=== PATIENT | male | born 1970 | race Hispanic/Latino ===

== ENCOUNTER 2019-08-10 11:41 | Inpatient (IN) | payer BC, OTHER ==
[~2019-08-10] VITALS: Ht 177.8 cm; Wt 90.7 kg
--- NOTE | 2019-08-10 12:19 | Emergency Department Note ---
History of Present Illnes History of Present Illness Chief Complaint: General Medicine Complaints History of Present Illness This is a 49 year old male client here for evaluation, sent by Dr. Hodges for renal failure, uremia. Historian: Patient Arrival Mode: Car Consulting Engineer Required: No Onset (how long ago): week(s) Location: generalized Radiation: non-radiation Severity: moderate Onset quality: gradual Timing of current episode: constant Progression: worsening Chronicity: new Context: recent illness Relieving factors: none Exacerbating factors: none Associated symptoms: denies other symptoms Past Medical/Family History Physician Review I have reviewed the patient's past medical and family history. Any updates have been documented here. Past Medical History Recent Fever: No Clinical Suspicion of Infectio: No New/Unexplained Change in Ment: No Past Medical History: Hypertension, Diabetes, CHF, CVA, ESRD, Hyperlipedemia Past Surgical History: Appendectomy Other Surgery: eye surgery at 10 yrs old Social History Smoking Cessation: Former smoker Counseling Performed: No Alcohol Use: Occasional Any Illegal Drug Use: No TB Exposure/Symptoms: No Physically hurt or threatened: No Family History Family history of heart diseas: Yes Other Any Pre-Existing Lines (PICC,: No Review of Systems Review of Systems Constitutional: no symptoms EENTM: no symptoms Cardiovascular: no symptoms Respiratory: no symptoms Gastrointestinal: no symptoms Genitourinary: no symptoms Musculoskeletal: no symptoms Neurological: other (confusion at times, angry at times) Psychological: no symptoms Endocrine: no symptoms Hematological/Lymphatic: no symptoms Review of other systems All other systems reviewed and negative. Physical Exam Related Data Allergies: Coded Allergies: No Known Allergies (Unverified , 08/10/19) Triage Vital Signs Vital Signs Date Time Temp Pulse Resp B/P (MAP) Pulse Ox O2 Delivery O2 Flow Rate FiO2 08/10/19 11:44 99.5 52 16 134/73 95 Physical Exam CONSTITUTIONAL Constitutional: well-developed, well-nourished HENT HENT: normocephalic, atraumatic, oropharynx clear/moist, nose normal HENT L/R: left ext ear normal, right ext ear normal EYES Eyes: PERRL, conjunctivae normal NECK Neck: ROM normal PULMONARY Pulmonary: effort normal, breath sounds normal CARDIOVASCULAR Cardiovascular: regular rhythm, heart sounds normal, capillary refill normal, normal rate, gallop, LLE edema, RLE edema GASTROINTESTINAL Abdominal: soft, nontender, bowel sounds normal GENITOURINARY Genitourinary: exam deferred SKIN MUSCULOSKELETAL Musculoskeletal: ROM normal NEUROLOGICAL Neurological: alert, oriented x 3, no gross motor or sensory deficits PSYCHOLOGICAL Psychological: mood/affect normal, judgement normal Results Laboratory Laboratory Laboratory Tests Test 08/10/19 11:56 White Blood Count 5.61 x10e3/uL (4.8-10.8) Red Blood Count 2.89 x10e6/uL (4.3-5.7) Hemoglobin 9.0 g/dL (14.0-18.0) Hematocrit 27.7 % (38.2-49.6) Mean Corpuscular Volume 95.8 fL (81-99) Mean Corpuscular Hemoglobin 31.1 pg (28-32) Mean Corpuscular Hemoglobin Concent 32.5 g/dL (31-35) Red Cell Distribution Width 14.6 % (11.7-14.4) Platelet Count 127 x10e3/uL (140-360) Neutrophils (%) (Auto) 69.2 % (38.7-80.0) Lymphocytes (%) (Auto) 7.8 % (18.0-39.1) Monocytes (%) (Auto) 10.9 % (4.4-11.3) Eosinophils (%) (Auto) 11.4 % (0.0-6.0) Basophils (%) (Auto) 0.5 % (0.0-1.0) Neutrophils # (Auto) 3.9 (2.1-6.9) Lymphocytes # (Auto) 0.4 (1.0-3.2) Monocytes # (Auto) 0.6 (0.2-0.8) Eosinophils # (Auto) 0.6 (0.0-0.4) Basophils # (Auto) 0.0 (0.0-0.1) Absolute Immature Granulocyte (auto 0.01 x10e3/uL (0-0.1) Prothrombin Time 17.2 seconds (11.9-14.5) Prothromb Time International Ratio 1.31 Activated Partial Thromboplast Time 40.5 seconds (23.8-35.5) Sodium Level 139 mmol/L (136-145) Potassium Level 4.8 mmol/L (3.5-5.1) Chloride Level 104 mmol/L (98-107) Carbon Dioxide Level 21 mmol/L (22-29) Anion Gap 18.8 mmol/L (8-16) Blood Urea Nitrogen 116 mg/dL (7-26) Creatinine 8.67 mg/dL (0.72-1.25) Estimat Glomerular Filtration Rate 7 ML/MIN (60-) BUN/Creatinine Ratio 13 (6-25) Glucose Level 109 mg/dL (74-118) Calcium Level 6.9 mg/dL (8.4-10.2) Magnesium Level 2.1 MG/DL (1.3-2.1) Total Bilirubin 0.4 mg/dL (0.2-1.2) Aspartate Amino Transf (AST/SGOT) 15 IU/L (5-34) Alanine Aminotransferase (ALT/SGPT) 9 IU/L (0-55) Alkaline Phosphatase 73 IU/L (40-150) Creatine Kinase 258 IU/L (30-200) Creatine Kinase MB 10.20 ng/mL (0-5.0) Troponin I 0.055 ng/mL (0-0.300) B-Type Natriuretic Peptide 3397.5 pg/mL (0-100) Total Protein 6.5 g/dL (6.5-8.1) Albumin 2.9 g/dL (3.5-5.0) Globulin 3.6 g/dL (2.3-3.5) Albumin/Globulin Ratio 0.8 (0.8-2.0) Lab results reviewed: Yes Imaging Imaging results reviewed: Yes Impressions X-ray chest AP portable Comparison: None History: Renal failure Findings: Central airways unremarkable. Cardiomegaly. Right pleural effusion. No pneumothorax. Compressive atelectasis of the right lower lung zone. Bilateral pulmonary vascular redistribution with peribronchial thickening and faint nodular opacities. The findings support interstitial pulmonary edema. Visualized skeletal structures and upper abdomen unremarkable. Impression: Cardiomegaly. Right pleural effusion. Interstitial pulmonary edema. This could be cardiogenic or noncardiogenic volume overload edema due to renal failure. Clinical correlation is requested. Signed by: Eber Snow MD on 08/10/2019 1:05 PM Diagnostics Tests Diagnostic test(s) reviewed: Yes Procedures 12 Lead ECG Interpretation Consulting Engineer: Interpreted by ED physician Date: August 10, 2019 Time: 13:32 Prior MOTOR OPERATOR tracings: reviewed Rhythm: sinus bradycardia Rate: bradycardia (56) QRS axis: left Conduction: left bundle branch block ST segments normal: Yes T wave depression: aVL Q waves: V1, V2, V3 Clinical Impression: abnormal ECG Critical Care Time Subsequent provider I assumed direction of critical care for this patient from another provider of my specialty. Assessment & Plan Assessment & Plan Final Impression: (1) ESRD (end stage renal disease) (2) ESRD needing dialysis Assessment & Plan ADMIT - SPOKE WITH DR REYES AND DR MCKEON Depart Disposition: ADMITTED Last Vital Signs Date Time Temp Pulse Resp B/P (MAP) Pulse Ox O2 Delivery O2 Flow Rate FiO2 08/10/19 11:44 99.5 52 16 134/73 95 RAJWINDER MERRITT MD August 10, 2019 12:19
[2019-08-10 12:21] LABS: BASOPHILS % 0.5 % (0.0-1.0); EOSINOPHILS # (AUTO) 0.6 (0.0-0.4); EOSINOPHILS % 11.4 % (0.0-6.0); HEMATOCRIT 27.7 % (38.2-49.6); LYMPHOCYTES # (AUTO) 0.4 (1.0-3.2); LYMPHOCYTES % 7.8 % (18.0-39.1); MEAN CORPUSCULAR HEMOGLOBIN 31.1 pg (28-32); MEAN CORPUSCULAR HGB CONC 32.5 g/dL (31-35); MEAN CORPUSCULAR VOLUME 95.8 fL (81-99); MONOCYTES # (AUTO) 0.6 (0.2-0.8); MONOCYTES % 10.9 % (4.4-11.3); NEUTROPHILS # (AUTO) 3.9 (2.1-6.9); NEUTROPHILS % 69.2 % (38.7-80.0); PLATELET COUNT 127 x10e3/uL (140-360); RED BLOOD COUNT 2.89 x10e6/uL (4.3-5.7); RED CELL DISTRIBUTION WIDTH 14.6 % (11.7-14.4)
--- NOTE | 2019-08-10 12:23 | NUR ---
client feet unwrapped and noted to be red, scaly and dry. no weeping, no open blisters, no wounds.
[2019-08-10 12:44] LABS: INR 1.31; PROTHROMBIN TIME 17.2 seconds (11.9-14.5)
[2019-08-10 12:45] LABS: PARTIAL THROMBOPLASTIN TIME 40.5 seconds (23.8-35.5)
[2019-08-10 12:52] LABS: ALBUMIN 2.9 g/dL (3.5-5.0); ALBUMIN/GLOBULIN RATIO 0.8 (0.8-2.0); ANION GAP 18.8 mmol/L (8-16); CREATININE, SERUM 8.67 mg/dL (0.72-1.25); MAGNESIUM 2.1 MG/DL (1.3-2.1); POTASSIUM 4.8 mmol/L (3.5-5.1)
[2019-08-10 12:54] LABS: CALCIUM 6.9 mg/dL (8.4-10.2)
[2019-08-10 12:58] LABS: CREATINE KINASE MB 10.2 ng/mL (0-5.0)
--- NOTE | 2019-08-10 13:09 | Diagnostic Imaging Report ---
X-ray chest AP portable Comparison: None History: Renal failure Findings: Central airways unremarkable. Cardiomegaly. Right pleural effusion. No pneumothorax. Compressive atelectasis of the right lower lung zone. Bilateral pulmonary vascular redistribution with peribronchial thickening and faint nodular opacities. The findings support interstitial pulmonary edema. Visualized skeletal structures and upper abdomen unremarkable. Impression: Cardiomegaly. Right pleural effusion. Interstitial pulmonary edema. This could be cardiogenic or noncardiogenic volume overload edema due to renal failure. Clinical correlation is requested. Signed by: Eber Snow MD on 08/10/2019 1:05 PM
[2019-08-10] MEDS ORDERED: FAMOTIDINE 20 MG/2 ML VIAL IV SCH (14:00)
[2019-08-10] MEDS ORDERED: ONDANSETRON HCL INJ 2MG/ML 2ML 2 MG/ML VIAL IV PRN ×2 (14:00→17:30)
[2019-08-10] MEDS ORDERED: DEXTROSE 50% SYRINGE 50 ML IV PRN (14:15)
[2019-08-10] MEDS ORDERED: HYDRALAZINE HCL 20 MG/ML VIAL IV PRN (14:15)
[2019-08-10] MEDS ORDERED: HEPARIN SOD (PORCINE) 1000 UNIT/ML SDV ONE (15:20)
[2019-08-10] MEDS ORDERED: FENTANYL CITRATE/PF 100MCG/2 ML INJ ONE (15:20)
[2019-08-10] MEDS ORDERED: MIDAZOLAM HCL 2 MG/2 ML VIAL ONE (15:20)
[2019-08-10] MEDS ORDERED: INSULIN REGULAR, HUMAN 100 UNIT/1 ML 3ML VIAL SQ SCH (16:30)
--- NOTE | 2019-08-10 17:06 | Diagnostic Imaging Report ---
Procedure: Tunneled dialysis catheter placement. History: Need for hemodialysis. Attorney Recruiter: Eber Snow MD. Caustic Strength Inspector: Oralia Modality: Sonography and fluoroscopy. DOSE REDUCTION: The examination was performed according to departmental dose-optimization program. Fluoro time: 0.2 minutes Radiation dose for this procedure was 3.3 mGy air Kerma. Number of images: 13 Sedation: Versed 1.5 mg and fentanyl 50 mcg was given intravenously for conscious sedation. Vital signs were monitored throughout the procedure by a dedicated RN under direct supervision of Dr. Snow, and remained stable. Medicines: Not applicable. Anesthesia: Lidocaine local infiltration. Physician intraprocedure sedation time was approximately 30 minutes. Estimated blood loss: < 5 cc. Technique: Informed written consent was obtained. Discussion of risks, benefits, and alternatives were made with the patient. The patient expressed understanding and agreed to proceed. A universal timeout was performed prior to starting the procedure. The procedure room personnel used personal protective equipment. The operators used sterile gowns and gloves additionally. A preliminary ultrasonogram was performed of the neck that revealed a patent and compressible right internal jugular vein. Pertinent ultrasound images were stored in the PACS for documentation. A sterile prep and drape of the right neck and upper chest was performed using standard technique. Using aseptic precautions, real-time ultrasound guidance, the internal jugular vein was accessed after local anesthetic infiltration and dermatotomy with a micropuncture needle. A 018 guidewire was advanced into the central venous system under fluoroscopic guidance. Over the wire a micropuncture sheath was placed. Through the micropuncture sheath, a 035 wire was advanced into the venous system under fluoroscopic guidance. Over the wire a peel-away sheath was placed. After local anesthesia, an incision was created in the subclavicular exit site location and a cuffed tunneled dialysis catheter of an appropriate length was tunneled from the exit site to the venotomy site using a tunneling device. The catheter was advanced into the venous system through the peel-away sheath which was removed. The catheter aspirated and flushed well and was terminally packed with heparin 1000 units per cc. The catheter was secured to skin using nonabsorbable suture and a CHG dressing applied. The venotomy site was closed using Dermabond. An aseptic dressing was applied using the protocol for Dermabond. The patient was transferred to the recovery area and was discharged from the department in stable condition. Complications: None immediate. Device: 15.5 Mongolian x 19 cm cuff to tip palindrome catheter. Findings: Patent and compressible right internal jugular vein. Final image shows the catheter to be in good position with the catheter tip in the right atrium, an excellent position for use. There is no complication. Impression: Successful ultrasound and fluoroscopic guided right internal jugular vein route cuffed tunneled hemodialysis catheter placement as described above. Thank you for the opportunity to assist in the care of your patient. Signed by: Eber Snow MD on 08/10/2019 5:02 PM
[2019-08-10] MEDS: CALAMINE LOTION 4 OZ BOTTLE TP SCH ×2 (17:16→21:14)
[2019-08-10] MEDS: DIPHENHYDRAMINE HCL 25 MG CAP PO PRN ×2 (17:57→21:00)
[2019-08-10 17:59] VITALS: BP 146/91
[2019-08-10 18:00] VITALS: BP 146/91
[2019-08-10 18:07] VITALS: BP 146/91
--- NOTE | 2019-08-10 18:31 | NUR ---
patient received from ER via stretcher. dialysis to be started. see admit assess. consent obtained and all procedures explained.
[2019-08-10 20:00] VITALS: BP 123/62
[2019-08-10] MEDS: INSULIN REGULAR, HUMAN 100 UNIT/1 ML 3ML VIAL SQ SCH (21:00)
[2019-08-10 21:19] VITALS: BP 107/53
--- NOTE | 2019-08-10 21:40 | Consultation ---
DATE OF CONSULTATION: 08/10/2019 REFERRING PHYSICIANS: 1. Dr. Latisha Walters MD. 2. Av Daly MD. HISTORY OF PRESENT ILLNESS: The patient is a 49-year-old male, who presents to the emergency room with complaints of shortness of breath and fluid overload. He has a long history of chronic renal failure and now has reached end-stage. He has started hemodialysis today, but request also was made for placement of peritoneal dialysis catheter for long-term hemodialysis. The patient says his renal failure is secondary to hypertension. PAST MEDICAL HISTORY: As stated above history of blindness, history of hypertension and chronic kidney disease not reached end-stage. ALLERGIES: HE HAS NO KNOWN ALLERGIES. PAST SURGICAL HISTORY: Appendectomy and eye surgery. FAMILY HISTORY: Noncontributory. SOCIAL HISTORY: The patient does not smoke cigarettes or drink alcohol. REVIEW OF SYSTEMS: As stated above, otherwise was negative. PHYSICAL EXAMINATION: GENERAL: The patient is awake and alert. VITAL SIGNS: Normal. HEENT: He has decreased vision. NECK: No masses. LUNGS: Decreased breath sounds at the right base. CARDIAC: Regular rate and rhythm. ABDOMEN: Soft. There was no tenderness, no mass, and no distention. EXTREMITIES: Some edema. NEUROLOGIC: Intact. LABORATORY DATA: White blood count is normal, hemoglobin 9, hematocrit 27. Chemistries with elevated BUN 116, creatinine 8.67. ASSESSMENT: A 49-year-old male with end-stage renal disease will need access for long-term hemodialysis. We started hemodialysis now and once he is stable, then we will plan to schedule placement of tunneled peritoneal dialysis catheter in the operating room. This was explained to the patient. Thank you for asking me to see Mr. Hancock. MD EDILSON WoodruffG/MODL /[id number]
[2019-08-10 22:05] LABS: CLARITY,URINE CLEAR (CLEAR); COLOR,URINE YELLOW (YELLOW); KETONES,URINE NEGATIVE (NEGATIVE); LEUKOCYTE ESTERASE ,URINE NEGATIVE (NEGATIVE); NITRITE,URINE NEGATIVE (NEGATIVE); PROTEIN,URINE DIPSTICK 2+ (NEGATIVE); URINE UROBILINOGEN 0.2 mg/dL (0.2 - 1)
[2019-08-10 22:06] LABS: BILIRUBIN,URINE NEGATIVE (NEGATIVE)
[2019-08-10 22:23] LABS: BACTERIA,URINE MODERATE /HPF; RBC,URINE 0-5 /HPF (0-5)
[2019-08-10] MEDS: ACETAMINOPHEN 325 MG TAB PO PRN (23:51)
[2019-08-11] VITALS (8 sets, daily range): BP systolic 129–155; BP diastolic 67–87
--- NOTE | 2019-08-11 00:16 | History and Physical ---
PRIMARY CARE PHYSICIAN: [facility]. CHIEF COMPLAINT: Abnormal blood work. HISTORY OF PRESENT ILLNESS: This is a 49-year-old male with past medical history of high blood pressure, congestive heart failure, diabetes resulting in chronic kidney disease, stage 4. He reported that he was seeing Dr. Daly to initiate dialysis and he had some blood work drawn at the office and was called to present to the ER for his abnormal blood work. He denies any chest pain, shortness of breath, fever, chills, cough, nausea, or vomiting. PAST MEDICAL HISTORY: 1. Hypertension. 2. Congestive heart failure. 3. Diabetes type 2. 4. CKD 4. SURGICAL HISTORY: Denies any. FAMILY MEDICAL HISTORY: Reports mother had cancer, heart disease and father's side of the family has heart disease. SOCIAL HISTORY: He denies any tobacco or illicit drug use. He reports quit alcohol use at 2014 when he was diagnosed with congestive heart failure. ALLERGIES: NO KNOWN DRUG ALLERGIES. REVIEW OF SYSTEMS: GENERAL: No fever. HEENT: No headache. LUNGS: No shortness of breath or cough. CARDIOVASCULAR: No chest pain. GI: No nausea or vomiting. NEURO: No dizziness. SKIN: Very dry and scaly. PHYSICAL EXAMINATION: VITAL SIGNS: Temperature 98.8, pulse is 60, respirations 20, blood pressure 146/91, pulse ox is 100% on room air. GENERAL: No acute distress. HEENT: Normocephalic. Vision loss due to diabetes. NECK: Supple. LUNGS: Clear to auscultation. CARDIOVASCULAR: Regular rate and rhythm. GI: Soft and nontender. NEUROLOGIC: Alert, awake, and oriented x3. MUSCULOSKELETAL: Moves all extremities. SKIN: Generalized rash due to scratching and very dry skin with lower extremity discoloration. PSYCH: Calm. LABORATORY DATA: WBC 5.61, hemoglobin 9.0, hematocrit 27.7, platelet 127. Sodium 139, potassium 4.8, CO2 of 21, BUN is 116, creatinine is 8.67, glucose 109, calcium is 6.9, AST 15, ALT 9, CK 258, troponin 0.055. BNP 3397. PT 17.2, INR 1.31, APTT 40.5. IMAGING: Chest x-ray, cardiomegaly with right pleural effusion. Interstitial pulmonary edema, likely due to fluid volume overload edema due to renal failure. IMPRESSION: 1. Acute on chronic renal failure. Creatinine 8.67. IR was consulted for tunnel dialysis catheter. Nephrology is on the case to initiate dialysis. 2. Hypocalcemia. We will defer to Nephrology. 3. Hypertension. We will resume home medications once is reconciled. Currently stable. We will treat as needed with hydralazine IV. 4. 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 Sliding scale insulin a.c. and HS. 5. History of congestive heart failure. We will check echo. 6. Bilateral lower extremity discoloration and swelling. We will check venous Doppler to rule out DVT. 7. Deep venous thrombosis prophylaxis. Heparin subcu. Dictated by BUCKY Mackey Latisha Walters MD MY/MODL /[id number] Pt seen and examined on 08/10/19. Agree with the findings and plan as documented by BUCKY Toth. MACKENZIE
[2019-08-11 05:12] LABS: BASOPHILS % 0.5 % (0.0-1.0); EOSINOPHILS # (AUTO) 0.8 (0.0-0.4); EOSINOPHILS % 12.3 % (0.0-6.0); HEMATOCRIT 24.8 % (38.2-49.6); HEMOGLOBIN 8.1 g/dL (14.0-18.0); LYMPHOCYTES # (AUTO) 0.4 (1.0-3.2); MEAN CORPUSCULAR HEMOGLOBIN 31.5 pg (28-32); MEAN CORPUSCULAR HGB CONC 32.7 g/dL (31-35); MEAN CORPUSCULAR VOLUME 96.5 fL (81-99); MONOCYTES # (AUTO) 0.7 (0.2-0.8); MONOCYTES % 12.1 % (4.4-11.3); NEUTROPHILS # (AUTO) 4.2 (2.1-6.9); NEUTROPHILS % 68.8 % (38.7-80.0); PLATELET COUNT 95 x10e3/uL (140-360); RED BLOOD COUNT 2.57 x10e6/uL (4.3-5.7); RED CELL DISTRIBUTION WIDTH 14.3 % (11.7-14.4)
[2019-08-11 05:24] LABS: % IRON SATURATION 20 % (15-50); ALBUMIN 2.6 g/dL (3.5-5.0); ALBUMIN/GLOBULIN RATIO 0.8 (0.8-2.0); CHOL/HDL RATIO 2.3 (3.9-4.7); CREATININE, SERUM 6.34 mg/dL (0.72-1.25); IRON 50 ug/dL (65-175); TOTAL IRON BINDING CAPACITY 244 ug/dL (261-478); TRANSFERRIN 174 mg/dL (174-364)
[2019-08-11 05:27] LABS: CALCIUM 6.9 mg/dL (8.4-10.2)
[2019-08-11] MEDS: DIPHENHYDRAMINE HCL 25 MG CAP PO PRN (05:30)
[2019-08-11 05:41] LABS: CREATINE KINASE MB 11.4 ng/mL (0-5.0)
[2019-08-11] MEDS: INSULIN REGULAR, HUMAN 100 UNIT/1 ML 3ML VIAL SQ SCH ×4 (07:30→21:30)
[2019-08-11 07:33] LABS: EOSINOPHILS % (MANUAL) 12 % (0-7); LYMPHOCYTES % (MANUAL) 7 % (19-48); MONOCYTES % (MANUAL) 7 % (3.4-9.0); NEUTROPHILS % (MANUAL) 74 % (40-74); PLATELET ESTIMATE SLIGHTLY DECREASED; PLATELET MORPHOLOGY COMMENT NORMAL; RBC MORPHOLOGY COMMENT NORMAL
[2019-08-11 07:55] LABS: PLATELET CLUMPS RARE
[2019-08-11] MEDS ORDERED: SODIUM CHLORIDE 0.9% 1000ML 2,000 ML ONE (08:33)
[2019-08-11] MEDS: CALAMINE LOTION 4 OZ BOTTLE TP SCH ×3 (08:48→21:40)
--- OUTSIDE RECORDS SUMMARY | 2019-08-11 09:00 | XMS REPORT | Clinical Summary ---
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 hyperlipidemia type Active bumetanide (BUMEX) 2 mg Take 1/2 of a 180 tablet 1 tabletIndications: Acute tablet by 0 systolic congestive heart mouth 2 times failure daily. Active amLODIPine (NORVASC) 5 mg Take 1 tablet 90 tablet 1 tabletIndications: Acute by mouth 0 systolic congestive heart daily. failure Active clopidogreL (PLAVIX) 75 Take 1 tablet 90 tablet 1 mg tabletIndications: by mouth 0 Acute systolic congestive daily. heart failure Active carvediloL (COREG) 12.5 Take 1 tablet 180 tablet 6 mg tabletIndications: by mouth 2 0 Acute systolic congestive times daily heart failure, (with meals). Uncontrolled hypertension Active hydrocortisone 2.5 % Apply to 59 mL 0 08/01 lotionIndications: affected area 0 Itching 2 times daily. 08/02/2019 Discontinued (Therapy comple aurna) carvedilol (COREG) 6.25 Take 1 tablet 90 tablet 2 mg tabletIndications: by mouth 2 6 Acute systolic congestive times daily. heart failure 08/02/2019 Discontinued (Therapy comple aruna) metFORMIN (GLUCOPHAGE) Take 1 tablet 180 tablet 1 0 500 mg tabletIndications: by mouth 2 6 Acute systolic congestive times daily heart failure (with meals). 08/02/2019 Discontinued (Therapy comple aruna) losartan (COZAAR) 100 mg Take 1 tablet 90 tablet 6 tabletIndications: Acute by mouth 6 systolic congestive heart daily. failure 08/02/2019 Discontinued (Reorder) carvedilol (COREG) 12.5 Take 1 tablet 180 tablet 6 mg tabletIndications: by mouth 2 6 Acute systolic congestive times daily heart failure (with meals). 08/02/2019 Discontinued (Therapy comple aruna) atorvastatin (LIPITOR) 20 Take 1 tablet 90 tablet 3 mg tabletIndications: by mouth at 6 Acute systolic congestive bedtime heart failure nightly. 08/02/2019 Discontinued (Therapy comple aruna) lisinopril (PRINIVIL, Take 1 tablet 90 tablet 3 ZESTRIL) 20 mg by mouth 6 tabletIndications: Acute daily. systolic congestive heart failure 08/02/2019 Discontinued (Therapy comple aruna) furosemide (LASIX) 40 mg Take 1 tablet 90 tablet 3 tabletIndications: Acute by mouth 6 systolic congestive heart daily. failure 08/02/2019 Discontinued (Therapy comple aruna) metFORMIN (GLUCOPHAGE) Take 1 tablet 180 tablet 3 0 500 mg tabletIndications: by mouth 2 6 Acute systolic congestive times daily heart failure (with meals). 08/02/2019 Discontinued (Therapy comple aruna) glipiZIDE (GLUCOTROL) 5 Take 1 tablet 180 tablet 3 mg tabletIndications: by mouth 2 6 Acute systolic congestive times daily heart failure (before meals). 08/02/2019 Discontinued (Therapy comple aruna) hydrALAZINE (APRESOLINE) Take 2 540 tablet 3 1 25 mg tabletIndications: tablets by 6 Acute systolic congestive mouth every 8 heart failure hours. Active Problems Problem Noted Date Acute congestive heart failure 08/10/2015 LBBB (left bundle branch block) 08/10/2015 Uncontrolled hypertension 08/10/2015 Creatinine elevation 08/10/2015 Encounters Care Team Description Date Type Specialty Angie Ware NP Dermatologic problem (Primary Dx); Acute systolic congestive heart failure; Uncontrolled hypertension; Acute renal failure superimposed on stage 4 chronic kidney disease, unspecified acute renal failure type; Itching; Hyperlipidemia, unspecified hyperlipidemia type; Encounter for preventive care; Colon cancer screening 08/02/2019 Telephonic Family Practice Encounter after 08/09/2018 Immunizations Name Administration Dates Next Due PPV 23 Pneumococcal 08/09/2015 Polysaccaride Social History Date Tobacco Use Types Packs/Day Years Used Never Smoker Drinks/Week oz/Week Comments Alcohol Use No Sex Assigned at Date Recorded Not on file Industry Job Start Date Occupation Not on file Not on file Not on file Travel End Travel History Travel Start No recent travel history available. Date Recorded COVID-19 Exposure Response 08/01/2019 12:59 PM CDT In the last month, have you been in contact with No / Unsure someone who was confirmed or suspected to have Coronavirus / COVID-19? Last Filed Vital Signs Reading Time Taken Comments Vital Sign 149/82 08/02/2019 9:52 AM CDT Blood Pressure 58 08/02/2019 9:52 AM CDT Pulse - - Temperature - - Respiratory Rate - - Oxygen Saturation - - Inhaled Oxygen Concentration - - Weight - - Height - - Body Mass Index Plan of Treatment Health Maintenance Due Date Last Done Comments Colorectal Cancer Scrn 2018 Annual (FIT/FOBT) Age 50 to 75 IMM Influenza Seasonal 12/22/2019Dec to May (>/= 19 yrs) Procedures Comments Procedure Name Priority Date/Time Associated Diag nosis CBC Routine 08/04/2019 Uncontrolled hy pertension 11:07 AM CDT VIT D, 25-HYDROXY Routine 08/04/2019 Encounter fo r preventive 11:07 AM CDT care HIV-1/HIV-2 ROUTINE Routine 08/04/2019 Encounter for preventive SCREENING 11:07 AM CDT care HEPATITIS PANEL Routine 08/04/2019 Encounter for preventive 11:07 AM CDT care HEMOGLOBIN A1C Routine 08/04/2019 Encounter for p reventive 11:07 AM CDT care THYROID STIMULATING Routine 08/04/2019 Encounter for preventive HORMONE (TSH) 11:07 AM CDT care FREE T4 Routine 08/04/2019 Encounter for p reventive 11:07 AM CDT care COMPREHENSIVE METABOLIC Routine 08/04/2019 Uncont rolled hypertension PANEL 11:07 AM CDT CBC/DIFF Routine 08/04/2019 Uncontrolled hy pertension 11:07 AM CDT MICROALBUMIN / CREATININE Routine 08/04/2019 Acut e renal failure URINE RATIO 11:07 AM CDT superimposed on sta ge 4 chronic kidney disease, unspecified acute renal failure type LIPID PROFILE Routine 08/04/2019 Hyperlipidemia, 11:07 AM CDT unspecified hyperlipidemia type HEMOCCULT KIT FOR Routine 08/02/2019 Colon cancer screening SPECIMEN COLLECTION AT 9:48 AM CDT HOME after 08/09/2018 Results * CBC/Diff (08/04/2019 11:07 AM CDT) WBC 6.8 4.5 - 12.0 K/uL [facility] RBC 2.94 (L) 4.60 - 6.20 M/uL [facility] Hemoglobin 9.2 (L) 14.0 - 18.0 g/dL [facility] Hematocrit 28.6 (L) 40.0 - 54.0 % [facility] MCV 97.3 (H) 82.0 - 92.0 fL [facility] MCH 31.3 (H) 27.0 - 31.0 pg [facility] MCHC 32.2 32.0 - 36.0 g/dL [facility] RDW 53.5 (H) 35.1 - 43.9 fL [facility] Platelet 120 (L) 150 - 400 K/uL [facility] Mean Platelet 10.5 9.4 - 12.4 fL [facility] Volume [facility] Percent NRBC 0.0 % [facility] Neutrophil 72.3 (H) 34.0 - 67.9 % [facility] Lymphs 6.9 (L) 21.8 - 50.0 % [facility] Monocytes 9.7 5.3 - 12.0 % [facility] Eos 10.1 (H) 0.8 - 5.0 % [facility] Basos 0.4 0.2 - 1.2 % [facility] Immature 0.6 (H) 0.0 - 0.5 % [facility] Granulocytes [facility] Neutrophils 4.91 1.78 - 5.36 K/uL [facility] (Absolute) [facility] Lymphs 0.47 (L) 1.32 - 3.57 K/uL [facility] (Absolute) [facility] Monocytes(Absol 0.66 0.30 - 0.82 K/uL [facility] sher) [facility] Eos (Absolute) 0.69 (H) 0.04 - 0.54 K/uL [facility] Baso (Absolute) 0.03 0.01 - 0.08 K/uL [facility] Immature Grans 0.04 (H) 0.00 - 0.03 K/uL [facility] (Abs) [facility] Absolute NRBC 0.00 K/uL [facility] Specimen Blood Performing Organization Address [facility] one Number [facility] [address] [place] [address] [phone] * Vitamin D, 25-Hydroxycalciferol (08/04/2019 11:07 AM CDT) Vit D, 36.2 30.0 - 100.0 ng/mL [facility] 25-Hydroxy [facility] Vitamin D Sufficient Sufficient [facility] Interpretation Comment: [facility] Sufficient: >30.0 Insufficient: 20.0 - 29.9 Deficient: <20.0 Specimen Blood Performing Organization Address [facility] one Number [facility] [address] [place], [place] [id number] * HIV-1/HIV-2 Routine Screening (08/04/2019 11:07 AM CDT) Pathologist [facility] HIV-1/HIV-2 Negative Negative [facility] Specimen Blood Performing Organization Address [facility] one Number [facility] [address] [place], [place] [phone] * Microalb/Crea Ratio,Ur (08/04/2019 11:07 AM CDT) Microalbumin, 83.8 (H) <30.0 mg/dL [facility] Random [facility] Creatinine, 42 20 - 370 mg/dL [facility] Urine [facility] Urine 1,995.2 (H) 0.0 - 30.0 mg/g [facility] Microalbumin [facility] Specimen Urine - Voided, urine Performing Organization Address [facility] one Number [facility] [address] [place] [address] * Hemoglobin A1C (08/04/2019 11:07 AM CDT) Hemoglobin A1c 6.2 (H) 4.3 - 6.1 % [facility] Estimated 131 (H) 70 - 110 mg/dL [facility] Average Glucose [facility] Specimen Blood Performing Organization Address [facility] one Number [facility] [address] [place] [address] [phone] * Comprehensive Metabolic Panel (08/04/2019 11:07 AM CDT) Sodium 139 136 - 145 mmol/L [facility] Potassium 4.9 3.5 - 5.1 mmol/L [facility] Chloride 101 98 - 107 mmol/L [facility] CO2 26 21 - 31 mmol/L [facility] Glucose 118 (H) 70 - 110 mg/dL [facility] Calcium 7.1 (L) 8.6 - 10.3 mg/dL [facility] Urea Nitrogen 128.0 (HH) 7.0 - 25.0 mg/dL [facility] Creatinine 8.2 (HH) 0.7 - 1.3 mg/dL [facility] Alkaline 75 34 - 104 U/L [facility] Phosphatase [facility] ALT 9 7 - 52 U/L [facility] AST 13 13 - 39 U/L [facility] Bilirubin, 0.5 0.2 - 1.2 mg/dL [facility] Total [facility] Total Protein 5.8 (L) 6.0 - 8.3 g/dL [facility] GFR, Estimated 7 (L) >=90 mL/min/1.73 m2 [facility] Albumin 3.3 (L) 4.2 - 5.5 g/dL [facility] Anion Gap 12 5 - 16 mmol/L [facility] Specimen Blood Performing Organization Address [facility] one Number [facility] [address] [place] [address] * TSH (08/04/2019 11:07 AM CDT) TSH 3.89 0.45 - 5.33 uIU/mL [facility] Specimen Blood Performing Organization Address [facility] one Number [facility] [address] [place] [address] [phone] * Free T4 (08/04/2019 11:07 AM CDT) Free T4 1.07 0.64 - 1.42 ng/dl [facility] Specimen Blood Performing Organization Address [facility] one Number [facility] [address] [place] [address] [phone] * Lipid Profile (08/04/2019 11:07 AM CDT) Cholesterol 59.0 <=200.0 mg/dL [facility] Triglyceride 51 <150 mg/dL [facility] HDL 29.0 See Reference Range [facility] Narrative. mg/dL [facility] LDL 20 <100 mg/dL [facility] Comment: [facility] Optimal: < 100.0 mg/dL Near Optimal: 120-129 mg/dL Borderline: 130-159 mg/dL High: 160-189 mg/dL Very High: >=190 mg/dL Patient No [facility] Fasting? [facility] Specimen Blood Narrative Performed At Patient is not fasting. For a triglyceride result gre ater than 440 mg/dL, [facility] consider re-testing when the patient is in a fasting state. Performing Organization Address [facility] one Number [facility] [address] [place] [address] * Hepatitis Panel (08/04/2019 11:07 AM CDT) Hep C Vir Ab Negative Negative [facility] IgG [facility] Hep B Surface Negative Negative [facility] Ag [facility] Hep A Vir Ab Negative Negative [facility] IgM [facility] Hep B Core Ab Negative Negative [facility] IgM [facility] Specimen Blood Performing Organization Address [facility] one Number [facility] [address] [place] [address] after 08/09/2018 Insurance Type Payer Benefit Subscriber ID Effective Phone Address Plan / Dates Group BC/BS HMO BLUE xxxxxxxxxxxx 2019-P [phone] [address] [place] resent [id number] FELECIA RAMIREZ [id number] Guarantor Name Account Relation to Date of Phone Billin g Address Type Patient HANCOCK,TARAN Romero Personal/F Head of [address] amily Household (Home) [place], [place] [address] (Self) Advance Directives Date Inactivated Comments Code Status Date Activated 08/11/2015 3:39 PM Full Code 08/09/2015 4:28 PM 08/09/2015 4:28 PM Full Code 08/09/2015 2:02 PM
--- OUTSIDE RECORDS SUMMARY | 2019-08-11 09:01 | XMS REPORT | Continuity of Care Document ---
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 and stage 1 through stage 4 chronic kidney disease, or unspecified chronic kidney disease 04/22/2018 10/26/2018 [facility] CHF EXACERBATION Active 04/05/2018 [facility] SHORTNESS OF BREATH Active 04/05/2018 [facility] WEAKNESS Active 09/16/2017 [facility] BRAIN TIA Active 09/16/2017 [facility] Acute on chronic systolic (congestive) heart failure 10/26/2018 [facility] Other cardiomyopathies 10/26/2018 [facility] Hypocalcemia 10/26/2018 [facility] Hyperlipidemia, unspecified 10/26/2018 [facility] Anemia in other chronic diseases classified elsewhere 10/26/2018 [facility] Chronic kidney disease, unspecified 10/26/2018 [facility] Type 2 diabetes mellitus with diabetic c hronic kidney disease 10/26/2018 [facility] Personal history of transient ischemic a ttack (TIA), and cerebral infarction without residual deficits 10/26/2018 [facility] 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 10/26/2018 [facility] prison (current) use of antithromboti cs/antiplatelets 10/26/2018 [facility] Patient's noncompliance with other medic al treatment and regimen 10/26/2018 [facility] Cardiomyopathy (disorder) Acti ve Problem [facility] Chronic kidney disease stage 4 (disorder) Active Problem 03/10/2019 [facility] Diabetes mellitus (disorder) A ctive Problem [facility] Dyslipidemia (disorder) Active Problem 03/10/2019 [facility] Hypertensive disorder, systemic arterial (disorder) Active Problem 03/10/2019 [facility] HEART FAILURE, UNSPECIFIED Act martell [facility] PNEUMONIA, UNSPECIFIED ORGANISM Active [facility] END STAGE RENAL DISEASE Active [facility] HYPERKALEMIA Active [facility] Medications Medication Details Route Status Patient Instructions Ordering Provider Order Date Source Coreg Notes: Give with food. ( Same As: Coreg) Inactive 03/08/2019 [facility] bumetanide 2 mg oral tablet 2 mg = 1 tab, PO, BID, # 30 tab, 0 Refill(s), Pharmacy: [id number] Active 03/08/2019 [facility] Amlodipine Notes: (Same as: No rvasc) Inactive 03/08/2019 [facility] bumetanide 10 mg + Sodium Chloride 0.9% (titrate) 60 m L Notes: (Same As: Bumex) No Longer Active 03/07/2019 [facility] Bumex Notes: (Same As: Bumex) No Longer Active 03/04/2019 [facility] Calcium Gluconate Notes: WASTE : F/P - Sink; E - Municipal Trash Bin Inactive 03/04/2019 [facility] Melatonin 3 MG Extended Release Tablet 3 mg, 1 tab, Route: PO, Dosing Weight 102.273, kg, ONCE, PRN Sleep, Routine, Start date: 03/02/19 22:05:00 LANDSCAPE SPECIALIST Inactive 03/03/2019 [facility] heparin sodium, porcine 2500 UNT/ML Injectable Solutio n Notes: porcine heparin No Longer Active 03/03/2019 [facility] Melatonin 3 MG Extended Release Tablet Notes: (Same as: Melatonin) No Longer Active 03/03/2019 [facility] atorvastatin Notes: (Same as: Lipitor) No Longer Active 03/03/2019 [facility] Coreg Notes: Give with food. ( Same As: Coreg) No Longer Active 03/02/2019 [facility] Plavix Notes: (Same As: Plavix) No Longer Active 03/02/2019 [facility] 24 HR Nitroglycerin 0.4 MG/HR Transdermal Patch Notes: Apply only once for up to 12 hours in a 24 hour period (12 hours on and 12 hours off.) (Same as:Nitro-Dur,Deponit,Transderm Nitro) For topical use only. "Remove old patch before application of new patch" No Longer Active 03/02/2019 [facility] Saline Flush 0.9% Notes: (Same as: BD Posiflush) No Longer Active 03/02/2019 [facility] Furosemide Notes: (Same as: Shamika pereira) MEDICATION WASTE Product Size: 100 mg Product Wasted: ___ mg No Longer Active 03/02/2019 [facility] Sodium Chloride 0.9% (titrate) 60 mL + bumetanide 10 m g 60 mL, Rate: Infuse as directed, Dosing Weight 102.273, kg, Route: IV, Total Volume: 60 mL, Start Date: 03/02/19 8:11:00 LANDSCAPE SPECIALIST, Duration: 30 day, Stop date: 04/01/19 8:10:00 LANDSCAPE SPECIALIST, Replace Every: 24 hr Inactive 03/02/2019 [facility] influenza virus vaccine, inactivated Notes: (Same as: Fluzone Quadrivalent, Fluarix Quadrivalent) For patients 6 - 35 months of age (0.5 mL IM) For 3 years of age and older (0.5 mL IM) Shake well before use No Longer Active 03/02/2019 [facility] Furosemide Notes: (Same as: Shamika pereira) MEDICATION WASTE Product Size: 100 mg Product Wasted: ___ mg Inactive 03/02/2019 [facility] Dextrose 50% Syringe (D50W) 12 ,500 mg, 25 mL, Route: IVP, Drug Form: INJ, Dosing Weight 102.273, kg, PRN, PRN Blood Glucose Results, Start date: 03/02/19 5:17:00 LANDSCAPE SPECIALIST, Duration: 30 day, Stop date: 04/01/19 5:16:00 LANDSCAPE SPECIALIST, 0 No Longer Active 03/02/2019 [facility] Glucagon 1 mg, Route: IM, Drug form: PDR/INJ, PRN, Dosing Weight 102.273, kg, PRN Blood Glucose Results, Start date: 03/02/19 5:17:00 LANDSCAPE SPECIALIST, Duration: 30 day, Stop date: 04/01/19 5:16:00 LANDSCAPE SPECIALIST, 0 No Longer Active 03/02/2019 [facility] Insulin Lispro Notes: (Same as : Humalog) Roll in palms of hands gently; Do not shake vigorously. WASTE: F/P - Black; E - Municipal Trash Bin Stable for 28 days at room temperature. Expires in days from Date No Longer Active 03/02/2019 [facility] Albuterol 0.83 MG/ML Inhalant Solution 2.49 mg, Route: NEB, RQ6H, Dosing Weight 102.273, kg, Priority: Routine, Start date: 03/02/19 2:00:00 LANDSCAPE SPECIALIST, Duration: 30 day, Stop date: 03/31/19 20:00:00 LANDSCAPE SPECIALIST No Longer Active 03/02/2019 [facility] Albuterol 0.833 MG/ML / Ipratropium Brom chandler 0.167 MG/ML Inhalant Solution Notes: (Same as: Duoneb) No Longer Active 03/02/2019 [facility] Dextromethorphan Hydrobromide 2 MG/ML / Guaifenesin 20 MG/ML Oral Solution Notes: (dextromethorphan-guaifenesin 10- 100/5 ml LIQ) (Same as: Robitussin-DM) No Longer Active 03/02/2019 [facility] Ondansetron Notes: (Same as: Marcelo rubin) MEDICATION WASTE Product Size: 4 mg Product Wasted: ___ mg No Longer Active 03/02/2019 [facility] Ondansetron Notes: (Same as: Marcelo rubin) MEDICATION WASTE Product Size: 4 mg Product Wasted: ___ mg No Longer Active 03/02/2019 [facility] Saline Flush 0.9% Notes: (Same as: BD Posiflush) No Longer Active 03/02/2019 [facility] Bumetanide Notes: (Same As: Bu eloise) No Longer Active 03/02/2019 [facility] Tylenol Notes: Max acetaminoph en 4000 mg/day (4 gm/day). (Same as: Tylenol Extra Strength) No Longer Active 03/02/2019 [facility] Bumex Notes: (Same As: Bumex) Inactive 06/01/2018 [facility] carvedilol 12.5 mg oral tablet 12.5 mg = 1 tab, PO, Q12H, # 60 tab, 0 Refill(s), Pharmacy: [id number] Active 06/01/2018 [facility] Metolazone 5 MG Oral Tablet 10 mg = 2 tab, PO, Daily, # 60 tab, 0 Refill(s), Pharmacy: [facility] Active 06/01/2018 [facility] potassium chloride 20 mEq oral tablet, extended releas e 40 mEq = 2 tab, PO, Daily, # 60 tab, 0 Refill(s), Pharmacy: [facility] Active 06/01/2018 [facility] Calcium Carbonate 500 MG Chewable Tablet 2,000 mg = 4 tab, CHEW, TID-Meals, # 360 tab, 0 Refill(s), Pharmacy: [facility] Active 06/01/2018 [facility] bumetanide 1 mg oral tablet 2 mg = 2 tab, PO, BID, # 120 tab, 0 Refill(s), Pharmacy: [facility] Active 06/01/2018 [facility] potassium chloride 20 mEq oral tablet, extended releas e Notes: (Same as: K-Dur 20) "Do Not Crush" Give with food and full glass of water For patients unable to swallow tablet, dissolve in one half glass of water. Allow about 2 minutes for the tablets to disintegrate. Stir before giving to prepare slurry and administer. Please exclude Patients with feeding tube less than 14 Dominican (Dobhoff, J-tube etc) and pediatric and patients. Inactive 05/30/2018 [facility] Potassium Chloride Notes: (Samy e as: K-Dur 20) "Do Not Crush" Give with food and full glass of water For patients unable to swallow tablet, dissolve in one half glass of water. Allow about 2 minutes for the tab lets to disintegrate. Stir before giving to prepare slurry and administer. Please exclude Patients with feeding tube less than 14 [place] (Dobhoff, J-tube etc) and pediatric and patients. No Longer Active 05/30/2018 [facility] Metolazone 5 MG Oral Tablet No levi: (Same as: Zaroxolyn) No Longer Active 05/29/2018 [facility] Diuril Sodium Notes: (Same As: Diuril Sodium) Inactive 05/28/2018 [facility] Ferrlecit + Sodium Chloride 0.9% IV 100 mL 125 mg, 10 mL, Route: IVPB, Daily, Start date: 05/28/18 9:00:00 LANDSCAPE SPECIALIST, Duration: 8 doses or times, Stop date: 06/04/18 9:00:00 CDT No Longer Active 05/28/2018 [facility] Venofer 200 mg, Route: IVPB, D rug form: INJ, Daily, Dosing Weight 105.114, kg, Start date: 05/28/18 9:00:00 LANDSCAPE SPECIALIST, Duration: 5 doses or times, Stop date: 06/01/18 9:00:00 CDT No Longer Active 05/28/2018 [facility] Renvela Notes: Same as: Renvela No Longer Active 05/28/2018 [facility] Calcium Gluconate Notes: WASTE : F/P - Sink; E - Municipal Trash Bin No Longer Active 05/27/2018 [facility] Hydralazine Hydrochloride 25 MG Oral Tablet Notes: (Same as: Apresoline) May interfere w/enteral feedings Take With Food No Longer Active 05/27/2018 [facility] Imdur Notes: (Same as:Imdur) " Do Not Crush" Take on empty stomach/ full glass of water. Do not crush No Longer Active 05/27/2018 [facility] atorvastatin Notes: (Same as: Lipitor) No Longer Active 05/27/2018 [facility] Coreg Notes: Give with food. ( Same As: Coreg) No Longer Active 05/27/2018 [facility] Hydralazine Notes: (Same as: A presoline) Push over 5 minutes No Longer Active 05/26/2018 [facility] Calcium Carbonate Notes: (Same As: Tums) Calcium Carbonate 500 mg = 200 mg elemental calcium Dose = mg calcium carbonate ( mg elemental calcium) No Longer Active 05/26/2018 [facility] furosemide 100 mg + Sodium Chloride 0.9% IV 90 mL Notes: (Same as: Lasix) MEDICATION WASTE Product Size: 100 mg Product Wasted: ___ mg No Longer Active 05/26/2018 [facility] Lasix 10 mg, Route: IV, Contin uous, Dosing Weight 102.273, kg, Start date: 05/26/18 13:00:00 LANDSCAPE SPECIALIST, Duration: 30 day, Stop date: 06/25/18 13:59:00 CDT Inactive 05/26/2018 [facility] Lasix Notes: (Same as: Lasix) MEDICATION WASTE Product Size: 100 mg Product Wasted: ___ mg Inactive 05/26/2018 [facility] clopidogrel Notes: (Same As: P lavix) No Longer Active 05/26/2018 [facility] Aspirin 81 MG Enteric Coated Tablet Notes: Do not crush or chew. (Same As: Ecotrin) No Longer Active 05/26/2018 [facility] Hydralazine Hydrochloride 50 MG Oral Tablet 50 mg, 1 tab, Route: PO, Drug form: TAB, Daily, Dosing Weight 102.273, kg, Start date: 05/26/18 9:00:00 LANDSCAPE SPECIALIST, Duration: 30 day, Stop date: 06/24/18 9:00:00 CDT No Longer Active 05/26/2018 [facility] Isosorbide 60 mg, Route: PO, D rug form: ERTAB, QAM, Dosing Weight 102.273, kg, Start date: 05/26/18 9:00:00 LANDSCAPE SPECIALIST, Duration: 30 day, Stop date: 06/24/18 9:00:00 CDT No Longer Active 05/26/2018 [facility] Calcium Gluconate Notes: WASTE : F/P - Sink; E - Municipal Trash Bin No Longer Active 05/26/2018 [facility] cefepime Notes: (Same As: Yevgeniy rankin) MEDICATION WASTE Product Size: 1000 mg Product Wasted: ___ mg No Longer Active 05/26/2018 [facility] Calcium Gluconate 2,000 mg, [place]: IVPB, Drug form: INJ, ONCE, Dosing Weight 102.273, kg, Start date: 05/26/18 3:36:00 LANDSCAPE SPECIALIST, Stop date: 05/26/18 3:36:00 LANDSCAPE SPECIALIST Inactive 05/26/2018 [facility] Potassium Chloride 20 mEq, Rou te: [place], Drug form: SOLN, PRN, Dosing Weight 102.273, kg, PRN Abnormal Lab Result, For NON-ICU Patients Only, Start date: 05/26/18 3:36:00 LANDSCAPE SPECIALIST, Duration: 30 day, Stop date: 06/25/18 4:35:00 CDT Inactive 05/26/2018 [facility] potassium phosphate 15 mmol, R oute: IVPB, PRN, Dosing Weight 102.273, kg, PRN Abnormal Lab Result, For NON-ICU Patients Only., Start date: 05/26/18 3:36:00 LANDSCAPE SPECIALIST, Duration: 30 day, Stop date: 06/25/18 4:35:00 CDT Inactive 05/26/2018 [facility] potassium phosphate-sodium phosphate 250 mg-280 mg-160 mg oral powder for reconstitution 2 pkt, Route: PO, Dosing Weight 102.273, kg, PRN, PRN Abnormal Lab Result, For NON-ICU Patients Only, Start date: 05/26/18 3:36:00 LANDSCAPE SPECIALIST, Duration: 30 day, Stop date: 06/25/18 4:35:00 CDT Inactive 05/26/2018 [facility] sodium phosphate 30 mmol, Rout e: IVPB, PRN, Dosing Weight 102.273, kg, PRN Abnormal Lab Result, For NON-ICU Patients Only., Start date: 05/26/18 3:36:00 LANDSCAPE SPECIALIST, Duration: 30 day, Stop date: 06/25/18 4:35:00 CDT Inactive 05/26/2018 [facility] Magnesium Oxide 800 mg, Route: PO, PRN, Dosing Weight 102.273, kg, PRN Abnormal Lab Result, For NON-ICU Patients Only., Start date: 05/26/18 3:36:00 LANDSCAPE SPECIALIST, Duration: 30 day, Stop date: 06/25/18 4:35:00 CDT Inactive 05/26/2018 [facility] Magnesium Sulfate 2 gm, Route: IVPB, PRN, Dosing Weight 102.273, kg, PRN Abnormal Lab Result, For NON-ICU Patients Only., Start date: 05/26/18 3:36:00 LANDSCAPE SPECIALIST, Duration: 30 day, Stop date: 06/25/18 4:35:00 CDT Inactive 05/26/2018 [facility] Dextrose 50% Syringe 25 gm, 50 mL, Route: IVP, Drug Form: INJ, Dosing Weight 102.273, kg, ONCE, Start date: 05/25/18 21:46:00 LANDSCAPE SPECIALIST, Stop date: 05/25/18 21:46:00 LANDSCAPE SPECIALIST Inactive 05/26/2018 [facility] Insulin regular Notes: (Same a s: Humulin R and NovoLIN R) WASTE: F/P - Black; E - Municipal Trash Bin (Do not shake) Inactive 05/26/2018 [facility] Calcium Gluconate Notes: WASTE : F/P - Sink; E - Municipal Trash Bin Inactive 05/26/2018 [facility] Kayexalate Notes: (sodium poly styrene sulfonate 15 gm/60 ml SAM) Shake well before use. (Same as: Kayexalate, SPS) Inactive 05/26/2018 [facility] Saline Flush 0.9% Notes: Same as: BD Posiflush Sterile No Longer Active 05/26/2018 [facility] Dextrose 50% Syringe 12.5 gm, 25 mL, Route: IVP, Drug Form: INJ, Dosing Weight 102.273, kg, PRN, PRN Blood Glucose Results, Start date: 05/25/18 19:02:00 LANDSCAPE SPECIALIST, Duration: 30 day, Stop date: 06/24/18 20:01:00 CDT No Longer Active 05/26/2018 [facility] Glucagon 1 mg, Route: IM, Drug form: PDR/INJ, PRN, Dosing Weight 102.273, kg, PRN Blood Glucose Results, Start date: 05/25/18 19:02:00 LANDSCAPE SPECIALIST, Duration: 30 day, Stop date: 06/24/18 20:01:00 CDT No Longer Active 05/26/2018 [facility] Saline Flush 0.9% Notes: Same as: BD Posiflush Sterile No Longer Active 05/26/2018 [facility] Furosemide Notes: (Same as: Shamika pereira) MEDICATION WASTE Product Size: 40 mg Product Wasted: ___ mg No Longer Active 05/26/2018 [facility] Ondansetron Notes: (Same as: Marcelo rubin) MEDICATION WASTE Product Size: 4 mg Product Wasted: ___ mg No Longer Active 05/26/2018 [facility] Melatonin Notes: (Same as: Pamela atonin) No Longer Active 05/26/2018 [facility] Glucagon 1 mg, Route: IM, PRN, Dosing Weight 102.273, kg, PRN Blood Glucose Results, Start date: 05/25/18 18:57:00 LANDSCAPE SPECIALIST, Duration: 30 day, Stop date: 06/24/18 19:56:00 CDT Inactive 05/26/2018 [facility] Dextrose 50% Syringe 25 mL, [place]: IVP, Dosing Weight 102.273, kg, PRN, PRN Blood Glucose Results, Start date: 05/25/18 18:57:00 LANDSCAPE SPECIALIST, Duration: 30 day, Stop date: 06/24/18 19:56:00 CDT Inactive 05/26/2018 [facility] Dextrose 50% Syringe 25 gm, 50 mL, Route: IVP, Drug Form: INJ, Dosing Weight 102.273, kg, ONCE, STAT, Start date: 05/25/18 15:29:00 LANDSCAPE SPECIALIST, Stop date: 05/25/18 15:29:00 LANDSCAPE SPECIALIST Inactive 05/25/2018 [facility] Insulin regular Notes: (Same a s: Humulin R and NovoLIN R) WASTE: F/P - Black; E - Municipal Trash Bin (Do not shake) Inactive 05/25/2018 [facility] Calcium Gluconate Notes: WASTE : F/P - Sink; E - Municipal Trash Bin Inactive 05/25/2018 [facility] Saline Flush 0.9% Notes: Same as: BD Posiflush Sterile No Longer Active 05/25/2018 [facility] Kayexalate Notes: (sodium poly styrene sulfonate 15 gm/60 ml SAM) Shake well before use. (Same as: Kayexalate, SPS) Inactive 05/25/2018 [facility] Saline Flush 0.9% Notes: Same as: BD Posiflush Sterile No Longer Active 05/25/2018 [facility] amLODIPine 5 mg oral tablet 10 mg = 2 tab, PO, Daily, # 60 tab, 1 Refill(s), Pharmacy: [id number] Active 04/08/2018 [facility] Amlodipine Notes: (Same as: No rvasc) Inactive 04/08/2018 [facility] isosorbide mononitrate extended release Notes: (Same as:Imdur) "Do Not Crush" Take on empty stomach/ full glass of water. Do not crush Inactive 04/08/2018 [facility] Hydralazine Notes: (Same as: A presoline) May interfere w/enteral feedings Take With Food Inactive 04/07/2018 [facility] isosorbide mononitrate extended release Notes: (Same as:Imdur) "Do Not Crush" Take on empty stomach/ full glass of water. Do not crush Inactive 04/07/2018 [facility] Coreg Notes: Give with food. ( Same As: Coreg) No Longer Active 04/07/2018 [facility] Imdur Notes: (Same as:Imdur) " Do Not Crush" Take on empty stomach/ full glass of water. Do not crush Inactive 04/07/2018 [facility] Hydralazine Hydrochloride 50 MG Oral Tablet Notes: (Same as: Apresoline) May interfere w/enteral feedings Take With Food No Longer Active 04/07/2018 [facility] Calcium Gluconate Notes: WASTE : F/P - Sink; E - Municipal Trash Bin Inactive 04/06/2018 [facility] Lovenox Notes: (Same as: Loven ox) No Longer Active 04/06/2018 [facility] Saline Flush 0.9% Notes: (Same as: BD Posiflush) No Longer Active 04/06/2018 [facility] Furosemide Notes: (Same as: Shamika pereira) MEDICATION WASTE Product Size: 40 mg Product Wasted: ___ mg No Longer Active 04/06/2018 [facility] pantoprazole Notes: Tablet ivelisse uld not be chewed or crushed. (Same as: Protonix) N o Longer Active 04/06/2018 [facility] carvedilol Notes: Give with fo od. (Same As: Coreg) No Longer Active 04/06/2018 [facility] Calcium Gluconate Notes: WASTE : F/P - Sink; E - Municipal Trash Bin Inactive 04/06/2018 [facility] Aspirin 81 MG Enteric Coated Tablet Notes: Do not crush or chew. (Same As: Ecotrin) No Longer Active 04/06/2018 [facility] Hydralazine Notes: (Same as: A presoline) Push over 5 minutes No Longer Active 04/06/2018 [facility] clopidogrel 75 mg oral tablet 75 mg = 1 tab, PO, Bedtime, # 30 tab, 0 Refill(s) No Longer Active 04/06/2018 [facility] isosorbide mononitrate 60 mg oral tablet , extended release 60 mg = 1 tab, PO, QAM, 0 Refill(s) Active 04/06/2018 [facility] Furosemide 40 MG Oral Tablet [Lasix] 40 mg = 1 tab, PO, BID, 0 Refill(s) No Longer Active 04/06/2018 [facility] carvedilol 20 mg, PO, BID, 0 R efill(s) No Longer Active 04/06/2018 [facility] Hydralazine Hydrochloride 50 MG Oral Tablet 50 mg = 1 tab, PO, Daily, 0 Refill(s) Active 04/06/2018 [facility] atorvastatin 20 mg oral tablet 20 mg = 1 tab, PO, Bedtime, # 90 tab, 0 Refill(s) No Longer Active 04/06/2018 [facility] influenza virus vaccine, inactivated Notes: (Same as: Fluzone Quadrivalent, Fluarix Quadrivalent) For 3 years of age and older (0.5 mL IM) Shake well before use N o Longer Active 04/06/2018 [facility] Saline Flush 0.9% Notes: (Same as: BD Posiflush) No Longer Active 04/06/2018 [facility] Temazepam Notes: (Same As: Res toril) No Longer Active 04/06/2018 [facility] Ondansetron Notes: (Same as: Marcelo rubin) MEDICATION WASTE Product Size: 4 mg Product Wasted: ___ mg No Longer Active 04/06/2018 [facility] Lasix Notes: (Same as: Lasix) MEDICATION WASTE Product Size: 40 mg Product Wasted: ___ mg Inactive 04/06/2018 [facility] Furosemide 20 MG Oral Tablet [Lasix] 20 mg = 1 tab, PO, BID, # 60 tab, 0 Refill(s), Pharmacy: [facility] Active 09/17/2017 [facility] carvedilol 25 MG Oral Tablet [Coreg] 25 mg = 1 tab, PO, Daily, # 30 tab, 0 Refill(s), Pharmacy: [facility] Active 09/17/2017 [facility] clopidogrel 75 mg oral tablet 75 mg = 1 tab, PO, Daily, # 30 tab, 0 Refill(s), Pharmacy: [facility] Active 09/17/2017 [facility] atorvastatin 40 mg oral tablet 40 mg = 1 tab, PO, Bedtime, # 30 tab, 0 Refill(s), Pharmacy: [facility] Active 09/17/2017 [facility] Aspirin 81 MG Enteric Coated Tablet 81 mg = 1 tab, PO, Q24H, # 30 tab, 0 Refill(s), Pharmacy: [facility] Active 09/17/2017 [facility] Plavix Notes: (Same As: Plavix) Inactive 09/17/2017 [facility] heparin Notes: porcine heparin Inactive 09/17/2017 [facility] Saline Flush 0.9% Notes: (Same as: BD Posiflush) No Longer Active 09/17/2017 [facility] atorvastatin Notes: (Same as: Lipitor) No Longer Active 09/17/2017 [facility] Plavix Notes: (Same As: Plavix) Inactive 09/17/2017 [facility] calcium gluconate + Sodium Chloride 0.9% IV 40 mL Notes: WASTE: F/P - Sink; E - Municipal Trash Bin Inactive 09/17/2017 [facility] Calcium Gluconate 2,000 mg, [place]: IVPB, Drug form: INJ, ONCE, Dosing Weight 100, kg, Start date: 09/16/17 19:45:00 CDT, Stop date: 09/16/17 19:45:00 CDT Inactive 09/17/2017 [facility] Glipizide 5 MG Oral Tablet 5 m g = 1 tab, PO, BID, 0 Refill(s) No Longer Active 09/16/2017 [facility] Furosemide 20 MG Oral Tablet [Lasix] 20 mg = 1 tab, PO, BID, 0 Refill(s) No Longer Active 09/16/2017 [facility] carvedilol 25 MG Oral Tablet [Coreg] 25 mg = 1 tab, PO, Daily, 0 Refill(s) No Longer Active 09/16/2017 [facility] NIFEdipine 30 mg oral tablet, extended release 30 mg = 1 tab, PO, Daily, PRN Hypertension, # 30 tab, 0 Refill(s) Active 09/16/2017 [facility] Hydralazine Hydrochloride 25 MG Oral Tablet 25 mg = 1 tab, PO, QID, PRN Hypertension, # 360 tab, 0 Refill(s) Active 09/16/2017 [facility] Hydralazine 25 mg, Route: PO, Drug form: TAB, Q6H, Dosing Weight 100, kg, PRN Hypertension, Start date: 09/16/17 18:31:00 CDT, Duration: 30 day, Stop date: 10/16/17 18:30:00 CDT Inactive 09/16/2017 [facility] Aspirin 81 MG Enteric Coated Tablet Notes: Do not crush or chew. (Same As: Ecotrin) No Longer Active 09/16/2017 [facility] Insulin Lispro Notes: (Same as : Humalog ) Roll in palms of hands gently; Do not shake `vigorously. "Single Patient Use Only " WASTE: F/P - Black; E - [place] Trash Bin Stable for 28 days at room temp erature. Expires in days from Date No Longer Active 09/16/2017 [facility] Dextrose 50% Syringe 12.5 gm, 25 mL, Route: IVP, Drug Form: INJ, Dosing Weight 100, kg, PRN, PRN Blood Glucose Results, Start date: 09/16/17 15:55:00 CDT, Duration: 30 day, Stop date: 10/16/17 15:54:00 CDT No Longer Active 09/16/2017 [facility] Glucagon 1 mg, Route: IM, Drug form: PDR/INJ, PRN, Dosing Weight 100, kg, PRN Blood Glucose Results, Start date: 09/16/17 15:55:00 CDT, Duration: 30 day, Stop date: 10/16/17 15:54:00 CDT No Longer Active 09/16/2017 [facility] Saline Flush 0.9% Notes: (Same as: BD Posiflush) No Longer Active 09/16/2017 [facility] Acetaminophen Notes: Do not ex ceed 4 gm/day. (Same as: Tylenol) No Longer Active 09/16/2017 [facility] Sodium Chloride 0.9% IV 1,000 mL 1,000 mL, Rate: 75 ml/hr, Infuse over: 13.3 hr, Route: IV, Dosing Weight 100 kg, Total Volume: 1,000, Start date: 09/16/17 15:52:00 CDT, Duration: 30 day, Stop date: 10/16/17 15:51:00 CDT, 2.24, m2 Inactiv e 09/16/2017 [facility] Aspirin Notes: Take with food. Inactive 09/16/2017 [facility] Saline Flush 0.9% Notes: (Same as: BD Posiflush) No Longer Active 09/16/2017 [facility] Allergies, Adverse Reactions, Alerts Substance Category Reaction Severity Reaction type Status Date Reported Comments Source No Known Medication Allergies Assertion Drug aller gy [facility] Immunizations Immunization Date Given Site Status Last Updated Comments Source influenza virus vaccine, inactivated 06/01/2018 Right deltoid completed [facility] Results Order Name Results Value Reference Range Date Interpretation Comments Source CHEM PANEL Glucose Lvl 97 70 - 99 03/07/2019 [facility] CHEM PANEL BUN 130 7 - 22 03/07/2019 [facility] CHEM PANEL Creatinine Lvl 8.62 0.50 - 1.40 03/07/2019 [facility] CHEM PANEL Sodium Lvl 133 135 - 145 03/07/2019 [facility] CHEM PANEL Potassium Lvl 4.6 3.5 - 5.1 03/07/2019 [facility] CHEM PANEL Chloride Lvl 94 95 - 109 03/07/2019 [facility] CHEM PANEL CO2 27 24 - 32 03/07/2019 [facility] CHEM PANEL AGAP 16.6 10.0 - 20.0 03/07/2019 [facility] CHEM PANEL Calcium Lvl 5.8 8.5 - 10.5 03/07/2019 Result Comment: Critical Result(s) dania Pablo Floydcj at 03/07/2019 05:16 by AR. Read back OK. [facility] CHEM PANEL eGFR 6 03/07/2019 Result Comment: The eGFR is calculated using the CKD-EPI formula. In most young, healthy individuals the eGFR will be >90 mL/min/1.73m2. The eGFR declines with age. An eGFR of 60-89 may be normal in some populations, particularly the elderly, for whom the CKD-EPI formula has not been extensively validated. Use of the eGFR is not recommended in the following populations:

Individuals with unstable creatinine concentrations, including patients and those with serious co-morbid conditions.

Patients with extremes in muscle mass or diet.

The data above are obtained from the National Kidney Disease Education Program (NKDEP) which additionally recommends that when the eGFR is used in patients with extremes of body mass index for purposes of drug dosing, the eGFR should be multiplied by the estimated BMI. [facility] CHEM PANEL Glucose Lvl 121 70 - 99 03/05/2019 [facility] CHEM PANEL BUN 123 7 - 22 03/05/2019 [facility] CHEM PANEL Creatinine Lvl 8.59 0.50 - 1.40 03/05/2019 [facility] CHEM PANEL Sodium Lvl 130 135 - 145 03/05/2019 [facility] CHEM PANEL Potassium Lvl 4.3 3.5 - 5.1 03/05/2019 [facility] CHEM PANEL Chloride Lvl 91 95 - 109 03/05/2019 [facility] CHEM PANEL CO2 26 24 - 32 03/05/2019 [facility] CHEM PANEL AGAP 17.3 10.0 - 20.0 03/05/2019 [facility] CHEM PANEL Calcium Lvl 6.3 8.5 - 10.5 03/05/2019 Result Comment: Critical Result(s) Devi Covarrubias RN at 03/05/2019 05:56 by LT. Read back OK. [facility] CHEM PANEL eGFR 6 03/05/2019 Result Comment: The eGFR is calculated using the CKD-EPI formula. In most young, healthy individuals the eGFR will be >90 mL/min/1.73m2. The eGFR declines with age. An eGFR of 60-89 may be normal in some populations, particularly the elderly, for whom the CKD-EPI formula has not been extensively validated. Use of the eGFR is not recommended in the following populations:

Individuals with unstable creatinine concentrations, including patients and those with serious co-morbid conditions.

Patients with extremes in muscle mass or diet.

The data above are obtained from the National Kidney Disease Education Program (NKDEP) which additionally recommends that when the eGFR is used in patients with extremes of body mass index for purposes of drug dosing, the eGFR should be multiplied by the estimated BMI. [facility] HEMATOLOGY WBC 6.6 3.7 - 10.4 03/05/2019 [facility] HEMATOLOGY RBC 2.72 4.70 - 6.10 03/05/2019 [facility] HEMATOLOGY Hgb 8.7 14.0 - 18.0 03/05/2019 [facility] Hct 26.0 42.0 - 54.0 03/05/2019 [facility] MCV 95.5 80.0 - 94.0 03/05/2019 [facility] MCH 31.9 27.0 - 31.0 03/05/2019 [facility] MCHC 33.4 32.0 - 36.0 03/05/2019 [facility] RDW 15.9 11.5 - 14.5 03/05/2019 [facility] Platelet 97 133 - 450 03/05/2019 [facility] MPV 8.4 7.4 - 10.4 03/05/2019 [facility] Segs 73.8 45.0 - 75.0 03/05/2019 [facility] Lymphocytes 7.1 20.0 - 40.0 03/05/2019 [facility] HEMATOLOGY Monocytes 12.2 2.0 - 12.0 03/05/2019 [facility] HEMATOLOGY Eosinophils 6.3 0.0 - 4.0 03/05/2019 [facility] HEMATOLOGY Basophils 0.6 0.0 - 1.0 03/05/2019 [facility] HEMATOLOGY Neutrophils # 4.8 1.5 - 8.1 03/05/2019 [facility] Lymphocytes # 0.5 1.0 - 5.5 03/05/2019 [facility] Monocytes # 0.8 0.0 - 0.8 03/05/2019 [facility] HEMATOLOGY Eosinophils # 0.4 0.0 - 0.5 03/05/2019 [facility] URINE CHEM U Sodium 69 03/04/2019 [facility] URINE CHEM U Potassium 24.4 03/04/2019 [facility] URINE CHEM U Chloride 73 03/04/2019 [facility] CHEM PANEL Glucose Lvl 92 70 - 99 03/04/2019 [facility] CHEM PANEL BUN 118 7 - 22 03/04/2019 [facility] CHEM PANEL Creatinine Lvl 8.59 0.50 - 1.40 03/04/2019 [facility] CHEM PANEL Sodium Lvl 133 135 - 145 03/04/2019 [facility] CHEM PANEL Potassium Lvl 4.6 3.5 - 5.1 03/04/2019 [facility] CHEM PANEL Chloride Lvl 92 95 - 109 03/04/2019 [facility] CHEM PANEL CO2 27 24 - 32 03/04/2019 [facility] CHEM PANEL AGAP 18.6 10.0 - 20.0 03/04/2019 [facility] CHEM PANEL Calcium Lvl 6.2 8.5 - 10.5 03/04/2019 Result Comment: Critical Result(s) najera d to Angélica Alvarez RN at 03/04/2019 04:56 by LT. Read back OK. [facility] CHEM PANEL eGFR 6 03/04/2019 Result Comment: The eGFR is calculated using the CKD-EPI formula. In most young, healthy individuals the eGFR will be >90 mL/min/1.73m2. The eGFR declines with age. An eGFR of 60-89 may be normal in some populations, particularly the elderly, for whom the CKD-EPI formula has not been extensively validated. Use of the eGFR is not recommended in the following populations:

Individuals with unstable creatinine concentrations, including patients and those with serious co-morbid conditions.

Patients with extremes in muscle mass or diet.

The data above are obtained from the National Kidney Disease Education Program (NKDEP) which additionally recommends that when the eGFR is used in patients with extremes of body mass index for purposes of drug dosing, the eGFR should be multiplied by the estimated BMI. [facility] HEMATOLOGY Segs 75.0 45.0 - 75.0 03/04/2019 [facility] HEMATOLOGY Lymphocytes 6.7 20.0 - 40.0 03/04/2019 [facility] HEMATOLOGY Monocytes 12.6 2.0 - 12.0 03/04/2019 [facility] HEMATOLOGY Eosinophils 5.1 0.0 - 4.0 03/04/2019 [facility] HEMATOLOGY Basophils 0.6 0.0 - 1.0 03/04/2019 [facility] HEMATOLOGY Neutrophils # 5.5 1.5 - 8.1 03/04/2019 [facility] HEMATOLOGY Lymphocytes # 0.5 1.0 - 5.5 03/04/2019 [facility] HEMATOLOGY Monocytes # 0.9 0.0 - 0.8 03/04/2019 [facility] HEMATOLOGY Eosinophils # 0.4 0.0 - 0.5 03/04/2019 [facility] HEMATOLOGY WBC 7.4 3.7 - 10.4 03/04/2019 [facility] HEMATOLOGY RBC 2.78 4.70 - 6.10 03/04/2019 [facility] HEMATOLOGY Hgb 8.8 14.0 - 18.0 03/04/2019 [facility] HEMATOLOGY Hct 26.4 42.0 - 54.0 03/04/2019 [facility] HEMATOLOGY MCV 95.3 80.0 - 94.0 03/04/2019 [facility] HEMATOLOGY MCH 31.7 27.0 - 31.0 03/04/2019 [facility] HEMATOLOGY MCHC 33.3 32.0 - 36.0 03/04/2019 [facility] HEMATOLOGY RDW 16.2 11.5 - 14.5 03/04/2019 [facility] HEMATOLOGY Platelet 98 133 - 450 03/04/2019 [facility] HEMATOLOGY MPV 8.5 7.4 - 10.4 03/04/2019 [facility] CHEM PANEL Lactic Acid Lvl 1.0 0.5 - 2.2 03/03/2019 [facility] HEMATOLOGY Segs 82.3 45.0 - 75.0 03/03/2019 [facility] HEMATOLOGY Lymphocytes 5.3 20.0 - 40.0 03/03/2019 [facility] HEMATOLOGY Monocytes 8.7 2.0 - 12.0 03/03/2019 [facility] HEMATOLOGY Eosinophils 3.1 0.0 - 4.0 03/03/2019 [facility] HEMATOLOGY Basophils 0.6 0.0 - 1.0 03/03/2019 [facility] HEMATOLOGY Neutrophils # 7.5 1.5 - 8.1 03/03/2019 [facility] HEMATOLOGY Lymphocytes # 0.5 1.0 - 5.5 03/03/2019 [facility] HEMATOLOGY Monocytes # 0.8 0.0 - 0.8 03/03/2019 [facility] HEMATOLOGY Eosinophils # 0.3 0.0 - 0.5 03/03/2019 [facility] HEMATOLOGY Basophils # 0.1 0.0 - 0.2 03/03/2019 [facility] HEMATOLOGY WBC 9.1 3.7 - 10.4 03/03/2019 [facility] HEMATOLOGY RBC 2.89 4.70 - 6.10 03/03/2019 [facility] HEMATOLOGY Hgb 9.3 14.0 - 18.0 03/03/2019 [facility] HEMATOLOGY Hct 27.8 42.0 - 54.0 03/03/2019 [facility] HEMATOLOGY MCV 96.2 80.0 - 94.0 03/03/2019 [facility] HEMATOLOGY MCH 32.1 27.0 - 31.0 03/03/2019 [facility] HEMATOLOGY MCHC 33.4 32.0 - 36.0 03/03/2019 [facility] HEMATOLOGY RDW 16.3 11.5 - 14.5 03/03/2019 [facility] HEMATOLOGY Platelet 108 133 - 450 03/03/2019 [facility] MPV 8.2 7.4 - 10.4 03/03/2019 [facility] MOLECULAR DIAGNOSTIC Source Respirat ory Panel PCR Nasophrngl Swb *NA* (03/02/19 5:01 AM) 03/02/2019 [facility] MOLECULAR DIAGNOSTIC Influenza A PCR Negative *NA* (03/02/19 5:01 AM) Negative 03/02/2019 [facility] MOLECULAR DIAGNOSTIC Influenza B PCR Negative *NA* (03/02/19 5:01 AM) Negative 03/02/2019 [facility] DIAGNOSTIC RSV PCR Negative *NA* (03/02/19 5:01 AM) Negative 03/02/2019 [facility] CARDIAC ENZYMES BNP 4226 <=100 pg/mL 03/02/2019 [facility] CARDIAC ENZYMES Troponin-I 0.03 0.00 - 0.40 03/02/2019 [facility] CHEM PANEL B/C Ratio 13 6 - 25 03/02/2019 [facility] CHEM PANEL Total Protein 6.6 6.4 - 8.4 03/02/2019 [facility] CHEM PANEL Albumin Lvl 3.1 3.5 - 5.0 03/02/2019 [facility] CHEM PANEL Globulin 3.5 2.7 - 4.2 03/02/2019 [facility] CHEM PANEL A/G Ratio 0.9 0.7 - 1.6 03/02/2019 [facility] CHEM PANEL ALT 11 0 - 65 03/02/2019 [facility] CHEM PANEL AST 7 0 - 37 03/02/2019 [facility] CHEM PANEL Alk Phos 113 39 - 136 03/02/2019 [facility] CHEM PANEL Bili Total 0.7 0.2 - 1.3 03/02/2019 [facility] CHEM PANEL Magnesium Lvl 2.7 1.8 - 2.4 03/02/2019 [facility] CHEM PANEL Phosphorus 8.9 2.5 - 4.5 03/02/2019 [facility] CHEM PANEL Procalcitonin Lvl 0.79 0.00 - 0.10 03/02/2019 [facility] CHEM PANEL Lactic Acid Lvl 1.2 0.5 - 2.2 03/02/2019 [facility] CHEM PANEL Magnesium Lvl 2.3 1.8 - 2.4 06/01/2018 [facility] CHEM PANEL Glucose Lvl 153 70 - 99 06/01/2018 [facility] CHEM PANEL Creatinine Lvl 5.29 0.50 - 1.40 06/01/2018 [facility] CHEM PANEL Sodium Lvl 137 135 - 145 06/01/2018 [facility] CHEM PANEL Potassium Lvl 4.0 3.5 - 5.1 06/01/2018 [facility] CHEM PANEL BUN 109 7 - 22 06/01/2018 [facility] CHEM PANEL eGFR 12 06/01/2018 Result Comment: The eGFR is calculated using the CKD-EPI formula. In most young, healthy individuals the eGFR will be >90 mL/min/1.73m2. The eGFR declines with age. An eGFR of 60-89 may be normal in some populations, particularly the elderly, for whom the CKD-EPI formula has not been extensively validated. Use of the eGFR is not recommended in the following populations:

Individuals with unstable creatinine concentrations, including patients and those with serious co-morbid conditions.

Patients with extremes in muscle mass or diet.

The data above are obtained from the National Kidney Disease Education Program (NKDEP) which additionally recommends that when the eGFR is used in patients with extremes of body mass index for purposes of drug dosing, the eGFR should be multiplied by the estimated BMI. [facility] CHEM PANEL AGAP 11.0 10.0 - 20.0 06/01/2018 [facility] CHEM PANEL Calcium Lvl 8.1 8.5 - 10.5 06/01/2018 [facility] CHEM PANEL CO2 31 24 - 32 06/01/2018 [facility] CHEM PANEL Chloride Lvl 99 95 - 109 06/01/2018 [facility] CHEM PANEL Magnesium Lvl 2.2 1.8 - 2.4 05/31/2018 [facility] ELECTROLYTES CO2 29 24 - 32 05/31/2018 [facility] ELECTROLYTES Calcium Lvl 7.5 8.5 - 10.5 05/31/2018 [facility] ELECTROLYTES AGAP 12.0 10.0 - 20.0 05/31/2018 [facility] ELECTROLYTES eGFR 11 05/31/2018 Result Comment: The eGFR is calculated using the CKD-EPI formula. In most young, healthy individuals the eGFR will be >90 mL/min/1.73m2. The eGFR declines with age. An eGFR of 60-89 may be normal in some populations, particularly the elderly, for whom the CKD-EPI formula has not been extensively validated. Use of the eGFR is not recommended in the following populations:

Individuals with unstable creatinine concentrations, including patients and those with serious co-morbid conditions.

Patients with extremes in muscle mass or diet.

The data above are obtained from the National Kidney Disease Education Program (NKDEP) which additionally recommends that when the eGFR is used in patients with extremes of body mass index for purposes of drug dosing, the eGFR should be multiplied by the estimated BMI. [facility] ELECTROLYTES Chloride Lvl 103 95 - 109 05/31/2018 [facility] ELECTROLYTES Potassium Lvl 4.0 3.5 - 5.1 05/31/2018 [facility] ELECTROLYTES Creatinine Lvl 5.5 1 0.50 - 1.40 05/31/2018 [facility] ELECTROLYTES Sodium Lvl 140 135 - 145 05/31/2018 [facility] ELECTROLYTES Glucose Lvl 140 70 - 99 05/31/2018 [facility] ELECTROLYTES BUN 110 7 - 22 05/31/2018 [facility] CHEM PANEL eGFR 11 05/30/2018 Result Comment: The eGFR is calculated using the CKD-EPI formula. In most young, healthy individuals the eGFR will be >90 mL/min/1.73m2. The eGFR declines with age. An eGFR of 60-89 may be normal in some populations, particularly the elderly, for whom the CKD-EPI formula has not been extensively validated. Use of the eGFR is not recommended in the following populations:

Individuals with unstable creatinine concentrations, including patients and those with serious co-morbid conditions.

Patients with extremes in muscle mass or diet.

The data above are obtained from the National Kidney Disease Education Program (NKDEP) which additionally recommends that when the eGFR is used in patients with extremes of body mass index for purposes of drug dosing, the eGFR should be multiplied by the estimated BMI. [facility] CHEM PANEL Potassium Lvl 3.3 3.5 - 5.1 05/30/2018 [facility] CHEM PANEL Sodium Lvl 138 135 - 145 05/30/2018 [facility] CHEM PANEL Creatinine Lvl 5.54 0.50 - 1.40 05/30/2018 [facility] CHEM PANEL BUN 110 7 - 22 05/30/2018 [facility] CHEM PANEL Glucose Lvl 132 70 - 99 05/30/2018 [facility] CHEM PANEL Calcium Lvl 7.5 8.5 - 10.5 05/30/2018 [facility] CHEM PANEL Chloride Lvl 103 95 - 109 05/30/2018 [facility] CHEM PANEL AGAP 12.3 10.0 - 20.0 05/30/2018 [facility] CHEM PANEL CO2 26 24 - 32 05/30/2018 [facility] CHEM PANEL Magnesium Lvl 2.4 1.8 - 2.4 05/30/2018 [facility] CHEM PANEL Phosphorus 6.9 2.5 - 4.5 05/30/2018 [facility] CHEM PANEL Phosphorus 7.8 2.5 - 4.5 05/29/2018 [facility] CHEM PANEL Phosphorus 8.7 2.5 - 4.5 05/28/2018 [facility] HEMATOLOGY MCV 90.6 80.0 - 94.0 05/28/2018 [facility] WBC 8.1 3.7 - 10.4 05/28/2018 [facility] RBC 3.09 4.70 - 6.10 05/28/2018 [facility] Hgb 9.0 14.0 - 18.0 05/28/2018 [facility] Hct 28.0 42.0 - 54.0 05/28/2018 [facility] MCH 29.0 27.0 - 31.0 05/28/2018 [facility] MPV 8.9 7.4 - 10.4 05/28/2018 [facility] RDW 19.0 11.5 - 14.5 05/28/2018 [facility] MCHC 32.0 32.0 - 36.0 05/28/2018 [facility] Platelet 99 133 - 450 05/28/2018 [facility] HEMATOLOGY Eosinophils # 0.3 0.0 - 0.5 05/28/2018 [facility] HEMATOLOGY Basophils # 0.1 0.0 - 0.2 05/28/2018 [facility] HEMATOLOGY Lymphocytes # 0.4 1.0 - 5.5 05/28/2018 [facility] HEMATOLOGY Monocytes # 1.0 0.0 - 0.8 05/28/2018 [facility] HEMATOLOGY Basophils 0.8 0.0 - 1.0 05/28/2018 [facility] Neutrophils # 6.3 1.5 - 8.1 05/28/2018 [facility] Lymphocytes 4.5 20.0 - 40.0 05/28/2018 [facility] Monocytes 12.7 2.0 - 12.0 05/28/2018 [facility] Eosinophils 3.9 0.0 - 4.0 05/28/2018 [facility] Segs 78.1 45.0 - 75.0 05/28/2018 [facility] ANEMIA STUDY Iron 40 45 - 160 05/27/2018 [facility] ANEMIA STUDY TIBC 287 228 - 428 05/27/2018 [facility] ANEMIA STUDY % [place] 14 12 - 57 05/27/2018 [facility] ANEMIA STUDY UIBC 247 110 - 370 05/27/2018 [facility] RBC 3.11 4.70 - 6.10 05/27/2018 [facility] Hgb 9.1 14.0 - 18.0 05/27/2018 [facility] MCHC 33.1 32.0 - 36.0 05/27/2018 [facility] Hct 27.6 42.0 - 54.0 05/27/2018 [facility] MCV 88.7 80.0 - 94.0 05/27/2018 [facility] MPV 8.3 7.4 - 10.4 05/27/2018 [facility] RDW 19.9 11.5 - 14.5 05/27/2018 [facility] Platelet 97 133 - 450 05/27/2018 [facility] MCH 29.4 27.0 - 31.0 05/27/2018 [facility] HEMATOLOGY WBC 6.1 3.7 - 10.4 05/27/2018 [facility] Basophils # 0.1 0.0 - 0.2 05/27/2018 [facility] Monocytes # 0.7 0.0 - 0.8 05/27/2018 [facility] Eosinophils # 0.3 0.0 - 0.5 05/27/2018 [facility] HEMATOLOGY Lymphocytes 6.0 20.0 - 40.0 05/27/2018 [facility] HEMATOLOGY Monocytes 11.2 2.0 - 12.0 05/27/2018 [facility] HEMATOLOGY Eosinophils 4.9 0.0 - 4.0 05/27/2018 [facility] HEMATOLOGY Segs 77.0 45.0 - 75.0 05/27/2018 [facility] HEMATOLOGY Neutrophils # 4.7 1.5 - 8.1 05/27/2018 [facility] HEMATOLOGY Lymphocytes # 0.4 1.0 - 5.5 05/27/2018 [facility] HEMATOLOGY Basophils 0.9 0.0 - 1.0 05/27/2018 [facility] PARATHYROID PROFILE PTH Intact 89.4 18.4 - 80.1 05/27/2018 [facility] PARATHYROID PROFILE Ca Norm WB 0.76 1.05 - 1.25 05/27/2018 [facility] PARATHYROID PROFILE Ca Ion WB 0.81 1.05 - 1.25 05/27/2018 Result Comment: Critical Result(s) najera d to mariela roberson at 05/27/2018 07:20 by EFA. Read back OK. [facility] PARATHYROID PROFILE Ca Norm WB 0.70 1.05 - 1.25 05/26/2018 [facility] PARATHYROID PROFILE Ca Ion WB 0.75 1.05 - 1.25 05/26/2018 Result Comment: Critical Result(s) dania d to Nafisa Mead_ at 05/26/2018 06:32 mfb_ by_. Read back OK. [facility] URINE AND STOOL UA Mucus Few /LPF None Seen /LPF 05/25/2018 [facility] URINE AND STOOL UA RBC 1 0 - 2 05/25/2018 [facility] URINE AND STOOL UA Blood Small *ABN* (05/25/18 4:33 PM) Negative 05/25/2018 [facility] URINE AND STOOL UA WBC 1 0 - 5 05/25/2018 [facility] URINE AND STOOL UA Leuk Est Negative (05/25/18 4:33 PM) Negative 05/25/2018 [facility] URINE AND STOOL UA Sq Epi Occasional /LPF Few /LPF 05/25/2018 [facility] URINE AND STOOL UA Nitrite Negative (05/25/18 4:33 PM) Negative 05/25/2018 [facility] URINE AND STOOL UA Urobilinogen <=1.0 mg/dL 0.1 - 1.0 05/25/2018 [facility] URINE AND STOOL UA Ketones Negative *NA* (05/25/18 4:33 PM) Negative 05/25/2018 [facility] URINE AND STOOL UA Glucose 50 mg/dL Negative mg/dL 05/25/2018 [facility] URINE AND STOOL UA Protein 100 mg/dL Negative mg/dL 05/25/2018 [facility] URINE AND STOOL UA Spec Grav 1.010 <=1.030 05/25/2018 [facility] URINE AND STOOL UA pH 5.0 5.0 - 8.0 05/25/2018 [facility] URINE AND STOOL UA Color Ltyellow 05/25/2018 [facility] URINE AND STOOL UA Turbidity Clear (05/25/18 4:33 PM) Clear 05/25/2018 [facility] URINE AND STOOL UA Bili Negative *NA* (05/25/18 4:33 PM) Negative 05/25/2018 [facility] CARDIAC ENZYMES Troponin-I <0.02 0.00 - 0.40 05/25/2018 [facility] CARDIAC ENZYMES BNP 2189 <=100 pg/mL 05/25/2018 [facility] CHEM PANEL B/C Ratio 19 6 - 25 05/25/2018 [facility] CHEM PANEL Bili Total 0.5 0.2 - 1.3 05/25/2018 [facility] CHEM PANEL A/G Ratio 0.8 0.7 - 1.6 05/25/2018 [facility] CHEM PANEL ALT 11 0 - 65 05/25/2018 [facility] CHEM PANEL AST 16 0 - 37 05/25/2018 [facility] CHEM PANEL Alk Phos 138 39 - 136 05/25/2018 [facility] CHEM PANEL Total Protein 6.9 6.4 - 8.4 05/25/2018 [facility] CHEM PANEL Albumin Lvl 3.1 3.5 - 5.0 05/25/2018 [facility] CHEM PANEL Globulin 3.8 2.7 - 4.2 05/25/2018 [facility] HEMATOLOGY Basophils # 0.1 0.0 - 0.2 05/25/2018 [facility] HEMATOLOGY Eosinophils # 0.1 0.0 - 0.5 05/25/2018 [facility] HEMATOLOGY Neutrophils # 4.6 1.5 - 8.1 05/25/2018 [facility] HEMATOLOGY Lymphocytes # 0.4 1.0 - 5.5 05/25/2018 [facility] HEMATOLOGY Basophils 1.2 0.0 - 1.0 05/25/2018 [facility] HEMATOLOGY Eosinophils 2.3 0.0 - 4.0 05/25/2018 [facility] Monocytes 11.5 2.0 - 12.0 05/25/2018 [facility] Monocytes # 0.7 0.0 - 0.8 05/25/2018 [facility] Lymphocytes 7.1 20.0 - 40.0 05/25/2018 [facility] Segs 77.9 45.0 - 75.0 05/25/2018 [facility] MPV 9.0 7.4 - 10.4 05/25/2018 [facility] Platelet 98 133 - 450 05/25/2018 [facility] RDW 19.7 11.5 - 14.5 05/25/2018 [facility] MCHC 32.9 32.0 - 36.0 05/25/2018 [facility] MCH 29.5 27.0 - 31.0 05/25/2018 [facility] MCV 89.9 80.0 - 94.0 05/25/2018 [facility] RBC 3.10 4.70 - 6.10 05/25/2018 [facility] WBC 5.8 3.7 - 10.4 05/25/2018 [facility] Hct 27.9 42.0 - 54.0 05/25/2018 [facility] Hgb 9.2 14.0 - 18.0 05/25/2018 [facility] CARDIAC ENZYMES BNP >5000 <=100 pg/mL 04/07/2018 [facility] CHEM PANEL eGFR 15 04/07/2018 Result Comment: The eGFR is calculated using the CKD-EPI formula. In most young, healthy individuals the eGFR will be >90 mL/min/1.73m2. The eGFR declines with age. An eGFR of 60-89 may be normal in some populations, particularly the elderly, for whom the CKD-EPI formula has not been extensively validated. Use of the eGFR is not recommended in the following populations:

Individuals with unstable creatinine concentrations, including patients and those with serious co-morbid conditions.

Patients with extremes in muscle mass or diet.

The data above are obtained from the National Kidney Disease Education Program (NKDEP) which additionally recommends that when the eGFR is used in patients with extremes of body mass index for purposes of drug dosing, the eGFR should be multiplied by the estimated BMI. [facility] CHEM PANEL Calcium Lvl 6.0 8.5 - 10.5 04/07/2018 Result Comment: Critical Result(s) dania jimenez to RN. Riana Obando at 04/07/2018 06:51 by alexis. Read back OK. [facility] CHEM PANEL CO2 27 24 - 32 04/07/2018 [facility] CHEM PANEL Potassium Lvl 4.1 3.5 - 5.1 04/07/2018 [facility] CHEM PANEL AGAP 12.1 10.0 - 20.0 04/07/2018 [facility] CHEM PANEL Chloride Lvl 106 95 - 109 04/07/2018 [facility] CHEM PANEL Sodium Lvl 141 135 - 145 04/07/2018 [facility] CHEM PANEL BUN 62 7 - 22 04/07/2018 [facility] CHEM PANEL Creatinine Lvl 4.21 0.50 - 1.40 04/07/2018 [facility] CHEM PANEL Glucose Lvl 102 70 - 99 04/07/2018 [facility] CHEM PANEL eGFR 16 04/06/2018 Result Comment: The eGFR is calculated using the CKD-EPI formula. In most young, healthy individuals the eGFR will be >90 mL/min/1.73m2. The eGFR declines with age. An eGFR of 60-89 may be normal in some populations, particularly the elderly, for whom the CKD-EPI formula has not been extensively validated. Use of the eGFR is not recommended in the following populations:

Individuals with unstable creatinine concentrations, including patients and those with serious co-morbid conditions.

Patients with extremes in muscle mass or diet.

The data above are obtained from the National Kidney Disease Education Program (NKDEP) which additionally recommends that when the eGFR is used in patients with extremes of body mass index for purposes of drug dosing, the eGFR should be multiplied by the estimated BMI. [facility] CHEM PANEL AGAP 18.3 10.0 - 20.0 04/06/2018 [facility] CHEM PANEL Calcium Lvl 6.1 8.5 - 10.5 04/06/2018 Result Comment: Critical Result(s) dania jimenez to Gale Benton at 04/06/2018 12:00 by DILEEP. Read back OK. [facility] CHEM PANEL CO2 25 24 - 32 04/06/2018 [facility] CHEM PANEL Chloride Lvl 105 95 - 109 04/06/2018 [facility] CHEM PANEL Potassium Lvl 4.3 3.5 - 5.1 04/06/2018 [facility] CHEM PANEL Sodium Lvl 144 135 - 145 04/06/2018 [facility] CHEM PANEL Creatinine Lvl 4.06 0.50 - 1.40 04/06/2018 [facility] CHEM PANEL BUN 60 7 - 22 04/06/2018 [facility] CHEM PANEL Glucose Lvl 163 70 - 99 04/06/2018 [facility] HEMATOLOGY WBC 7.4 3.7 - 10.4 04/06/2018 [facility] HEMATOLOGY RBC 3.46 4.70 - 6.10 04/06/2018 [facility] HEMATOLOGY Hgb 9.8 14.0 - 18.0 04/06/2018 [facility] HEMATOLOGY MCH 28.4 27.0 - 31.0 04/06/2018 [facility] HEMATOLOGY MCV 86.6 80.0 - 94.0 04/06/2018 [facility] HEMATOLOGY MPV 8.1 7.4 - 10.4 04/06/2018 [facility] HEMATOLOGY Platelet 148 133 - 450 04/06/2018 [facility] HEMATOLOGY Hct 29.9 42.0 - 54.0 04/06/2018 [facility] HEMATOLOGY RDW 17.0 11.5 - 14.5 04/06/2018 [facility] HEMATOLOGY MCHC 32.8 32.0 - 36.0 04/06/2018 [facility] HEMATOLOGY Monocytes 10.0 2.0 - 12.0 04/06/2018 [facility] HEMATOLOGY Eosinophils 3.3 0.0 - 4.0 04/06/2018 [facility] HEMATOLOGY Lymphocytes 6.6 20.0 - 40.0 04/06/2018 [facility] HEMATOLOGY Monocytes # 0.7 0.0 - 0.8 04/06/2018 [facility] HEMATOLOGY Lymphocytes # 0.5 1.0 - 5.5 04/06/2018 [facility] HEMATOLOGY Neutrophils # 5.9 1.5 - 8.1 04/06/2018 [facility] HEMATOLOGY Eosinophils # 0.2 0.0 - 0.5 04/06/2018 [facility] HEMATOLOGY Segs 79.3 45.0 - 75.0 04/06/2018 [facility] HEMATOLOGY Basophils # 0.1 0.0 - 0.2 04/06/2018 [facility] HEMATOLOGY Basophils 0.8 0.0 - 1.0 04/06/2018 [facility] CARDIAC ENZYMES Troponin-I 0.03 0.00 - 0.40 04/06/2018 [facility] CARDIAC ENZYMES Troponin-I 0.03 0.00 - 0.40 04/06/2018 [facility] PARATHYROID PROFILE Ca Norm WB 0.71 1.05 - 1.25 04/06/2018 [facility] PARATHYROID PROFILE Ca Ion WB 0.71 1.05 - 1.25 04/06/2018 Result Comment: Critical Result(s) najera d to RN. Gale Obando at 04/06/2018 03:04 by alexis. Read back OK. [facility] URINE AND STOOL UA Sq Epi None Seen (04/05/18 11:50 PM) Few 04/06/2018 [facility] URINE AND STOOL UA Bacteria Occasional /HPF None Seen /HPF 04/06/[address] [facility] [address] URINE AND STOOL UA Nitrite Negative (04/05/18 11:50 PM) Negative 04/06/2018 [facility] URINE AND STOOL UA Leuk Est Negative (04/05/18 11:50 PM) Negative 04/06/2018 [facility] URINE AND STOOL UA Urobilinogen <=1.0 mg/dL 0.1 - 1.0 04/06/[address] [facility] [address] URINE AND STOOL UA WBC 1 0 - 5 04/06/2018 [facility] URINE AND STOOL UA Hyal Cast 3 0 - 2 04/06/2018 [facility] URINE AND STOOL UA RBC 4 0 - 2 04/06/2018 [facility] URINE AND STOOL UA Protein >=300 mg/dL Negative mg/dL 04/06/2018 [facility] URINE AND STOOL UA pH 7.0 5.0 - 8.0 04/06/2018 [facility] URINE AND STOOL UA Spec Grav 1.013 <=1.030 04/06/2018 [facility] URINE AND STOOL UA Glucose 150 mg/dL Negative mg/dL 04/06/2018 [facility] URINE AND STOOL UA Ketones Negative *NA* (04/05/18 11:50 PM) Negative 04/06/2018 [facility] URINE AND STOOL UA Bili Negative *NA* (04/05/18 11:50 PM) Negative 04/06/2018 [facility] URINE AND STOOL UA Blood Negative (04/05/18 11:50 PM) Negative 04/06/2018 [facility] URINE AND STOOL UA Turbidity Clear (04/05/18 11:50 PM) Clear 04/06/2018 [facility] URINE AND STOOL UA Color Yellow *NA* (04/05/18 11:50 PM) Yellow 04/06/2018 [facility] CARDIAC ENZYMES BNP >5000 <=100 pg/mL 04/06/2018 [facility] CARDIAC ENZYMES Troponin-I 0.02 0.00 - 0.40 04/06/2018 [facility] CHEM PANEL eGFR 16 04/06/2018 Result Comment: The eGFR is calculated using the CKD-EPI formula. In most young, healthy individuals the eGFR will be >90 mL/min/1.73m2. The eGFR declines with age. An eGFR of 60-89 may be normal in some populations, particularly the elderly, for whom the CKD-EPI formula has not been extensively validated. Use of the eGFR is not recommended in the following populations:

Individuals with unstable creatinine concentrations, including patients and those with serious co-morbid conditions.

Patients with extremes in muscle mass or diet.

The data above are obtained from the National Kidney Disease Education Program (NKDEP) which additionally recommends that when the eGFR is used in patients with extremes of body mass index for purposes of drug dosing, the eGFR should be multiplied by the estimated BMI. [facility] CHEM PANEL Chloride Lvl 105 95 - 109 04/06/2018 [facility] CHEM PANEL CO2 29 24 - 32 04/06/2018 [facility] CHEM PANEL AGAP 12.3 10.0 - 20.0 04/06/2018 [facility] CHEM PANEL B/C Ratio 14 6 - 25 04/06/2018 [facility] CHEM PANEL Calcium Lvl 5.8 8.5 - 10.5 04/06/2018 Result Comment: Critical Result(s) najera d to hayse bertrand RN at 04/05/2018 19:00 by . Read back OK. [facility] CHEM PANEL Bili Total 0.7 0.2 - 1.3 04/06/2018 [facility] CHEM PANEL Albumin Lvl 2.7 3.5 - 5.0 04/06/2018 [facility] CHEM PANEL Total Protein 6.5 6.4 - 8.4 04/06/2018 [facility] CHEM PANEL Globulin 3.8 2.7 - 4.2 04/06/2018 [facility] CHEM PANEL A/G Ratio 0.7 0.7 - 1.6 04/06/2018 [facility] CHEM PANEL ALT 13 0 - 65 04/06/2018 [facility] CHEM PANEL AST 14 0 - 37 04/06/2018 [facility] CHEM PANEL Alk Phos 138 39 - 136 04/06/2018 [facility] CHEM PANEL Sodium Lvl 142 135 - 145 04/06/2018 [facility] CHEM PANEL Creatinine Lvl 4.14 0.50 - 1.40 04/06/2018 [facility] CHEM PANEL BUN 60 7 - 22 04/06/2018 [facility] CHEM PANEL Glucose Lvl 179 70 - 99 04/06/2018 [facility] CHEM PANEL Potassium Lvl 4.3 3.5 - 5.1 04/06/2018 [facility] HEMATOLOGY PTT 44.0 22.9 - 35.8 04/06/2018 [facility] HEMATOLOGY PT 16.5 12.0 - 14.7 04/06/2018 [facility] HEMATOLOGY INR 1.36 0.85 - 1.17 04/06/2018 [facility] HEMATOLOGY Platelet 157 133 - 450 04/06/2018 [facility] HEMATOLOGY RDW 17.6 11.5 - 14.5 04/06/2018 [facility] HEMATOLOGY MCHC 32.4 32.0 - 36.0 04/06/2018 [facility] HEMATOLOGY MPV 8.8 7.4 - 10.4 04/06/2018 [facility] HEMATOLOGY Hct 30.6 42.0 - 54.0 04/06/2018 [facility] HEMATOLOGY MCV 88.3 80.0 - 94.0 04/06/2018 [facility] HEMATOLOGY Hgb 9.9 14.0 - 18.0 04/06/2018 [facility] HEMATOLOGY MCH 28.6 27.0 - 31.0 04/06/2018 [facility] HEMATOLOGY WBC 7.1 3.7 - 10.4 04/06/2018 [facility] HEMATOLOGY RBC 3.47 4.70 - 6.10 04/06/2018 [facility] HEMATOLOGY Basophils # 0.1 0.0 - 0.2 04/06/2018 [facility] HEMATOLOGY Eosinophils # 0.2 0.0 - 0.5 04/06/2018 [facility] HEMATOLOGY Monocytes # 0.6 0.0 - 0.8 04/06/2018 [facility] HEMATOLOGY Lymphocytes # 0.5 1.0 - 5.5 04/06/2018 [facility] HEMATOLOGY Neutrophils # 5.7 1.5 - 8.1 04/06/2018 [facility] HEMATOLOGY Basophils 1.0 0.0 - 1.0 04/06/2018 [facility] HEMATOLOGY Eosinophils 3.3 0.0 - 4.0 04/06/2018 [facility] HEMATOLOGY Monocytes 9.1 2.0 - 12.0 04/06/2018 [facility] HEMATOLOGY Lymphocytes 7.2 20.0 - 40.0 04/06/2018 [facility] HEMATOLOGY Segs 79.4 45.0 - 75.0 04/06/2018 [facility] HEMATOLOGY AT III Func 93 77 - 140 09/17/2017 [facility] HEMATOLOGY Protein C Func 87 72 - 147 09/17/2017 [facility] HEMATOLOGY Protein S Func 74 54 - 137 09/17/2017 [facility] Homocyst Tot 15.2 3.7 - 13.9 09/17/2017 [facility] IMMUNOLOGY Cardiolipin IgG <1.6 <=19.9 GPL 09/17/2017 [facility] IMMUNOLOGY Cardiolipin IgA 4.7 <=19.9 APL 09/17/2017 [facility] IMMUNOLOGY Cardiolipin IgM 16.9 <=19.9 MPL 09/17/2017 [facility] CHEM PANEL BUN 51 7 - 22 09/17/2017 [facility] CHEM PANEL Glucose Lvl 58 70 - 99 09/17/2017 [facility] CHEM PANEL Chloride Lvl 104 95 - 109 09/17/2017 [facility] CHEM PANEL Sodium Lvl 142 135 - 145 09/17/2017 [facility] CHEM PANEL Potassium Lvl 5.2 3.5 - 5.1 09/17/2017 [facility] CHEM PANEL Creatinine Lvl 4.34 0.50 - 1.40 09/17/2017 [facility] CHEM PANEL eGFR 15 09/17/2017 Result Comment: The eGFR is calculated using the CKD-EPI formula. In most young, healthy individuals the eGFR will be >90 mL/min/1.73m2. The eGFR declines with age. An eGFR of 60-89 may be normal in some populations, particularly the elderly, for whom the CKD-EPI formula has not been extensively validated. Use of the eGFR is not recommended in the following populations:

Individuals with unstable creatinine concentrations, including patients and those with serious co-morbid conditions.

Patients with extremes in muscle mass or diet.

The data above are obtained from the National Kidney Disease Education Program (NKDEP) which additionally recommends that when the eGFR is used in patients with extremes of body mass index for purposes of drug dosing, the eGFR should be multiplied by the estimated BMI. [facility] CHEM PANEL Calcium Lvl 5.7 8.5 - 10.5 09/17/2017 Result Comment: Critical Result(s) dania rankin at 09/17/2017 04:28 byjw. Read back OK. [facility] CHEM PANEL AGAP 17.2 10.0 - 20.0 09/17/2017 [facility] CHEM PANEL CO2 26 24 - 32 09/17/2017 [facility] LIPIDS CHD Risk 2.63 4.00 - 7.30 09/16/2017 [facility] LIPIDS LDL (Calculated) 31 <=99 mg/dL 09/16/2017 [facility] LIPIDS VLDL 18 09/16/2017 [facility] LIPIDS HDL 30 >=61 mg/dL 09/16/2017 [facility] LIPIDS Trig 90 <=149 mg/dL 09/16/2017 [facility] LIPIDS Chol 79 <=199 mg/dL 09/16/2017 [facility] PARATHYROID PROFILE Ca Norm WB 0.61 1.05 - 1.25 09/16/2017 Result Comment: Critical Result(s) dania Salomon at 09/16/2017 16:49 by MS. Read back OK. [facility] PARATHYROID PROFILE Ca Ion WB 0.61 1.05 - 1.25 09/16/2017 [facility] SPECIAL CHEMISTRY Hgb A1C 6.0 <=5.6 % 09/16/2017 [facility] CARDIAC ENZYMES BNP 1121 <=100 pg/mL 09/16/2017 [facility] CARDIAC ENZYMES Troponin-I <0.02 0.00 - 0.40 09/16/2017 [facility] CARDIAC ENZYMES Total CK 793 12 - 191 09/16/2017 [facility] CHEM PANEL eGFR 15 09/16/2017 Result Comment: The eGFR is calculated using the CKD-EPI formula. In most young, healthy individuals the eGFR will be >90 mL/min/1.73m2. The eGFR declines with age. An eGFR of 60-89 may be normal in some populations, particularly the elderly, for whom the CKD-EPI formula has not been extensively validated. Use of the eGFR is not recommended in the following populations:

Individuals with unstable creatinine concentrations, including patients and those with serious co-morbid conditions.

Patients with extremes in muscle mass or diet.

The data above are obtained from the National Kidney Disease Education Program (NKDEP) which additionally recommends that when the eGFR is used in patients with extremes of body mass index for purposes of drug dosing, the eGFR should be multiplied by the estimated BMI. [facility] CHEM PANEL BUN 52 7 - 22 09/16/2017 [facility] CHEM PANEL Creatinine Lvl 4.39 0.50 - 1.40 09/16/2017 [facility] CHEM PANEL Potassium Lvl 4.8 3.5 - 5.1 09/16/2017 [facility] CHEM PANEL Sodium Lvl 140 135 - 145 09/16/2017 [facility] CHEM PANEL Chloride Lvl 99 95 - 109 09/16/2017 [facility] CHEM PANEL Glucose Lvl 57 70 - 99 09/16/2017 [facility] CHEM PANEL CO2 29 24 - 32 09/16/2017 [facility] CHEM PANEL Calcium Lvl 5.5 8.5 - 10.5 09/16/2017 Result Comment: Critical Result(s) dania Salomon at 09/16/2017 15:41 by Read back OK. [facility] CHEM PANEL AGAP 16.8 10.0 - 20.0 09/16/2017 [facility] HEMATOLOGY Segs 78.3 45.0 - 75.0 09/16/2017 [facility] HEMATOLOGY Monocytes 9.1 2.0 - 12.0 09/16/2017 [facility] HEMATOLOGY Eosinophils 3.4 0.0 - 4.0 09/16/2017 [facility] Lymphocytes 8.5 20.0 - 40.0 09/16/2017 [facility] HEMATOLOGY Segs-Bands # 8.0 1.5 - 8.1 09/16/2017 [facility] HEMATOLOGY Lymphocytes # 0.9 1.0 - 5.5 09/16/2017 [facility] HEMATOLOGY Basophils 0.7 0.0 - 1.0 09/16/2017 [facility] HEMATOLOGY Basophils # 0.1 0.0 - 0.2 09/16/2017 [facility] HEMATOLOGY Eosinophils # 0.3 0.0 - 0.5 09/16/2017 [facility] HEMATOLOGY Monocytes # 0.9 0.0 - 0.8 09/16/2017 [facility] HEMATOLOGY PT 15.8 12.0 - 14.7 09/16/2017 [facility] HEMATOLOGY INR 1.25 0.85 - 1.17 09/16/2017 [facility] HEMATOLOGY MPV 9.1 7.4 - 10.4 09/16/2017 [facility] Hgb 9.8 14.0 - 18.0 09/16/2017 [facility] HEMATOLOGY Hct 29.7 42.0 - 54.0 09/16/2017 [facility] HEMATOLOGY RBC 3.28 4.70 - 6.10 09/16/2017 [facility] RDW 15.1 11.5 - 14.5 09/16/2017 [facility] HEMATOLOGY Platelet 197 133 - 450 09/16/2017 [facility] MCH 30.0 27.0 - 31.0 09/16/2017 [facility] MCHC 33.2 32.0 - 36.0 09/16/2017 [facility] WBC 10.2 3.7 - 10.4 09/16/2017 [facility] HEMATOLOGY MCV 90.3 80.0 - 94.0 09/16/2017 [facility] HEMATOLOGY PTT 36.3 22.9 - 35.8 09/16/2017 [facility] Pathology Reports No Data Provided for This Section Diagnostic Reports Report Value Date Source Retroperitoneal Complete US MA OCEDURE INFORMATION: Exam: US Retroperitoneal Complete. Exam date and time: 03/02/2019 7:05 AM Clinical history: /boris on ckd TECHNIQUE: Imaging protocol: Real-time ultrasound of the retroperitoneum with image documentation. Complete exam. COMPARISON: RETROPERITONEAL COMPLETE US 09/16/2017 4:32 PM FINDINGS: Right kidney: Normal size and echogenicity 11.4 x 4.3 x 5.6 cm. No stones. No hydronephrosis. Left kidney: Normal size and echogenicity 12.2 x 5.8 x 3.2 cm. No stones. No hydronephrosis. Aorta: Proximal abdominal aorta normal. Distal abdominal aorta and iliac vessels are excluded from view by overlying bowel gas. Common iliac arteries: Not visualized. Inferior vena cava: Normal. Small free fluid within the peritoneum. Urinary bladder moderately distended, with diffuse mild mucosal thickening. Prostate not visualized. IMPRESSION: Normal-sized kidneys without hydronephrosis or focal lesion. Moderately distended urinary bladder with diffuse urinary mucosal thickening. Consider cystitis versus hypertrophy as sequela of chronic outflow obstruction. Alberto Tracey MD On 03/02/2019 08:34:10; [id number] 03/02/2019 [facility] Chest 1view DX PROCEDURE INFOR MATION: Exam: XR Chest, 1 View Exam date and time: 03/01/2019 11:09 PM Age: 48 years old Clinical history: Shortness of breath; Additional info: Heart failure/chf/pneumonia TECHNIQUE: Imaging protocol: XR of the chest Views: 1 view. Portable AP view COMPARISON: Comparison made to 05/25/2018 chest x-ray. FINDINGS: Lungs: There are diffuse interstitial lung infiltrate. No consolidation. Pleural space: Unremarkable. Moderate volume right pleural effusion. No pneumothorax. Heart/Mediastinum: The heart is enlarged. Pulmonary vascularity is indistinct. Bones/joints: Unremarkable. IMPRESSION: 1. Congestive heart failure. 2. Moderate volume right pleural effusio n. Willam Molina MD On 03/01/2019 23:25:05; [id number] 03/01/2019 [facility] 1view DX Clinical Indica tion: - SOB; Comparison: 04/05/2017 FINDINGS: AP chest radiographs shows normal lung volumes without interstitial or airspace opacities, pleural effusions or pneumothorax. The heart is enlarged but stable. There is no pulmonary vascular congestion. The trachea is midline. There are no clinically significant osseous abnormalities noted. IMPRESSION: 1. Stable cardiomegaly. There is no evid ence of heart failure SL: [id number] 05/25/2018 [facility] Scrotal/Testicle w Doppler US PROCEDURE: SCROTAL ULTRASOUND 05/25/2018. INDICATION: Scrotal swelling. COMPARISON: None relevant for this anatomic region. TECHNIQUE: Sonographic evaluation of the scrotum and testes was performed using high resolution B-mode imaging, pulse and color Doppler imaging. FINDINGS: TESTES: The right testicle measures 4.3 x 2.9 x 3.1 cm. The left testicle measures 4 x 2.9 x 2.9 cm. The testes are normal in contour, morphology and echogenicity. There are no testicular masses or calcifications. Blood flow is normal and symmetrical. EPIDIDYMIDES: Normal size with incidental 1.1 cm left epididymal head cyst or spermatocele. SCROTUM: Low-volume bilateral scrotal hydroceles. Scrotal edema and skin thickening is noted. IMPRESSION: 1. Scrotal edema and or cellulitis witho ut organized collection. 2. No testicular torsion, inflammation o r mass. 3. Left epididymal head cyst or spermato pattie. SL: [id number] 05/25/2018 [facility] 1view DX EXAM: Chest radiograph HISTORY: Shortness of breath COMPARISON: 09/16/2017 TECHNIQUE: Frontal view of the chest FINDINGS/IMPRESSION: Stable moderate-marked cardiomegaly with pulmonary venous hypertension. No appreciable pneumonia. Possible small pleural effusion on the right. SL: [id number] 04/05/2018 [facility] Brain wo contrast MRI Note the results of the case were discussed with the patients nurse, Dudley 829 PM 09/16/2017. Patient Name: DUDLEY TREJO : 1970; Age: 47 years y/o Male MR: [id number] Study: Brain wo contrast MRI 09/16/2017 3:52 PM CDT INDICATIONS: - stroke Comparison: None TECHNIQUE: Multiplanar MRI of the brain is performed on a 1.5 Lela magnet. Contrast: CT of 09/16/2017. FINDINGS: BRAIN PARENCHYMA: Acute/subacute infarct in the right burton radiata/centrum ovale greater than the left. Age appropriate involutionary changes with mild punctate small vessel ischemic changes. The brain parenchyma otherwise has normal signal with normal calero-white junction, sulci, and gyri. There is no mass effect or midline shift. There is no extra-axial fluid collection or intraparenchymal hemorrhage. The corpus callosum appears normal. There is no magnetic susceptibility to suggest recent or remote intracranial hemorrhage. CEREBELLOPONTINE REGIONS AND SKULL BASE: The cerebellopontine angles appear unremarkable. The skull base, craniocervical junction, and brainstem are normal. The optic chiasm is normal. The sellar and pineal regions are unremarkable. The inferior tip of the cerebellum is above the foramen magnum (line between the opisthion to basion) which is considered normal.. VENTRICLES: The lateral ventricles, third and fourth ventricles appear unremarkable. The basilar cisterns are normal. VESSELS: The venous sinuses are grossly unremarkable. The expected intracranial flow voids are present. ORBITS, VISUALIZED PARANASAL SINUSES AND MASTOIDS: The visualized orbits and paranasal sinuses are otherwise unremarkable. The mastoid air cells are unopacified. IMPRESSION: 1. Age appropriate involutionary change s with mild punctate small vessel ischemic changes. 2. Moderate size Acute/subacute infarct in the right burton radiata/centrum ovale greater than the left. SL: [id number] 09/16/2017 [facility] Carotid artery Doppler bilat US Clinical Indication: - lft sided weakness; left facial drooping. Comparison: None TECHNIQUE: Calero-scale, color Doppler and spectral Doppler of the carotid arteries was performed. Any reported ICA stenoses indirectly reference the distal internal carotid diameter as the denominator for the stenosis measurement, utilizing consensus panel criteria. FINDINGS: RIGHT: No significant plaque ICA PSV 64 cm/sec CCA PSV 48 cm/sec ICA/CCA ratio 1.3 Vertebral flow is antegrade. External carotid artery is patent. LEFT: No significant plaque ICA PSV 65 cm/sec CCA PSV 63 cm/sec ICA/CCA ratio 0.0 Vertebral flow is antegrade. External carotid artery is patent. IMPRESSION: 1. RIGHT: ICA stenosis <50 % by velocity criteria. 2. LEFT: ICA stenosis <50 % by velocity criteria. Consensus panel Doppler US criteria for diagnosis of ICA stenosis: Stenosis (%) ICA PSV (cm/sec) ICA/CCA ratio <50 <125 <2.0 50-69 125-230 2.0-4.0 >70 but less than >230 >4.0 near occlusion Near occlusion High, low, or Variable undetectable SL: [id number] 09/16/2017 [facility] Retroperitoneal Complete US MA OCEDURE: RENAL ULTRASOUND INDICATION: - renal failure COMPARISON: None. TECHNIQUE: Sonographic evaluation of the kidneys and urinary bladder was performed. FINDINGS: KIDNEYS: The right kidney measures 12.1 cm in length. The left kidney measures 13 cm in length. The kidneys are normal in contour and morphology with normal parenchymal echogenicity. There is no hydronephrosis, nephrolithiasis, mass lesion or perinephric collection. BLADDER: Unremarkable. AORTA/IVC: Visible segments of the abdominal aorta and IVC are unremarkable. The common iliac arteries are obscured. IMPRESSION: Normal renal ultrasound. SL: -Devi 09/16/2017 [facility] Chest 1view DX Study: Chest 1v iew DX Clinical Indication: - cva Comparison: None FINDINGS: Cardiac silhouette is moderately enlarged. Central vascular congestion and small right pleural effusion are seen. There is no pneumothorax. The osseous structures are unremarkable. IMPRESSION: Mild congestive heart failure SL: [id number] 09/16/2017 [facility] Brain Stroke wo contrast CT Cl inical Indication: Generalized weakness while walking up to apartment.; Comparison: None TECHNIQUE: CT images were obtained from the foramen magnum to the vertex without the use of intravenous contrast on a multidetector CT. Coronal and sagittal reconstructions were obtained. CT radiation dose DLP: 981.84 mGy-cm FINDINGS: BRAIN PARENCHYMA: There are normal calero-white interfaces, sulci and gyri. There are no focal mass lesions on this noncontrast head CT. There is no mass effect, midline shift or edema. There are no intra-axial or extra-axial fluid collections, intraventricular or intraparenchymal hemorrhage. The pineal, sellar, brainstem, cerebellum and skull base regions appear unremarkable. VENTRICLES: The lateral ventricles, third and fourth ventricles appear unremarkable. The basilar cisterns are normal. ORBITS, MASTOIDS AND PARANASAL SINUSES: The visualized orbits and paranasal sinuses are unremarkable. The mastoid air cells are clear. SKULL: There are no osseous abnormalities. If there is further concern for intracranial pathology or acute stroke, MRI of the brain may be performed for complete assessment. IMPRESSION: Unremarkable noncontrast head CT with no mass, hemorrhage or subacute stroke. These findings were called into Dr. Cavanaugh at approximately 2:08 PM September 16, 2017. SL: [id number] 09/16/2017 [facility] Consultation Notes No Data Provided for This Section Discharge Summaries No Data Provided for This Section History and Physicals No Data Provided for This Section Vital Signs Vital Sign Value Date Comments Source Temperature Oral (F) 97.4 F 03/08/2019 [facility] Heart Rate 57 03/08/2019 [facility] Respitory Rate 18 03/08/2019 [facility] Systolic (mm Hg) 177 03/08/2019 [facility] Diastolic (mm Hg) 80 03/08/2019 [facility] Temperature Oral (F) 97.4 F 03/08/2019 [facility] Heart Rate 64 03/08/2019 [facility] Respitory Rate 18 03/08/2019 [facility] Systolic (mm Hg) 168 03/08/2019 [facility] Diastolic (mm Hg) 84 03/08/2019 [facility] Respitory Rate 16 03/08/2019 [facility] Height 330.2 cm 03/08/2019 [facility] Temperature Oral (F) 97.9 F 03/08/2019 [facility] Heart Rate 62 03/08/2019 [facility] Systolic (mm Hg) 170 03/08/2019 [facility] Diastolic (mm Hg) 89 03/08/2019 [facility] Height 330.2 cm 03/07/2019 [facility] Height 330.2 cm 03/06/2019 [facility] Weight 102.273 03/02/2019 [facility] BMI Calculated 32.35 03/02/2019 [facility] Weight 102.273 03/02/2019 [facility] BMI Calculated 32.35 03/02/2019 [facility] Systolic (mm Hg) 155 06/01/2018 [facility] Diastolic (mm Hg) 78 06/01/2018 [facility] Respitory Rate 16 06/01/2018 [facility] Temperature Oral (F) 98.0 F 06/01/2018 [facility] Heart Rate 60 06/01/2018 [facility] Systolic (mm Hg) 142 06/01/2018 [facility] Diastolic (mm Hg) 73 06/01/2018 [facility] Respitory Rate 18 06/01/2018 [facility] Heart Rate 62 06/01/2018 [facility] Temperature Oral (F) 98.2 F 06/01/2018 [facility] Respitory Rate 18 06/01/2018 [facility] Heart Rate 66 06/01/2018 [facility] Temperature Oral (F) 98.1 F 06/01/2018 [facility] Systolic (mm Hg) 161 06/01/2018 [facility] Diastolic (mm Hg) 83 06/01/2018 [facility] Weight 105.114 05/27/2018 [facility] BMI Calculated 32.35 05/25/2018 [facility] Weight 102.273 05/25/2018 [facility] Height 177.8 cm 05/25/2018 [facility] Respitory Rate 18 04/08/2018 [facility] Systolic (mm Hg) 124 04/08/2018 [facility] Diastolic (mm Hg) 69 04/08/2018 [facility] Heart Rate 82 04/08/2018 [facility] Temperature Oral (F) 97.8 F 04/08/2018 [facility] Heart Rate 56 04/08/2018 [facility] Temperature Oral (F) 97.4 F 04/08/2018 [facility] Respitory Rate 18 04/08/2018 [facility] Systolic (mm Hg) 144 04/08/2018 [facility] Diastolic (mm Hg) 78 04/08/2018 [facility] Systolic (mm Hg) 152 04/08/2018 [facility] Diastolic (mm Hg) 82 04/08/2018 [facility] Respitory Rate 16 04/08/2018 [facility] Heart Rate 61 04/08/2018 [facility] Temperature Oral (F) 97.8 F 04/08/2018 [facility] Height 177.8 cm 04/06/2018 [facility] BMI Calculated 32.93 04/06/2018 [facility] Weight 104.091 04/06/2018 [facility] Height 177.8 cm 04/05/2018 [facility] BMI Calculated 32.35 04/05/2018 [facility] Weight 102.273 04/05/2018 [facility] Temperature Oral (F) 98 F 09/17/2017 [facility] Heart Rate 58 09/17/2017 [facility] Respitory Rate 19 09/17/2017 [facility] Systolic (mm Hg) 155 09/17/2017 [facility] Diastolic (mm Hg) 84 09/17/2017 [facility] Temperature Oral (F) 98.4 F 09/17/2017 [facility] Heart Rate 60 09/17/2017 [facility] Systolic (mm Hg) 174 09/17/2017 [facility] Diastolic (mm Hg) 61 09/17/2017 [facility] Respitory Rate 18 09/17/2017 [facility] Systolic (mm Hg) 162 09/17/2017 [facility] Diastolic (mm Hg) 88 09/17/2017 [facility] Temperature Oral (F) 98.1 F 09/17/2017 [facility] Heart Rate 61 09/17/2017 [facility] Respitory Rate 18 09/17/2017 [facility] BMI Calculated 31.63 09/16/2017 [facility] Weight 100 09/16/2017 [facility] Height 177.8 cm 09/16/2017 [facility] Weight 100 09/16/2017 [facility] BMI Calculated 31.63 09/16/2017 [facility] Height 177.8 cm 09/16/2017 [facility] Encounters Location Location Details Encounter Type Encounter Number Reason For Visit Attending Provider ADM Date DC Date Status Source [facility] Observation [id number] Cosme Noam 09/16/2017 09/17/2017 [facility] Inpatient [id number] Dustin Matuteebranious 04/05/2018 04/08/2018 [facility] Inpatient [id number] Rojas Mckay 05/25/2018 06/01/2018 [facility] Inpatient [id number] Babatunde Gee Jr 03/02/2019 03/09/2019 [facility] Procedures Procedure Code Date Perfomer Comments Source Appendectomy [id number] [facility] Repair of retina for retinal detachment [id number] [facility] Assessment and Plan Assessment and Plan Date Source Extracted from:Title: Clinical Document Author: Keven Rodriguez MD Date: 03/08/19 Progress Note Nephrology SUBJECTIVE refusing dialysis ASSESSMENT 1- CKD 5, discussing PD with family, ref uses any dialysis for now , and he said is ready to accept the results.. he wont do it till after new years at least when his insurance is valid ! 2- volume overload 3- continue oxygen 4- anemia of chronic disease 5- leg edema improved response with bume x drip PLAN and TREATMENT bumex drip once oxygen is available then ok to go home poor prognosis refuses dialysis alert , oriented, ? denial PLAN and TREATMENT Physical Exam alert, oriented HEENT : peerla NECK: no jvd, no bruits, HEART : RRR no s3 no S4, no murmur, no rub LUNGS: no wheezes no rales, no rhonci ABDOMEN: NTND no organomegaly no hepatomegaly positive bowel sounds EXT: no clubbing no cyanosis decreased edema NEURO :no focalities, no sensory deficits, no motor deficits SKIN: no rash, no bruises R.O.S General no change in weight no change in appetite ENT no wheezing no congestion no coughing Vision no changes in vision no eye redness Pulmonarypositiveo shortness of breath no coughing no wheezing Cardiac no chest pain no arrhythmia no orthopnea no dyspnea upon exertion GI no nausea no vomiting no constipation no diarrhea no blood in the stool no dysuria no hematuria Neurological no sensory loss no motor loss no weakness Skin no rash no bruises Psych no depression and schizoaffective disorder no anxiety OBJECTIVE Vitals Tmp(F) Tmp(C) Ttype BP MAP Pulse RR SpO2 FIO2 ETCO2 03/08 16:19 ---- ---- ---- - ---- --- --- -- 92 3.0L/m --- 03/08 13:06 97.4 36.33 oral 177/80 --- 57 18 94 --- --- 03/08 08:46 97.4 36.33 oral 168/84 --- 64 18 93 --- --- 03/08 07:36 ---- ---- ---- - ---- --- --- 16 94 3.0L/m --- 03/08 07:35 ---- ---- ---- - ---- --- --- -- 94 3.0L/m --- 24 Hr Tmax: 97.9F (36.61c) at 03/08 03:2 5 Vital Signs are the last 5 in the past 48 hours. 24 Hr Tmin: 97.4F (36.33c) at 03/08 13: 06 Weights are the last 5 in 60 days, plus initial. Date Wt(kg) Wt(lb) Ht(cm) Ht(in) Method BMI BSA 03/08 98.77 217.30 330.20 130.00 [facility] 03/07 102.68 225.90 330.20 130.00 [facility] 03/06 100.09 220.20 330.20 130.00 [facility] 03/05 101.64 223.60 330.20 130.00 [facility] 03/04 101.10 222.42 330.20 130.00 [facility]/Sta 03/01 (initial) 102.27 225.00 Measured 32.4 2.25 03/01 177.80 70.00 Stated (no point of care glucose results charte d in last 24 hours) Most Recent Scores: 03/08/19 Pain Intensity NRS (0-10) 0 03/08/19 Dumas Coma Score 15 03/08/19 Zavala Freed Fall Score 8 03/08/19 Gómez Score 20 (all previously charted lines have been discontinued) (no surgical procedures documented) Input/Output Record In Out Bal 03/08 24hr Tot 10 0 10 03/07 24hr Tot 1270 2500 - 1230 Scheduled Meds (8):albuterol-ipratropium (albuterol-ipratropium 2.5-0.5 mg inhalation solution), amLODIPine, atorvastatin, carvedilol (Coreg), clopidogrel (Plavix), (Suspended) heparin (heparin 5000 units/mL injectable solution), melatonin (melatonin 3 mg oral tablet), sodium chloride (Saline Flush 0.9%) Unscheduled Meds (1):influenza virus vaccine, inactivated PRN Meds (17):Dextrose 50% in Water IV (Dextrose 50% Syringe (D50W)), Dextrose 50% in Water IV (Dextrose 50% Syringe (D50W)), acetaminophen (Tylenol), dextromethorphan-guaiFENesin (dextromethorphan-guaiFENesin 10 mg-100 mg/5 mL oral liquid), glucagon, insulin lispro, insulin lispro, insulin lispro, insulin lispro, insulin lispro, insulin lispro, insulin lispro, insulin lispro, insulin lispro, ondansetron, ondansetron, sodium chloride (Saline Flush 0.9%) One Time Meds: None Continuous Infusions (1):bumetanide 10 mg + Sodium Chloride 0.9% IV 60 mL (bumetanide 10 mg + Sodium Chloride 0.9% (titrate) 60 mL) Labs (Last four charted values) WBC 6.6 (MAR 05) 7.4 (MAR 04) 9.1 (MAR 03) Hgb L 8.7 (MAR 05) L 8.8 (MAR 04) L 9.3 (MAR 03) Hct L 26.0 (MAR 05) L 26.4 (MAR 04) L 27.8 (MAR 03) Plt L 97 (MAR 05) L 98 (MAR 04) L 108 (MAR 03) Na L 133 (MAR 07) L 130 (MAR 05) L 133 (MAR 04) L 133 (MAR 03) K 4.6 (MAR 07) 4.3 (MAR 05) 4.6 (MAR 04) 4.7 (MAR 03) CO2 27 (MAR 07) 26 (MAR 05) 27 (MAR 04) 26 (MAR 03) Cl L 94 (MAR 07) L 91 (MAR 05) L 92 (MAR 04) L 93 (MAR 03) Cr H 8.62 (MAR 07) H 8.59 (MAR 05) H 8.59 (MAR 04) H 8.53 (MAR 03) BUN H 130 (MAR 07) H 123 (FEB 14) H 118 (MAR 04) H 113 (MAR 03) Glucose Random 97 (FEB 16) H 121 (FEB 14) 92 (FEB 13) H 109 (FEB 12) Mg H 2.7 (MAR 01) Phos H 8.9 (MAR 01) Ca C 5.8 (MAR 07) C 6.3 (MAR 05) C 6.2 (MAR 04) C 6.6 (MAR 03) Troponin 0.03 (MAR 01) Extracted from:Title: Clinical Document Author: Keven Rodriguez MD Date: 03/03/19 Nephrology Consult Keven Rodriguez M.D. Date HISTORY OF PRESENT ILLNNESS This 48-year-old male with history of chronic kidney disease. He was seen by several nephrologists, admitted with volume overload signs, refuses dialysis at this time ALLERGIES: No known drug allergies. PAST MEDICAL HISTORY: 1. Type 2 diabetes mellitus. 2. Hypertension. 3. Chronic systolic heart failure. 4. Nonischemic cardiomyopathy. PAST SURGICAL HISTORY: Includes appendectomy. No detachment repair. ALLERGIES: No known drug allergies. FAMILY HISTORY: Asthma, type 2 diabetes mellitus. Sister, breast cancer. SOCIAL HISTORY: Quit alcohol 2014. No smoking. REVIEW OF SYMPTOMS General no change in weight no change in appetite ENT no wheezing no congestion no coughing Vision no changes in vision no eye redness Pulmonary no shortness of breath no coughing no wheezing Cardiac no chest pain no arrhythmia no orthopnea no dyspnea upon exertion GI no nausea no vomiting no constipation no diarrhea no blood in the stool no dysuria no hematuria Neurological no sensory loss no motor loss no weakness Skin no rash no bruises Psych no depression and schizoaffective disorder no anxiety Physical Exam alert, oriented HEENT : peerla NECK: no jvd, no bruits, HEART : RRR no s3 no S4, no murmur, no rub LUNGS: no wheezes positive rales, no rhonci ABDOMEN: NTND no organomegaly no hepatomegaly positive bowel sounds EXT: no clubbing no cyanosis no edema NEURO:no focalities, no sensory defecits, no motor defecits SKIN: no rash, no bruises Vitals Tmp(F) Pulse BP RR SpO2 FIO2 03/03 21:15 ---- --- ----- 1 8 93 2.0L/m 03/03 19:35 97.3 58 154/83 1 7 91 --- 03/03 18:22 98.1 60 146/80 1 8 95 --- 03/03 15:16 ---- --- ----- - - 94 3.5L/m 03/03 15:00 ---- 56 145/82 1 3 --- --- 24 Hr Tmax: 98.1F (36.72c) at 03/03 18:2 2 Vital Signs are the last 5 in the past 48 hours. Medication List Active Medications Ordered acetaminophen: 500 mg, 1 tab, PO, Q6H, PRN: Pain 4-6/Temp > 100.4 F. albuterol-ipratropium: 3 mL, NEB, RQ4H. atorvastatin: 40 mg, 1 tab, PO, Bedtime. carvedilol: 3.125 mg, 1 tab, PO, Q12H. clopidogrel: 75 mg, 1 tab, PO, Daily. dextromethorphan-guaiFENesin: 10 mL, PO, Q4H, PRN: Cough. Dextrose 50% in Water IV: 12,500 mg, 25 mL, IVP, PRN, PRN: Blood Glucose Results. Dextrose 50% in Water IV: 25 gm, 50 mL, IVP, PRN, PRN: Blood Glucose Results. furosemide 100 mg + Sodium Chloride 0.9% IV 90 mL: 10 ml/hr, IV, Stop: 04/01/19 8:16:00 [employer]. glucagon: 1 mg, IM, PRN, PRN: Blood Glucose Results. heparin: 5,000 unit, 1 mL, SUB-Q, Q12H. influenza virus vaccine, inactivated: 0.5 mL, IM, ONCALL. insulin lispro: 1 unit, 0.01 mL, SUB-Q, TID-Before Meals, PRN: Blood Glucose Results. insulin lispro: 2 unit, 0.02 mL, SUB-Q, TID-Before Meals, PRN: Blood Glucose Results. insulin lispro: 3 unit, 0.03 mL, SUB-Q, TID-Before Meals, PRN: Blood Glucose Results. insulin lispro: 4 unit, 0.04 mL, SUB-Q, TID-Before Meals, PRN: Blood Glucose Results. insulin lispro: 5 unit, 0.05 mL, SUB-Q, TID-Before Meals, PRN: Blood Glucose Results. insulin lispro: 1 unit, 0.01 mL, SUB-Q, Bedtime, PRN: Blood Glucose Results. insulin lispro: 2 unit, 0.02 mL, SUB-Q, Bedtime, PRN: Blood Glucose Results. insulin lispro: 3 unit, 0.03 mL, SUB-Q, Bedtime, PRN: Blood Glucose Results. insulin lispro: 4 unit, 0.04 mL, SUB-Q, Bedtime, PRN: Blood Glucose Results. melatonin: 3 mg, 1 tab, PO, Bedtime. nitroglycerin: 1 patch, Transdermal, Daily. ondansetron: 4 mg, 2 mL, IVP, Q8H, PRN: Nausea and Vomiting. ondansetron: 4 mg, 2 mL, IVP, Q6H, PRN: Nausea and Vomiting. sodium chloride: 10 ml, IVP, Q12H. sodium chloride: 10 ml, IVP, PRN, PRN: Line Flush. Prescribed amLODIPine: 10 mg, 2 tab, PO, Daily, 60 tab, 1 Refill(s). atorvastatin: 40 mg, 1 tab, PO, Bedtime, for 30 day, 30 tab, 0 Refill(s). bumetanide: 2 mg, 2 tab, PO, BID, for 30 day, 120 tab, 0 Refill(s). carvedilol: 12.5 mg, 1 tab, PO, Q12H, for 30 day, 60 tab, 0 Refill(s). clopidogrel: 75 mg, 1 tab, PO, Daily, for 30 day, 30 tab, 0 Refill(s). metolazone: 10 mg, 2 tab, PO, Daily, for 30 day, 60 tab, 0 Refill(s). Medications Inactivated in the Last 72 Hours albuterol: 2.49 mg, NEB, RQ6H. aspirin: 81 mg, 1 tab, PO, Q24H, for 30 day, 30 tab, 0 Refill(s). bumetanide: 2 mg, 8 mL, IVP, Q12H. calcium carbonate: 2,000 mg, 4 tab, CHEW, TID-Meals, for 30 day, 360 tab, 0 Refill(s). furosemide 100 mg + Sodium Chloride 0.9% IV 90 mL: 10 ml/hr, IV, Stop: 04/01/19 5:26:00 [employer]SCAPE [employer]. hydrALAZINE: 50 mg, 1 tab, PO, Daily, 0 Refill(s). isosorbide mononitrate: 60 mg, 1 tab, PO, QAM, 0 Refill(s). melatonin: 3 mg, 1 tab, PO, ONCE, PRN: Sleep. potassium chloride: 40 mEq, 2 tab, PO, Daily, for 30 day, 60 tab, 0 Refill(s). Sodium Chloride 0.9% IV 60 mL + bumetanide 10 mg: Infuse as directed, IV, Stop: 01/10/20 8:10:00 [employer]SCAPE SPECIALIST. Labs (Last four charted values) WBC 9.1 (MAR 03) Hgb L 9.3 (FEB 12) Hct L 27.8 (FEB 12) Plt L 108 (FEB 12) Na L 133 (DEC 12) 137 (DEC 10) K 4.7 (DEC 12) 4.7 (FEB 10) CO2 26 (DEC 12) 28 (DEC 10) Cl L 93 (FEB 12) 95 (FEB 10) Cr H 8.53 (FEB 12) H 8.53 (MAR 01) BUN H 113 (FEB 12) H 110 (FEB 10) Glucose Random H 109 (FEB 12) H 184 (MAR 01) Mg H 2.7 (MAR 01) Phos H 8.9 (MAR 01) Ca C 6.6 (MAR 03) C 6.6 (MAR 01) Troponin 0.03 (MAR 01) ASSESSMENT AND PLAN 1- CKD 5 refuses dialysis at this time , stated as long as i am kiking and up i dont want to start 2- patient had secvereal questions regar ding dialysis all were answered 3- continue oxygen Extracted from:Title: History and Physical Author: Terrance Kumar MD Date: 03/01/19 1.Acute hypoxemic respiratory failure(J9 6.01) 2.Volume overload(E87.70) Ordered: Admit/Condition, 03/01/19 22:47:00 [employer]SCAPE [employer], Status: Inpatient, IMU, Reason: Diastolic Heart Failure-EF > 40%, Expected LOS: 2 Midnights, Babatunde Dwyer MD, Admit MD Review/Approve Yes, Isolation: No Isolation/Standard Precautions, Volume overload [id number] PVR (Bladder Scan) POC, 03/02/19 5:09:00 [employer]SCAPE SPECIALIST, q 6 hours x 4, Volume overload 3.Acute on chronic systolic heart failure(I50.23) 4.Cardiorenal syndrome(I13.10) 5.NICM (nonischemic cardiomyopathy)(I42.8) 6.CKD (chronic kidney disease), stage IV(N18.4) 7.Diabetes(E11.9) 8.Hypertension(I10) 9.Dyslipidemia(E78.5) This is 48-year-old man who presents with outside ER with acute hypoxemic respiratory failuresecondary todecompensatedheart failure,acute kidney failuresuperimposed with a CKD 5likely cardiorenal syndrome versus compliance issues. He was started on Bi[facility]AP at [facility]. He had received 80 mg of Lasix IV x1 prior to transportation. Upon arrivalhe was weaned off BiPAP and started onnasal cannula at 6 L/min. -Received Bumex 2 mg IV x1 upon arrival without any significant urine output - supplemental O2 - duonebs -We will start Lasix - welsh catheter - renal US - consult nephrology - cardiology consult - intesivist was consulted prior to hoffmann sfer Clinical picture is fairly consistent with volume overload. He wasgiven antibiotics due to concern for pneumonia given elevated white count at outside ER. We will continue the antibiotics at this time. - check procalcitonin - repeat CBC, and electrolytes - continue with ceftiraxone and azithro pending above - check flu swab - sliding scale insuiln lovenox IMCU full code 03/09/2019 [facility] Extracted from:Title: Clinical Document Author: Crescencio Gay MD Date: 06/01/18 Nephrology Progress Note Crescencio Gay M.D. SUBJECTIVE wants to go home get his things order just in case there are compliacations when he gets his pd catheter, on room air Physical Exam alert, oriented HEENT : peerla NECK: no jvd, no bruits, HEART : RRR no s3 no S4, no murmur, no rub LUNGS: no wheezes no rales, no rhonci ABDOMEN: NTND no organomegaly no hepatomegaly positive bowel sounds EXT: no clubbing no cyanosis decreased edema NEURO:no focalities, no sensory defecits, no motor defecits SKIN: no rash, no bruises ASSESSMENT 1. Chronic kidney disease stage V. The patient is just realizing that he needs to be on dialysis. He recieved information material regarding hemodialysis, peritoneal dialysis and kidney transplant. Also, I have [employer] program coming to educate him. he wants to go home to get his "stuff in order " 2. Severe anasarca. on Lasix drip. bet ter, ok to discharge 3. Anemia due to CKD, will give IV iron as TSAT <20% 4. Hyperphosphatemia. on phosphorous binders and also on a renal diet. 5. Scrotal edema. Negative ultrasound is most likely secondary to anasarca, improving PLAN and TREATMENT ok to dischrge, he needs to follow up in 1 week with labs, instructed patient does not want a catheter now before he takes care of all his issues Vitals and Temp: Vitals Tmp(F) Pulse BP RR SpO2 FIO2 06/01 08:16 98.2 62 142/73 1 8 92 --- 06/01 04:00 98.1 66 161/83 1 8 98 --- 06/01 00:00 97.8 64 152/78 1 8 98 --- 05/31 23:27 ---- --- ----- 1 8 91 1.0L/m 05/31 20:00 97.7 62 161/78 1 8 98 --- 24 Hr Tmax: 98.2F (36.78c) at 06/01 08:1 6 Vital Signs are the last 5 in the past 48 hours. Input/Output Record In Out Bal 06/01 24hr Tot 526 1000 -369 05/31 24hr Tot 3434 1121 - 8864 Labs (Last four charted values) WBC 8.1 (MAY 28) 6.1 (MAY 27) 5.8 (MAY 25) Hgb L 9.0 (MAY 28) L 9.1 (MAY 27) L 9.2 (MAY 25) Hct L 28.0 (MAY 28) L 27.6 (MAY 27) L 27.9 (MAY 25) Plt L 99 (MAY 28) L 97 (MAY 27) L 98 (MAY 25) Na 137 (JUN 01) 140 (MAY 31) 138 (MAY 30) 140 (MAY 29) K 4.0 (JUN 01) 4.0 (MAY 31) L 3.3 (MAY 30) 3.8 (MAY 29) CO2 31 (JUN 01) 29 (MAY 31) 26 (MAY 30) 24 (MAY 29) Cl 99 (JUN 01) 103 (MAY 31) 103 (MAY 30) 105 (MAY 29) Cr H 5.29 (JUN 01) H 5.51 (MAY 31) H 5.54 (MAY 30) H 5.32 (MAY 29) BUN H 109 (JUN 01) H 110 (MAY 31) H 110 (MAY 30) H 110 (MAY 29) Glucose Random H 153 (JUN 01) H 140 (MAY 31) H 132 (MAY 30) H 128 (MAY 29) Mg 2.3 (JUN 01) 2.2 (MAY 31) 2.4 (MAY 30) 2.2 (MAY 29) Phos H 6.9 (MAY 30) H 7.8 (MAY 29) H 8.7 (MAY 28) H 8.9 (MAY 27) Ca L 8.1 (JUN 01) L 7.5 (MAY 31) L 7.5 (MAY 30) L 7.2 (MAY 29) Troponin <0.02 (MAY 25) MEDICATIONS: Medications (25) Active Scheduled Meds (15): 05/26/18 aspirin (aspirin 81 mg tablet, enteric coated) 81 mg PO Daily 05/26/18 atorvastatin 40 mg PO Bedtime 06/01/18 bumetanide (Bumex) 2 mg PO BID 05/26/18 calcium carbonate 2,000 mg CHEW TID-Meals 05/26/18 carvedilol (Coreg) 12.5 mg PO Q 12H 05/26/18 clopidogrel 75 mg PO Daily 05/26/18 (Suspended) hydrALAZINE (hydrA LAZINE 50 mg oral tablet) 50 mg PO Daily 05/27/18 hydrALAZINE (hydrALAZINE 25 mg oral tablet) 50 mg PO TID 05/26/18 (Suspended) isosorbide mononit rate 60 mg PO QAM 05/27/18 isosorbide mononitrate (Imdur) 30 mg PO QAM 05/29/18 metolazone (metolazone 5 mg ora l tablet) 5 mg PO Daily 05/30/18 potassium chloride 40 mEq PO Da vikki 05/28/18 sevelamer (Renvela) 1.6 gm PO T ID-Before Meals 05/25/18 sodium chloride (Saline Flush 0 .9%) 10 ml IVP Q12H 05/28/18 sodium ferric gluconate complex + Sodium Chloride 0.9% IV 100 mL (Ferrlecit + Sodium Chloride 0.9% IV 100 mL) 125 mg IVPB Daily 110 ml/hr Unscheduled Meds: None PRN Meds (10): 05/25/18 Dextrose 50% in Water IV (Dextr ose 50% Syringe) 12.5 gm IVP PRN 05/25/18 Dextrose 50% in Water IV (Dextr ose 50% Syringe) 25 gm IVP PRN 05/26/18 calcium gluconate + Sodium Chlo ride 0.9% IV 40 mL 1,000 mg IVPB PRN 100 ml/hr 05/27/18 calcium gluconate 1,000 mg IVPB PRN 100 ml/hr 05/25/18 glucagon 1 mg IM PRN 05/26/18 hydrALAZINE 10 mg IVP Q4H 05/25/18 melatonin 3 mg PO Bedtime 05/25/18 sodium chloride (Saline Flush 0 .9%) 10 mL IVP PRN 05/25/18 sodium chloride (Saline Flush 0 .9%) 10 mL IVP PRN 05/25/18 sodium chloride (Saline Flush 0 .9%) 10 ml IVP PRN One Time Meds: None Continuous Infusions: None Extracted from:Title: General Admission H&P * Author: Nicolas Link MD Date: 05/25/18 Impression and Plan Impression: Acute on chronic systolic heart failure Volume overload state/anasarca Chronic kidney disease stage IV/V Bilateral lower extremity edema and scrotal swelling and pain Diabetes mellitus type 2 Hypertension Hyperlipidemia Nonischemic cardiomyopathy Plan: Will admit to medicine Activity as tolerated Vitals per unit policy Dietrenal Patient was found to have possible 5.8 which was treated in ER with calcium gluconate, repeat potassium and inform night hospitalist with results. We will start on IV Lasix. Urology and cardiology consulted from ER. We will get nephrology evaluation. Patient may need dialysis. Patient CODE STATUS full exam prognosis guarded. If patient condition gets worse, patient may be upgraded to IMCU or ICU. We will reconcile home medication when available. 06/01/2018 DARIN Ferrera Extracted from:Title: Cardiology Progres s Note Author: Osbaldo Pollard MD Date: 04/08/18 Impression and Plan - Non-ischemic cardiomyopathy (EF 30-35% in 08/2017) with clean cath in 2014 at [facility] - HTN - T2DM - CVA - HLD - CKD - Chronic anemia # NICMP / CHF exacerbation - Clean cath in 2014. Cardiomyopathy li jesus d/t HTN - Continue BB, hydral/imdur. Not on PINEDA -i / ARB d/t CKD - Continue IV lasix for now while in house - Repeat TTE unchanged # HTN - Resume home meds. IV hydralazine prn - 04/08: Meds adjusted. Norvasc added # HLD - On statin Stable from a cardiac standpoint. Extracted from:Title: Clinical Document Author: Dustin Isaac MD Date: 04/08/18 Name:RM: Lorenzo Roe 1DSE Keven III, CARLOS L 47y (: 1970) M Admission Date: 04/06/2018 Discharge Date: 2018 DIAGNOSES and PROBLEMS Uncompensated congestive heart failure systolic with ejection fraction of 3035% Nonischemic cardiomyopathy Hypertension Chronic kidney disease Diabetes mellitus Hyperlipidemia Hypocalcemia Anemia of chronic disea Procedures: Hospital course: Admitted see H&P for details of admission. Cardiology consult was placed. Serial cardiac enzymes negative the patient was diuresed extensively. Echo done 16 EF 30-35%. Patient had a clean heart cath back in bed top of 2014. Impression nonischemic cardiomyopathy cardiology have discussed with patient ICDs in the past. Patient will be discharged home to follow-up with cardiology follow-up with PCP Discharge condition: Stable Medications See reconciliation form Diet Regular Activity As tolerated Follow up 5 days in my office On date of discharge the patient was seen and examined see progress note for details Total discharge time greeater than 30 min in revieweing chart , examinig patient and reconciling meds, discussing with patient, and answering all questions. Progress Note - Daily [facility] Completed: Mar, 14:08 by Dustin Isaac MD RM: 137 - 1D, DUDLEY GARCÍA III 47y (: 1970) M Attending: Dustin Isaac MD Service: Internal Medicine Reason for Admission: CHF EXACERBATION Working DRG: Code status: Full Code Current diet: Isolation: No Isolation/Standard Precautions Allergies: NKDA SUBJECTIVE Doing better ,no chest pain or sob,no nause or vomiting, no neurologic symptoms Shortness of breath improved and ready to go home OBJECTIVE 24hr Labs 04/08 1113 POC Performing Locatio See Note Glucose POC 179 H 01/16 2137 POC Performing Locatio See Note Glucose POC 193 H 04/07 1612 POC Performing Locatio See Note Glucose POC 197 H Welsh still necessary (Yes/No): Line still necessary (Yes/No): Vitals Tmp(F) Pulse BP RR SpO2 FIO2 04/08 11:10 97.4 56 144/78 1 8 94 --- 04/08 09:58 ---- 86 152/82 - - --- --- 04/08 07:32 ---- --- ----- 1 6 96 21% 04/08 07:20 97.8 61 155/76 1 8 94 --- 04/08 03:46 97.3 60 152/85 1 8 98 --- 24 Hr Tmax: 98.8F (37.11c) at 04/07 16:1 0 Vital Signs are the last 5 in the past 48 hours. Date Wt(kg) Wt(lb) Ht(cm) Ht(in) Method 04/08 102.36 225.19 Measur ed 04/07 102.00 224.40 Measur ed 04/06 104.09 229.00 177.80 70.00 Remedios/Sta 04/05 (initial) 102.27 225.00 Estimated 04/05 177.80 70.00 Stated I&O Record In Out Bal 04/08 24hr Tot 828 1100 -272 04/07 24hr Tot 2289 5400 - 8114 Medications (16) Active Scheduled Meds (9): 04/08/18 amLODIPine 10 mg PO Daily 04/06/18 aspirin (aspirin 81 mg tablet, enteric coated) 81 mg PO Q24H 04/07/18 carvedilol (Coreg) 25 mg PO BID 04/06/18 enoxaparin (Lovenox) 30 mg SUB- Q [id number] 04/06/18 furosemide 80 mg IVP Q12H 04/07/18 hydrALAZINE (hydrALAZINE 50 mg oral tablet) 100 mg PO TID 04/08/18 isosorbide mononitrate (isosorb chandler mononitrate extended release) 120 mg PO QAM 04/06/18 pantoprazole 40 mg PO Daily 04/06/18 sodium chloride (Saline Flush 0 .9%) 10 ml IVP Q12H Unscheduled Meds (1): 04/06/18 influenza virus vaccine, inacti vated 0.5 mL IM ONCALL PRN Meds (4): 04/06/18 hydrALAZINE 10 mg IV Q4H 04/06/18 ondansetron 4 mg IVP Q8H 04/06/18 sodium chloride (Saline Flush 0 .9%) 10 ml IVP PRN 04/06/18 temazepam 15 mg PO Bedtime One Time Meds (2): 04/07/18 (Completed) hydrALAZINE 50 mg PO ONCE 04/07/18 (Completed) isosorbide mononit rate (isosorbide mononitrate extended release) 60 mg PO ONCE Continuous Infusions: None ASSESSMENT and EXAM GENERAL: alert and oriented x 3. no obvious distress HEENT: PERRLA. EOMI. Normocephalic, Atraumatic NECK: No jugular venous distention, no bruit. Thyroid is normal. LUNGS: crackles b/l lung bases HEART: RRR. S1, S2 is normal. ABDOMEN: Positive bowel sounds, no organomegaly. No tenderness appreciated EXTREMITIES: No tenderness. Lower limbs 1+ edema and no cyanosis. NEUROLOGIC: Grossly intact sensory and motor. SKIN: no rashes noted PLAN and TREATMENT Discussed with cardiology We will discharge home Ready for Discharge (Yes/No)? TEACHING ATTESTATION Extracted from:Title: Cardiology Consult Note Author: Mitchell Mckay MD Date: 04/06/18 Impression and Plan Systolic CHF exacerbation CMP (LV EF 30-35%) HTN CKD Hx of CVA - Started on IV lasix for diuresis - Strict I/O, Na restriction - Cannot add sarah in setting of sign CK D - No evidence of ACS - Cont with BB, asa and statin therapies - Cont with hydralazine and imdur for HT N management and aid in diuresis - Echo pending - Will need further w/u for CMP, or obta in record from BT to confirm NICMP Thank you. Cardiology will follow. Extracted from:Title: History and Physical Author: Rui Luque MD Date: 04/06/18 Patient is a 47-year-old male with past medical history ofCHF, HTN, diabetes, CKD, presents with complaints of shortness of breath times 1 dayfound to be in CHF exacerbationradiologically and clinically. CHF exacerbation(I50.9) EF of 30-35%. Lasix 80 mg IV twice daily, strict I's and O's. Cardiac heart healthy diet. Daily weight. 1 L fluid restriction. Dietary education. Cardiology consult. CKD Kidney function and electrolytes stable. Hypervolemic. Will diuresis as discussed above. DM Insulin sliding scale Hypertension Resume home meds. Heparin 2 midnights. Addendum by Rui Luque MD on 04/06/2018 05:07 [employer] Hypcocalcemia Repleted. Follow morning labs 04/08/2018 [facility] Extracted from:Title: Clinical Document Author: Broderick Hemphill MD Date: 09/17/17 NEUROLOGY Progress Note - Daily [facility] Completed: , SEP 17, 2017, 07:50 by Broderick Hemphill MD RM: CCDU - 05, SE CCDU NEIL III DUDLEY L 47y (: 1970) M Attending: Marcy Kelly MD Service: Internal Medicine Reason for Admission: BRAIN TIA Working DRG: Code status: None Specified=FULL CODE Current diet: Isolation: No Isolation/Standard Precautions Allergies: NKDA SUBJECTIVE Patient seen and examined denies any weakness numbness double vision or blurred vision states his weakness has completely resolved denies any new complaints. OBJECTIVE HEENT supple no JVD no bruit noted RS clear to auscultation bilaterally CVS S1-S2 present no murmur no gallop noted Abdomen soft nontender positive bowel sounds Neuro exam Mental status exam alert awake oriented 3 Speech fluent naming repetition is intact follows three-step commands no obstruction noted Cranial nerves pupil 3-2 mm reacting to light fundus shows sharp disc margin extraocular movements intact no nystagmus no diplopia noted no facial asymmetry noted tongue globulin corneal gag positive bilaterally hearing grossly intact motor exam normal tone bulk stress test 5 x 5 sensory exam perceives light touch pinprick equal bilaterally Coordination cwaomy-sc-jeyr is intact gait not tested Deep tendon reflexes trace 24hr Labs 09/17 0305 Glucose Lvl 58 L BUN 51 H Creatinine Lvl 4.34 H Sodium Lvl 142 Potassium Lvl 5.2 H Chloride Lvl 104 CO2 26 AGAP 17.2 Calcium Lvl 5.7 C eGFR 15 06/27 2114 POC Performing Locatio See Note Glucose POC 95 09/16 1647 POC Performing Locatio See Note Glucose POC 61 L 09/16 1620 Ca Ion WB 0.61 C Ca Norm WB 0.61 C Chol 79 Trig 90 HDL 30 L LDL (Calculated) 31 VLDL 18 CHD Risk 2.63 L Hgb A1C 6.0 H 09/16 1540 BNP 1121 H 09/16 1421 Total CK 793 H Troponin-I <0.02 Glucose Lvl 57 L BUN 52 H Creatinine Lvl 4.39 H Sodium Lvl 140 Potassium Lvl 4.8 Chloride Lvl 99 CO2 29 AGAP 16.8 Calcium Lvl 5.5 C eGFR 15 WBC 10.2 RBC 3.28 L Hgb 9.8 L Hct 29.7 L MCV 90.3 MCH 30.0 MCHC 33.2 RDW 15.1 H Platelet 197 MPV 9.1 Segs 78.3 H Monocytes 9.1 Lymphocytes 8.5 L Eosinophils 3.4 Basophils 0.7 Segs-Bands # 8.0 Lymphocytes # 0.9 L Monocytes # 0.9 H Eosinophils # 0.3 Basophils # 0.1 PT 15.8 H INR 1.25 H PTT 36.3 H Welsh still necessary (Yes/No): Line still necessary (Yes/No): Vitals Tmp(F) Pulse BP RR SpO2 FIO2 09/17 03:12 98.1 61 162/88 1 8 95 --- 09/16 23:30 98.3 61 175/93 1 8 94 3.0L/m 09/16 19:06 98 61 161/85 18 94 3.5L/m 09/16 17:39 98 64 169/98 18 97 --- 09/16 16:24 98.1 80 168/94 2 0 98 3.5L/m 24 Hr Tmax: 98.9F (37.17c) at 09/16 13:2 7 Vital Signs are the last 5 in the past 48 hours. Date Wt(kg) Wt(lb) Ht(cm) Ht(in) Method 09/16 (initial) 100.00 220.00 Estimated 09/16 177.80 70.00 Stated I&O Record In Out Bal 09/16 24hr Tot 110 880 -770 09/15 24hr Tot 0 0 0 Medications (22) Active Scheduled Meds (5): 09/16/17 aspirin (aspirin 81 mg tablet, enteric coated) 81 mg PO Q24H 09/16/17 atorvastatin 40 mg PO Bedtime 09/17/17 clopidogrel (Plavix) 75 mg PO D aily 09/17/17 heparin 5,000 unit SUB-Q Q8H 09/16/17 sodium chloride (Saline Flush 0 .9%) 10 ml IVP Q12H Unscheduled Meds: None PRN Meds (14): 09/16/17 Dextrose 50% in Water IV (Dextr ose 50% Syringe) 12.5 gm IVP PRN 09/16/17 Dextrose 50% in Water IV (Dextr ose 50% Syringe) 25 gm IVP PRN 09/16/17 acetaminophen 650 mg PO Q4H 09/16/17 glucagon 1 mg IM PRN 09/16/17 insulin lispro 1 unit SUB-Q TID -Before Meals 09/16/17 insulin lispro 2 unit SUB-Q TID -Before Meals 09/16/17 insulin lispro 3 unit SUB-Q TID -Before Meals 09/16/17 insulin lispro 4 unit SUB-Q TID -Before Meals 09/16/17 insulin lispro 5 unit SUB-Q TID -Before Meals 09/16/17 insulin lispro 1 unit SUB-Q Bed time 09/16/17 insulin lispro 2 unit SUB-Q Bed time 09/16/17 insulin lispro 3 unit SUB-Q Bed time 09/16/17 insulin lispro 4 unit SUB-Q Bed time 09/16/17 sodium chloride (Saline Flush 0 .9%) 10 ml IVP PRN One Time Meds (3): 09/16/17 (not done) aspirin 325 mg PO O NCE 09/16/17 (Deleted) calcium gluconate 2, 000 mg IVPB ONCE 09/16/17 (Completed) clopidogrel (Plavi x) 75 mg PO ONCE Continuous Infusions: None MRI of the brain. IMPRESSION: 1. Age appropriate involutionary change s with mild punctate small vessel ischemic changes. 2. Moderate size Acute/subacute infarct in the right burton radiata/centrum ovale greater than the left. Carotid Doppler Negative not showing any critical stenosis ASSESSMENT 1. Stroke seems like secondary to small vessel disease in right coronary radiata region at present time echocardiogram is pending. 2. Hypertension. 3. Type 2 diabetes. 4. CHF PLAN and TREATMENT 1. Continue Plavix. 2. Awaiting echocardiogram report. 3. Stroke in young workup. 4. If echo is unremarkable patient can be DC'd home and follow-up in the clinic with in 2 weeks discussed with the patient regarding stroke prevention 5. Patient is ambulatory low risk for t he DVT. Extracted from:Title: History and Physical Author: Marcy Kelly MD Date: 09/16/17 TIA Sulfonylurea induced hypoglycemia CKD stage IV Mild non traumatic rhabdomyolysis Chronic CHF unspecified Type 2 DM with nephropathy Elevated BNP Benign HTN Acute hypocalcemia possibly medication induced PLAN Admit as observation Neurology following Patient was hypoglycemic and this ay contributed to his symptoms He should not be on a sulfonylurea with his CKD nor metformin Consider insulin at discharge Monitor CK levels Stroke work up Risk stratify with lipid panel, a1c ECHO, carotids and retroperitoneal USG Monitor vitals Lasix may have contributed to hypocalcemia by increasedrenal calcium excretion Replace electrolytes as needed heparin Hope to discharge tomorrow if stable 09/17/2017 [facility] Plan of Care No Data Provided for This Section Social History Social History Date Source Social History TypeResponse Alcohol Past, Type Beer, Liquor. Frequency: Daily. Previous treatment: None. Smoking Status Never smoker; Previous treatment: None; Exposure to Tobacco Smoke None; Cigarette Smoking Last 365 Days No; Reg Smoking Cessation Counseling No entered on: 03/02/19 04/06/2018 [facility] Family History No Data Provided for This Section Advance Directives No Data Provided for This Section Functional Status No Data Provided for This Section
--- OUTSIDE RECORDS SUMMARY | 2019-08-11 09:01 | XMS REPORT | Summary of Care ---
Author Author [facility] Organization [facility] Address Unknown Phone Unavailable Encounter ADELAIDE Harmon(PILO) [id number] Date(s): 03/01/19 - 03/08/19 [facility] [address] [place] [address]- Discharge Disposition: Home or Self Care Attending Physician: Joel Charles MD Admitting Physician: Babatunde Dwyer MD Vital Signs 1 2 3 Most recent to oldest [Reference Range]: 330.2 cm (03/08/19 5:12 AM) 330.2 cm (03/07/19 3:56 AM) 330.2 cm (03/06/19 5:37 AM) Height 98.773 kg (03/08/19 5:12 AM) 102.682 kg (03/07/19 3:56 AM) 100.091 kg (03/06/19 5:37 AM) Current Weight 97.4 DegF (03/08/19 1:06 PM) 97.4 DegF (03/08/19 8:46 AM) 97.9 DegF (03/08/19 3:25 AM) Temperature Oral [96.4-99.1 DegF] 177/80 mmHg *HI* (03/08/19 1:06 PM) 168/84 mmHg *HI* (03/08/19 8:46 AM) 170/89 mmHg *HI* (03/08/19 3:25 AM) Blood Pressure [90-140/60-90 mmHg] 18 BRMIN (03/08/19 1:06 PM) 18 BRMIN (03/08/19 8:46 AM) 16 BRMIN (03/08/19 7:36 AM) Respiratory Rate [14-20 BRMIN] 57 bpm *LOW* (03/08/19 1:06 PM) 64 bpm (03/08/19 8:46 AM) 62 bpm (03/08/19 3:25 AM) Peripheral Pulse Rate [60-100 bpm] 102.273 kg (03/01/19 11:00 PM) 102.273 kg (03/01/19 10:28 PM) Weight 32.35 m2 (03/01/19 11:00 PM) 32.35 m2 (03/01/19 10:28 PM) Body Mass Index Problem List Condition Effective Dates Status Health Status Informan t NICM (nonischemic Active cardiomyopathy)(Conf irmed) CKD (chronic kidney Active disease), stage IV(Confirmed) Diabetes(Confirmed) Active Dyslipidemia(Confirm Active ed) Hypertension(Confirm Active ed) Allergies, Adverse Reactions, Alerts No Known Medication Allergies Medications albuterol 0.083% inhalation solution 2.49 mg, Route: NEB, RQ6H, Dosing Weight 102.273, kg, Priority: Routine, Start d ate: 03/02/19 2:00:00 ENVIRONMENTAL SCIENCES PROFESSOR, Duration: 30 day, Stop date: 03/31/19 20:00:00 ENVIRONMENTAL SCIENCES PROFESSOR Start Date: 03/02/19 Stop Date: 03/01/19 Status: Canceled albuterol-ipratropium 2.5-0.5 mg inhalation solution 3 mL, Route: NEB, Drug Form: SOLN, Dosing Weight 102.273, kg, RQ4H, Routine, Sta rt date: 03/01/19 23:00:00 ENVIRONMENTAL SCIENCES PROFESSOR, Duration: 30 day, Stop date: 03/31/19 19:00:[address], 0 Notes: (Same as: Pily) Start Date: 03/01/19 Stop Date: 03/08/19 Status: Discontinued amLODIPine 10 mg, 2 tab, Route: PO, Drug form: TAB, Daily, Dosing Weight 102.273, kg, Prior ity: NOW, Start date: 03/08/19 12:17:00 ENVIRONMENTAL SCIENCES PROFESSOR, Duration: 30 day, Stop date: 9:00:00 ENVIRONMENTAL SCIENCES PROFESSOR, 0 Notes: (Same as: Norvasc) Start Date: 03/08/19 Stop Date: 03/08/19 Status: Discontinued atorvastatin 40 mg, 1 tab, Route: PO, Drug form: TAB, Bedtime, Dosing Weight 102.273, kg, Sta rt date: 03/02/19 21:00:00 ENVIRONMENTAL SCIENCES PROFESSOR, Duration: 30 day, Stop date: 03/31/19 21:00:[address], 0 Notes: (Same as: Lipitor) Start Date: 03/02/19 Stop Date: 03/08/19 Status: Discontinued bumetanide 2 mg, 8 mL, Route: IVP, Drug form: INJ, Q12H, Dosing Weight 102.273, kg, Priorit y: NOW, Start date: 03/01/19 22:37:00 ENVIRONMENTAL SCIENCES PROFESSOR, Duration: 30 day, Stop date: 03/31/19 21:00:00 ENVIRONMENTAL SCIENCES PROFESSOR, 0 Notes: (Same As: Bumex) Start Date: 03/01/19 Stop Date: 03/02/19 Status: Discontinued bumetanide 10 mg + Sodium Chloride 0.9% (titrate) 60 mL 60 mL, Rate: 5 ml/hr, Infuse over: 20 hr, Dosing Weight 102.273, kg, Route: IV, Total Volume: 100 mL, Start Date: 03/07/19 13:55:00 ENVIRONMENTAL SCIENCES PROFESSOR, Duration: 30 day, Stop date: 04/06/19 13:54:00 ENVIRONMENTAL SCIENCES PROFESSOR, Replace Every: 20 hr, 0 Notes: (Same As: Bumex) Start Date: 03/07/19 Stop Date: 03/08/19 Status: Discontinued bumetanide 2 mg oral tablet 2 mg = 1 tab, PO, BID, # 30 tab, 0 Refill(s), Pharmacy: [id number] Start Date: 03/08/19 Status: Ordered Bumex 2 mg, 2 tab, Route: PO, Drug form: TAB, BID, Dosing Weight 102.273, kg, Start da te: 03/04/19 17:00:00 ENVIRONMENTAL SCIENCES PROFESSOR, Duration: 30 day, Stop date: 04/03/19 9:00:00 ENVIRONMENTAL SCIENCES PROFESSOR, 0 Notes: (Same As: Bumex) Start Date: 03/04/19 Stop Date: 03/08/19 Status: Discontinued calcium gluconate + Sodium Chloride 0.9% IV 120 mL 3,000 mg, 30 mL, Route: IVPB, ONCE, Dosing Weight 102.273, kg, Start date: 03/04 5:03:00 ENVIRONMENTAL SCIENCES PROFESSOR, Stop date: 03/04/19 5:03:00 ENVIRONMENTAL SCIENCES PROFESSOR, 0 Notes: WASTE: F/P - Sink; E - Municipal Trash Bin Start Date: 03/04/19 Stop Date: 03/04/19 Status: Completed Coreg 6.25 mg, 2 tab, Route: PO, Drug form: TAB, BID, Dosing Weight 102.273, kg, Start date: 03/08/19 17:00:00 ENVIRONMENTAL SCIENCES PROFESSOR, Duration: 30 day, Stop date: 04/07/19 9:00:00 ENVIRONMENTAL SCIENCES PROFESSOR, 0 Notes: Give with food. (Same As: Coreg) Start Date: 03/08/19 Stop Date: 03/08/19 Status: Discontinued Coreg 3.125 mg, 1 tab, Route: PO, Drug form: TAB, Q12H, Dosing Weight 102.273, kg, Sta rt date: 03/02/19 9:00:00 ENVIRONMENTAL SCIENCES PROFESSOR, Duration: 30 day, Stop date: 03/31/19 21:00:00 CS T, 0 Notes: Give with food. (Same As: Coreg) Start Date: 03/02/19 Stop Date: 03/08/19 Status: Discontinued dextromethorphan-guaiFENesin 10 mg-100 mg/5 mL oral liquid 10 mL, Route: PO, Drug Form: LIQ, Dosing Weight 102.273, kg, Q4H, PRN Cough, Sta rt date: 03/01/19 22:49:00 ENVIRONMENTAL SCIENCES PROFESSOR, Duration: 30 day, Stop date: 03/31/19 22:48:[address], 0 Notes: (dextromethorphan-guaifenesin 10-100/5 ml LIQ) (Same as: Mosin-DM) Start Date: 03/01/19 Stop Date: 03/08/19 Status: Discontinued Dextrose 50% Syringe (D50W) 12,500 mg, 25 mL, Route: IVP, Drug Form: INJ, Dosing Weight 102.273, kg, PRN, AL N Blood Glucose Results, Start date: 03/02/19 5:17:00 ENVIRONMENTAL SCIENCES PROFESSOR, Duration: 30 day, Sto p date: 04/01/19 5:16:00 ENVIRONMENTAL SCIENCES PROFESSOR, 0 Start Date: 03/02/19 Stop Date: 03/08/19 Status: Discontinued Dextrose 50% Syringe (D50W) 25 gm, 50 mL, Route: IVP, Drug Form: INJ, Dosing Weight 102.273, kg, PRN, PRN Bl ood Glucose Results, Start date: 03/02/19 5:17:00 ENVIRONMENTAL SCIENCES PROFESSOR, Duration: 30 day, Stop da te: 04/01/19 5:16:00 ENVIRONMENTAL SCIENCES PROFESSOR, 0 Start Date: 03/02/19 Stop Date: 03/08/19 Status: Discontinued glucagon 1 mg, Route: IM, Drug form: PDR/INJ, PRN, Dosing Weight 102.273, kg, PRN Blood G lucose Results, Start date: 03/02/19 5:17:00 ENVIRONMENTAL SCIENCES PROFESSOR, Duration: 30 day, Stop date: 0 04/01/19 5:16:00 ENVIRONMENTAL SCIENCES PROFESSOR, 0 Start Date: 03/02/19 Stop Date: 03/08/19 Status: Discontinued heparin 5000 units/mL injectable solution 5,000 unit, 1 mL, Route: SUB-Q, Drug form: INJ, Q12H, Dosing Weight 102.273, kg, Start date: 03/02/19 21:30:00 ENVIRONMENTAL SCIENCES PROFESSOR, Duration: 30 day, Stop date: 04/01/19 21:00: 00 ENVIRONMENTAL SCIENCES PROFESSOR, 0 Notes: porcine heparin Start Date: 03/02/19 Stop Date: 03/08/19 Status: Discontinued influenza virus vaccine, inactivated 0.5 mL, Route: IM, Drug Form: SUSP, ONCALL, Start date: 03/02/19 6:04:05 ENVIRONMENTAL SCIENCES PROFESSOR, St op date: 04/01/19 5:59:05 ENVIRONMENTAL SCIENCES PROFESSOR, 0 Notes: (Same as: Fluzone Quadrivalent, Fluarix Quadrivalent)For patients 6 - 35 months of age (0.5 mL IM)For 3 years of age and older (0.5 mL IM)Shake well befo re use Start Date: 03/02/19 Stop Date: 03/08/19 Status: Discontinued insulin lispro 1 unit, 0.01 mL, Route: SUB-Q, Drug form: SOLN, TID-Before Meals, Dosing Weight 102.273, kg, PRN Blood Glucose Results, Start date: 03/02/19 5:17:00 ENVIRONMENTAL SCIENCES PROFESSOR, Durati on: 30 day, Stop date: 04/01/19 5:16:00 ENVIRONMENTAL SCIENCES PROFESSOR, 0 Notes: (Same as: Humalog) Roll in palms of hands gently; Do not shake vigorously . WASTE: F/P - Black; E - Municipal Tr[facility]Stable [facility].Expires in days from Date Start Date: 03/02/19 Stop Date: 03/08/19 Status: Discontinued insulin lispro 2 unit, 0.02 mL, Route: SUB-Q, Drug form: SOLN, TID-Before Meals, Dosing Weight 102.273, kg, PRN Blood Glucose Results, Start date: 03/02/19 5:17:00 ENVIRONMENTAL SCIENCES PROFESSOR, Durati on: 30 day, Stop date: 04/01/19 5:16:00 ENVIRONMENTAL SCIENCES PROFESSOR, 0 Notes: (Same as: Humalog) Roll in palms of hands gently; Do not shake vigorously . WASTE: F/P - Black; E - Municipal Trash BinStable for [facility].Expires in days from Date Start Date: 03/02/19 Stop Date: 03/08/19 Status: Discontinued insulin lispro 3 unit, 0.03 mL, Route: SUB-Q, Drug form: SOLN, TID-Before Meals, Dosing Weight 102.273, kg, PRN Blood Glucose Results, Start date: 03/02/19 5:17:00 ENVIRONMENTAL SCIENCES PROFESSOR, Durati on: 30 day, Stop date: 04/01/19 5:16:00 ENVIRONMENTAL SCIENCES PROFESSOR, 0 Notes: (Same as: Humalog) Roll in palms of hands gently; Do not shake vigorously . WASTE: F/P - Black; E - Municipal Trash BinStable for 28 [facility].Expires in days from Date Start Date: 03/02/19 Stop Date: 03/08/19 Status: Discontinued insulin lispro 4 unit, 0.04 mL, Route: SUB-Q, Drug form: SOLN, TID-Before Meals, Dosing Weight 102.273, kg, PRN Blood Glucose Results, Start date: 03/02/19 5:17:00 ENVIRONMENTAL SCIENCES PROFESSOR, Durati on: 30 day, Stop date: 04/01/19 5:16:00 ENVIRONMENTAL SCIENCES PROFESSOR, 0 Notes: (Same as: Humalog) Roll in palms of hands gently; Do not shake vigorously . WASTE: F/P - Black; E - Municipal Trash BinStable for 28 days at room [facility].Expires in days from Date Start Date: 03/02/19 Stop Date: 03/08/19 Status: Discontinued insulin lispro 5 unit, 0.05 mL, Route: SUB-Q, Drug form: SOLN, TID-Before Meals, Dosing Weight 102.273, kg, PRN Blood Glucose Results, Start date: 03/02/19 5:17:00 ENVIRONMENTAL SCIENCES PROFESSOR, Durati on: 30 day, Stop date: 04/01/19 5:16:00 ENVIRONMENTAL SCIENCES PROFESSOR, 0 Notes: (Same as: Humalog) Roll in palms of hands gently; Do not shake vigorously . WASTE: F/P - Black; E - Municipal Trash BinStable for 28 days at room [facility].Expires in days from Date Start Date: 03/02/19 Stop Date: 03/08/19 Status: Discontinued insulin lispro 1 unit, 0.01 mL, Route: SUB-Q, Drug form: SOLN, Bedtime, Dosing Weight 102.273, kg, PRN Blood Glucose Results, Start date: 03/02/19 5:17:00 ENVIRONMENTAL SCIENCES PROFESSOR, Duration: 30 da y, Stop date: 04/01/19 5:16:00 ENVIRONMENTAL SCIENCES PROFESSOR, 0 Notes: (Same as: Humalog) Roll in palms of hands gently; Do not shake vigorously . WASTE: F/P - Black; E - Municipal Trash BinStable for 28 days at room [facility].Expires in days from Date Start Date: 03/02/19 Stop Date: 03/08/19 Status: Discontinued insulin lispro 2 unit, 0.02 mL, Route: SUB-Q, Drug form: SOLN, Bedtime, Dosing Weight 102.273, kg, PRN Blood Glucose Results, Start date: 03/02/19 5:17:00 ENVIRONMENTAL SCIENCES PROFESSOR, Duration: 30 da y, Stop date: 04/01/19 5:16:00 ENVIRONMENTAL SCIENCES PROFESSOR, 0 Notes: (Same as: Humalog) Roll in palms of hands gently; Do not shake vigorously . WASTE: F/P - Black; E - Municipal Trash BinStable for 28 days at room [facility].Expires in days from Date Start Date: 03/02/19 Stop Date: 03/08/19 Status: Discontinued insulin lispro 3 unit, 0.03 mL, Route: SUB-Q, Drug form: SOLN, Bedtime, Dosing Weight 102.273, kg, PRN Blood Glucose Results, Start date: 03/02/19 5:17:00 ENVIRONMENTAL SCIENCES PROFESSOR, Duration: 30 da y, Stop date: 04/01/19 5:16:00 ENVIRONMENTAL SCIENCES PROFESSOR, 0 Notes: (Same as: Humalog) Roll in palms of hands gently; Do not shake vigorously . WASTE: F/P - Black; E - Municipal Trash BinStable for 28 days at room [facility].Expires in days from Date Start Date: 03/02/19 Stop Date: 03/08/19 Status: Discontinued insulin lispro 4 unit, 0.04 mL, Route: SUB-Q, Drug form: SOLN, Bedtime, Dosing Weight 102.273, kg, PRN Blood Glucose Results, Start date: 03/02/19 5:17:00 ENVIRONMENTAL SCIENCES PROFESSOR, Duration: 30 da y, Stop date: 04/01/19 5:16:00 ENVIRONMENTAL SCIENCES PROFESSOR, 0 Notes: (Same as: Humalog) Roll in palms of hands gently; Do not shake vigorously . WASTE: F/P - Black; E - Municipal Trash BinStable for 28 days at [facility].Expires in days from Date Start Date: 03/02/19 Stop Date: 03/08/19 Status: Discontinued Lasix 100 mg in 100 ml IV titrate 100 mg + Sodium Chloride 0.9% IV 90 mL 100 mg, 10 mL, Rate: 10 ml/hr, Infuse over: 10 hr, Dosing Weight 102.273, kg, Ro sher: IV, Total Volume: 100, Start Date: 03/02/19 5:27:00 ENVIRONMENTAL SCIENCES PROFESSOR, Duration: 30 day, Stop date: 04/01/19 5:26:00 ENVIRONMENTAL SCIENCES PROFESSOR, Replace Every: 10 hr, continuous, 0 Notes: (Same as: Lasix) MEDICATION WASTE Product Size: 100 mgProduct Ks sted: ___ mg Start Date: 03/02/19 Stop Date: 03/02/19 Status: Discontinued Lasix 100 mg in 100 ml IV titrate 100 mg + Sodium Chloride 0.9% IV 90 mL 100 mg, 10 mL, Rate: 10 ml/hr, Infuse over: 10 hr, Dosing Weight 102.273, kg, Ro sher: IV, Total Volume: 100, Start Date: 03/02/19 8:17:00 ENVIRONMENTAL SCIENCES PROFESSOR, Duration: 30 day, Stop date: 04/01/19 8:16:00 ENVIRONMENTAL SCIENCES PROFESSOR, Replace Every: 10 hr, continuous, 0 Notes: (Same as: Lasix) MEDICATION WASTE Product Size: 100 mgProduct Ks sted: ___ mg Start Date: 03/02/19 Stop Date: 03/04/19 Status: Discontinued melatonin 3 mg oral tablet 3 mg, 1 tab, Route: PO, Drug Form: TAB, Dosing Weight 102.273, kg, Bedtime, NOW, Start date: 03/02/19 21:17:00 ENVIRONMENTAL SCIENCES PROFESSOR, Duration: 30 day, Stop date: 04/01/19 21:00: 00 ENVIRONMENTAL SCIENCES PROFESSOR, 0 Notes: (Same as: Melatonin) Start Date: 03/02/19 Stop Date: 03/08/19 Status: Discontinued melatonin 3 mg oral tablet 3 mg, 1 tab, Route: PO, Dosing Weight 102.273, kg, ONCE, PRN Sleep, Routine, Sta rt date: 03/02/19 22:05:00 ENVIRONMENTAL SCIENCES PROFESSOR Start Date: 03/02/19 Stop Date: 03/02/19 Status: Discontinued nitroglycerin 0.4 mg/hr transdermal film 1 patch, Route: Transdermal, Drug Form: ERFILM, Dosing Weight 102.273, kg, Daily , Start date: 03/02/19 9:00:00 ENVIRONMENTAL SCIENCES PROFESSOR, Duration: 30 day, Stop date: 03/31/19 9:00:0 0 ENVIRONMENTAL SCIENCES PROFESSOR, 0 Notes: Apply only once for up to 12 hours in a 24 hour period (12 hours on and 1 2 hours off.)(Same as:Nitro-Dur,Deponit,Transderm Nitro) For topical use only." Remove old patch before application of new patch" Start Date: 03/02/19 Stop Date: 03/07/19 Status: Discontinued ondansetron 4 mg, 2 mL, Route: IVP, Drug form: INJ, Q8H, Dosing Weight 102.273, kg, PRN Naus ea & Vomiting, Start date: 03/01/19 22:47:00 ENVIRONMENTAL SCIENCES PROFESSOR, Duration: 30 day, Stop date: 03/31/19 22:46:00 ENVIRONMENTAL SCIENCES PROFESSOR, 0 Notes: (Same as: Zofran) MEDICATION WASTE Product Size: 4 mgProduct Was aruna: ___ mg Start Date: 03/01/19 Stop Date: 03/08/19 Status: Discontinued ondansetron 4 mg, 2 mL, Route: IVP, Drug form: INJ, Q6H, Dosing Weight 102.273, kg, PRN Naus ea & Vomiting, Start date: 03/01/19 22:49:00 ENVIRONMENTAL SCIENCES PROFESSOR, Duration: 30 day, Stop date: 03/31/19 22:48:00 ENVIRONMENTAL SCIENCES PROFESSOR, 0 Notes: (Same as: Zofran) MEDICATION WASTE Product Size: 4 mgProduct Was aruna: ___ mg Start Date: 03/01/19 Stop Date: 03/08/19 Status: Discontinued Plavix 75 mg, 1 tab, Route: PO, Drug form: TAB, Daily, Dosing Weight 102.273, kg, Start date: 03/02/19 9:00:00 ENVIRONMENTAL SCIENCES PROFESSOR, Duration: 30 day, Stop date: 03/31/19 9:00:00 ENVIRONMENTAL SCIENCES PROFESSOR, 0 Notes: (Same As: Plavix) Start Date: 03/02/19 Stop Date: 03/08/19 Status: Discontinued Saline Flush 0.9% 10 ml, Route: IVP, Drug Form: INJ, Dosing Weight 102.273, kg, Q12H, Start date: 03/02/19 9:00:00 ENVIRONMENTAL SCIENCES PROFESSOR, Duration: 30 day, Stop date: 03/31/19 21:00:00 ENVIRONMENTAL SCIENCES PROFESSOR, 0 Notes: (Same as: BD Posiflush) Start Date: 03/02/19 Stop Date: 03/08/19 Status: Discontinued Saline Flush 0.9% 10 ml, Route: IVP, Drug Form: INJ, Dosing Weight 102.273, kg, PRN, PRN Line Flus h, Start date: 03/01/19 22:47:00 ENVIRONMENTAL SCIENCES PROFESSOR, Duration: 30 day, Stop date: 03/31/19 22:4 6:00 ENVIRONMENTAL SCIENCES PROFESSOR, 0 Notes: (Same as: BD Posiflush) Start Date: 03/01/19 Stop Date: 03/08/19 Status: Discontinued Sodium Chloride 0.9% (titrate) 60 mL + bumetanide 10 mg 60 mL, Rate: Infuse as directed, Dosing Weight 102.273, kg, Route: IV, Total Vol ume: 60 mL, Start Date: 03/02/19 8:11:00 ENVIRONMENTAL SCIENCES PROFESSOR, Duration: 30 day, Stop date: 04/01 8:10:00 ENVIRONMENTAL SCIENCES PROFESSOR, Replace Every: 24 hr Start Date: 03/02/19 Stop Date: 03/02/19 Status: Discontinued Tylenol 500 mg, 1 tab, Route: PO, Drug form: TAB, Q6H, Dosing Weight 102.273, kg, PRN Pa in 4-6/Temp > 100.4 F, Start date: 03/01/19 22:37:00 ENVIRONMENTAL SCIENCES PROFESSOR, Duration: 30 day, Stop date: 03/31/19 22:36:00 ENVIRONMENTAL SCIENCES PROFESSOR, 0 Notes: Max acetaminophen 4000 mg/day (4 gm/day). (Same as: Tylenol Extra Streng th) Start Date: 03/01/19 Stop Date: 03/08/19 Status: Discontinued Results 1 2 3 Most recent to oldest [Reference Range]: 0.79 ng/mL *HI* (03/01/19 11:11 PM) Procalcitonin Lvl [0.00-0.10 ng/mL] 4.8 K/CMM (03/05/19 4:39 AM) 5.5 K/CMM (03/04/19 4:18 AM) 7.5 K/CMM (03/03/19 5:03 AM) Neutrophils # [1.5-8.1 K/CMM] 0.5 K/CMM *LOW* (03/05/19 4:39 AM) 0.5 K/CMM *LOW* (03/04/19 4:18 AM) 0.5 K/CMM *LOW* (03/03/19 5:03 AM) Lymphocytes # [1.0-5.5 K/CMM] 0.8 K/CMM (03/05/19 4:39 AM) 0.9 K/CMM *HI* (03/04/19 4:18 AM) 0.8 K/CMM (03/03/19 5:03 AM) Monocytes # [0.0-0.8 K/CMM] 0.4 K/CMM (03/05/19 4:39 AM) 0.4 K/CMM (03/04/19 4:18 AM) 0.3 K/CMM (03/03/19 5:03 AM) Eosinophils # [0.0-0.5 K/CMM] 0.1 K/CMM (03/03/19 5:03 AM) Basophils # [0.0-0.2 K/CMM] 4226 pg/mL *HI* (03/01/19 11:11 PM) BNP [<=100 pg/mL] 6 mL/min/1.73m2 1 *NA* (03/07/19 4:14 AM) 6 mL/min/1.73m2 2 *NA* (03/05/19 4:39 AM) 6 mL/min/1.73m2 3 *NA* (03/04/19 4:18 AM) eGFR 0.9 (03/01/19 11:11 PM) A/G Ratio [0.7-1.6] 3.1 g/dL *LOW* (03/01/19 11:11 PM) Albumin Lvl [3.5-5.0 g/dL] 113 unit/L (03/01/19 11:11 PM) Alk Phos [39-136 unit/L] 11 unit/L (03/01/19 11:11 PM) ALT [0-65 unit/L] 16.6 mEq/L (03/07/19 4:14 AM) 17.3 mEq/L (03/05/19 4:39 AM) 18.6 mEq/L (03/04/19 4:18 AM) AGAP [10.0-20.0 mEq/L] 7 unit/L (03/01/19 11:11 PM) AST [0-37 unit/L] 13 (03/01/19 11:11 PM) B/C Ratio [6-25] 0.6 % (03/05/19 4:39 AM) 0.6 % (03/04/19 4:18 AM) 0.6 % (03/03/19 5:03 AM) Basophils [0.0-1.0 %] 130 mg/dL *HI* (03/07/19 4:14 AM) 123 mg/dL *HI* (03/05/19 4:39 AM) 118 mg/dL *HI* (03/04/19 4:18 AM) BUN [7-22 mg/dL] 5.8 mg/dL 4 *CRIT* (03/07/19 4:14 AM) 6.3 mg/dL 5 *CRIT* (03/05/19 4:39 AM) 6.2 mg/dL 6 *CRIT* (03/04/19 4:18 AM) Calcium Lvl [8.5-10.5 mg/dL] 94 mEq/L *LOW* (03/07/19 4:14 AM) 91 mEq/L *LOW* (03/05/19 4:39 AM) 92 mEq/L *LOW* (03/04/19 4:18 AM) Chloride Lvl [95-109 mEq/L] 27 mEq/L (03/07/19 4:14 AM) 26 mEq/L (03/05/19 4:39 AM) 27 mEq/L (03/04/19 4:18 AM) CO2 [24-32 mEq/L] 8.62 mg/dL *HI* (03/07/19 4:14 AM) 8.59 mg/dL *HI* (03/05/19 4:39 AM) 8.59 mg/dL *HI* (03/04/19 4:18 AM) Creatinine Lvl [0.50-1.40 mg/dL] 6.3 % *HI* (03/05/19 4:39 AM) 5.1 % *HI* (03/04/19 4:18 AM) 3.1 % (03/03/19 5:03 AM) Eosinophils [0.0-4.0 %] 3.5 g/dL (03/01/19 11:11 PM) Globulin [2.7-4.2 g/dL] 97 mg/dL (03/07/19 4:14 AM) 121 mg/dL *HI* (03/05/19 4:39 AM) 92 mg/dL (03/04/19 4:18 AM) Glucose Lvl [70-99 mg/dL] 26.0 % *LOW* (03/05/19 4:39 AM) 26.4 % *LOW* (03/04/19 4:18 AM) 27.8 % *LOW* (03/03/19 5:03 AM) Hct [42.0-54.0 %] 8.7 g/dL *LOW* (03/05/19 4:39 AM) 8.8 g/dL *LOW* (03/04/19 4:18 AM) 9.3 g/dL *LOW* (03/03/19 5:03 AM) Hgb [14.0-18.0 g/dL] 4.6 mEq/L (03/07/19 4:14 AM) 4.3 mEq/L (03/05/19 4:39 AM) 4.6 mEq/L (03/04/19 4:18 AM) Potassium Lvl [3.5-5.1 mEq/L] 1.0 mMol/L (03/03/19 8:20 AM) 1.2 mMol/L (03/01/19 11:11 PM) Lactic Acid Lvl [0.5-2.2 mMol/L] 7.1 % *LOW* (03/05/19 4:39 AM) 6.7 % *LOW* (03/04/19 4:18 AM) 5.3 % *LOW* (03/03/19 5:03 AM) Lymphocytes [20.0-40.0 %] 31.9 pg *HI* (03/05/19 4:39 AM) 31.7 pg *HI* (03/04/19 4:18 AM) 32.1 pg *HI* (03/03/19 5:03 AM) MCH [27.0-31.0 pg] 33.4 g/dL (03/05/19 4:39 AM) 33.3 g/dL (03/04/19 4:18 AM) 33.4 g/dL (03/03/19 5:03 AM) MCHC [32.0-36.0 g/dL] 95.5 fL *HI* (03/05/19 4:39 AM) 95.3 fL *HI* (03/04/19 4:18 AM) 96.2 fL *HI* (03/03/19 5:03 AM) MCV [80.0-94.0 fL] 2.7 mg/dL *HI* (03/01/19 11:11 PM) Magnesium Lvl [1.8-2.4 mg/dL] 12.2 % *HI* (03/05/19 4:39 AM) 12.6 % *HI* (03/04/19 4:18 AM) 8.7 % (03/03/19 5:03 AM) Monocytes [2.0-12.0 %] 8.4 fL (03/05/19 4:39 AM) 8.5 fL (03/04/19 4:18 AM) 8.2 fL (03/03/19 5:03 AM) MPV [7.4-10.4 fL] 133 mEq/L *LOW* (03/07/19 4:14 AM) 130 mEq/L *LOW* (03/05/19 4:39 AM) 133 mEq/L *LOW* (03/04/19 4:18 AM) Sodium Lvl [135-145 mEq/L] 8.9 mg/dL *HI* (03/01/19 11:11 PM) Phosphorus [2.5-4.5 mg/dL] 97 K/CMM *LOW* (03/05/19 4:39 AM) 98 K/CMM *LOW* (03/04/19 4:18 AM) 108 K/CMM *LOW* (03/03/19 5:03 AM) Platelet [133-450 K/CMM] 73.8 % (03/05/19 4:39 AM) 75.0 % (03/04/19 4:18 AM) 82.3 % *HI* (03/03/19 5:03 AM) Segs [45.0-75.0 %] 6.6 g/dL (03/01/19 11:11 PM) Total Protein [6.4-8.4 g/dL] 2.72 M/CMM *LOW* (03/05/19 4:39 AM) 2.78 M/CMM *LOW* (03/04/19 4:18 AM) 2.89 M/CMM *LOW* (03/03/19 5:03 AM) RBC [4.70-6.10 M/CMM] 15.9 % *HI* (03/05/19 4:39 AM) 16.2 % *HI* (03/04/19 4:18 AM) 16.3 % *HI* (03/03/19 5:03 AM) RDW [11.5-14.5 %] 0.7 mg/dL (03/01/19 11:11 PM) Bili Total [0.2-1.3 mg/dL] 0.03 ng/mL (03/01/19 11:11 PM) Troponin-I [0.00-0.40 ng/mL] 73 mEq/L *NA* (03/04/19 1:25 PM) U Chloride 69 mEq/L *NA* (03/04/19 1:25 PM) U Sodium 24.4 mEq/L *NA* (03/04/19 1:25 PM) U Potassium 6.6 K/CMM (03/05/19 4:39 AM) 7.4 K/CMM (03/04/19 4:18 AM) 9.1 K/CMM (03/03/19 5:03 AM) WBC [3.7-10.4 K/CMM] Negative *NA* (03/02/19 5:01 AM) Influenza A PCR [Negative] Negative *NA* (03/02/19 5:01 AM) Influenza B PCR [Negative] Negative *NA* (03/02/19 5:01 AM) RSV PCR [Negative] Nasophrngl Swb *NA* (03/02/19 5:01 AM) Source Respiratory Panel PCR 1Result Comment: The eGFR is calculated using the [...] from the National Kid[employer] Education Program ( NK[employer]) which additionally recommends that when the eGFR is used in patients with extremes of body mass index for purposes of drug dosing, the eGFR should be mul tiplied by the estimated BMI. 2Result Comment: The eGFR is calculated using the [...] from the National Kid[employer] Education Program ( NKDEP) which additionally recommends that when the eGFR is used in patients with extremes of body mass index for purposes of drug dosing, the eGFR should be mul tiplied by the estimated BMI. 3Result Comment: The eGFR is calculated using the [...] from the National Kid[employer] Education Program ( NKDEP) which additionally recommends that when the eGFR is used in patients with extremes of body mass index for purposes of drug dosing, the eGFR should be mul tiplied by the estimated BMI. 4Result Comment: Critical Result(s) called to Luis Pablo at 03/07/2019 05:16 by AR. Read back OK. 5Result Comment: Critical Result(s) called to Devi Charles RN at 03/05/2019 05:56 by LT. Read back OK. 6Result Comment: Critical Result(s) called to Angélica Alvarez RN at 03/04/2019 04:56 by LT. Read back OK. Immunizations Given and Recorded Vaccine Date Status Refusal Reason influenza virus vaccine, inactivated 06/01/18 G iven Procedures Procedure Date Related Diagnosis Body Site Status Appendectomy Completed Repair of retina for retinal detachment Completed Social History Social History Type Response Alcohol Past, Type Beer, Liquor. F requency: Daily. Previous treatment: None. Smoking Status Never smoker; Previous anthony tment: None; Exposure to Tobacco Smoke None; Cigarette Smoking Last 365 Days No; Reg Smoking Cessation Counseling No entered on: 03/02/19 Assessment and Plan Extracted from: Title: Clinical Document Author: Keven Rodriguez MD Date: [...] improved response with bume x drip PLAN & TREATMENT bumex drip once oxygen is available then ok to go home poor prognosis refuses dialysis alert , oriented, ? denial PLAN & TREATMENT Physical Exam alert, oriented HEENT : [...] depression and schizoaffective disorder no anxiety OBJECTIVE VitalsTmp(F)Tmp(C)[id number] 03/08 16:19 92 3 .0L/m--- 03/08 13:[id number]---[id number]- ----- 03/08 08:[id number]/84---[id number]- ----- 03/08 07:36 1694 3 .0L/m--- 03/08 07:35 94 3 .0L/m--- 24 Hr Tmax: 97.9F (36.61c) at 03/08 03:2 5Vital Signs are the last 5 in the past 48 hours. 24 Hr Tmin: 97.4F (36.33c) at 03/08 13: 06Weights are the last 5 in 60 days, plus initial. DateWt(kg)Wt(lb)Ht(cm)Ht(in)MethodBMIBSA 03/08 98.77 [phone]/Sta 51390.68 [phone]/Sta 17244.09 [phone]/Sta 40870.64 [phone]/Sta 60000.10 [phone]/Sta 03/01 (initial)102.27 225.00Measured 32. 42.25 58280.80 70.00Stated (no point of care glucose results charte d in last 24 hours) Most Recent Scores: 03/08/19Pain Intensity NRS (0-10)0 03/08/19Glasgow Coma Score15 03/08/19Johns Freed Fall Score8 03/08/19Braden Score20 (all previously charted lines have been discontinued) (no surgical procedures documented) Input/Output RecordInOutBal 4hr Tot 10 0 10 1624hr Tot 1270 [id number] Scheduled Meds (8):albuterol-ipratropium (albuterol-ipratropium 2.5-0.5 mg inhalation [...] mL) Labs (Last four charted values) WBC 6.6(MAR 05)7.4(MAR 04)9.1(MAR 03) Hgb L 8.7(MAR 05)L 8.8(MAR 04)L 9.3(MAR 03) Hct L 26.0(MAR 05)L 26.4(MAR 04)L 27.8(MAR 03) Plt L 97(MAR 05)L 98(MAR 04)L 108(MAR 03) Na L 133(MAR 07)L 130(MAR 05)L 133(MAR 04)L 133(MAR 03) K 4.6(MAR 07)4.3(MAR 05)4.6(MAR 04)4.7(MAR 03) CO2 27(MAR 07)26(FEB 14)27(MAR 04)26(FEB 12) Cl L 94(MAR 07)L 91(MAR 05)L 92(MAR 04)L 93(MAR 03) Cr H 8.62(MAR 07)H 8.59(MAR 05)H 8.59(MAR 04)H 8.53(MAR 03) BUN H 130(MAR 07)H 123(MAR 05)H 118(FEB 13)H 113(MAR 03) Glucose Random 97(MAR 07)H 121(MAR 05)92(MAR 04)H 109(MAR 03) Mg H 2.7(MAR 01) Phos H 8.9(MAR 01) Ca C 5.8(MAR 07)C 6.3(MAR 05)C 6.2(MAR 04)C 6.6(MAR 03) Troponin 0.03(MAR 01) Extracted from: Title: Clinical Document Author: Keven Rodriguez MD Date: [...] motor defecits SKIN: no rash, no bruises VitalsTmp(F)[id number] 03/03 21:15 1893 2.0L/m 03/03 19:[id number]--- 03/03 18:[id number]--- 03/03 15:16 94 3.5L/m 03/03 15:00----50969/8213------ 24 Hr Tmax: 98.1F (36.72c) at 03/03 18:2 2Vital Signs are the last 5 in the [...] mL: 10 ml/hr, IV, Stop: 04/01/19 8:16:00 ENVIRONMENTAL SCIENCES PROFESSOR. glucagon: 1 mg, IM, PRN, PRN: Blood [...] mg, 2 mL, IVP, Q8H, PRN: Nausea & Vomiting. ondansetron: 4 mg, 2 mL, IVP, Q6H, PRN: Nausea & Vomiting. sodium chloride: 10 ml, IVP, Q12H. [...] mL: 10 ml/hr, IV, Stop: 04/01/19 5:26:00 ENVIRONMENTAL SCIENCES PROFESSOR. hydrALAZINE: 50 mg, 1 tab, PO, Daily, 0 Refill(s). isosorbide mononitrate: 60 mg, 1 tab, PO, QAM, 0 Refill(s). melatonin: 3 mg, 1 tab, PO, ONCE, PRN: Sleep. potassium chloride: 40 mEq, 2 tab, PO, Daily, for 30 day, 60 tab, 0 Refill(s). Sodium Chloride 0.9% IV 60 mL + bumetanide 10 mg: Infuse as directed, IV, Stop: 04/01/19 8:10:00 ENVIRONMENTAL SCIENCES PROFESSOR. Labs (Last four charted values) WBC 9.1(MAR 03) Hgb L 9.3(MAR 03) Hct L 27.8(MAR 03) Plt L 108(MAR 03) Na L 133(MAR 03)137(MAR 01) K 4.7(MAR 03)4.7(MAR 01) CO2 26(MAR 03)28(MAR 01) Cl L 93(MAR 03)95(MAR 01) Cr H 8.53(MAR 03)H 8.53(MAR 01) BUN H 113(MAR 03)H 110(MAR 01) Glucose Random H 109(MAR 03)H 184(MAR 01) Mg H 2.7(MAR 01) Phos H 8.9(MAR 01) Ca C 6.6(MAR 03)C 6.6(MAR 01) Troponin 0.03(MAR 01) ASSESSMENT AND PLAN 1- CKD 5 refuses dialysis at this time , stated as long as i am [place] and up i dont want to start 2- patient had secvereal questions regar ding dialysis all were answered 3- continue oxygen Extracted from: Title: History and Physical Author: Terrance Kumar Date: 03/01/19 1.Acute hypoxemic respiratory failure (J96.01) 2.Volume overload(E87.70) Ordered: Admit/Condition, 03/01/19 22:47:00 ENVIRONMENTAL SCIENCES PROFESSOR, Status: Inpatient, IMU, Reason: Diastolic Heart Failure-EF > 40%, Expected LOS: 2 Midnights, Babatunde Dwyer MD, Admit MD Review/Approve Yes, Isolation: No Isolation/Standard Precautions, Volume overload [id number] PVR (Bladder Scan) POC, 03/02/19 5:09:00 ENVIRONMENTAL SCIENCES PROFESSOR, q 6 hours x 4, Volume overload [...] BiPAP at outside ER [facility]. He had received 80 [...]
--- OUTSIDE RECORDS SUMMARY | 2019-08-11 09:01 | XMS REPORT | Summary of Care ---
Author Author [facility] Organization [facility] Address Unknown Phone Unavailable Encounter ADELAIDE Harmon(PILO) [id number] Date(s): 04/05/18 - 04/08/18 [facility] [address] [place] [address]- Encounter Diagnosis Hypertensive heart and chronic kidney disease with heart failure and stage 1 thr ough stage 4 chronic kidney disease, or unspecified chronic kidney disease (Final) - 04/21/18 Acute on chronic systolic (congestive) heart failure (Final) - Other cardiomyopathies (Final) - Hypocalcemia (Final) - Hyperlipidemia, unspecified (Final) - Anemia in other chronic diseases classified elsewhere (Final) - Chronic kidney disease, unspecified (Final) - Type 2 diabetes mellitus with diabetic chronic kidney disease (Final) - Personal history of transient ischemic attack (TIA), and cerebral infarction wit hout residual deficits (Final) - terminal superintendent (current) use of aspirin (Final) - terminal superintendent (current) use of antithrombotics/antiplatelets (Final) - Patient's noncompliance with other medical treatment and regimen (Final) - Discharge Disposition: Home or Self Care Attending Physician: Dustin Isaac MD Admitting Physician: Dustin Isaac MD Referring Physician: Mitchell Mckay MD Vital Signs 1 2 3 Most recent to oldest [Reference Range]: 177.8 cm (04/06/18 1:46 AM) 177.8 cm (04/05/18 5:56 PM) Height 102.358 kg (04/08/18 8:00 AM) 102 kg (04/07/18 11:25 AM) 105.455 kg (04/06/18 9:16 AM) Current Weight 97.8 DegF (04/08/18 3:55 PM) 97.4 DegF (04/08/18 11:10 AM) 97.8 DegF (04/08/18 7:20 AM) Temperature Oral [96.4-99.1 DegF] 124/69 mmHg (04/08/18 3:55 PM) 144/78 mmHg *HI* (04/08/18 11:10 AM) 152/82 mmHg *HI* (04/08/18 9:58 AM) Blood Pressure [90-140/60-90 mmHg] 18 BRMIN (04/08/18 3:55 PM) 18 BRMIN (04/08/18 11:10 AM) 16 BRMIN (04/08/18 7:32 AM) Respiratory Rate [14-20 BRMIN] 82 bpm (04/08/18 3:55 PM) 56 bpm *LOW* (04/08/18 11:10 AM) 61 bpm (04/08/18 7:20 AM) Peripheral Pulse Rate [60-100 bpm] 104.091 kg (04/06/18 1:46 AM) 102.273 kg (04/05/18 5:56 PM) Weight 32.93 m2 (04/06/18 1:46 AM) 32.35 m2 (04/05/18 5:56 PM) Body Mass Index Problem List No data available for this section Allergies, Adverse Reactions, Alerts No Known Medication Allergies Medications amLODIPine 10 mg, 2 tab, Route: PO, Drug form: TAB, Daily, Dosing Weight 104.091, kg, Start date: 04/08/18 9:00:00 DENTIST/OWNER, Duration: 30 day, Stop date: 05/07/18 9:00:00 DENTIST/OWNER Notes: (Same as: Martha) Start Date: 04/08/18 Stop Date: 04/08/18 Status: Discontinued amLODIPine 5 mg oral tablet 10 mg = 2 tab, PO, Daily, # 60 tab, 1 Refill(s), Pharmacy: [id number] Start Date: 04/08/18 Status: Ordered aspirin 81 mg tablet, enteric coated 81 mg, 1 tab, Route: PO, Drug form: ECTAB, Q24H, Dosing Weight 104.091, kg, Star t date: 04/06/18 3:00:00 DENTIST/OWNER, Duration: 30 day, Stop date: 05/05/18 3:00:00 DENTIST/OWNER Notes: Do not crush or chew.(Same As: Ecotrin) Start Date: 04/06/18 Stop Date: 04/08/18 Status: Discontinued atorvastatin 20 mg oral tablet 20 mg = 1 tab, PO, Bedtime, # 90 tab, 0 Refill(s) Start Date: 04/06/18 Stop Date: 06/01/18 Status: Discontinued calcium gluconate + Sodium Chloride 0.9% IV 100 mL 2,000 mg, 20 mL, Route: IV, ONCE, Dosing Weight 104.091, kg, Start date: 9 3:09:00 DENTIST/OWNER, Stop date: 04/06/18 3:09:00 DENTIST/OWNER Notes: WASTE: F/P - Sink; E - Municipal Trash Bin Start Date: 04/06/18 Stop Date: 04/06/18 Status: Completed calcium gluconate + Sodium Chloride 0.9% IV 80 mL 2,000 mg, 20 mL, Route: IVPB, ONCE, Dosing Weight 104.091, kg, Start date: 04/06 13:18:00 DENTIST/OWNER, Stop date: 04/06/18 13:18:00 DENTIST/OWNER Notes: WASTE: F/P - Sink; E - Municipal Trash Bin Start Date: 04/06/18 Stop Date: 04/06/18 Status: Completed carvedilol 3.125 mg, 1 tab, Route: PO, Drug form: TAB, Q12H, Dosing Weight 104.091, kg, Sta rt date: 04/06/18 9:00:00 DENTIST/OWNER, Duration: 30 day, Stop date: 05/05/18 21:00:00 CS T Notes: Give with food. (Same As: Coreg) Start Date: 04/06/18 Stop Date: 04/07/18 Status: Discontinued carvedilol 20 mg, PO, BID, 0 Refill(s) Start Date: 04/06/18 Stop Date: 04/08/18 Status: Discontinued clopidogrel 75 mg oral tablet 75 mg = 1 tab, PO, Bedtime, # 30 tab, 0 Refill(s) Start Date: 04/06/18 Stop Date: 04/08/18 Status: Discontinued Coreg 25 mg, 2 tab, Route: PO, Drug form: TAB, BID, Dosing Weight 104.091, kg, Start d ate: 04/07/18 17:00:00 DENTIST/OWNER, Duration: 30 day, Stop date: 05/07/18 9:00:00 DENTIST/OWNER Notes: Give with food. (Same As: Coreg) Start Date: 04/07/18 Stop Date: 04/08/18 Status: Discontinued furosemide 80 mg, 8 mL, Route: IVP, Drug form: INJ, Q12H, Dosing Weight 104.091, kg, Start date: 04/06/18 9:00:00 DENTIST/OWNER, Duration: 30 day, Stop date: 05/05/18 21:00:00 DENTIST/OWNER Notes: (Same as: Lasix) MEDICATION WASTE Product Size: 40 mgProduct Was aruna: ___ mg Start Date: 04/06/18 Stop Date: 04/08/18 Status: Discontinued hydrALAZINE 50 mg, 1 tab, Route: PO, Drug form: TAB, ONCE, Dosing Weight 104.091, kg, Start date: 04/07/18 17:25:00 DENTIST/OWNER, Stop date: 04/07/18 17:25:00 DENTIST/OWNER Notes: (Same as: Apresoline) May interfere w/enteral feedings Take With Food Start Date: 04/07/18 Stop Date: 04/07/18 Status: Completed hydrALAZINE 10 mg, 0.5 mL, Route: IV, Drug form: INJ, Q4H, Dosing Weight 104.091, kg, PRN El evated BP, Start date: 04/06/18 2:54:00 DENTIST/OWNER, Duration: 30 day, Stop date: 2:53:00 DENTIST/OWNER Notes: (Same as: Apresoline)Push over 5 minutes Start Date: 04/06/18 Stop Date: 04/08/18 Status: Discontinued hydrALAZINE 50 mg oral tablet 100 mg, 2 tab, Route: PO, Drug form: TAB, TID, Dosing Weight 104.091, kg, Start date: 04/07/18 10:00:00 DENTIST/OWNER, Duration: 30 day, Stop date: 05/07/18 8:00:00 DENTIST/OWNER Notes: (Same as: Apresoline) May interfere w/enteral feedings Take With Food Start Date: 04/07/18 Stop Date: 04/08/18 Status: Discontinued hydrALAZINE 50 mg oral tablet 50 mg = 1 tab, PO, Daily, 0 Refill(s) Start Date: 04/06/18 Status: Ordered Imdur 60 mg, 2 tab, Route: PO, Drug form: ERTAB, QAM, Dosing Weight 104.091, kg, Start date: 04/07/18 10:00:00 DENTIST/OWNER, Duration: 30 day, Stop date: 05/07/18 9:00:00 DENTIST/OWNER Notes: (Same as:Imdur)"Do Not Crush" Take on empty stomach/ full glass of water . Do not crush Start Date: 04/07/18 Stop Date: 04/07/18 Status: Discontinued influenza virus vaccine, inactivated 0.5 mL, Route: IM, Drug Form: SUSP, ONCALL, Start date: 04/06/18 2:15:20 DENTIST/OWNER, St op date: 05/06/18 2:10:20 DENTIST/OWNER Notes: (Same as: Fluzone Quadrivalent, Fluarix Quadrivalent)For 3 years of age a nd older (0.5 mL IM)Shake well before use Start Date: 04/06/18 Stop Date: 04/08/18 Status: Discontinued isosorbide mononitrate 60 mg oral tablet, extended release 60 mg = 1 tab, PO, QAM, 0 Refill(s) Start Date: 04/06/18 Status: Ordered isosorbide mononitrate extended release 60 mg, 2 tab, Route: PO, Drug form: ERTAB, ONCE, Dosing Weight 104.091, kg, Star t date: 04/07/18 17:23:00 DENTIST/OWNER, Stop date: 04/07/18 17:23:00 DENTIST/OWNER Notes: (Same as:Imdur)"Do Not Crush" Take on empty stomach/ full glass of water . Do not crush Start Date: 04/07/18 Stop Date: 04/07/18 Status: Completed isosorbide mononitrate extended release 120 mg, 4 tab, Route: PO, Drug form: ERTAB, QAM, Dosing Weight 104.091, kg, Star t date: 04/08/18 9:00:00 DENTIST/OWNER, Duration: 30 day, Stop date: 05/07/18 9:00:00 DENTIST/OWNER Notes: (Same as:Imdur)"Do Not Crush" Take on empty stomach/ full glass of water . Do not crush Start Date: 04/08/18 Stop Date: 04/08/18 Status: Discontinued Lasix 80 mg, 8 mL, Route: IVP, Drug form: INJ, ONCE, Dosing Weight 102.273, kg, Priori ty: STAT, Start date: 04/05/18 22:02:00 DENTIST/OWNER, Stop date: 04/05/18 22:02:00 DENTIST/OWNER Notes: (Same as: Lasix) MEDICATION WASTE Product Size: 40 mgProduct Was aruna: ___ mg Start Date: 04/05/18 Stop Date: 04/05/18 Status: Completed Lasix 40 mg oral tablet 40 mg = 1 tab, PO, BID, 0 Refill(s) Start Date: 04/06/18 Stop Date: 06/01/18 Status: Discontinued Lovenox 30 mg, 0.3 mL, Route: SUB-Q, Drug form: INJ, [id number], Dosing Weight 104.091, kg , For CrCl <30mL/min, Start date: 04/06/18 9:00:00 DENTIST/OWNER, Duration: 30 day, Stop date: 05/05/18 9:00:00 DENTIST/OWNER Notes: (Same as: Lovenox) Start Date: 04/06/18 Stop Date: 04/08/18 Status: Discontinued ondansetron 4 mg, 2 mL, Route: IVP, Drug form: INJ, Q8H, Dosing Weight 104.091, kg, PRN Naus ea & Vomiting, Start date: 04/06/18 2:14:00 DENTIST/OWNER, Duration: 30 day, Stop date: 05/06/18 2:13:00 DENTIST/OWNER Notes: (Same as: Zofran) MEDICATION WASTE Product Size: 4 mgProduct Was aruna: ___ mg Start Date: 04/06/18 Stop Date: 04/08/18 Status: Discontinued pantoprazole 40 mg, 1 tab, Route: PO, Drug form: ECTAB, Daily, Dosing Weight 104.091, kg, Sta rt date: 04/06/18 9:00:00 DENTIST/OWNER, Duration: 30 day, Stop date: 05/05/18 9:00:00 DENTIST/OWNER Notes: Tablet should not be chewed or crushed.(Same as: Protonix) Start Date: 04/06/18 Stop Date: 04/08/18 Status: Discontinued Saline Flush 0.9% 10 ml, Route: IVP, Drug Form: INJ, Dosing Weight 104.091, kg, PRN, PRN Line Flus h, Start date: 04/06/18 2:14:00 DENTIST/OWNER, Duration: 30 day, Stop date: 05/06/18 2:13: 00 DENTIST/OWNER Notes: (Same as: BD Posiflush) Start Date: 04/06/18 Stop Date: 04/08/18 Status: Discontinued Saline Flush 0.9% 10 ml, Route: IVP, Drug Form: INJ, Dosing Weight 104.091, kg, Q12H, Start date: 04/06/18 9:00:00 DENTIST/OWNER, Duration: 30 day, Stop date: 05/05/18 21:00:00 DENTIST/OWNER Notes: (Same as: BD Posiflush) Start Date: 04/06/18 Stop Date: 04/08/18 Status: Discontinued temazepam 15 mg, 1 cap, Route: PO, Drug form: CAP, Bedtime, Dosing Weight 104.091, kg, PRN Insomnia, Start date: 04/06/18 2:14:00 DENTIST/OWNER, Duration: 30 day, Stop date: 2:13:00 DENTIST/OWNER Notes: (Same As: Restoril) Start Date: 04/06/18 Stop Date: 04/08/18 Status: Discontinued Results 1 2 3 Most recent to oldest [Reference Range]: 5.9 K/CMM (04/06/18 11:30 AM) 5.7 K/CMM (04/05/18 6:05 PM) Neutrophils # [1.5-8.1 K/CMM] 0.5 K/CMM *LOW* (04/06/18 11:30 AM) 0.5 K/CMM *LOW* (04/05/18 6:05 PM) Lymphocytes # [1.0-5.5 K/CMM] 0.7 K/CMM (04/06/18 11:30 AM) 0.6 K/CMM (04/05/18 6:05 PM) Monocytes # [0.0-0.8 K/CMM] 0.2 K/CMM (04/06/18 11:30 AM) 0.2 K/CMM (04/05/18 6:05 PM) Eosinophils # [0.0-0.5 K/CMM] 0.1 K/CMM (04/06/18 11:30 AM) 0.1 K/CMM (04/05/18 6:05 PM) Basophils # [0.0-0.2 K/CMM] >5000 pg/mL *HI* (04/07/18 4:53 AM) >5000 pg/mL *HI* (04/05/18 6:05 PM) BNP [<=100 pg/mL] 15 mL/min/1.73m2 1 *NA* (04/07/18 4:53 AM) 16 mL/min/1.73m2 2 *NA* (04/06/18 11:30 AM) 16 mL/min/1.73m2 3 *NA* (04/05/18 6:05 PM) eGFR 0.7 (04/05/18 6:05 PM) A/G Ratio [0.7-1.6] 2.7 g/dL *LOW* (04/05/18 6:05 PM) Albumin Lvl [3.5-5.0 g/dL] 138 unit/L *HI* (04/05/18 6:05 PM) Alk Phos [39-136 unit/L] 13 unit/L (04/05/18 6:05 PM) ALT [0-65 unit/L] 12.1 mEq/L (04/07/18 4:53 AM) 18.3 mEq/L (04/06/18 11:30 AM) 12.3 mEq/L (04/05/18 6:05 PM) AGAP [10.0-20.0 mEq/L] 14 unit/L (04/05/18 6:05 PM) AST [0-37 unit/L] 14 (04/05/18 6:05 PM) B/C Ratio [6-25] 0.8 % (04/06/18 11:30 AM) 1.0 % (04/05/18 6:05 PM) Basophils [0.0-1.0 %] 62 mg/dL *HI* (04/07/18 4:53 AM) 60 mg/dL *HI* (04/06/18 11:30 AM) 60 mg/dL *HI* (04/05/18 6:05 PM) BUN [7-22 mg/dL] 6.0 mg/dL 4 *CRIT* (04/07/18 4:53 AM) 6.1 mg/dL 5 *CRIT* (04/06/18 11:30 AM) 5.8 mg/dL 6 *CRIT* (04/05/18 6:05 PM) Calcium Lvl [8.5-10.5 mg/dL] 106 mEq/L (04/07/18 4:53 AM) 105 mEq/L (04/06/18 11:30 AM) 105 mEq/L (04/05/18 6:05 PM) Chloride Lvl [95-109 mEq/L] 27 mEq/L (04/07/18 4:53 AM) 25 mEq/L (04/06/18 11:30 AM) 29 mEq/L (04/05/18 6:05 PM) CO2 [24-32 mEq/L] 4.21 mg/dL *HI* (04/07/18 4:53 AM) 4.06 mg/dL *HI* (04/06/18 11:30 AM) 4.14 mg/dL *HI* (04/05/18 6:05 PM) Creatinine Lvl [0.50-1.40 mg/dL] 3.3 % (04/06/18 11:30 AM) 3.3 % (04/05/18 6:05 PM) Eosinophils [0.0-4.0 %] 3.8 g/dL (04/05/18 6:05 PM) Globulin [2.7-4.2 g/dL] 102 mg/dL *HI* (04/07/18 4:53 AM) 163 mg/dL *HI* (04/06/18 11:30 AM) 179 mg/dL *HI* (04/05/18 6:05 PM) Glucose Lvl [70-99 mg/dL] 29.9 % *LOW* (04/06/18 11:30 AM) 30.6 % *LOW* (04/05/18 6:05 PM) Hct [42.0-54.0 %] 9.8 g/dL *LOW* (04/06/18 11:30 AM) 9.9 g/dL *LOW* (04/05/18 6:05 PM) Hgb [14.0-18.0 g/dL] 1.36 *HI* (04/05/18 6:05 PM) INR [0.85-1.17] 4.1 mEq/L (04/07/18 4:53 AM) 4.3 mEq/L (04/06/18 11:30 AM) 4.3 mEq/L (04/05/18 6:05 PM) Potassium Lvl [3.5-5.1 mEq/L] 6.6 % *LOW* (04/06/18 11:30 AM) 7.2 % *LOW* (04/05/18 6:05 PM) Lymphocytes [20.0-40.0 %] 28.4 pg (04/06/18 11:30 AM) 28.6 pg (04/05/18 6:05 PM) MCH [27.0-31.0 pg] 32.8 g/dL (04/06/18 11:30 AM) 32.4 g/dL (04/05/18 6:05 PM) MCHC [32.0-36.0 g/dL] 86.6 fL (04/06/18 11:30 AM) 88.3 fL (04/05/18 6:05 PM) MCV [80.0-94.0 fL] 10.0 % (04/06/18 11:30 AM) 9.1 % (04/05/18 6:05 PM) Monocytes [2.0-12.0 %] 8.1 fL (04/06/18 11:30 AM) 8.8 fL (04/05/18 6:05 PM) MPV [7.4-10.4 fL] 141 mEq/L (04/07/18 4:53 AM) 144 mEq/L (04/06/18 11:30 AM) 142 mEq/L (04/05/18 6:05 PM) Sodium Lvl [135-145 mEq/L] 148 K/CMM (04/06/18 11:30 AM) 157 K/CMM (04/05/18 6:05 PM) Platelet [133-450 K/CMM] 79.3 % *HI* (04/06/18 11:30 AM) 79.4 % *HI* (04/05/18 6:05 PM) Segs [45.0-75.0 %] 6.5 g/dL (04/05/18 6:05 PM) Total Protein [6.4-8.4 g/dL] 16.5 seconds *HI* (04/05/18 6:05 PM) PT [12.0-14.7 seconds] 44.0 seconds *HI* (04/05/18 6:05 PM) PTT [22.9-35.8 seconds] 3.46 M/CMM *LOW* (04/06/18 11:30 AM) 3.47 M/CMM *LOW* (04/05/18 6:05 PM) RBC [4.70-6.10 M/CMM] 17.0 % *HI* (04/06/18 11:30 AM) 17.6 % *HI* (04/05/18 6:05 PM) RDW [11.5-14.5 %] 0.7 mg/dL (04/05/18 6:05 PM) Bili Total [0.2-1.3 mg/dL] 0.03 ng/mL (04/06/18 6:35 AM) 0.03 ng/mL (04/06/18 2:25 AM) 0.02 ng/mL (04/05/18 6:05 PM) Troponin-I [0.00-0.40 ng/mL] Occasional /HPF *NA* (04/05/18 11:50 PM) UA Bacteria [None Seen /HPF] Negative *NA* (04/05/18 11:50 PM) UA Bili [Negative] Negative (04/05/18 11:50 PM) UA Blood [Negative] Yellow *NA* (04/05/18 11:50 PM) UA Color [Yellow] 150 mg/dL *ABN* (04/05/18 11:50 PM) UA Glucose [Negative mg/dL] 3 /LPF *HI* (04/05/18 11:50 PM) UA Hyal Cast [0-2 /LPF] Negative *NA* (04/05/18 11:50 PM) UA Ketones [Negative] Negative (04/05/18 11:50 PM) UA Leuk Est [Negative] Negative (04/05/18 11:50 PM) UA Nitrite [Negative] 7.0 (04/05/18 11:50 PM) UA pH [5.0-8.0] >=300 mg/dL *ABN* (04/05/18 11:50 PM) UA Protein [Negative mg/dL] 4 /HPF *HI* (04/05/18 11:50 PM) UA RBC [0-2 /HPF] 1.013 (04/05/18 11:50 PM) UA Spec Grav [<=1.030] None Seen (04/05/18 11:50 PM) UA Sq Epi [Few] Clear (04/05/18 11:50 PM) UA Turbidity [Clear] <=1.0 mg/dL *NA* (04/05/18 11:50 PM) UA Urobilinogen [0.1-1.0 mg/dL] 1 /HPF (04/05/18 11:50 PM) UA WBC [0-5 /HPF] 7.4 K/CMM (04/06/18 11:30 AM) 7.1 K/CMM (04/05/18 6:05 PM) WBC [3.7-10.4 K/CMM] 0.71 mMol/L 7 *CRIT* (04/06/18 2:25 AM) Ca Ion WB [1.05-1.25 mMol/L] 0.71 mMol/L *CRIT* (04/06/18 2:25 AM) Ca Norm WB [1.05-1.25 mMol/L] 1Result Comment: The eGFR is calculated using [...] BMI. 4Result Comment: Critical Result(s) called to RN. Riana Obando at 04/07/2018 06:51 by drt. Read back OK. 5Result Comment: Critical Result(s) called to Gale Benton at 04/06/2018 12:00 by DILEEP. Read back OK. 6Result Comment: Critical Result(s) called to hayes bertrand RN at 04/05/2018 19:00 by sm. Read back OK. 7Result Comment: Critical Result(s) called to RN. Gale Obando at 04/06/2018 03:04 by drportia. Read back OK. Immunizations Given and Recorded [...] Reg Smoking Cessation Counseling No entered on: 05/25/18 Assessment and Plan Extracted from: Title: Cardiology Progress Note Author: Osbaldo Pollard MD Da te: 04/08/18 Impression and Plan - Non-ischemic cardiomyopathy (EF 30-35% in 08/2017) with clean cath in 2014 at [facility] - HTN - T2DM - CVA - HLD - CKD - Chronic anemia # NICMP / CHF exacerbation - Clean cath in 2014. Cardiomyopathy li jesus d/t HTN - Continue BB, hydral/imdur. Not on PINEDA -i / ARB d/t CKD - Continue IV lasix for now while in mis se - Repeat TTE unchanged # HTN - Resume home meds. IV hydralazine prn - 04/08: Meds adjusted. Norvasc added # HLD - On statin Stable from a cardiac standpoint. Extracted from: Title: Clinical Document Author: Dustin Isaac MD Date: 04/08/18 Name:RM: 137 - 1D, SE [id number] III, CAR TANGELA L47y (: 1970) M Admission Date: 04/06/2018 Discharge Date: 2018 DIAGNOSES & PROBLEMS Uncompensated congestive heart failure systolic with [...] answering all questions. Progress Note - Daily [facility] Completed: Mar, 14:08 by Dustin Isaac MD RM: 137 - 1D, SE [id number] IIITARAN L47y (: 1970) M Attending: Dustin Isaac MDPhone: Service: Internal Medicine Reason for Admission: CHF EXACERBATION Working DRG: Code status: Full CodeCurrent diet: Isolation: No Isolation/Standard Precautions Allergies: NKDA SUBJECTIVE Doing better ,no chest pain or sob,no nause or vomiting, no neurologic symptoms Shortness of breath improved and ready to go home OBJECTIVE 24hr Labs 04/08 1113 POC Performing LocatioSee Note Glucose INF413 H 04/07 2137 POC Performing LocatioSee Note Glucose QGN345 H 04/07 1612 POC Performing LocatioSee Note Glucose HKF767 [place] still necessary (Yes/No): Line still necessary (Yes/No): VitalsTmp(F)[id number] 04/08 11:1097.925541/669114--- 04/08 09:58----02766/82-------- 04/08 07:32 1696 21% 04/08 07:2097.359111/355724--- 04/08 03:4697.802251/091416--- 24 Hr Tmax: 98.8F (37.11c) at 04/07 16:1 0Vital Signs are the last 5 in the past 48 hours. DateWt(kg)Wt(lb)Ht(cm)Ht(in)Method .36 225.19Measured .00 224.40Measured .09 229.12042.80 70.00Mea/Sta 04/05 (initial)102.27 225.00Estimated .80 70.00Stated I&ORecordInOutBal 03/1723hr Tot 828 1100 -272 03/1623hr Tot 1746 2673-1785 Medications (16) Active Scheduled Meds (9): 04/08/18 amLODIPine 10 mg PO Daily 04/06/18 aspirin (aspirin 81 mg tablet, enteric coated) 81 mg PO Q24H 04/07/18 carvedilol (Coreg) 25 mg PO BID 04/06/18 enoxaparin (Lovenox) 30 mg SUB- Q [id number] 04/06/18 furosemide 80 mg IVP Q12H 04/07/18 [...] mg PO ONCE Continuous Infusions: None ASSESSMENT & EXAM GENERAL: alert and oriented x 3. [...] and motor. SKIN: no rashes noted PLAN & TREATMENT Discussed with cardiology We will discharge home Ready for Discharge (Yes/No)? TEACHING ATTESTATION Extracted from: Title: Cardiology Consult Note Author: Mitchell Mckay MD Gabriel e: 04/06/18 Impression and Plan Systolic CHF exacerbation [...] NICMP Thank you. Cardiology will follow. Extracted from: Title: History and Physical Author: Rui Luque MD [...] home meds. Heparin 2 midnights. Addendum by Rebel Hypcocalcemia Rui Repleted. Follow morning kathrine Vidal MD on 04/06/2018 05:07 DENTIST/OWNER
--- OUTSIDE RECORDS SUMMARY | 2019-08-11 09:02 | XMS REPORT | Summary of Care ---
Author Author [facility] Organization [facility] Address Unknown Phone Unavailable Encounter ADELAIDE Harmon(PILO) [id number] Date(s): 05/25/18 - 06/01/18 [facility] [address] [place] [address]- [phone] Discharge Disposition: Home or Self Care Attending Physician: Rojas Mckay DO Admitting Physician: Rojas Mckay DO Vital Signs 1 2 3 Most recent to oldest [Reference Range]: 177.8 cm (05/25/18 2:00 PM) Height 103.818 kg (05/30/18 4:45 AM) 106.773 kg (05/29/18 4:20 AM) 104.9 kg (05/28/18 4:16 AM) Current Weight 98.0 DegF (06/01/18 11:33 AM) 98.2 DegF (06/01/18 8:16 AM) 98.1 DegF (06/01/18 4:00 AM) Temperature Oral [96.4-99.1 DegF] 155/78 mmHg *HI* (06/01/18 11:33 AM) 142/73 mmHg *HI* (06/01/18 8:16 AM) 161/83 mmHg *HI* (06/01/18 4:00 AM) Blood Pressure [90-140/60-90 mmHg] 16 BRMIN (06/01/18 11:33 AM) 18 BRMIN (06/01/18 8:16 AM) 18 BRMIN (06/01/18 4:00 AM) Respiratory Rate [14-20 BRMIN] 60 bpm (06/01/18 11:33 AM) 62 bpm (06/01/18 8:16 AM) 66 bpm (06/01/18 4:00 AM) Peripheral Pulse Rate [60-100 bpm] 105.114 kg (05/27/18 10:30 AM) 102.273 kg (05/25/18 2:00 PM) Weight 32.35 m2 (05/25/18 2:00 PM) Body Mass Index Problem List No data available for this section Allergies, Adverse Reactions, Alerts Substance Reaction Severity Status NKDA Active Medications aspirin 81 mg tablet, enteric coated 81 mg, 1 tab, Route: PO, Drug form: ECTAB, Daily, Dosing Weight 102.273, kg, Sta rt date: 05/26/18 9:00:00 ASSET CARD CLERK, Duration: 30 day, Stop date: 06/24/18 9:00:00 CDT Notes: Do not crush or chew.(Same As: Ecotrin) Start Date: 05/26/18 Stop Date: 06/01/18 Status: Discontinued atorvastatin 40 mg, 1 tab, Route: PO, Drug form: TAB, Bedtime, Dosing Weight 102.273, kg, Sta rt date: 05/26/18 21:00:00 ASSET CARD CLERK, Duration: 30 day, Stop date: 06/24/18 21:00:00 C DT Notes: (Same as: Lipitor) Start Date: 05/26/18 Stop Date: 06/01/18 Status: Discontinued bumetanide 1 mg oral tablet 2 mg = 2 tab, PO, BID, # 120 tab, 0 Refill(s), Pharmacy: [id number] Start Date: 06/01/18 Stop Date: 07/01/18 Status: Ordered Bumex 2 mg, 2 tab, Route: PO, Drug form: TAB, BID, Dosing Weight 105.114, kg, Start da te: 06/01/18 17:00:00 CDT, Duration: 30 day, Stop date: 07/01/18 9:00:00 CDT Notes: (Same As: Bumex) Start Date: 06/01/18 Stop Date: 06/01/18 Status: Canceled calcium carbonate 2,000 mg, 4 tab, Route: CHEW, Drug form: CHEWTAB, TID-Meals, Dosing Weight 102.2 73, kg, Start date: 05/26/18 17:00:00 ASSET CARD CLERK, Duration: 30 day, Stop date: 06/25/18 12:00:00 CDT Notes: (Same As: Tums)Calcium Carbonate 500 mg = 200 mg elemental calcium Dose = mg calcium carbonate ( mg elemental calcium) Start Date: 05/26/18 Stop Date: 06/01/18 Status: Discontinued calcium carbonate 500 mg (200 mg elemental calcium) oral tablet 2,000 mg = 4 tab, CHEW, TID-Meals, # 360 tab, 0 Refill(s), Pharmacy: [id number] Start Date: 06/01/18 Stop Date: 07/01/18 Status: Ordered calcium gluconate 2,000 mg, Route: IVPB, Drug form: INJ, ONCE, Dosing Weight 102.273, kg, Start da te: 05/26/18 3:36:00 ASSET CARD CLERK, Stop date: 05/26/18 3:36:00 ASSET CARD CLERK Start Date: 05/26/18 Stop Date: 05/26/18 Status: Discontinued calcium gluconate 3 gm, Route: IVPB, PRN, Dosing Weight 102.273, kg, PRN Abnormal Lab Result, For NON-ICU Patients Only., Start date: 05/26/18 3:36:00 ASSET CARD CLERK, Duration: 30 day, Stop date: 06/25/18 4:35:00 CDT Start Date: 05/26/18 Stop Date: 05/26/18 Status: Discontinued calcium gluconate 2 gm, Route: IVPB, PRN, Dosing Weight 102.273, kg, PRN Abnormal Lab Result, For NON-ICU Patients Only., Start date: 05/26/18 3:36:00 ASSET CARD CLERK, Duration: 30 day, Stop date: 06/25/18 4:35:00 CDT Start Date: 05/26/18 Stop Date: 05/26/18 Status: Discontinued calcium gluconate 1,000 mg, 50 mL, Route: IVPB, Drug form: INJ, PRN, Dosing Weight 102.273, kg, MD N Abnormal Lab Result, Start date: 05/27/18 10:49:00 ASSET CARD CLERK, Duration: 30 day, Stop date: 06/26/18 11:48:00 CDT, Total Dose = 4 gm; For Ionized Calcium < 0.91 mmol/L or corre... Notes: WASTE: F/P - Sink; E - Municipal Trash Bin Start Date: 05/27/18 Stop Date: 06/01/18 Status: Discontinued calcium gluconate + Sodium Chloride 0.9% IV 40 mL 1,000 mg, 10 mL, Route: IVPB, ONCE, Dosing Weight 102.273, kg, Start date: 05/25 21:46:00 ASSET CARD CLERK, Stop date: 05/25/18 21:46:00 ASSET CARD CLERK Notes: WASTE: F/P - Sink; E - Municipal Trash Bin Start Date: 05/25/18 Stop Date: 05/25/18 Status: Completed calcium gluconate + Sodium Chloride 0.9% IV 40 mL 1,000 mg, 10 mL, Route: IVPB, PRN, Dosing Weight 102.273, kg, PRN Abnormal Lab R esult, Start date: 05/26/18 8:31:00 ASSET CARD CLERK, Duration: 30 day, Stop date: 06/25/18 9 :30:00 CDT, Total Dose = 4 gm; For Ionized Calcium < 0.91 mmol/L or corrected Calcium 6 - 6... Notes: WASTE: F/P - Sink; E - Municipal Trash Bin Start Date: 05/26/18 Stop Date: 06/01/18 Status: Discontinued calcium gluconate + Sodium Chloride 0.9% IV 50 mL 1 gm, 10 mL, Route: IVPB, ONCE, Dosing Weight 102.273, kg, Priority: STAT, Start date: 05/25/18 15:29:00 ASSET CARD CLERK, Stop date: 05/25/18 15:29:00 ASSET CARD CLERK Notes: WASTE: F/P - Sink; E - Municipal Trash Bin Start Date: 05/25/18 Stop Date: 05/25/18 Status: Completed carvedilol 12.5 mg oral tablet 12.5 mg = 1 tab, PO, Q12H, # 60 tab, 0 Refill(s), Pharmacy: [id number] Start Date: 06/01/18 Stop Date: 07/01/18 Status: Ordered cefepime + Sodium Chloride 0.9% IV 100 mL 1 gm, Route: IVPB, [id number], Dosing Weight 102.273, kg, (CrCl 10 - 29 ml/min), St art date: 05/26/18 5:00:00 ASSET CARD CLERK, Duration: 7 day, Stop date: 06/01/18 5:00:00 CDT , ABX Indication: Skin/Soft Tissue Infection Notes: (Same As: Maxipime) MEDICATION WASTE Product Size: 1000 mgProduc t Wasted: ___ mg Start Date: 05/26/18 Stop Date: 06/01/18 Status: Completed clopidogrel 75 mg, 1 tab, Route: PO, Drug form: TAB, Daily, Dosing Weight 102.273, kg, Start date: 05/26/18 9:00:00 ASSET CARD CLERK, Duration: 30 day, Stop date: 06/24/18 9:00:00 CDT Notes: (Same As: Plavix) Start Date: 05/26/18 Stop Date: 06/01/18 Status: Discontinued Coreg 12.5 mg, 1 tab, Route: PO, Drug form: TAB, Q12H, Dosing Weight 102.273, kg, Star t date: 05/26/18 21:00:00 ASSET CARD CLERK, Duration: 30 day, Stop date: 06/25/18 9:00:00 CDT Notes: Give with food. (Same As: Coreg) Start Date: 05/26/18 Stop Date: 06/01/18 Status: Discontinued Dextrose 50% Syringe 25 mL, Route: IVP, Dosing Weight 102.273, kg, PRN, PRN Blood Glucose Results, St art date: 05/25/18 18:57:00 ASSET CARD CLERK, Duration: 30 day, Stop date: 06/24/18 19:56:00 CDT Start Date: 05/25/18 Stop Date: 05/25/18 Status: Deleted Dextrose 50% Syringe 50 mL, Route: IVP, Dosing Weight 102.273, kg, PRN, PRN Blood Glucose Results, St art date: 05/25/18 18:57:00 ASSET CARD CLERK, Duration: 30 day, Stop date: 06/24/18 19:56:00 CDT Start Date: 05/25/18 Stop Date: 05/25/18 Status: Deleted Dextrose 50% Syringe 25 gm, 50 mL, Route: IVP, Drug Form: INJ, Dosing Weight 102.273, kg, ONCE, Start date: 05/25/18 21:46:00 ASSET CARD CLERK, Stop date: 05/25/18 21:46:00 ASSET CARD CLERK Start Date: 05/25/18 Stop Date: 05/25/18 Status: Completed Dextrose 50% Syringe 25 gm, 50 mL, Route: IVP, Drug Form: INJ, Dosing Weight 102.273, kg, ONCE, STAT, Start date: 05/25/18 15:29:00 ASSET CARD CLERK, Stop date: 05/25/18 15:29:00 ASSET CARD CLERK Start Date: 05/25/18 Stop Date: 05/25/18 Status: Completed Dextrose 50% Syringe 12.5 gm, 25 mL, Route: IVP, Drug Form: INJ, Dosing Weight 102.273, kg, PRN, PRN Blood Glucose Results, Start date: 05/25/18 19:02:00 ASSET CARD CLERK, Duration: 30 day, Stop date: 06/24/18 20:01:00 CDT Start Date: 05/25/18 Stop Date: 06/01/18 Status: Discontinued Dextrose 50% Syringe 25 gm, 50 mL, Route: IVP, Drug Form: INJ, Dosing Weight 102.273, kg, PRN, PRN Bl ood Glucose Results, Start date: 05/25/18 19:02:00 ASSET CARD CLERK, Duration: 30 day, Stop d ate: 06/24/18 20:01:00 CDT Start Date: 05/25/18 Stop Date: 06/01/18 Status: Discontinued Diuril Sodium 500 mg, Route: INJ, Drug form: PDR/INJ, ONCE, Dosing Weight 105.114, kg, Start d ate: 05/28/18 10:06:00 ASSET CARD CLERK, Stop date: 05/28/18 10:06:00 ASSET CARD CLERK Notes: (Same As: Diuril Sodium) Start Date: 05/28/18 Stop Date: 05/28/18 Status: Completed Ferrlecit + Sodium Chloride 0.9% IV 100 mL 125 mg, 10 mL, Route: IVPB, Daily, Start date: 05/28/18 9:00:00 ASSET CARD CLERK, Duration: 8 doses or times, Stop date: 06/04/18 9:00:00 CDT Start Date: 05/28/18 Stop Date: 06/01/18 Status: Discontinued furosemide 40 mg, 4 mL, Route: IVP, Drug form: INJ, Q8Hnow, Dosing Weight 102.273, kg, Prio rity: STAT, Start date: 05/25/18 18:59:00 ASSET CARD CLERK, Duration: 30 day, Stop date: 07/09 11:00:00 CDT Notes: (Same as: Lasix) MEDICATION WASTE Product Size: 40 mgProduct Was aruna: ___ mg Start Date: 05/25/18 Stop Date: 05/26/18 Status: Discontinued furosemide 100 mg + Sodium Chloride 0.9% IV 90 mL 90 mL, Rate: 20 ml/hr, Infuse over: 5 hr, Route: IV, Dosing Weight 102.273 kg, T otal Volume: 100, Start date: 05/26/18 13:25:00 ASSET CARD CLERK, Duration: 30 day, Stop date : 06/25/18 12:24:00 CDT, 2.27, m2 Notes: (Same as: Lasix) MEDICATION WASTE Product Size: 100 mgProduct Wa sted: ___ mg Start Date: 05/26/18 Stop Date: 06/01/18 Status: Discontinued glucagon 1 mg, Route: IM, PRN, Dosing Weight 102.273, kg, PRN Blood Glucose Results, Star t date: 05/25/18 18:57:00 ASSET CARD CLERK, Duration: 30 day, Stop date: 06/24/18 19:56:00 CD T Start Date: 05/25/18 Stop Date: 05/25/18 Status: Deleted glucagon 1 mg, Route: IM, Drug form: PDR/INJ, PRN, Dosing Weight 102.273, kg, PRN Blood G lucose Results, Start date: 05/25/18 19:02:00 ASSET CARD CLERK, Duration: 30 day, Stop date: 06/24/18 20:01:00 CDT Start Date: 05/25/18 Stop Date: 06/01/18 Status: Discontinued hydrALAZINE 10 mg, 0.5 mL, Route: IVP, Drug form: INJ, Q4H, Dosing Weight 102.273, kg, PRN H ypertension, Start date: 05/26/18 17:44:00 ASSET CARD CLERK, Duration: 30 day, Stop date: 08/08 17:43:00 CDT Notes: (Same as: Apresoline)Push over 5 minutes Start Date: 05/26/18 Stop Date: 06/01/18 Status: Discontinued hydrALAZINE 25 mg oral tablet 50 mg, 1 tab, Route: PO, Drug form: TAB, TID, Dosing Weight 102.273, kg, Start d ate: 05/27/18 9:00:00 ASSET CARD CLERK, Duration: 30 day, Stop date: 06/25/18 17:00:00 CDT Notes: (Same as: Apresoline) May interfere w/enteral feedings Take With Food Start Date: 05/27/18 Stop Date: 06/01/18 Status: Discontinued hydrALAZINE 50 mg oral tablet 50 mg, 1 tab, Route: PO, Drug form: TAB, Daily, Dosing Weight 102.273, kg, Start date: 05/26/18 9:00:00 ASSET CARD CLERK, Duration: 30 day, Stop date: 06/24/18 9:00:00 CDT Start Date: 05/26/18 Stop Date: 06/01/18 Status: Discontinued Imdur 30 mg, 1 tab, Route: PO, Drug form: ERTAB, QAM, Dosing Weight 102.273, kg, Start date: 05/27/18 9:00:00 ASSET CARD CLERK, Duration: 30 day, Stop date: 06/25/18 9:00:00 CDT Notes: (Same as:Imdur)"Do Not Crush" Take on empty stomach/ full glass of water . Do not crush Start Date: 05/27/18 Stop Date: 06/01/18 Status: Discontinued Insulin regular 5 unit, 0.05 mL, Route: IVP, Drug form: INJ, ONCE, Dosing Weight 102.273, kg, Pr iority: STAT, Start date: 05/25/18 15:29:00 ASSET CARD CLERK, Stop date: 05/25/18 15:29:00 CS T Notes: (Same as: Humulin R and NovoLIN R)WASTE: F/P - Black; E - Municipal Trash Bin (Do not shake) Start Date: 05/25/18 Stop Date: 05/25/18 Status: Completed Insulin regular 5 unit, 0.05 mL, Route: IV, Drug form: INJ, ONCE, Dosing Weight 102.273, kg, Sta rt date: 05/25/18 21:46:00 ASSET CARD CLERK, Stop date: 05/25/18 21:46:00 ASSET CARD CLERK Notes: (Same as: Humulin R and NovoLIN R)WASTE: F/P - Black; E - Municipal Trash Bin (Do not shake) Start Date: 05/25/18 Stop Date: 05/25/18 Status: Completed isosorbide mononitrate 60 mg, Route: PO, Drug form: ERTAB, QAM, Dosing Weight 102.273, kg, Start date: 05/26/18 9:00:00 ASSET CARD CLERK, Duration: 30 day, Stop date: 06/24/18 9:00:00 CDT Start Date: 05/26/18 Stop Date: 06/01/18 Status: Discontinued Kayexalate 30 gm, 120 mL, Route: PO, Drug form: SUSP, ONCE, Dosing Weight 102.273, kg, Star t date: 05/25/18 21:46:00 ASSET CARD CLERK, Stop date: 05/25/18 21:46:00 ASSET CARD CLERK Notes: (sodium polystyrene sulfonate 15 gm/60 ml SAM) Shake well before use. (Same as: Kayexalate, SPS) Start Date: 05/25/18 Stop Date: 05/25/18 Status: Completed Kayexalate 45 gm, 180 mL, Route: PO, Drug form: SUSP, ONCE, Dosing Weight 102.273, kg, Prio rity: STAT, Start date: 05/25/18 15:29:00 ASSET CARD CLERK, Stop date: 05/25/18 15:29:00 ASSET CARD CLERK Notes: (sodium polystyrene sulfonate 15 gm/60 ml SAM) Shake well before use. (Same as: Kayexalate, SPS) Start Date: 05/25/18 Stop Date: 05/25/18 Status: Completed Lasix 10 mg, Route: IV, Continuous, Dosing Weight 102.273, kg, Start date: 05/26/18 13 :00:00 ASSET CARD CLERK, Duration: 30 day, Stop date: 06/25/18 13:59:00 CDT Start Date: 05/26/18 Stop Date: 05/26/18 Status: Deleted Lasix + Sodium Chloride 0.9% IV 50 mL 100 mg, 10 mL, Route: IVPB, Drug form: INJ, ONCE, Dosing Weight 102.273, kg, Sta rt date: 05/26/18 12:49:00 ASSET CARD CLERK, Stop date: 05/26/18 12:49:00 ASSET CARD CLERK Notes: (Same as: Lasix) MEDICATION WASTE Product Size: 100 mgProduct Wa sted: ___ mg Start Date: 05/26/18 Stop Date: 05/26/18 Status: Completed magnesium oxide 800 mg, Route: PO, PRN, Dosing Weight 102.273, kg, PRN Abnormal Lab Result, For NON-ICU Patients Only., Start date: 05/26/18 3:36:00 ASSET CARD CLERK, Duration: 30 day, Stop date: 06/25/18 4:35:00 CDT Start Date: 05/26/18 Stop Date: 05/26/18 Status: Discontinued magnesium sulfate 2 gm, Route: IVPB, PRN, Dosing Weight 102.273, kg, PRN Abnormal Lab Result, For NON-ICU Patients Only., Start date: 05/26/18 3:36:00 ASSET CARD CLERK, Duration: 30 day, Stop date: 06/25/18 4:35:00 CDT Start Date: 05/26/18 Stop Date: 05/26/18 Status: Discontinued magnesium sulfate 1 gm, Route: IVPB, PRN, Dosing Weight 102.273, kg, PRN Abnormal Lab Result, For NON-ICU Patients Only., Start date: 05/26/18 3:36:00 ASSET CARD CLERK, Duration: 30 day, Stop date: 06/25/18 4:35:00 CDT Start Date: 05/26/18 Stop Date: 05/26/18 Status: Discontinued melatonin 3 mg, 1 tab, Route: PO, Drug form: TAB, Bedtime, Dosing Weight 102.273, kg, PRN Insomnia, Start date: 05/25/18 18:57:00 ASSET CARD CLERK, Duration: 30 day, Stop date: 18:56:00 CDT Notes: (Same as: Melatonin) Start Date: 05/25/18 Stop Date: 06/01/18 Status: Discontinued metolazone 5 mg oral tablet 5 mg, 2 tab, Route: PO, Drug form: TAB, Daily, Dosing Weight 105.114, kg, Start date: 05/29/18 15:00:00 ASSET CARD CLERK, Duration: 30 day, Stop date: 06/28/18 9:00:00 CDT Notes: (Same as: Zaroxolyn) Start Date: 05/29/18 Stop Date: 06/01/18 Status: Discontinued metolazone 5 mg oral tablet 10 mg = 2 tab, PO, Daily, # 60 tab, 0 Refill(s), Pharmacy: [id number] Start Date: 06/01/18 Stop Date: 07/01/18 Status: Ordered ondansetron 4 mg, 2 mL, Route: IVP, Drug form: INJ, Q8H, Dosing Weight 102.273, kg, PRN Naus ea & Vomiting, Start date: 05/25/18 18:57:00 ASSET CARD CLERK, Duration: 30 day, Stop date: 06/24/18 18:56:00 CDT Notes: (Same as: Sky) MEDICATION WASTE Product Size: 4 mgProduct Was aruna: ___ mg Start Date: 05/25/18 Stop Date: 05/26/18 Status: Discontinued potassium chloride 20 mEq, Route: NJ, Drug form: SOLN, PRN, Dosing Weight 102.273, kg, PRN Abnormal Lab Result, For NON-ICU Patients Only, Start date: 05/26/18 3:36:00 ASSET CARD CLERK, Durati on: 30 day, Stop date: 06/25/18 4:35:00 CDT Start Date: 05/26/18 Stop Date: 05/26/18 Status: Discontinued potassium chloride 10 mEq, Route: IVPB, PRN, Dosing Weight 102.273, kg, PRN Abnormal Lab Result, Fo r NON-ICU Patients Only, Start date: 05/26/18 3:36:00 ASSET CARD CLERK, Duration: 30 day, Sto p date: 06/25/18 4:35:00 CDT Start Date: 05/26/18 Stop Date: 05/26/18 Status: Discontinued potassium chloride 20 mEq, Route: PO, Drug form: ERTAB, PRN, Dosing Weight 102.273, kg, PRN Abnorma l Lab Result, For NON-ICU Patients Only, Start date: 05/26/18 3:36:00 ASSET CARD CLERK, Durat ion: 30 day, Stop date: 06/25/18 4:35:00 CDT Start Date: 05/26/18 Stop Date: 05/26/18 Status: Discontinued potassium chloride 40 mEq, 2 tab, Route: PO, Drug form: ERTAB, Daily, Dosing Weight 105.114, kg, Pr iority: NOW, Start date: 05/30/18 9:42:00 CDT, Duration: 30 day, Stop date: 12/09 9:00:00 CDT Notes: (Same as: K-Dur 20)"Do Not Crush" Give with food and full glass of water For patients unable to swallow tablet, dissolve in one half glass of water. Allo w about 2 minutes for the tablets to disintegrate. Stir before giving to prepare slurry and administer.Please exclude Patients with feeding tube less than 14 [place] (Dobhoff, J-tube etc) and pediatric and patients. Start Date: 05/30/18 Stop Date: 06/01/18 Status: Discontinued potassium chloride 20 mEq oral tablet, extended release 40 mEq = 2 tab, PO, Daily, # 60 tab, 0 Refill(s), Pharmacy: [facility] [id number] Start Date: 06/01/18 Stop Date: 07/01/18 Status: Ordered potassium chloride 20 mEq oral tablet, extended release 40 mEq, 2 tab, Route: PO, Drug form: ERTAB, ONCE, Dosing Weight 105.114, kg, Sta rt date: 05/30/18 13:54:00 CDT, Stop date: 05/30/18 13:54:00 CDT Notes: (Same as: K-Dur 20)"Do Not Crush" Give with food and full glass of water For patients unable to swallow tablet, dissolve in one half glass of water. Allo w about 2 minutes for the tablets to disintegrate. Stir before giving to prepare slurry and administer.Please exclude Patients with feeding tube less than 14 [place]ic (Dobhoff, J-tube etc) and pediatric and patients. Start Date: 05/30/18 Stop Date: 05/30/18 Status: Completed potassium phosphate 15 mmol, Route: IVPB, PRN, Dosing Weight 102.273, kg, PRN Abnormal Lab Result, F or NON-ICU Patients Only., Start date: 05/26/18 3:36:00 ASSET CARD CLERK, Duration: 30 day, S top date: 06/25/18 4:35:00 CDT Start Date: 05/26/18 Stop Date: 05/26/18 Status: Discontinued potassium phosphate 30 mmol, Route: IVPB, PRN, Dosing Weight 102.273, kg, PRN Abnormal Lab Result, F or NON-ICU Patients Only., Start date: 05/26/18 3:36:00 ASSET CARD CLERK, Duration: 30 day, S top date: 06/25/18 4:35:00 CDT Start Date: 05/26/18 Stop Date: 05/26/18 Status: Discontinued potassium phosphate-sodium phosphate 250 mg-280 mg-160 mg oral powder for recons titution 2 pkt, Route: PO, Dosing Weight 102.273, kg, PRN, PRN Abnormal Lab Result, For N ON-ICU Patients Only, Start date: 05/26/18 3:36:00 ASSET CARD CLERK, Duration: 30 day, Stop d ate: 06/25/18 4:35:00 CDT Start Date: 05/26/18 Stop Date: 05/26/18 Status: Discontinued Renvela 1.6 gm, 2 tab, Route: PO, Drug form: TAB, TID-Before Meals, Dosing Weight 105.11 4, kg, Start date: 05/28/18 7:30:00 ASSET CARD CLERK, Duration: 30 day, Stop date: 06/26/18 1 6:30:00 CDT, ... Notes: Same as: Renvela Start Date: 05/28/18 Stop Date: 06/01/18 Status: Discontinued Saline Flush 0.9% 10 mL, Route: IVP, Drug Form: INJ, Dosing Weight 102.273, kg, PRN, PRN Line Flus h, Start date: 05/25/18 15:29:00 ASSET CARD CLERK, Duration: 30 day, Stop date: 06/24/18 16:2 8:00 CDT Notes: Same as: BD Posiflush Sterile Start Date: 05/25/18 Stop Date: 06/01/18 Status: Discontinued Saline Flush 0.9% 10 ml, Route: IVP, Drug Form: INJ, Dosing Weight 102.273, kg, Q12H, Start date: 05/25/18 21:00:00 ASSET CARD CLERK, Duration: 30 day, Stop date: 06/24/18 9:00:00 CDT Notes: Same as: BD Posiflush Sterile Start Date: 05/25/18 Stop Date: 06/01/18 Status: Discontinued Saline Flush 0.9% 10 ml, Route: IVP, Drug Form: INJ, Dosing Weight 102.273, kg, PRN, PRN Line Flus h, Start date: 05/25/18 19:00:00 ASSET CARD CLERK, Duration: 30 day, Stop date: 06/24/18 19:5 9:00 CDT Notes: Same as: BD Posiflush Sterile Start Date: 05/25/18 Stop Date: 06/01/18 Status: Discontinued Saline Flush 0.9% 10 mL, Route: IVP, Drug Form: INJ, Dosing Weight 104.091, kg, PRN, PRN Line Flus h, Start date: 05/25/18 14:02:00 ASSET CARD CLERK, Duration: 30 day, Stop date: 06/24/18 15:0 1:00 CDT Notes: Same as: BD Posiflush Sterile Start Date: 05/25/18 Stop Date: 06/01/18 Status: Discontinued sodium phosphate 30 mmol, Route: IVPB, PRN, Dosing Weight 102.273, kg, PRN Abnormal Lab Result, F or NON-ICU Patients Only., Start date: 05/26/18 3:36:00 ASSET CARD CLERK, Duration: 30 day, S top date: 06/25/18 4:35:00 CDT Start Date: 05/26/18 Stop Date: 05/26/18 Status: Discontinued sodium phosphate 15 mmol, Route: IVPB, PRN, Dosing Weight 102.273, kg, PRN Abnormal Lab Result, F or NON-ICU Patients Only., Start date: 05/26/18 3:36:00 ASSET CARD CLERK, Duration: 30 day, S top date: 06/25/18 4:35:00 CDT Start Date: 05/26/18 Stop Date: 05/26/18 Status: Discontinued Venofer 200 mg, Route: IVPB, Drug form: INJ, Daily, Dosing Weight 105.114, kg, Start gabriel e: 05/28/18 9:00:00 ASSET CARD CLERK, Duration: 5 doses or times, Stop date: 06/01/18 9:00:00 CDT Start Date: 05/28/18 Stop Date: 05/27/18 Status: Deleted Results ELECTROLYTES 1 2 3 Most recent to oldest [Reference Range]: 137 mEq/L (06/01/18 4:43 AM) 140 mEq/L (05/31/18 5:14 AM) 138 mEq/L (05/30/18 5:00 AM) Sodium Lvl [135-145 mEq/L] 4.0 mEq/L (06/01/18 4:43 AM) 4.0 mEq/L (05/31/18 5:14 AM) 3.3 mEq/L *LOW* (05/30/18 5:00 AM) Potassium Lvl [3.5-5.1 mEq/L] 99 mEq/L (06/01/18 4:43 AM) 103 mEq/L (05/31/18 5:14 AM) 103 mEq/L (05/30/18 5:00 AM) Chloride Lvl [95-109 mEq/L] 31 mEq/L (06/01/18 4:43 AM) 29 mEq/L (05/31/18 5:14 AM) 26 mEq/L (05/30/18 5:00 AM) CO2 [24-32 mEq/L] 11.0 mEq/L (06/01/18 4:43 AM) 12.0 mEq/L (05/31/18 5:14 AM) 12.3 mEq/L (05/30/18 5:00 AM) AGAP [10.0-20.0 mEq/L] CHEM PANEL 1 2 3 Most recent to oldest [Reference Range]: 5.29 mg/dL *HI* (06/01/18 4:43 AM) 5.51 mg/dL *HI* (05/31/18 5:14 AM) 5.54 mg/dL *HI* (05/30/18 5:00 AM) Creatinine Lvl [0.50-1.40 mg/dL] 12 mL/min/1.73m2 1 *NA* (06/01/18 4:43 AM) 11 mL/min/1.73m2 2 *NA* (05/31/18 5:14 AM) 11 mL/min/1.73m2 3 *NA* (05/30/18 5:00 AM) eGFR 109 mg/dL *HI* (06/01/18 4:43 AM) 110 mg/dL *HI* (05/31/18 5:14 AM) 110 mg/dL *HI* (05/30/18 5:00 AM) BUN [7-22 mg/dL] 19 (05/25/18 2:20 PM) B/C Ratio [6-25] 153 mg/dL *HI* (06/01/18 4:43 AM) 140 mg/dL *HI* (05/31/18 5:14 AM) 132 mg/dL *HI* (05/30/18 5:00 AM) Glucose Lvl [70-99 mg/dL] 6.9 g/dL (05/25/18 2:20 PM) Total Protein [6.4-8.4 g/dL] 3.1 g/dL *LOW* (05/25/18 2:20 PM) Albumin Lvl [3.5-5.0 g/dL] 3.8 g/dL (05/25/18 2:20 PM) Globulin [2.7-4.2 g/dL] 0.8 (05/25/18 2:20 PM) A/G Ratio [0.7-1.6] 8.1 mg/dL *LOW* (06/01/18 4:43 AM) 7.5 mg/dL *LOW* (05/31/18 5:14 AM) 7.5 mg/dL *LOW* (05/30/18 5:00 AM) Calcium Lvl [8.5-10.5 mg/dL] 6.9 mg/dL *HI* (05/30/18 5:00 AM) 7.8 mg/dL *HI* (05/29/18 4:33 AM) 8.7 mg/dL *HI* (05/28/18 3:41 AM) Phosphorus [2.5-4.5 mg/dL] 2.3 mg/dL (06/01/18 4:43 AM) 2.2 mg/dL (05/31/18 5:14 AM) 2.4 mg/dL (05/30/18 5:00 AM) Magnesium Lvl [1.8-2.4 mg/dL] 11 unit/L (05/25/18 2:20 PM) ALT [0-65 unit/L] 16 unit/L (05/25/18 2:20 PM) AST [0-37 unit/L] 138 unit/L *HI* (05/25/18 2:20 PM) Alk Phos [39-136 unit/L] 0.5 mg/dL (05/25/18 2:20 PM) Bili Total [0.2-1.3 mg/dL] 1Result Comment: The eGFR is calculated using [...] be mul tiplied by the estimated BMI. CARDIAC ENZYMES 1 2 3 Most recent to oldest [Reference Range]: <0.02 ng/mL (05/25/18 2:20 PM) Troponin-I [0.00-0.40 ng/mL] 2189 pg/mL *HI* (05/25/18 2:20 PM) BNP [<=100 pg/mL] ANEMIA STUDY 1 2 3 Most recent to oldest [Reference Range]: 40 ug/dl *LOW* (05/27/18 6:27 AM) Iron [45-160 ug/dl] 14 % (05/27/18 6:27 AM) % Satur Fe [12-57 %] 247 ug/dl (05/27/18 6:27 AM) UIBC [110-370 ug/dl] 287 ug/dl (05/27/18 6:27 AM) TIBC [228-428 ug/dl] PARATHYROID PROFILE 1 2 3 Most recent to oldest [Reference Range]: 0.81 mMol/L 1 *CRIT* (05/27/18 6:27 AM) 0.75 mMol/L 2 *CRIT* (05/26/18 6:23 AM) Ca Ion WB [1.05-1.25 mMol/L] 0.76 mMol/L *CRIT* (05/27/18 6:27 AM) 0.70 mMol/L *CRIT* (05/26/18 6:23 AM) Ca Norm WB [1.05-1.25 mMol/L] 89.4 pg/mL *HI* (05/27/18 6:27 AM) PTH Intact [18.4-80.1 pg/mL] 1Result Comment: Critical Result(s) called to mariela roberson at 05/27/2018 07:20 by EFA. Read back OK. 2Result Comment: Critical Result(s) called to Nafisa Mead_ at 05/26/2018 06:32 mfb_ by_. Read back OK. URINE AND STOOL 1 2 3 Most recent to oldest [Reference Range]: Clear (05/25/18 4:33 PM) UA Turbidity [Clear] Ltyellow *NA* (05/25/18 4:33 PM) UA Color 5.0 (05/25/18 4:33 PM) UA pH [5.0-8.0] 1.010 (05/25/18 4:33 PM) UA Spec Grav [<=1.030] 50 mg/dL *ABN* (05/25/18 4:33 PM) UA Glucose [Negative mg/dL] Small *ABN* (05/25/18 4:33 PM) UA Blood [Negative] Negative *NA* (05/25/18 4:33 PM) UA Ketones [Negative] 100 mg/dL *ABN* (05/25/18 4:33 PM) UA Protein [Negative mg/dL] <=1.0 mg/dL *NA* (05/25/18 4:33 PM) UA Urobilinogen [0.1-1.0 mg/dL] Negative *NA* (05/25/18 4:33 PM) UA Bili [Negative] Negative (05/25/18 4:33 PM) UA Leuk Est [Negative] Negative (05/25/18 4:33 PM) UA Nitrite [Negative] 1 /HPF (05/25/18 4:33 PM) UA WBC [0-5 /HPF] 1 /HPF (05/25/18 4:33 PM) UA RBC [0-2 /HPF] Occasional /LPF *NA* (05/25/18 4:33 PM) UA Sq Epi [Few /LPF] Few /LPF *NA* (05/25/18 4:33 PM) UA Mucus [None Seen /LPF] HEMATOLOGY 1 2 3 Most recent to oldest [Reference Range]: 8.1 K/CMM (05/28/18 3:41 AM) 6.1 K/CMM (05/27/18 6:27 AM) 5.8 K/CMM (05/25/18 2:20 PM) WBC [3.7-10.4 K/CMM] 3.09 M/CMM *LOW* (05/28/18 3:41 AM) 3.11 M/CMM *LOW* (05/27/18 6:27 AM) 3.10 M/CMM *LOW* (05/25/18 2:20 PM) RBC [4.70-6.10 M/CMM] 9.0 g/dL *LOW* (05/28/18 3:41 AM) 9.1 g/dL *LOW* (05/27/18 6:27 AM) 9.2 g/dL *LOW* (05/25/18 2:20 PM) Hgb [14.0-18.0 g/dL] 28.0 % *LOW* (05/28/18 3:41 AM) 27.6 % *LOW* (05/27/18 6:27 AM) 27.9 % *LOW* (05/25/18 2:20 PM) Hct [42.0-54.0 %] 90.6 fL (05/28/18 3:41 AM) 88.7 fL (05/27/18 6:27 AM) 89.9 fL (05/25/18 2:20 PM) MCV [80.0-94.0 fL] 29.0 pg (05/28/18 3:41 AM) 29.4 pg (05/27/18 6:27 AM) 29.5 pg (05/25/18 2:20 PM) MCH [27.0-31.0 pg] 32.0 g/dL (05/28/18 3:41 AM) 33.1 g/dL (05/27/18 6:27 AM) 32.9 g/dL (05/25/18 2:20 PM) MCHC [32.0-36.0 g/dL] 19.0 % *HI* (05/28/18 3:41 AM) 19.9 % *HI* (05/27/18 6:27 AM) 19.7 % *HI* (05/25/18 2:20 PM) RDW [11.5-14.5 %] 8.9 fL (05/28/18 3:41 AM) 8.3 fL (05/27/18 6:27 AM) 9.0 fL (05/25/18 2:20 PM) MPV [7.4-10.4 fL] 99 K/CMM *LOW* (05/28/18 3:41 AM) 97 K/CMM *LOW* (05/27/18 6:27 AM) 98 K/CMM *LOW* (05/25/18 2:20 PM) Platelet [133-450 K/CMM] 78.1 % *HI* (05/28/18 3:41 AM) 77.0 % *HI* (05/27/18 6:27 AM) 77.9 % *HI* (05/25/18 2:20 PM) Segs [45.0-75.0 %] 4.5 % *LOW* (05/28/18 3:41 AM) 6.0 % *LOW* (05/27/18 6:27 AM) 7.1 % *LOW* (05/25/18 2:20 PM) Lymphocytes [20.0-40.0 %] 12.7 % *HI* (05/28/18 3:41 AM) 11.2 % (05/27/18 6:27 AM) 11.5 % (05/25/18 2:20 PM) Monocytes [2.0-12.0 %] 3.9 % (05/28/18 3:41 AM) 4.9 % *HI* (05/27/18 6:27 AM) 2.3 % (05/25/18 2:20 PM) Eosinophils [0.0-4.0 %] 0.8 % (05/28/18 3:41 AM) 0.9 % (05/27/18 6:27 AM) 1.2 % *HI* (05/25/18 2:20 PM) Basophils [0.0-1.0 %] 6.3 K/CMM (05/28/18 3:41 AM) 4.7 K/CMM (05/27/18 6:27 AM) 4.6 K/CMM (05/25/18 2:20 PM) Neutrophils # [1.5-8.1 K/CMM] 0.4 K/CMM *LOW* (05/28/18 3:41 AM) 0.4 K/CMM *LOW* (05/27/18 6:27 AM) 0.4 K/CMM *LOW* (05/25/18 2:20 PM) Lymphocytes # [1.0-5.5 K/CMM] 1.0 K/CMM *HI* (05/28/18 3:41 AM) 0.7 K/CMM (05/27/18 6:27 AM) 0.7 K/CMM (05/25/18 2:20 PM) Monocytes # [0.0-0.8 K/CMM] 0.3 K/CMM (05/28/18 3:41 AM) 0.3 K/CMM (05/27/18 6:27 AM) 0.1 K/CMM (05/25/18 2:20 PM) Eosinophils # [0.0-0.5 K/CMM] 0.1 K/CMM (05/28/18 3:41 AM) 0.1 K/CMM (05/27/18 6:27 AM) 0.1 K/CMM (05/25/18 2:20 PM) Basophils # [0.0-0.2 K/CMM] Immunizations Given and Recorded Vaccine Date Status [...] 05/25/18 Assessment and Plan Extracted from: Title: Clinical Document Author: Crescencio Gay MD Gabriel e: 06/01/18 Nephrology Progress Note Crescencio Gay M.D. [...] dialysis and kidney transplant. Also, I have [employer] program coming to educate him. he wants to go home to get his "stuff in order " 2. Severe anasarca. on Lasix drip. bradley foster, ok to discharge 3. Anemia due to CKD, will give IV iron as TSAT <20% 4. Hyperphosphatemia. on phosphorous binders and also on a renal diet. 5. Scrotal edema. Negative ultrasound is most likely secondary to anasarca, improving PLAN & TREATMENT ok to dischrge, he needs to follow up in 1 week with labs, instructed patient does not want a catheter now before he takes care of all his issues Vitals and Temp: VitalsTmp(F)[id number] 06/01 08:[id number]--- 06/01 04:[id number]/[id number]--- 06/01 00:[id number]/[id number]--- 05/31 23:27 1891 1.0L/m 05/31 20:[id number]/[id number]--- 24 Hr Tmax: 98.2F (36.78c) at 06/01 08:1 6Vital Signs are the last 5 in the past 48 hours. Input/Output RecordInOutBal 1224hr Tot 526 1000 -474 1124hr Tot 1246 [id number] Labs (Last four charted values) WBC 8.1(MAY 28)6.1(MAY 27)5.8(MAY 25) Hgb L 9.0(MAY 28)L 9.1(MAY 27)L 9.2(MAY 25) Hct L 28.0(MAY 28)L 27.6(MAY 27)L 27.9(MAY 25) Plt L 99(MAY 28)L 97(MAY 27)L 98(MAY 25) Na 137(JUN 01)140(MAY 31)138(MAY 30)140(MAY 29) K 4.0(JUN 01)4.0(MAY 31)L 3.3(MAY 30)3.8(MAY 29) CO2 31(JUN 01)29(MAY 31)26(MAY 30)24(MAY 29) Cl 99(JUN 01)103(MAY 31)103(MAY 30)105(MAY 29) Cr H 5.29(JUN 01)H 5.51(MAY 31)H 5.54(MAY 30)H 5.32(MAY 29) BUN H 109(JUN 01)H 110(MAY 31)H 110(MAY 30)H 110(MAY 29) Glucose Random H 153(JUN 01)H 140(MAY 31)H 132(MAY 30)H 128(MAY 29) Mg 2.3(JUN 01)2.2(MAY 31)2.4(MAY 30)2.2(MAY 29) Phos H 6.9(MAY 30)H 7.8(MAY 29)H 8.7(MAY 28)H 8.9(MAY 27) Ca L 8.1(JUN 01)L 7.5(MAY 31)L 7.5(MAY 30)L 7.2(MAY 29) Troponin <0.02(MAY 25) MEDICATIONS: Medications (25) Active Scheduled Meds [...] Time Meds: None Continuous Infusions: None Extracted from: Title: General Admission H&P * Author: Nicolas Link hnakant Date: 05/25/18 Impression and Plan Impression: Acute on chronic systolic heart failure Volume overload state/anasarca Chronic kidney disease stage IV/V Bilateral lower extremity edema and scrotal swelling and pain Diabetes mellitus type 2 Hypertension Hyperlipidemia Nonischemic cardiomyopathy Plan: Will admit to medicine Activity as tolerated Vitals per unit policy Diet renal Patient was found to have possible 5.8 [...]
--- OUTSIDE RECORDS SUMMARY | 2019-08-11 09:02 | XMS REPORT | Summary of Care ---
Author Author [facility] Organization [facility] Address Unknown Phone Unavailable Encounter ADELAIDE Harmon(PILO) [id number] Date(s): 09/16/17 - 09/17/17 [facility] [address] [place] [address]- Discharge Disposition: Home or Self Care Attending Physician: Marcy Kelly MD Admitting Physician: Marcy Kelly MD Referring Physician: Cosme Santacruz MD Vital Signs 1 2 3 Most recent to oldest [Reference Range]: 177.8 cm (09/16/17 6:01 PM) 177.8 cm (09/16/17 1:27 PM) Height 98 DegF (09/17/17 10:38 AM) 98.4 DegF (09/17/17 7:20 AM) 98.1 DegF (09/17/17 3:12 AM) Temperature Oral [96.4-99.1 DegF] 155/84 mmHg *HI* (09/17/17 10:38 AM) 174/61 mmHg *HI* (09/17/17 7:20 AM) 162/88 mmHg *HI* (09/17/17 3:12 AM) Blood Pressure [90-140/60-90 mmHg] 19 BRMIN (09/17/17 10:38 AM) 18 BRMIN (09/17/17 3:12 AM) 18 BRMIN (09/16/17 11:30 PM) Respiratory Rate [14-20 BRMIN] 58 bpm *LOW* (09/17/17 10:38 AM) 60 bpm (09/17/17 7:20 AM) 61 bpm (09/17/17 3:12 AM) Peripheral Pulse Rate [60-100 bpm] 100 kg (09/16/17 6:01 PM) 100 kg (09/16/17 1:27 PM) Weight 31.63 m2 (09/16/17 6:01 PM) 31.63 m2 (09/16/17 1:27 PM) Body Mass Index Problem List No data available for this section Allergies, Adverse Reactions, Alerts Substance Reaction Severity Status NKDA Active Medications acetaminophen 650 mg, 2 tab, Route: PO, Drug form: TAB, Q4H, Dosing Weight 100, kg, PRN Pain 1 -3/Temp > 100.4 F, Start date: 09/16/17 15:52:00 CDT, Duration: 30 day, Stop date: 10/16/17 15:51:00 CDT Notes: Do not exceed 4 gm/day. (Same as: Tylenol) Start Date: 09/16/17 Stop Date: 09/17/17 Status: Discontinued aspirin 325 mg, 1 tab, Route: PO, Drug form: TAB, ONCE, Dosing Weight 100, kg, Priority: STAT, Start date: 09/16/17 15:34:00 CDT, Stop date: 09/16/17 15:34:00 CDT Notes: Take with food. Start Date: 09/16/17 Stop Date: 09/16/17 Status: Completed aspirin 81 mg tablet, enteric coated 81 mg = 1 tab, PO, Q24H, # 30 tab, 0 Refill(s), Pharmacy: [id number] Start Date: 09/17/17 Stop Date: 10/17/17 Status: Ordered aspirin 81 mg tablet, enteric coated 81 mg, 1 tab, Route: PO, Drug form: ECTAB, Q24H, Dosing Weight 100, kg, Start da te: 09/16/17 16:00:00 CDT, Duration: 30 day, Stop date: 10/15/17 16:00:00 CDT Notes: Do not crush or chew.(Same As: Ecotrin) Start Date: 09/16/17 Stop Date: 09/17/17 Status: Discontinued atorvastatin 40 mg, 1 tab, Route: PO, Drug form: TAB, Bedtime, Dosing Weight 100, kg, Start d ate: 09/16/17 21:00:00 CDT, Duration: 30 day, Stop date: 10/15/17 21:00:00 CDT Notes: (Same as: Lipitor) Start Date: 09/16/17 Stop Date: 09/17/17 Status: Discontinued atorvastatin 40 mg oral tablet 40 mg = 1 tab, PO, Bedtime, # 30 tab, 0 Refill(s), Pharmacy: [id number] Start Date: 09/17/17 Stop Date: 10/17/17 Status: Ordered calcium gluconate 2,000 mg, Route: IVPB, Drug form: INJ, ONCE, Dosing Weight 100, kg, Start date: 09/16/17 19:45:00 CDT, Stop date: 09/16/17 19:45:00 CDT Start Date: 09/16/17 Stop Date: 09/16/17 Status: Deleted calcium gluconate + Sodium Chloride 0.9% IV 40 mL 1,000 mg, 10 mL, Route: IVPB, Q30Min, Start date: 09/16/17 20:00:00 CDT, Duratio n: 2 doses or times, Stop date: 09/16/17 20:30:00 CDT Notes: WASTE: F/P - Sink; E - [facility] Trash [facility] Start Date: 09/16/17 Stop Date: 09/16/17 Status: Completed clopidogrel 75 mg oral tablet 75 mg = 1 tab, PO, Daily, # 30 tab, 0 Refill(s), Pharmacy: [id number] Start Date: 09/17/17 Stop Date: 10/17/17 Status: Ordered Coreg 25 mg oral tablet 25 mg = 1 tab, PO, Daily, # 30 tab, 0 Refill(s), Pharmacy: [id number] Start Date: 09/17/17 Stop Date: 10/17/17 Status: Ordered Coreg 25 mg oral tablet 25 mg = 1 tab, PO, Daily, 0 Refill(s) Start Date: 09/16/17 Stop Date: 09/17/17 Status: Discontinued Dextrose 50% Syringe 12.5 gm, 25 mL, Route: IVP, Drug Form: INJ, Dosing Weight 100, kg, PRN, PRN Bloo d Glucose Results, Start date: 09/16/17 15:55:00 CDT, Duration: 30 day, Stop izabella e: 10/16/17 15:54:00 CDT Start Date: 09/16/17 Stop Date: 09/17/17 Status: Discontinued Dextrose 50% Syringe 25 gm, 50 mL, Route: IVP, Drug Form: INJ, Dosing Weight 100, kg, PRN, PRN Blood Glucose Results, Start date: 09/16/17 15:55:00 CDT, Duration: 30 day, Stop date: 10/16/17 15:54:00 CDT Start Date: 09/16/17 Stop Date: 09/17/17 Status: Discontinued glipiZIDE 5 mg oral tablet 5 mg = 1 tab, PO, BID, 0 Refill(s) Start Date: 09/16/17 Stop Date: 09/17/17 Status: Discontinued glucagon 1 mg, Route: IM, Drug form: PDR/INJ, PRN, Dosing Weight 100, kg, PRN Blood Gluco se Results, Start date: 09/16/17 15:55:00 CDT, Duration: 30 day, Stop date: 09/21 10/07 15:54:00 CDT Start Date: 09/16/17 Stop Date: 09/17/17 Status: Discontinued heparin 5,000 unit, 1 mL, Route: SUB-Q, Drug form: INJ, Q8H, Dosing Weight 100, kg, Star t date: 09/17/17 0:00:00 CDT, Duration: 30 day, Stop date: 10/16/17 16:00:00 CDT Notes: porcine heparin Start Date: 09/17/17 Stop Date: 09/17/17 Status: Discontinued hydrALAZINE 25 mg, Route: PO, Drug form: TAB, Q6H, Dosing Weight 100, kg, PRN Hypertension, Start date: 09/16/17 18:31:00 CDT, Duration: 30 day, Stop date: 10/16/17 18:30:0 0 CDT Start Date: 09/16/17 Stop Date: 09/16/17 Status: Deleted hydrALAZINE 25 mg oral tablet 25 mg = 1 tab, PO, QID, PRN Hypertension, # 360 tab, 0 Refill(s) Start Date: 09/16/17 Status: Ordered insulin lispro 4 unit, 0.04 mL, Route: SUB-Q, Drug form: SOLN, Bedtime, Dosing Weight 100, kg, PRN Blood Glucose Results, Start date: 09/16/17 15:55:00 CDT, Duration: 30 day, Stop date: 10/16/17 15:54:00 CDT Notes: (Same as: Humalog ) Roll in palms of hands gently; Do not shake `vigorou sly. "Single Patient Use Only " WASTE: F/P - Black; E - [facility] [address]ash [address] St able for 28 days at room temperature.Expires in days from Da te Start Date: 09/16/17 Stop Date: 09/17/17 Status: Discontinued insulin lispro 3 unit, 0.03 mL, Route: SUB-Q, Drug form: SOLN, TID-Before Meals, Dosing Weight 100, kg, PRN Blood Glucose Results, Start date: 09/16/17 15:55:00 CDT, Duration: 30 day, Stop date: 10/16/17 15:54:00 CDT Notes: (Same as: Humalog ) Roll in palms of hands gently; Do not shake `vigorou sly. "Single Patient Use Only " WASTE: F/P - Black; E - [facility] [address] [address] able for 28 days at room temperature.Expires in days from Da te Start Date: 09/16/17 Stop Date: 09/17/17 Status: Discontinued insulin lispro 4 unit, 0.04 mL, Route: SUB-Q, Drug form: SOLN, TID-Before Meals, Dosing Weight 100, kg, PRN Blood Glucose Results, Start date: 09/16/17 15:55:00 CDT, Duration: 30 day, Stop date: 10/16/17 15:54:00 CDT Notes: (Same as: Humalog ) Roll in palms of hands gently; Do not shake `vigorou sly. "Single Patient Use Only " WASTE: F/P - Black; E - [facility] [address] able for 28 days at room temperature.Expires in days from Da te Start Date: 09/16/17 Stop Date: 09/17/17 Status: Discontinued insulin lispro 1 unit, 0.01 mL, Route: SUB-Q, Drug form: SOLN, TID-Before Meals, Dosing Weight 100, kg, PRN Blood Glucose Results, Start date: 09/16/17 15:55:00 CDT, Duration: 30 day, Stop date: 10/16/17 15:54:00 CDT Notes: (Same as: Humalog ) Roll in palms of hands gently; Do not shake `vigorou sly. "Single Patient Use Only " WASTE: F/P - Black; E - [facility] [address] able for 28 days at room temperature.Expires in days from Da te Start Date: 09/16/17 Stop Date: 09/17/17 Status: Discontinued insulin lispro 2 unit, 0.02 mL, Route: SUB-Q, Drug form: SOLN, TID-Before Meals, Dosing Weight 100, kg, PRN Blood Glucose Results, Start date: 09/16/17 15:55:00 CDT, Duration: 30 day, Stop date: 10/16/17 15:54:00 CDT Notes: (Same as: Humalog ) Roll in palms of hands gently; Do not shake `vigorou sly. "Single Patient Use Only " WASTE: F/P - Black; E - [facility] [address] able for 28 days at room temperature.Expires in days from Da te Start Date: 09/16/17 Stop Date: 09/17/17 Status: Discontinued insulin lispro 5 unit, 0.05 mL, Route: SUB-Q, Drug form: SOLN, TID-Before Meals, Dosing Weight 100, kg, PRN Blood Glucose Results, Start date: 09/16/17 15:55:00 CDT, Duration: 30 day, Stop date: 10/16/17 15:54:00 CDT Notes: (Same as: Humalog ) Roll in palms of hands gently; Do not shake `vigorou sly. "Single Patient Use Only " WASTE: F/P - Black; E - [facility] [address] able for 28 days at room temperature.Expires in days from Da te Start Date: 09/16/17 Stop Date: 09/17/17 Status: Discontinued insulin lispro 2 unit, 0.02 mL, Route: SUB-Q, Drug form: SOLN, Bedtime, Dosing Weight 100, kg, PRN Blood Glucose Results, Start date: 09/16/17 15:55:00 CDT, Duration: 30 day, Stop date: 10/16/17 15:54:00 CDT Notes: (Same as: Humalog ) Roll in palms of hands gently; Do not shake `vigorou sly. "Single Patient Use Only " WASTE: F/P - Black; E - [facility] [address] [facility] [address] able for 28 days at room temperature.Expires in days from Da te Start Date: 09/16/17 Stop Date: 09/17/17 Status: Discontinued insulin lispro 3 unit, 0.03 mL, Route: SUB-Q, Drug form: SOLN, Bedtime, Dosing Weight 100, kg, PRN Blood Glucose Results, Start date: 09/16/17 15:55:00 CDT, Duration: 30 day, Stop date: 10/16/17 15:54:00 CDT Notes: (Same as: Humalog ) Roll in palms of hands gently; Do not shake `vigorou sly. "Single Patient Use Only " WASTE: F/P - Black; E - [facility] [address] able for 28 days at room temperature.Expires in days from Da te Start Date: 09/16/17 Stop Date: 09/17/17 Status: Discontinued insulin lispro 1 unit, 0.01 mL, Route: SUB-Q, Drug form: SOLN, Bedtime, Dosing Weight 100, kg, PRN Blood Glucose Results, Start date: 09/16/17 15:55:00 CDT, Duration: 30 day, Stop date: 10/16/17 15:54:00 CDT Notes: (Same as: Humalog ) Roll in palms of hands gently; Do not shake `vigorou sly. "Single Patient Use Only " WASTE: F/P - Black; E - [facility] [address] able for 28 days at room temperature.Expires in days from Da te Start Date: 09/16/17 Stop Date: 09/17/17 Status: Discontinued Lasix 20 mg oral tablet 20 mg = 1 tab, PO, BID, # 60 tab, 0 Refill(s), Pharmacy: [id number] Start Date: 09/17/17 Stop Date: 10/17/17 Status: Ordered Lasix 20 mg oral tablet 20 mg = 1 tab, PO, BID, 0 Refill(s) Start Date: 09/16/17 Stop Date: 09/17/17 Status: Discontinued NIFEdipine 30 mg oral tablet, extended release 30 mg = 1 tab, PO, Daily, PRN Hypertension, # 30 tab, 0 Refill(s) Start Date: 09/16/17 Status: Ordered Plavix 75 mg, 1 tab, Route: PO, Drug form: TAB, ONCE, Dosing Weight 100, kg, Priority: NOW, Start date: 09/16/17 20:43:00 CDT, Stop date: 09/16/17 20:43:00 CDT Notes: (Same As: Plavix) Start Date: 09/16/17 Stop Date: 09/16/17 Status: Completed Plavix 75 mg, 1 tab, Route: PO, Drug form: TAB, Daily, Dosing Weight 100, kg, Start izabella e: 09/17/17 9:00:00 CDT, Duration: 30 day, Stop date: 10/16/17 9:00:00 CDT Notes: (Same As: Plavix) Start Date: 09/17/17 Stop Date: 09/17/17 Status: Discontinued Saline Flush 0.9% 10 ml, Route: IVP, Drug Form: INJ, Dosing Weight 100, kg, Q12H, Start date: 08/22 10/07 21:00:00 CDT, Duration: 30 day, Stop date: 10/16/17 9:00:00 CDT Notes: (Same as: BD Posiflush) Start Date: 09/16/17 Stop Date: 09/17/17 Status: Discontinued Saline Flush 0.9% 10 ml, Route: IVP, Drug Form: INJ, Dosing Weight 100, kg, PRN, PRN Line Flush, S tart date: 09/16/17 15:52:00 CDT, Duration: 30 day, Stop date: 10/16/17 15:51:00 CDT Notes: (Same as: BD Posiflush) Start Date: 09/16/17 Stop Date: 09/17/17 Status: Discontinued Saline Flush 0.9% 10 mL, Route: IVP, Drug Form: INJ, Dosing Weight 100, kg, PRN, PRN Line Flush, S tart date: 09/16/17 13:56:00 CDT, Duration: 30 day, Stop date: 10/16/17 13:55:00 CDT Notes: (Same as: BD Posiflush) Start Date: 09/16/17 Stop Date: 09/17/17 Status: Discontinued Sodium Chloride 0.9% IV 1,000 mL 1,000 mL, Rate: 75 ml/hr, Infuse over: 13.3 hr, Route: IV, Dosing Weight 100 kg, Total Volume: 1,000, Start date: 09/16/17 15:52:00 CDT, Duration: 30 day, Stop date: 10/16/17 15:51:00 CDT, 2.24, m2 Start Date: 09/16/17 Stop Date: 09/16/17 Status: Discontinued Results ELECTROLYTES Most recent to 1 2 oldest [Reference Range]: Sodium Lvl [135-145 142 mEq/L 140 mEq/L mEq/L] (09/17/17 3:05 AM) (09/16/17 2:21 PM) Potassium Lvl 5.2 mEq/L 4.8 mEq/L [3.5-5.1 mEq/L] *HI* (09/16/17 2:21 PM) (09/17/17 3:05 AM) Chloride Lvl [95-109 104 mEq/L 99 mEq/L mEq/L] (09/17/17 3:05 AM) (09/16/17 2:21 PM) CO2 [24-32 mEq/L] 26 mEq/L 29 mEq/L (09/17/17 3:05 AM) (09/16/17 2:21 PM) AGAP [10.0-20.0 17.2 mEq/L 16.8 mEq/L mEq/L] (09/17/17 3:05 AM) (09/16/17 2:21 PM) CHEM PANEL Most recent to 1 2 oldest [Reference Range]: Creatinine Lvl 4.34 mg/dL 4.39 mg/dL [0.50-1.40 mg/dL] *HI* *HI* (09/17/17 3:05 AM) (09/16/17 2:21 PM) eGFR 15 mL/min/1.73m2 1 15 mL/min/1.73m2 2 *NA* *NA* (09/17/17 3:05 AM) (09/16/17 2:21 PM) BUN [7-22 mg/dL] 51 mg/dL 52 mg/dL *HI* *HI* (09/17/17 3:05 AM) (09/16/17 2:21 PM) Glucose Lvl [70-99 58 mg/dL 57 mg/dL mg/dL] *LOW* *LOW* (09/17/17 3:05 AM) (09/16/17 2:21 PM) Calcium Lvl 5.7 mg/dL 3 5.5 mg/dL 4 [8.5-10.5 mg/dL] *CRIT* *CRIT* (09/17/17 3:05 AM) (09/16/17 2:21 PM) 1Result Comment: The eGFR is calculated using [...] tiplied by the estimated BMI. 3Result Comment: Critical Result(s) called to barbara rankin at 09/17/2017 04:28 byanita. Read back OK. 4Result Comment: Critical Result(s) called to Masha Salomon at 09/16/2017 15:41 by MS. Read back OK. CARDIAC ENZYMES Most recent to 1 2 oldest [Reference Range]: Total CK [12-191 793 unit/L unit/L] *HI* (09/16/17 2:21 PM) Troponin-I <0.02 ng/mL [0.00-0.40 ng/mL] (09/16/17 2:21 PM) BNP [<=100 pg/mL] 1121 pg/mL *HI* (09/16/17 3:40 PM) LIPIDS Most recent to 1 [Reference Range]: CHD Risk [4.00-7.30] 2.63 *LOW* (09/16/17 4:20 PM) Chol [<=199 mg/dL] 79 mg/dL (09/16/17 4:20 PM) Trig [<=149 mg/dL] 90 mg/dL (09/16/17 4:20 PM) HDL [>=61 mg/dL] 30 mg/dL *LOW* (09/16/17 4:20 PM) LDL (Calculated) 31 mg/dL [<=99 mg/dL] (09/16/17 4:20 PM) VLDL 18 *NA* (09/16/17 4:20 PM) SPECIAL CHEMISTRY Most recent to 1 2 oldest [Reference Range]: Hgb A1C [<=5.6 %] 6.0 % *HI* (09/16/17 4:20 PM) PARATHYROID PROFILE Most recent to 1 2 oldest [Reference Range]: Ca Ion WB [1.05-1.25 0.61 mMol/L mMol/L] *CRIT* (09/16/17 4:20 PM) Ca Norm WB 0.61 mMol/L 1 [1.05-1.25 mMol/L] *CRIT* (09/16/17 4:20 PM) 1Result Comment: Critical Result(s) called to Masha Salomon at 09/16/2017 16:49 by MSModesta Read back OK. IMMUNOLOGY Most recent to 1 2 oldest [Reference Range]: Cardiolipin IgA 4.7 APL-U/mL [<=19.9 APL-U/mL] (09/17/17 11:56 AM) Cardiolipin IgG <1.6 GPL-U/mL [<=19.9 GPL-U/mL] (09/17/17 11:56 AM) Cardiolipin IgM 16.9 MPL-U/mL [<=19.9 MPL-U/mL] (09/17/17 11:56 AM) Homocyst Tot 15.2 uMol/L [3.7-13.9 uMol/L] *HI* (09/17/17 11:56 AM) HEMATOLOGY Most recent to 1 2 oldest [Reference Range]: WBC [3.7-10.4 K/CMM] 10.2 K/CMM (09/16/17 2:21 PM) RBC [4.70-6.10 3.28 M/CMM M/CMM] *LOW* (09/16/17 2:21 PM) Hgb [14.0-18.0 g/dL] 9.8 g/dL *LOW* (09/16/17 2:21 PM) Hct [42.0-54.0 %] 29.7 % *LOW* (09/16/17 2:21 PM) MCV [80.0-94.0 fL] 90.3 fL (09/16/17 2:21 PM) MCH [27.0-31.0 pg] 30.0 pg (09/16/17 2:21 PM) MCHC [32.0-36.0 33.2 g/dL g/dL] (09/16/17 2:21 PM) RDW [11.5-14.5 %] 15.1 % *HI* (09/16/17 2:21 PM) MPV [7.4-10.4 fL] 9.1 fL (09/16/17 2:21 PM) Platelet [133-450 197 K/CMM K/CMM] (09/16/17 2:21 PM) Segs [45.0-75.0 %] 78.3 % *HI* (09/16/17 2:21 PM) Lymphocytes 8.5 % [20.0-40.0 %] *LOW* (09/16/17 2:21 PM) Monocytes [2.0-12.0 9.1 % %] (09/16/17 2:21 PM) Eosinophils [0.0-4.0 3.4 % %] (09/16/17 2:21 PM) Basophils [0.0-1.0 0.7 % %] (09/16/17 2:21 PM) Segs-Bands # 8.0 K/CMM [1.5-8.1 K/CMM] (09/16/17 2:21 PM) Lymphocytes # 0.9 K/CMM [1.0-5.5 K/CMM] *LOW* (09/16/17 2:21 PM) Monocytes # [0.0-0.8 0.9 K/CMM K/CMM] *HI* (09/16/17 2:21 PM) Eosinophils # 0.3 K/CMM [0.0-0.5 K/CMM] (09/16/17 2:21 PM) Basophils # [0.0-0.2 0.1 K/CMM K/CMM] (09/16/17 2:21 PM) PT [12.0-14.7 15.8 seconds seconds] *HI* (09/16/17 2:21 PM) INR [0.85-1.17] 1.25 *HI* (09/16/17 2:21 PM) AT III Func [77-140 93 % %] (09/17/17 11:56 AM) PTT [22.9-35.8 36.3 seconds seconds] *HI* (09/16/17 2:21 PM) Protein C Func 87 % [72-147 %] (09/17/17 11:56 AM) Protein S Func 74 % [54-137 %] (09/17/17 11:56 AM) Immunizations No data available for this section Procedures Procedure Date Related Diagnosis Body Site Status Appendectomy Completed Repair of retina for retinal detachment Completed Social History Social History Type Response Alcohol Never, Previous treatment: None. Smoking Status Never smoker; Previous anthony tment: None; Exposure to Tobacco Smoke None; Cigarette Smoking Last 365 Days No; Reg Smoking Cessation Counseling No entered on: 09/16/17 Assessment and Plan Extracted from: Title: Clinical Document Author: Broderick Hemphill Date: 09/17/17 NEUROLOGY Progress Note - Daily [facility] Completed: , SEP 17, 2017, 07:50 by Broderick Hemphill MD RM: CCDU - 05, SE JOE IIITARAN [id number] (: 1970) M Attending: Marcy Kelly MDPhone: Service: Internal Medicine Reason for Admission: BRAIN TIA Working DRG: Code status: None Specified=FULL CODECurrent diet: Isolation: No Isolation/Standard Precautions Allergies: NKDA [...] perceives light touch pinprick equal bilaterally Coordination [id number] is intact gait not tested Deep tendon reflexes trace 24hr Labs 09/17 0305 Glucose Lvl58 L BUN51 H Creatinine Lvl4.34 H Sodium Xez063 Potassium Lvl5.2 H Chloride Uzg796 CO226 AGAP17.2 Calcium Lvl5.7 C eGFR15 09/16 2114 POC Performing LocatioSee Note Glucose POC95 09/16 1647 POC Performing LocatioSee Note Glucose POC61 L 09/16 1620 Ca Ion WB0.61 C Ca Norm WB0.61 C Chol79 Trig90 HDL30 L LDL (Calculated)31 VLDL18 CHD Risk2.63 L Hgb A1C6.0 H 09/16 1540 [id number] H 09/16 1421 Total CK793 H Troponin-I<0.02 Glucose Lvl57 L BUN52 H Creatinine Lvl4.39 H Sodium Tay439 Potassium Lvl4.8 Chloride Lvl99 CO229 AGAP16.8 Calcium Lvl5.5 C eGFR15 WBC10.2 RBC3.28 L Hgb9.8 L Hct29.7 L MCV90.3 MCH30.0 MCHC33.2 RDW15.1 H Dtwrsnzg110 MPV9.1 Segs78.3 H Monocytes9.1 Lymphocytes8.5 L Eosinophils3.4 Basophils0.7 Segs-Bands #8.0 Lymphocytes #0.9 L Monocytes #0.9 H Eosinophils #0.3 Basophils #0.1 PT15.8 H INR1.25 H PTT36.3 H [place] still necessary (Yes/No): Line still necessary (Yes/No): VitalsTmp(F)[id number] 09/17 03:1298.546659/148031--- 09/16 23:3098.683371/820745 3.0L/m 09/16 19:225688718/293033 3.5L/m 09/16 17:[id number]/731909--- 09/16 16:2498.437467/430704 3.5L/m 24 Hr Tmax: 98.9F (37.17c) at 09/16 13:2 7Vital Signs are the last 5 in the past 48 hours. DateWt(kg)Wt(lb)Ht(cm)Ht(in)Method 09/16 (initial)100.00 220.00Estimated 77.80 70.00Stated I&ORecordInOutBal 08/2723hr Tot 110 880 -770 08/2623hr Tot 0 0 0 Medications (22) Active [...] 3. Type 2 diabetes. 4. CHF PLAN & TREATMENT 1. Continue Plavix. 2. Awaiting echocardiogram report. 3. Stroke in young workup. 4. If echo is unremarkable patient can be DC'd home and follow-up in the clinic with in 2 weeks discussed with the patient regarding stroke prevention 5. Patient is ambulatory low risk for t he DVT. Extracted from: Title: History and Physical Author: Marcy Kelly MD Date : 09/16/17 TIA Sulfonylurea induced hypoglycemia CKD stage [...]
--- OUTSIDE RECORDS SUMMARY | 2019-08-11 09:03 | XMS REPORT ---
Author Author [facility] t Organization [facility] Address 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, Angie Attphys [phone] Samir Charlesra Attphys Levi Mckay Attphys Ghebranious, Ramsis Amir Attphys Robin, Marcy Attphys Polly MCKEON YICHING Admphys Unavailable Mark Gee Jr Admphys Levi Mckay Admphys Ghebranious, Ramsis Amir Admphys Robin, Marcy Admphys Payers Payer Name Policy Type Policy Number Effective Date Expiration Date Lew FRAGOSO/KAILA FREEMANxxxxxxxxxxxx2019- [id number], [place] [address] xxxxxxxxxxxx 2019 00:00:00 [facility] Problems Condition Name Condition Details Condition Category Status Onset Date Resolution Date Last Treatment Date Treating Clinician Comments Source CHF, PNA CHF, PNA Active 03/01/2019 [facility] Diagnosis Active 2019-03-01 00:00:00 2019-03-11 22:26:00 [facility] SOB/TESTICULAR PAIN SOB/ TESTICULAR PAIN Active 05/25/2018 [facility] Diagnosis Active 2018-05-25 00:00:00 2018-05-25 16:19:00 [facility] ACUTE EXACERBATION OF CHF, END-STAGE NIECY ACUTE EXACERBATION OF CHF, END-STAGE NIECY Active 05/25/2018 [facility] Diagnosis Active 2018-05-25 00:00:00 2018-05-26 09:10:00 [facility] CHF EXACERBATION CHF EXACERBATION Active 04/05/2018 [facility] Diagnosis Active 2018-04-05 00:00:00 2018-05-07 09:59:00 [facility] SHORTNESS OF BREATH SHOR TNESS OF BREATH Active 04/05/2018 [facility] Diagnosis Active 2018-04-05 00:00:00 2018-04-05 19:39:00 [facility] WEAKNESS WEAK NESS Active 09/16/2017 [facility] Diagnosis Active 2017-09-16 00:00:00 2017-09-16 16:08:00 [facility] BRAIN TIA BRAI N TIA Active 09/16/2017 [facility] Diagnosis Active 2017-09-16 00:00:00 2017-09-17 16:33:00 [facility] Acute congestive heart failure Acute congestive heart failure Disea se Active 2015-08-10 00:00:00 [facility] ealt LBBB (left bundle branch block) LBBB (left bundle branch block) Dis ease Active 2015-08-10 00:00:00 [facility] ealt Creatinine elevation Creatinine elevation Disease Active 00:00:00 [facility] Acute on chronic systolic (congestive) heart failure Acute on chronic systolic (congestive) heart failure 10/26/2018 [facility] Problem 2018-10-26 15:00:58 [facility] Other cardiomyopathies Othe r cardiomyopathies 10/26/2018 [facility] Problem 2018-10-26 15:00:58 [facility] Hypocalcemia Hypo calcemia 10/26/2018 [facility] Problem 2018-10-26 15:00:58 [facility] Hyperlipidemia, unspecified Hy perlipidemia, unspecified 10/26/2018 [facility] Problem 2018-10-26 15:00:5 8 [facility] Anemia in other chronic diseases classified elsewhere Anemia in other chronic diseases classified elsewhere 10/26/2018 [facility] Problem 2018-10-26 15:00:58 [facility] Chronic kidney disease, unspecified Chronic kidney disease, unspecified 10/26/2018 [facility] Problem 2018-10-26 15:00:58 [facility] Type 2 diabetes mellitus with diabetic chronic kidney disease Type 2 diabetes mellitus with diabetic chronic kidney disease 10/26/2018 [facility] Problem 2018-10-26 15:00:58 [facility] Personal history of transient ischemic a ttack (TIA), and cerebral infarction without residual deficits Personal history of transient ischemic attack (TIA), and cerebral infarction without residual deficits 10/26/2018 [facility] Problem 2018-10-26 15:00:58 [facility] intermission coordinator (current) use of aspirin intermission coordinator (current) use of aspirin 10/26/2018 [facility] Problem 6 15:00:58 [facility] skilled nursing (current) use of antithrombotics/antiplatele ts skilled nursing (current) use of antithrombotics/antiplatelets 10/26/2018 [facility] Problem 2018-10-26 15:00:58 [facility] Patient's noncompliance with other medical treatment a nd regimen Patient's noncompliance with other medical treatment and regimen 10/26/2018 [facility] Problem 2018-10-26 15:00:58 [facility] Cardiomyopathy (disorder) Card iomyopathy (disorder) Active Problem 03/10/2019 [facility] Problem Active 2019-03-10 23:4 5:18 [facility] Chronic kidney disease stage 4 (disorder) Chronic kidney disease stage 4 (disorder) Active Problem 03/10/2019 [facility] Problem Active 2019-03-10 23:45:18 [facility] Diabetes mellitus (disorder) D iabetes mellitus (disorder) Active Problem 03/10/2019 [facility] Problem Active 2019-03-10 23:45:18 [facility] Dyslipidemia (disorder) Dysl ipidemia (disorder) Active Problem 03/10/2019 [facility] Problem Active 2019-03-10 23:45:1 8 [facility] Hypertensive disorder, systemic arterial (disorder) Hypertensive disorder, systemic arterial (disorder) Active Problem 03/10/2019 [facility] Problem Active 2019-03-10 23:45:18 [facility] HEART FAILURE, UNSPECIFIED HEA RT FAILURE, UNSPECIFIED Active [facility] Diagnosis Active 2019-03-11 22:26:00 [facility] PNEUMONIA, UNSPECIFIED ORGANISM PNEUMONIA, UNSPECIFIED ORGANISM Active [facility] Diagnosis Active 2019-03-11 22:26 :00 [facility] END STAGE RENAL DISEASE END STAGE RENAL DISEASE Active [facility] Active 2018-05-26 09:10:00 [facility] HYPERKALEMIA HYPE RKALEMIA Active [facility] Diagnosis Active 2018-05-26 09:10:00 [facility] 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 and stage 1 through stage 4 chronic kidney disease, or unspecified chronic kidney disease Hypertensive heart and chronic kidney disease with heart failure and stage 1 through stage 4 chronic kidney disease, or unspecified chronic kidney disease 04/22/2018 10/26/2018 [facility] Problem 2018-04-22 04:55:21 2018-10-26 15:00:58 2018-10-26 15:00:58 [facility] Allergies, Adverse Reactions, Alerts Allergy Name Allergy Type Status Severity Reaction(s) Onset Date Inacti ve Date Treating Clinician Comments Source No Known Allergies DA Active U 2019-03-01 00:00:00 [facility] No Known Allergies DA Active U 2016-10-03 00:00:00 [facility] No Known Medication Allergies No Known Medication Allergies Active [facility] Social History Social Habit Start Date Stop Date Quantity Comments Source Sex Assigned At [facility] Exposure to SARS-CoV-2 (event) Not sure [facility] Social History 2018-04-06 07:57:24 2018-04-06 07:57:24 [facility] Alcohol intake 2015-08-15 00:00:00 2015-08-15 00:00:00 [facility] Smoking Status Start Date Stop Date Source Never smoker [facility] Medications Ordered Medication Name Filled Medication Name Start Date Stop Da te Current Medication? Ordering Clinician Indication Dosage Frequency Signature (SIG) Comments Components Source atorvastatin (LIPITOR) 40 mg tablet 2019-08-02 00:00:00 Yes Hyperlipidemia, unspecified hyperlipidemia type 40mg Take 1 tablet by mouth at bedtime nightly. [facility] bumetanide (BUMEX) 2 mg tablet 2019-08-02 00:00:00 Yes Acute systolic congestive heart failure 1mg Q.5D Take 1/2 of a tablet by mouth 2 times daily. [facility] amLODIPine (NORVASC) 5 mg tablet 2019-08-02 00:00:00 Yes Acute systolic congestive heart failure 5mg QD Take 1 tablet by mouth daily. [facility] clopidogreL (PLAVIX) 75 mg tablet 2019-08-02 00:00:00 Yes Acute systolic congestive heart failure 75mg QD Take 1 tablet by mouth daily. [facility] carvediloL (COREG) 12.5 mg tablet 2019-08-02 00:00:00 Yes Uncontrolled hypertension 12.5mg Take 1 tablet by mouth 2 times daily (with me als). [facility] hydrocortisone 2.5 % lotion 2019-08-02 00:00:00 Yes Itching Q.5D Apply to affected area 2 times daily. [facility] Coreg 2019-03-08 23:00:00 No Notes: Give with food. (Same As: Coreg) [facility] bumetanide 2 mg oral tablet 2019-03-08 21:23:00 Yes 2 mg = 1 tab, PO, BID, # 30 tab, 0 Refill(s), Pharmacy: [facility] [id number] [facility] Amlodipine 2019-03-08 18:17:00 No Notes: (S nikolas as: Norvasc) [facility] bumetanide 10 mg + Sodium Chloride 0.9% (titrate) 60 mL 2019-03-07 19:55:00 No Notes: (Same As: Bumex) [facility] Bumex 2019-03-04 23:00:00 No Notes: (Same A s: Bumex) [facility] Calcium Gluconate 2019-03-04 11:03:00 No Notes: WASTE: F/P - Sink; E - Municipal Trash Bin [facility] Melatonin 3 MG Extended Release Tablet 2019-03-03 04:05:00 No 3 mg, 1 tab, Route: PO, Dosing Weight 102.273, kg, ONCE, PRN Sleep, Routine, Start date: 03/02/19 22:05:00 GAME ARTIST [facility] heparin sodium, porcine 2500 UNT/ML Injectable Solution 2019-03-03 03:30:00 No Notes: porcine heparin [facility] Melatonin 3 MG Extended Release Tablet 2019-03-03 03:17:00 No Notes: (Same as: Melatonin) [facility] atorvastatin 2019-03-03 03:00:00 No Notes: (Same as: Lipitor) [facility] Coreg 2019-03-02 15:00:00 No Notes: Give with food. (Same As: Coreg) [facility] Plavix 2019-03-02 15:00:00 No Notes: (Same As: Plavix) [facility] 24 HR Nitroglycerin 0.4 MG/HR Transdermal Patch 2019-03-02 15:00 :00 No Notes: Apply only once for u p to 12 hours in a 24 hour period (12 hours on and 12 hours off.) (Same as:Nitro-Dur,Deponit,Transderm Nitro) For topical use only. "Remove old patch before application of new patch" [facility] Saline Flush 0.9% 2019-03-02 15:00:00 No Notes: (Same as: BD Posiflush) [facility] Furosemide 2019-03-02 14:17:00 No Notes: (Same as: Lasix) MEDICATION WASTE Product Size: 100 mg Product Wasted: ___ mg [facility] Sodium Chloride 0.9% (titrate) 60 mL + bumetanide 10 mg 2019-03-02 14:11:00 No 60 mL, Rate: In fuse as directed, Dosing Weight 102.273, kg, Route: IV, Total Volume: 60 mL, Start Date: 03/02/19 8:11:00 GAME ARTIST, Duration: 30 day, Stop date: 04/01/19 8:10:00 GAME ARTIST, Replace Every: 24 hr [facility] influenza virus vaccine, inactivated 2019-03-02 12:04:05 No Notes: (Same as: Fluzone Quadrivalent, Fluarix Quadrivalent) For patients 6 - 35 months of age (0.5 mL IM) For 3 years of age and older (0.5 mL IM) Shake well before use [facility] Furosemide 2019-03-02 11:27:00 No Notes: (Same as: Lasix) MEDICATION WASTE Product Size: 100 mg Product Wasted: ___ mg [facility] Dextrose 50% Syringe (D50W) 2019-03-02 11:17:00 No 12,500 mg, 25 mL, Route: IVP, Drug Form: INJ, Dosing Weight 102.273, kg, PRN, PRN Blood Glucose Results, Start date: 03/02/19 5:17:00 GAME ARTIST, Duration: 30 day, Stop date: 04/01/19 5:16:00 GAME ARTIST, 0 [facility] Glucagon 2019-03-02 11:17:00 No 1 mg, Route: IM, Drug form: PDR/INJ, PRN, Dosing Weight 102.273, kg, PRN Blood Glucose Results, Start date: 03/02/19 5:17:00 GAME ARTIST, Duration: 30 day, Stop date: 04/01/19 5:16:00 GAME ARTIST, 0 [facility] Insulin Lispro 2019-03-02 11:17:00 No Notes: (Same as: Humalog) Roll in palms of hands gently; Do not shake vigorously. WASTE: F/P - Black; E - Municipal Trash Bin Stable for 28 days at room temperature. Expires in days from Date [facility] Albuterol 0.83 MG/ML Inhalant Solution 2019-03-02 08:00:00 No 2.49 mg, Route: NEB, RQ6H, Dosing Weight 102.273, kg, Priority: Routine, Start date: 03/02/19 2:00:00 GAME ARTIST, Duration: 30 day, Stop date: 03/31/19 20:00:00 GAME ARTIST [facility] Albuterol 0.833 MG/ML / Ipratropium [place] 0.167 MG/ML Inha lant Solution 2019-03-02 05:00:00 No Notes: (Same as: D alyoneb) [facility] Dextromethorphan Hydrobromide 2 MG/ML / Guaifenesin 20 MG/ML Oral Solution 2019-03-02 04:49:00 No Notes: (dextromethorphan-guaifenesin 10-100/5 ml LIQ) (Same as: Robitussin-DM) [facility] Ondansetron 2019-03-02 04:49:00 No Notes: (Same as: Mariolafrrigo) MEDICATION WASTE Product Size: 4 mg Product Wasted: ___ mg [facility] Ondansetron 2019-03-02 04:47:00 No Notes: (Same as: Zofran) MEDICATION WASTE Product Size: 4 mg Product Wasted: ___ mg [facility] Saline Flush 0.9% 2019-03-02 04:47:00 No Notes: (Same as: BD Posiflush) [facility] Bumetanide 2019-03-02 04:37:00 No Notes: (S nikolas As: Bumex) [facility] Tylenol 2019-03-02 04:37:00 No Notes: Max acetaminophen 4000 mg/day (4 gm/day). (Same as: Tylenol Extra Strength) [facility] Bumex 2018-06-01 22:00:00 No Notes: (Same A s: Bumex) [facility] carvedilol 12.5 mg oral tablet 2018-06-01 17:36:00 Yes 12.5 mg = 1 tab, PO, Q12H, # 60 tab, 0 Refill(s), Pharmacy: [address] Metolazone 5 MG Oral Tablet 2018-06-01 17:36:00 Yes 10 mg = 2 tab, PO, Daily, # 60 tab, 0 Refill(s), Pharmacy: [address] potassium chloride 20 mEq oral tablet, extended release 2018-06-01 17:36:00 Yes 40 mEq = 2 tab, PO, Daily, # 60 tab, 0 Refill(s), Pharmacy: [address] Calcium Carbonate 500 MG Chewable Tablet 2018-06-01 17:36:00 Yes 2,000 mg = 4 tab, CHEW, TID-Meals, # 360 tab, 0 Refill(s), Pharmacy: [address] bumetanide 1 mg oral tablet 2018-06-01 17:36:00 Yes 2 mg = 2 tab, PO, BID, # 120 tab, 0 Refill(s), Pharmacy: [address] potassium chloride 20 mEq oral tablet, extended release 2018-05-30 18:54:00 No Notes: (Same as : K-Dur 20) "Do Not Crush" Give with food and full glass of water For patients unable to swallow tablet, dissolve in one half glass of water. Allow about 2 minutes for the tablets to disintegrate. Stir before giving to prepare slurry and administer. Please exclude Patient s with feeding tube less than 14 Cypriot (Dobhoff, J-tube etc) and pediatric and patients. [facility] Potassium Chloride 2018-05-30 14:42:00 No Notes: (Same as: K-Dur ) "Do Not Crush" Give with food and full glass of water For patients unable to swallow tablet, dissolve in one half glass of water. Allow about 2 minutes for the tablets to disintegrate. Stir before giving to prepare slurry and administer. Please exclude Patient s with feeding tube less than 14 [place] (Dobhoff, J-tube etc) and pediatric and patients. [facility] Metolazone 5 MG Oral Tablet 2018-05-29 21:00:00 No Notes: (Same as: Zaroxolyn) [facility] Diuril Sodium 2018-05-28 16:06:00 No Notes: (Same As: Diuril Sodium) [facility] Ferrlecit + Sodium Chloride 0.9% IV 100 mL 2018-05-28 15:00:00 No 125 mg, 10 mL, Route: IVPB, Daily, Start date: 05/28/18 9:00:00 GAME ARTIST, Duration: 8 doses or times, Stop date: 06/04/18 9:00:00 CDT [facility] Venofer 2018-05-28 15:00:00 No 200 mg, Route: IVPB, Drug form: INJ, Daily, Dosing Weight 105.114, kg, Start date: 05/28/18 9:00:00 GAME ARTIST, Duration: 5 doses or times, Stop date: 06/01/18 9:00:00 CDT [facility] Renvela 2018-05-28 13:30:00 No Notes: Same as: Renvela [facility] Calcium Gluconate 2018-05-27 16:49:00 No Notes: WASTE: F/P - Sink; E - Municipal Trash Bin [facility] Hydralazine Hydrochloride 25 MG Oral Tablet 2018-05-27 15:00:00 No Notes: (Same as: Apresoline) May interfere w/enteral feedings Take With Food [facility] Imdur 2018-05-27 15:00:00 No Notes: (Same as:Imdur) "Do Not Crush" Take on empty stomach/ full glass of water. Do not crush [facility] atorvastatin 2018-05-27 03:00:00 No Notes: (Same as: Lipitor) [facility] Coreg 2018-05-27 03:00:00 No Notes: Give with food. (Same As: Coreg) [facility] Hydralazine 2018-05-26 23:44:00 No Notes: (Same as: Apresoline) Push over 5 minutes [facility] Calcium Carbonate 2018-05-26 23:00:00 No Notes: (Same As: Tums) Calcium Carbonate 500 mg = 200 mg elemental calcium Dose = mg calcium carbonate ( mg elemental calcium) [facility] furosemide 100 mg + Sodium Chloride 0.9% IV 90 mL 2018-05-26 19:25:00 No Notes: (Same as: Las ix) MEDICATION WASTE Product Size: 100 mg Product Wasted: ___ mg [facility] Lasix 2018-05-26 19:00:00 No 10 mg, Route: IV, Continuous, Dosing Weight 102.273, kg, Start date: 05/26/18 13:00:00 GAME ARTIST, Duration: 30 day, Stop date: 06/25/18 13:59:00 CDT [facility] Lasix 2018-05-26 18:49:00 No Notes: (Same as: Lasix) MEDICATION WASTE Product Size: 100 mg Product Wasted: ___ mg [facility] clopidogrel 2018-05-26 15:00:00 No Notes: ( Same As: Plavix) [facility] Aspirin 81 MG Enteric Coated Tablet 2018-05-26 15:00:00 No Notes: Do not crush or chew. (Same As: Ecotrin) [facility] Hydralazine Hydrochloride 50 MG Oral Tablet 2018-05-26 15:00:00 No 50 mg, 1 tab, Route: PO, Drug form: TAB, Daily, Dosing Weight 102.273, kg, Start date: 05/26/18 9:00:00 GAME ARTIST, Duration: 30 day, Stop date: 06/24/18 9:00:00 CDT [facility] Isosorbide 2018-05-26 15:00:00 No 60 mg, Route: PO, Drug form: ERTAB, QAM, Dosing Weight 102.273, kg, Start date: 05/26/18 9:00:00 GAME ARTIST, Duration: 30 day, Stop date: 06/24/18 9:00:00 CDT [facility] Calcium Gluconate 2018-05-26 14:31:00 No Notes: WASTE: F/P - Sink; E - Municipal Trash Bin [facility] cefepime 2018-05-26 11:00:00 No Notes: (Same As: Maxipime) MEDICATION WASTE Product Size: 1000 mg Product Wasted: ___ mg [facility] Calcium Gluconate 2018-05-26 09:36:00 No 2,000 mg, Route: IVPB, Drug form: INJ, ONCE, Dosing Weight 102.273, kg, Start date: 05/26/18 3:36:00 GAME ARTIST, Stop date: 05/26/18 3:36:00 GAME ARTIST [facility] Potassium Chloride 2018-05-26 09:36:00 No 20 mEq, Route: NJ, Drug form: SOLN, PRN, Dosing Weight 102.273, kg, PRN Abnormal Lab Result, For NON-ICU Patients Only, Start date: 05/26/18 3:36:00 GAME ARTIST, Duration: 30 day, Stop date: 06/25/18 4:35:00 CDT [facility] potassium phosphate 2018-05-26 09:36:00 No 15 mmol, Route: IVPB, PRN, Dosing Weight 102.273, kg, PRN Abnormal Lab Result, For NON-ICU Patients Only., Start date: 05/26/18 3:36:00 GAME ARTIST, Duration: 30 day, Stop date: 06/25/18 4:35:00 CDT [facility] potassium phosphate-sodium phosphate 250 mg-280 mg-160 mg oral powder for reconstitution 2018-05-26 09:36:00 No 2 pkt, Route: PO, Dosing Weight 102.273, kg, PRN, PRN Abnormal Lab Result, For NON-ICU Patients Only, Start date: 05/26/18 3:36:00 GAME ARTIST, Duration: 30 day, Stop date: 06/25/18 4:35:00 CDT [facility] sodium phosphate 2018-05-26 09:36:00 No 30 mmol, Route: IVPB, PRN, Dosing Weight 102.273, kg, PRN Abnormal Lab Result, For NON-ICU Patients Only., Start date: 05/26/18 3:36:00 GAME ARTIST, Duration: 30 day, Stop date: 06/25/18 4:35:00 CDT [facility] Magnesium Oxide 2018-05-26 09:36:00 No 800 mg, Route: PO, PRN, Dosing Weight 102.273, kg, PRN Abnormal Lab Result, For NON-ICU Patients Only., Start date: 05/26/18 3:36:00 GAME ARTIST, Duration: 30 day, Stop date: 06/25/18 4:35:00 CDT [facility] Magnesium Sulfate 2018-05-26 09:36:00 No 2 gm, Route: IVPB, PRN, Dosing Weight 102.273, kg, PRN Abnormal Lab Result, For NON-ICU Patients Only., Start date: 05/26/18 3:36:00 GAME ARTIST, Duration: 30 day, Stop date: 06/25/18 4:35:00 CDT [facility] Dextrose 50% Syringe 2018-05-26 03:46:00 No 25 gm, 50 mL, Route: IVP, Drug Form: INJ, Dosing Weight 102.273, kg, ONCE, Start date: 05/25/18 21:46:00 GAME ARTIST, Stop date: 05/25/18 21:46:00 GAME ARTIST [facility] Insulin regular 2018-05-26 03:46:00 No Notes: (Same as: Humulin R and NovoLIN R) WASTE: F/P - Black; E - Municipal Trash Bin (Do not shake) [facility] Calcium Gluconate 2018-05-26 03:46:00 No Notes: WASTE: F/P - Sink; E - Municipal Trash Bin [facility] Kayexalate 2018-05-26 03:46:00 No Notes: (sodium polystyrene sulfonate 15 gm/60 ml SAM) Shake well before use. (Same as: Kayexalate, SPS) [facility] Saline Flush 0.9% 2018-05-26 03:00:00 No Notes: Same as: BD Posiflush Sterile [facility] Dextrose 50% Syringe 2018-05-26 01:02:00 No 12.5 gm, 25 mL, Route: IVP, Drug Form: INJ, Dosing Weight 102.273, kg, PRN, PRN Blood Glucose Results, Start date: 05/25/18 19:02:00 GAME ARTIST, Duration: 30 day, Stop date: 06/24/18 20:01:00 CDT [facility] Glucagon 2018-05-26 01:02:00 No 1 mg, Route: IM, Drug form: PDR/INJ, PRN, Dosing Weight 102.273, kg, PRN Blood Glucose Results, Start date: 05/25/18 19:02:00 GAME ARTIST, Duration: 30 day, Stop date: 06/24/18 20:01:00 CDT [facility] Saline Flush 0.9% 2018-05-26 01:00:00 No Notes: Same as: BD Posiflush Sterile [facility] Furosemide 2018-05-26 00:59:00 No Notes: (Same as: Lasix) MEDICATION WASTE Product Size: 40 mg Product Wasted: ___ mg [facility] Ondansetron 2018-05-26 00:57:00 No Notes: (Same as: Zofran) MEDICATION WASTE Product Size: 4 mg Product Wasted: ___ mg [facility] Melatonin 2018-05-26 00:57:00 No Notes: (Sa me as: Melatonin) [facility] Glucagon 2018-05-26 00:57:00 No 1 mg, Route: IM, PRN, Dosing Weight 102.273, kg, PRN Blood Glucose Results, Start date: 05/25/18 18:57:00 GAME ARTIST, Duration: 30 day, Stop date: 06/24/18 19:56:00 CDT [facility] Dextrose 50% Syringe 2018-05-26 00:57:00 No 25 mL, Route: IVP, Dosing Weight 102.273, kg, PRN, PRN Blood Glucose Results, Start date: 05/25/18 18:57:00 GAME ARTIST, Duration: 30 day, Stop date: 06/24/18 19:56:00 CDT [facility] Dextrose 50% Syringe 2018-05-25 21:29:00 No 25 gm, 50 mL, Route: IVP, Drug Form: INJ, Dosing Weight 102.273, kg, ONCE, STAT, Start date: 05/25/18 15:29:00 GAME ARTIST, Stop date: 05/25/18 15:29:00 GAME ARTIST [facility] Insulin regular 2018-05-25 21:29:00 No Notes: (Same as: Humulin R and NovoLIN R) WASTE: F/P - Black; E - Municipal Trash Bin (Do not shake) [facility] Calcium Gluconate 2018-05-25 21:29:00 No Notes: WASTE: F/P - Sink; E - Municipal Trash Bin [facility] Saline Flush 0.9% 2018-05-25 21:29:00 No Notes: Same as: BD Posiflush Sterile [facility] Kayexalate 2018-05-25 21:29:00 No Notes: (sodium polystyrene sulfonate 15 gm/60 ml SAM) Shake well before use. (Same as: Kayexalate, SPS) [facility] Saline Flush 0.9% 2018-05-25 20:02:00 No Notes: Same as: BD Posiflush Sterile [facility] amLODIPine 5 mg oral tablet 2018-04-08 20:46:00 Yes 10 mg = 2 tab, PO, Daily, # 60 tab, 1 Refill(s), Pharmacy: [facility] [id number] [facility] Amlodipine 2018-04-08 15:00:00 No Notes: (S nikolas as: Norvasc) [facility] isosorbide mononitrate extended release 2018-04-08 15:00:00 No Notes: (Same as:Imdur) "Do Not Crush" Take on empty stomach/ full glass of water. Do not crush [facility] Hydralazine 2018-04-07 23:25:00 No Notes: (Same as: Apresoline) May interfere w/enteral feedings Take With Food [facility] isosorbide mononitrate extended release 2018-04-07 23:23:00 No Notes: (Same as:Imdur) "Do Not Crush" Take on empty stomach/ full glass of water. Do not crush [facility] Coreg 2018-04-07 23:00:00 No Notes: Give with food. (Same As: Coreg) [facility] Imdur 2018-04-07 16:00:00 No Notes: (Same as:Imdur) "Do Not Crush" Take on empty stomach/ full glass of water. Do not crush [facility] Hydralazine Hydrochloride 50 MG Oral Tablet 2018-04-07 16:00:00 No Notes: (Same as: Apresoline) May interfere w/enteral feedings Take With Food [facility] Calcium Gluconate 2018-04-06 19:18:00 No Notes: WASTE: F/P - Sink; E - Municipal Trash Bin [facility] Lovenox 2018-04-06 15:00:00 No Notes: (Same as: Lovenox) [facility] Saline Flush 0.9% 2018-04-06 15:00:00 No Notes: (Same as: BD Posiflush) [facility] Furosemide 2018-04-06 15:00:00 No Notes: (Same as: Lasix) MEDICATION WASTE Product Size: 40 mg Product Wasted: ___ mg [facility] pantoprazole 2018-04-06 15:00:00 No Notes: Tablet should not be chewed or crushed. (Same as: Protonix) [facility] carvedilol 2018-04-06 15:00:00 No Notes: Give with food. (Same As: Coreg) [facility] Calcium Gluconate 2018-04-06 09:09:00 No Notes: WASTE: F/P - Sink; E - Municipal Trash Bin [facility] Aspirin 81 MG Enteric Coated Tablet 2018-04-06 09:00:00 No Notes: Do not crush or chew. (Same As: Ecotrin) [facility] Hydralazine 2018-04-06 08:54:00 No Notes: (Same as: Apresoline) Push over 5 minutes [facility] clopidogrel 75 mg oral tablet 2018-04-06 08:22:00 No 75 mg = 1 tab, PO, Bedtime, # 30 tab, 0 Refill(s) [facility] isosorbide mononitrate 60 mg oral tablet, extended release 2018-04-06 08:22:00 Yes 60 mg = 1 tab, PO, QAM, 0 Refil l(s) [facility] Furosemide 40 MG Oral Tablet [Lasix] 2018-04-06 08:22:00 No 40 mg = 1 tab, PO, BID, 0 Refill(s) [facility] carvedilol 2018-04-06 08:22:00 No 20 mg, PO , BID, 0 Refill(s) [facility] Hydralazine Hydrochloride 50 MG Oral Tablet 2018-04-06 08:22:00 Yes 50 mg = 1 tab, PO, Daily, 0 Refill(s) [facility] atorvastatin 20 mg oral tablet 2018-04-06 08:22:00 No 20 mg = 1 tab, PO, Bedtime, # 90 tab, 0 Refill(s) [facility] influenza virus vaccine, inactivated 2018-04-06 08:15:20 No Notes: (Same as: Fluzone Quadrivalent, Fluarix Quadrivalent) For 3 years of age and older (0.5 mL IM) Shake well before use [facility] Saline Flush 0.9% 2018-04-06 08:14:00 No Notes: (Same as: BD Posiflush) [facility] Temazepam 2018-04-06 08:14:00 No Notes: (Sa me As: Restoril) [facility] Ondansetron 2018-04-06 08:14:00 No Notes: (Same as: Zofran) MEDICATION WASTE Product Size: 4 mg Product Wasted: ___ mg [facility] Lasix 2018-04-06 04:02:00 No Notes: (Same as: Lasix) MEDICATION WASTE Product Size: 40 mg Product Wasted: ___ mg [facility] Furosemide 20 MG Oral Tablet [Lasix] 2017-09-17 20:14:00 Ye s 20 mg = 1 tab, PO, BID, # 60 tab, 0 Refill(s), Pharmacy: [facility] [address] [place] [address] carvedilol 25 MG Oral Tablet [Coreg] 2017-09-17 20:14:00 Ye s 25 mg = 1 tab, PO, Daily, # 30 tab, 0 Refill(s), Pharmacy: [facility] [address] [place] [address] clopidogrel 75 mg oral tablet 2017-09-17 20:14:00 Yes 75 mg = 1 tab, PO, Daily, # 30 tab, 0 Refill(s), Pharmacy: [facility] [address] [place] [address] atorvastatin 40 mg oral tablet 2017-09-17 20:14:00 Yes 40 mg = 1 tab, PO, Bedtime, # 30 tab, 0 Refill(s), Pharmacy: [facility] [address] [place] [address] Aspirin 81 MG Enteric Coated Tablet 2017-09-17 20:14:00 Yes 81 mg = 1 tab, PO, Q24H, # 30 tab, 0 Refill(s), Pharmacy: [facility] [address] [place] [address] Plavix 2017-09-17 14:00:00 No Notes: (Same As: Plavix) [facility] heparin 2017-09-17 05:00:00 No Notes: porci ne heparin [facility] Saline Flush 0.9% 2017-09-17 02:00:00 No Notes: (Same as: BD Posiflush) [facility] atorvastatin 2017-09-17 02:00:00 No Notes: (Same as: Lipitor) [facility] Plavix 2017-09-17 01:43:00 No Notes: (Same As: Plavix) [facility] calcium gluconate + Sodium Chloride 0.9% IV 40 mL 2017-09-17 01:00:00 No Notes: WASTE: F/P - Sink; E - Municipal Trash B in [facility] Calcium Gluconate 2017-09-17 00:45:00 No 2,000 mg, Route: IVPB, Drug form: INJ, ONCE, Dosing Weight 100, kg, Start date: 09/16/17 19:45:00 CDT, Stop date: 09/16/17 19:45:00 CDT [facility] Glipizide 5 MG Oral Tablet 2017-09-16 23:34:00 No 5 mg = 1 tab, PO, BID, 0 Refill(s) [facility] Furosemide 20 MG Oral Tablet [Lasix] 2017-09-16 23:34:00 No 20 mg = 1 tab, PO, BID, 0 Refill(s) [facility] carvedilol 25 MG Oral Tablet [Coreg] 2017-09-16 23:34:00 No 25 mg = 1 tab, PO, Daily, 0 Refill(s) [facility] NIFEdipine 30 mg oral tablet, extended release 2017-09-16 23:34: 00 Yes 30 mg = 1 tab, PO, Daily, PRN Hypertension, # 30 tab, 0 Refill(s) [facility] Hydralazine Hydrochloride 25 MG Oral Tablet 2017-09-16 23:33:00 Yes 25 mg = 1 tab, PO, QID, PRN Hypertension, # 360 tab, 0 Refill(s) [facility] Hydralazine 2017-09-16 23:31:00 No 25 mg, Route: PO, Drug form: TAB, Q6H, Dosing Weight 100, kg, PRN Hypertension, Start date: 09/16/17 18:31:00 CDT, Duration: 30 day, Stop date: 10/16/17 18:30:00 CDT [facility] Aspirin 81 MG Enteric Coated Tablet 2017-09-16 21:00:00 No Notes: Do not crush or chew. (Same As: Ecotrin) [facility] Insulin Lispro 2017-09-16 20:55:00 No Notes: (Same as: Humalog ) Roll in palms of hands gently; Do not shake `vigorously. "Single Patient Use Only " WASTE: F/P - Black; E - Municipal Trash Bin Stable for 28 days at room temperature. Expires in days from Date [facility] Dextrose 50% Syringe 2017-09-16 20:55:00 No 12.5 gm, 25 mL, Route: IVP, Drug Form: INJ, Dosing Weight 100, kg, PRN, PRN Blood Glucose Results, Start date: 09/16/17 15:55:00 CDT, Duration: 30 day, Stop date: 10/16/17 15:54:00 CDT [facility] Glucagon 2017-09-16 20:55:00 No 1 mg, Route: IM, Drug form: PDR/INJ, PRN, Dosing Weight 100, kg, PRN Blood Glucose Results, Start date: 09/16/17 15:55:00 CDT, Duration: 30 day, Stop date: 10/16/17 15:54:00 CDT [facility] Saline Flush 0.9% 2017-09-16 20:52:00 No Notes: (Same as: BD Posiflush) [facility] Acetaminophen 2017-09-16 20:52:00 No Notes: Do not exceed 4 gm/day. (Same as: Tylenol) [facility] Sodium Chloride 0.9% IV 1,000 mL 2017-09-16 20:52:00 No 1,000 mL, Rate: 75 ml/hr, Infuse over: 13.3 hr, Route: IV, Dosing Weight 100 kg, Total Volume: 1,000, Start date: 09/16/17 15:52:00 CDT, Duration: 30 day, Stop date: 10/16/17 15:51:00 CDT, 2.24, m2 [facility] Aspirin 2017-09-16 20:34:00 No Notes: Take with food. [facility] Saline Flush 0.9% 2017-09-16 18:56:00 No Notes: (Same as: BD Posiflush) [facility] hydrALAZINE (APRESOLINE) 25 mg tablet 2016-01-15 00:00 :00 2019-08-02 00:00:00 No Acute systolic congestive heart failure 50mg Take 2 tablets by mouth every 8 hours. [facility] lisinopril (PRINIVIL, ZESTRIL) 20 mg tablet 2015 00:00:00 2019-08-02 00:00:00 No Acute systolic congestive heart failure 20mg QD Take 1 tablet by mouth daily. [facility] furosemide (LASIX) 40 mg tablet 2015-12-20 00:00:00 00:00:00 No Acute systolic congestive heart failure 40mg QD Take 1 tablet by mouth daily. [facility] metFORMIN (GLUCOPHAGE) 500 mg tablet 2015-12-20 00:00: 00 2019-08-02 00:00:00 No Acute systolic congestive heart failure 500mg Take 1 tablet by mouth 2 times daily (with meals). [facility] glipiZIDE (GLUCOTROL) 5 mg tablet 2015-12-20 00:00:00 2019 00:00:00 No Acute systolic congestive heart failure 5mg Q.5D Take 1 tablet by mouth 2 times daily (before meals). [facility] atorvastatin (LIPITOR) 20 mg tablet 2015-09-11 00:00:0 0 2019-08-02 00:00:00 No Acute systolic congestive heart failure 20mg Take 1 tablet by mouth at bedtime nightly. [facility] losartan (COZAAR) 100 mg tablet 2015-08-15 00:00:00 00:00:00 No Acute systolic congestive heart failure 100mg QD Take 1 t ablet by mouth daily. [facility] carvedilol (COREG) 12.5 mg tablet 2015-08-15 00:00:00 2019 00:00:00 No Acute systolic congestive heart failure 12.5mg Take 1 tablet by mouth 2 times daily (with meals). [facility] carvedilol (COREG) 6.25 mg tablet 2015-08-11 00:00:00 2019 00:00:00 No Acute systolic congestive heart failure 6.25mg Q.5D Take 1 tablet by mouth 2 times daily. [facility] metFORMIN (GLUCOPHAGE) 500 mg tablet 2015-08-11 00:00: 00 2019-08-02 00:00:00 No Acute systolic congestive heart failure 500mg Take 1 tablet by mouth 2 times daily (with meals). [facility] Immunizations Ordered Immunization Name Filled Immunization Name Date Status Comments Source PPV 23 Pneumococcal Polysaccaride 2015-08-09 00:00:00 Comp leted [facility] Vital Signs Vital Name Observation Time Observation Value Comments Source Systolic blood pressure 2019-08-02 09:52:00 149 mm[Hg] [facility] Diastolic blood pressure 2019-08-02 09:52:00 82 mm[Hg] [facility] Heart rate 2019-08-02 09:52:00 58 /min [facility] Temperature Oral (F) 2019-03-08 19:06:00 97.4 F [facility] Heart Rate 2019-03-08 19:06:00 [facility] Respitory Rate 2019-03-08 19:06:00 [facility] Systolic (mm Hg) 2019-03-08 19:06:00 [facility] Diastolic (mm Hg) 2019-03-08 19:06:00 [facility] Temperature Oral (F) 2019-03-08 14:46:00 97.4 F [facility] Heart Rate 2019-03-08 14:46:00 [facility] Respitory Rate 2019-03-08 14:46:00 [facility] Systolic (mm Hg) 2019-03-08 14:46:00 [facility] Diastolic (mm Hg) 2019-03-08 14:46:00 [facility] Respitory Rate 2019-03-08 13:36:00 [facility] Height 2019-03-08 11:12:00 330.2 cm [facility] Temperature Oral (F) 2019-03-08 09:25:00 97.9 F [facility] Heart Rate 2019-03-08 09:25:00 [facility] Systolic (mm Hg) 2019-03-08 09:25:00 [facility] Diastolic (mm Hg) 2019-03-08 09:25:00 [facility] Height 2019-03-07 09:56:00 330.2 cm [facility] Height 2019-03-06 11:37:00 330.2 cm [facility] Weight 2019-03-02 05:00:00 [facility] BMI Calculated 2019-03-02 05:00:00 [facility] Weight 2019-03-02 04:28:00 [facility] BMI Calculated 2019-03-02 04:28:00 [facility] Systolic (mm Hg) 2018-06-01 16:33:00 [facility] Diastolic (mm Hg) 2018-06-01 16:33:00 [facility] Respitory Rate 2018-06-01 16:33:00 [facility] Temperature Oral (F) 2018-06-01 16:33:00 98.0 F [facility] Heart Rate 2018-06-01 16:33:00 [facility] Systolic (mm Hg) 2018-06-01 13:16:00 [facility] Diastolic (mm Hg) 2018-06-01 13:16:00 [facility] Respitory Rate 2018-06-01 13:16:00 [facility] Heart Rate 2018-06-01 13:16:00 [facility] Temperature Oral (F) 2018-06-01 13:16:00 98.2 F [facility] Respitory Rate 2018-06-01 09:00:00 [facility] Heart Rate 2018-06-01 09:00:00 [facility] Temperature Oral (F) 2018-06-01 09:00:00 98.1 [facility] Systolic (mm Hg) 2018-06-01 09:00:00 [facility] Diastolic (mm Hg) 2018-06-01 09:00:00 [facility] Weight 2018-05-27 16:30:00 [facility] BMI Calculated 2018-05-25 20:00:00 [facility] Weight 2018-05-25 20:00:00 [facility] Height 2018-05-25 20:00:00 177.8 cm [facility] Respitory Rate 2018-04-08 21:55:00 [facility] Systolic (mm Hg) 2018-04-08 21:55:00 [facility] Diastolic (mm Hg) 2018-04-08 21:55:00 [facility] Heart Rate 2018-04-08 21:55:00 [facility] Temperature Oral (F) 2018-04-08 21:55:00 97.8 F [facility] Heart Rate 2018-04-08 17:10:00 [facility] Temperature Oral (F) 2018-04-08 17:10:00 97.4 F [facility] Respitory Rate 2018-04-08 17:10:00 [facility] Systolic (mm Hg) 2018-04-08 17:10:00 [facility] Diastolic (mm Hg) 2018-04-08 17:10:00 [facility] Systolic (mm Hg) 2018-04-08 15:58:00 [facility] Diastolic (mm Hg) 2018-04-08 15:58:00 [facility] Respitory Rate 2018-04-08 13:32:00 [facility] Heart Rate 2018-04-08 13:20:00 [facility] Temperature Oral (F) 2018-04-08 13:20:00 97.8 F [facility] Height 2018-04-06 07:46:00 177.8 cm [facility] BMI Calculated 2018-04-06 07:46:00 [facility] Weight 2018-04-06 07:46:00 [facility] Height 2018-04-05 23:56:00 177.8 cm [facility] BMI Calculated 2018-04-05 23:56:00 [facility] Weight 2018-04-05 23:56:00 [facility] Temperature Oral (F) 2017-09-17 15:38:00 98 F [facility] Heart Rate 2017-09-17 15:38:00 [facility] Respitory Rate 2017-09-17 15:38:00 [facility] Systolic (mm Hg) 2017-09-17 15:38:00 [facility] Diastolic (mm Hg) 2017-09-17 15:38:00 [facility] Temperature Oral (F) 2017-09-17 12:20:00 98.4 F [facility] Heart Rate 2017-09-17 12:20:00 [facility] Systolic (mm Hg) 2017-09-17 12:20:00 [facility] Diastolic (mm Hg) 2017-09-17 12:20:00 [facility] Respitory Rate 2017-09-17 08:12:00 [facility] Systolic (mm Hg) 2017-09-17 08:12:00 [facility] Diastolic (mm Hg) 2017-09-17 08:12:00 [facility] Temperature Oral (F) 2017-09-17 08:12:00 98.1 F [facility] Heart Rate 2017-09-17 08:12:00 [facility] Respitory Rate 2017-09-17 04:30:00 [facility] BMI Calculated 2017-09-16 23:01:00 [facility] Weight 2017-09-16 23:01:00 [facility] Height 2017-09-16 23:01:00 177.8 cm [facility] Weight 2017-09-16 18:27:00 [facility] BMI Calculated 2017-09-16 18:27:00 [facility] Height 2017-09-16 18:27:00 177.8 cm [facility] Procedures Procedure Date / Time Performed Performing Clinician [facility] e LIPID PROFILE 2019-08-04 16:07:00 Angie Ware [facility] MICROALBUMIN / CREATININE URINE RATIO 2019-08-04 16:07:00 TwilaJyothi [facility] CBC/DIFF 2019-08-04 16:07:00 Chaz [facility] COMPREHENSIVE METABOLIC PANEL 2019-08-04 16:07:00 [facility] FREE T4 2019-08-04 16:07:00 [facility] THYROID STIMULATING HORMONE (TSH) 2019-08-04 16:07:00 TwilaPaulino ramachandran [facility] HEMOGLOBIN A1C 2019-08-04 16:07:00 [facility] HEPATITIS PANEL 2019-08-04 [facility]:07[facility] HIV-1/HIV-2 ROUTINE SCREENING 2019-08-04 16:07:00 [facility] VIT D, 25-HYDROXY 2019-08-04 16:07:[address] [facility] CBC 2019-08-04 16:07:00 TwilaCollinston [facility] HEMOCCULT KIT FOR SPECIMEN COLLECTION AT HOME 2019-08-02 14: 48:56 [facility] Appendectomy [facility] Repair of retina for retinal detachment [facility] Plan of Care Planned Activity Planned Date Details Comments Source Future Scheduled Test 2019-12-22 00:00:00 IMM Influenza Seas onal Dec to May (>/= 19 yrs) [code = IMM Influenza Seasonal Dec to May (>/= 19 yrs)] [facility] Future Scheduled Test 2018 00:00:00 Colorectal Cancer Scrn Annual (FIT/FOBT) Age 50 to 75 [code = Colorectal Cancer Scrn Annual (FIT/FOBT) Age 50 to 75] [facility] Encounters Start Date/Time End Date/Time Encounter Type Admission Type Attendi [facility] Care Department Encounter ID Source 2019-03-01 22:08:00 Inpatient [id number] [facility] 2019-03-02 04:08:00 2019-03-09 01:03:00 Inpatient IEALT [facility] [id number] [facility] 2019-03-01 22:08:00 2019-03-08 19:03:00 Outpatient Joel Charles [facility] [id number] 2018-05-25 19:33:00 2018-06-01 20:02:00 Inpatient [facility] [id number] [facility] 2018-05-25 13:33:00 2018-06-01 15:02:00 Outpatient Stuart Mckay [facility] [id number] 2018-04-05 23:35:00 2018-04-08 22:16:00 Inpatient [facility] [id number] [facility] 2018-04-05 17:35:00 2018-04-08 16:16:00 Outpatient Jujuchoco taylorDustin [facility] [id number] 2017-09-16 18:19:00 2017-09-17 22:07:00 Observation [facility] [id number] [facility] 2017-09-16 13:19:00 2017-09-17 17:07:00 Outpatient Marcy Kelly [facility] [id number] Results Test Description Test Time Test Comments Results Result Comments Source [facility] REM 2019-08-10 16:45:00 [place] [address] Patient Name: TARAN TREJO MR #: [id number] : 1970 Age/Sex: 49/M Req #: [id number] Adm Physician: DESMOND MCKEON MD Ordered by: RAJWINDER MERRITT MD Report #: [id number] Location: MED/SURG2 Room/Bed: [facility] Procedure: [id number] IR/[facility] PLMT OR REM Exam Date: Exam Time: REPORT STATUS: Signed Procedure: Tunneled dialysis catheter placement. History: Need for hemodialysis. Licensed Master Social Worker: Eber Noriega MD. House Painting Instructor: , Oralia Modality: Sonography and fluoroscopy. DOSE REDUCTION: The examination was performed according to departmental dose-optimization program. Fluoro time: 0.2 minutes Radiation dose for this procedure was 3.3 mGy air Kerma. Number of images: 13 Sedation: Versed 1.5 mg and fentanyl 50 mcg was given intravenously for conscious sedation. Vital signs were monitored throughout the procedure by a dedicated RN under direct supervision of Dr. Noriega, and remained stable. Medicines: Not applicable. Anesthesia: Lidocaine local infiltration. Physician intraprocedure sedation time was approximately 30 minutes. Estimated blood loss: < 5 cc. Technique: Informed written consent was obtained. Discussion of risks, benefits, and alternatives were made with the patient. The patient expressed understanding and agreed to proceed. A universal timeout was performed prior to starting the procedure. The procedure room personnel used personal protective equipment. The operators used sterile gowns and gloves additionally. A preliminary ultrasonogram was performed of the neck that revealed a patent and compressible right internal jugular vein. Pertinent ultrasound images were stored in the PACS for documentation. A sterile prep and drape of the right neck and upper chest was performed using standard technique. Using aseptic precautions, real-time ultrasound guidance, the internal jugular vein was accessed after local anesthetic infiltration and dermatotomy with a micropuncture needle. A 018 guidewire was advanced into the central venous system under fluoroscopic guidance. Over the wire a micropuncture sheath was placed. Through the micropuncture sheath, a 035 wire was advanced into the venous system under fluoroscopic guidance. Over the wire a peel-away sheath was placed. After local anesthesia, an incision was created in the subclavicular exit site location and a cuffed tunneled dialysis catheter of an appropriate length was tunneled from the exit site to the venotomy site using a tunneling device. The catheter was advanced into the venous system through the peel-away sheath which was removed. The catheter aspirated and flushed well and was terminally packed with heparin 1000 units per cc. The catheter was secured to skin using nonabsorbable suture and a CHG dressing applied. The venotomy site was closed using D ermabond. An aseptic dressing was applied using the protocol for Dermabond. The patient was transferred to the recovery area and was discharged from the department in stable condition. Complications: None immediate. Device: 15.5 Cypriot x 19 cm cuff to tip palindrome catheter. Findings: Patent and compressible right internal jugular vein. Final image shows the catheter to be in good position with the catheter tip in the right atrium, an excellent position for use. There is no complication. Impression: Successful ultrasound and fluoroscopic guided right internal jugular vein route cuffed tunneled hemodialysis catheter placement as described above. Thank you for the opportunity to assist in the care of your patient. Signed by: Eber Noriega MD on 08/10/2019 5:02 PM Dictated By: EBER NORIEGA MD 01 Transcribed By: TAWANA on 08/10/191701 COPY TO: RAJWINDER MERRITT MD TUNNELLED CVC INSERT W/O PORT 2019-08-10 16:45:00 [place] [address] Patient Name: TARAN TREJO MR #: [id number] : 1970 Age/Sex: 49/M Req #: [id number] [facility] Physician: DESMOND MCKEON MD Ordered by: RAJWINDER MERRITT MD Report #: [id number] Location: MED/SURG2 Room/Bed: [facility] Procedure: IR/TUNNELLED CVC INSERT W/O PORT Exam Date: Exam Time: REPORT STATUS: Signed Procedure: Tunneled dialysis catheter placement. History: Need for hemodialysis. Licensed Master Social Worker: Eber Noriega MD. House Painting Instructor: Oralia Modality: Sonography and fluoroscopy. DOSE REDUCTION: The examination was performed according to departmental dose-optimization program. Fluoro time: 0.2 minutes Radiation dose for this procedure was 3.3 mGy air Kerma. Number of images: 13 Sedation: Versed 1.5 mg and fentanyl 50 mcg was given intravenously for conscious sedation. Vital signs were monitored throughout the procedure by a dedicated RN under direct supervision of Dr. Noriega, and remained stable. Medicines: Not applicable. Anesthesia: Lidocaine local infiltration. Physician intraprocedure sedation time was approximately 30 minutes. Estimated blood loss: < 5 cc. Technique: Informed written consent was obtained. Discussion of risks, benefits, and alternatives were made with the patient. The patient expressed u nderstanding and agreed to proceed. A universal timeout was performed prior to starting the procedure. The procedure room personnel used personal protective equipment. The operators used sterile gowns and gloves additionally. A preliminary ultrasonogram was performed of the neck that revealed a patent and compressible right internal jugular vein. Pertinent ultrasound images were stored in the PACS for documentation. A sterile prep and drape of the right neck and upper chest was performed using standard technique. Using aseptic precautions, real-time ultrasound guidance, the internal jugular vein was accessed after local anesthetic infiltration and dermatotomy with a micropuncture needle. A 018 guidewire was advanced into the central venous system under fluoroscopic guidance. Over the wire a micropuncture sheath was placed. Through the micropuncture sheath, a 035 wire was advanced into the venous system under fluoroscopic guidance. Over the wire a peel-away sheath was placed. After local anesthesia, an incision was created in the subclavicular exit site location and a cuffed tunneled dialysis catheter of an appropriate length was tunneled from the exit site to the venotomy site using a tunneling device. The catheter was advanced into the venous system through the peel-away sheath which was removed. The catheter aspirated and flushed well and was terminally packed with heparin 1000 units per cc. The catheter was secured to skin using nonabsorbable suture and a CHG dressing applied. The venotomy site was closed using De rmabond. An aseptic dressing was applied using the protocol for Dermabond. The patient was transferred to the recovery area and was discharged from the department in stable condition. Complications: None immediate. Device: 15.5 Cypriot x 19 cm cuff to tip palindrome catheter. Findings: Patent and compressible right internal jugular vein. Final image shows the catheter to be in good position with the catheter tip in the right atrium, an excellent position for use. There is no complication. Impression: Successful ultrasound and fluoroscopic guided right internal jugular vein route cuffed tunneled hemodialysis catheter placement as described above. Thank you for the opportunity to assist in the care of your patient. Signed by: Eber Noriega MD on 08/10/2019 5:02 PM Dictated By: EBER NORIEGA MD 01 Transcribed By: TAWANA on 08/10/191701 COPY TO: RAJWINDER MERRITT MD US GUIDANCE FOR VASCULAR ACCES 2019-08-10 16:45:00 [place] [address] Patient Name: TARAN TREJO MR #: [id number] : 1970 Age/Sex: 49/M Req #: [id number] Adm Physician: DESMOND MCKEON MD Ordered by: RAJWINDER MERRITT MD Report #: [id number] Location: MED/SURG2 Room/Bed: [facility] Procedure: [id number] US/US GUIDANCE FOR VASCULAR ACCES Exam Date: 08/10/19 Exam Time: 1522 REPORT STATUS: Signed Procedure: Tunneled dialysis catheter placement. History: Need for hemodialysis. Licensed Master Social Worker: Eber Noriega MD. House Painting Instructor: , Oralia Modality: Sonography and fluoroscopy. DOSE REDUCTION: The examination was performed according to departmental dose-optimization program. Fluoro time: 0.2 minutes Radiation dose for this procedure was 3.3 mGy air Kerma. Number of images: 13 Sedation: Versed 1.5 mg and fentanyl 50 mcg was given intravenously for conscious sedation. Vital signs were monitored throughout the procedure by a dedicated RN under direct supervision of Dr. Noriega, and remained stable. Medicines: Not applicable. Anesthesia: Lidocaine local infiltration. Physician intraprocedure sedation time was approximately 30 minutes. Estimated blood loss: < 5 cc. Technique: Informed written consent was obtained. Discussion of risks, benefits, and alternatives were made with the patient. The patient expressed understanding and agreed to proceed. A universal timeout was performed prior to starting the procedure. The procedure room personnel used personal protective equipment. The operators used sterile gowns and gloves additionally. A preliminary ultrasonogram was performed of the neck that revealed a patent and compressible right internal jugular vein. Pertinent ultrasound images were stored in the PACS for documentation. A sterile prep and drape of the right neck and upper chest was performed using standard technique. Using aseptic precautions, real-time ultrasound guidance, the internal jugular vein was accessed after local anesthetic infiltration and dermatotomy with a micropuncture needle. A 018 guidewire was advanced into the central venous system under fluoroscopic guidance. Over the wire a micropuncture sheath was placed. Through the micropuncture sheath, a 035 wire was advanced into the venous system under fluoroscopic guidance. Over the wire a peel-away sheath was placed. After local anesthesia, an incision was created in the subclavicular exit site location and a cuffed tunneled dialysis catheter of an appropriate length was tunneled from the exit site to the venotomy site using a tunneling device. The catheter was advanced into the venous system through the peel-away sheath which was removed. The catheter aspirated and flushed well and was terminally packed with heparin 1000 units per cc. The catheter was secured to skin using nonabsorbable suture and a CHG dressing applied. The venotomy site was closed using Dermabond. An aseptic dressing was applied using the protocol for Dermabond. The patient was transferred to the recovery area and was discharged from the department in stable condition. Complications: None immediate. Device: 15.5 Cypriot x 19 cm cuff to tip palindrome catheter. Findings: Patent and compressible right internal jugular vein. Final image shows the catheter to be in good position with the catheter tip in the right atrium, an excellent position for use. There is no complication. Impression: Successful ultrasound and fluoroscopic guided right internal jugular vein route cuffed tunneled hemodialysis catheter placement as described above. Thank you for the opportunity to assist in the care of your patient. Signed by: Eber Noriega MD on 08/10/2019 5:02 PM Dictated By: EBER NORIEGA MD 01 Transcribed By: TAWANA on 08/10/191701 COPY TO: RAJWINDER MERRITT MD CHEST SINGLE (PORTABLE) 2019-08-10 13:04:00 [place] [address] Patient Name: TARAN TREJO MR #: [id number] : 1970 Age/Sex: 49/M Req #: [id number] Adm Physician: Ordered by: RAJWINDER MERRITT MD Report #: [id number] Location: ER Room/Bed: Procedure: [id number] DX/CHEST SINGLE (PORTABLE) Exam Date: 08/10/19 Exam Time: 1235 REPORT STATUS: Signed X-ray chest AP portable Comparison: None History: Renal failure Findings: Central airways unremarkable. Cardiomegaly. Right pleural effusion. No pneumothorax. Compressive atelectasis of the right lower lung zone. Bilateral pulmonary vascular redistribution with peribronchial thickening and faint nodular opacities. The findings support interstitial pulmonary edema. Visualized skeletal structures and upper abdomen unremarkable. Impression: Cardiomegaly. Right pleural effusion. Interstitial pulmonary edema. This could be cardiogenic or noncardiogenic volume overload edema due to renal failure. Clinical correlation is requested. Signed by: Eber Noriega MD on 08/10/2019 1:05 PM Dictated By: EBER NORIEGA MD 1305 Transcribed By: TAWANA on 08/10/19 130 COPY TO: RAJWINDER MERRITT MD Vitamin D, 25-Hydroxycalciferol 2019-08-05 08:02:00 Test Item Vit D, 25-Hydroxy (test code = 46628276) 36.2 ng/mL 30-100 Vitamin D Interpretation (test code = 08563035) Sufficient Suffic ient Sufficient: >30.0Insufficient: 20.0 - 29.9Deficient: <20.0 Lab Interpretation (test code = 78150-0) [facility] [id number] 22:18:00* Test Item Value Reference Range Interpretation Comments Hemoglobin A1c (test code = 4548-4) 6.2 % 4.3-6.1 H Estimated Average Glucose (test code = 15460301) 131 mg/dL 70-11 0 H Lab Interpretation (test code = 14597-6) Abnormal [facility] CenterMicroalb/Crea Ratio,Oq0498-23-49 21:39:00* Test Item Value Reference Range Interpretation Comments Microalbumin, Random (test code = 47465286) 83.8 mg/dL <30.0 H Creatinine, Urine (test code = 41725227) 42 mg/dL 20-370 Urine Microalbumin (test code = 75262968) 1995.2 mg/g 0-30 H Lab Interpretation (test code = 85521-7) Abnormal [facility] CenterHepatitis Jhpnx6036-34-72 21:15:00* Test Item Value Reference Range Interpretation Comments Hep C Vir Ab IgG (test code = 77474-8) Negative Negative Hep B Surface Ag (test code = 5196-1) Negative Negative Hep A Vir Ab IgM (test code = 35182-9) Negative Negative Hep B Core Ab IgM (test code = 13109-3) Negative Negative Lab Interpretation (test code = 91334-9) Normal [facility]/HIV-2 Routine Wchmdmweg3659-46-98 21:13:00* Test Item Value Reference Range Interpretation Comments HIV-1/HIV-2 (test code = 41292-0) Negative Negative Lab Interpretation (test code = 30759-3) Normal [facility] CenterFree C11313-45-77 21:09:00* Test Item Value Reference Range Interpretation Comments Free T4 (test code = 12522478) 1.07 ng/dl 0.64-1.42 Lab Interpretation (test code = 42693-3) Normal [facility] CenterEhfcqfZUY2296-38-27 21:07:00* Test Item Value Reference Range Interpretation Comments TSH (test code = 30451830) 3.89 0.45- 5.33 uIU/mL Lab Interpretation (test code = 49442-5) Normal [facility] CenterComprehensive Metabolic Jplhv7603-63-05 21:03:00* Test Item Value Reference Range Interpretation Comments Sodium (test code = 2951-2) 139 mmol/L 136-145 Potassium (test code = 2823-3) 4.9 mmol/L 3.5-5.1 Chloride (test code = 2075-0) 101 mmol/L 98-107 CO2 (test code = 70153539) 26 mmol/L 21-31 Glucose (test code = 83844849) 118 mg/dL 70-110 H Calcium (test code = 98366904) 7.1 mg/dL 8.6-10.3 L Urea Nitrogen (test code = 83185305) 128.0 mg/dL 7-25 HH Creatinine (test code = 00525607) 8.2 mg/dL 0.7-1.3 HH Alkaline Phosphatase (test code = 89219998) 75 U/L 34-104 ALT (test code = 47132993) 9 U/L 7-52 AST (test code = 43261348) 13 U/L 13-39 Total Protein (test code = 2885-2) 5.8 g/dL 6-8.3 L GFR, Estimated (test code = 54057374) 7 >=90 mL/min/1.73 m2 L Albumin (test code = 70777-4) 3.3 g/dL 4.2-5.5 L Anion Gap (test code = 33354532) 12 mmol/L 5-16 Lab Interpretation (test code = 97232-2) Abnormal [facility] CenterLipid Uroixdj1112-77-62 20:57:00* Test Item Value Reference Range Interpretation Comments Cholesterol (test code = 2093-3) 59.0 mg/dL <=200.0 Triglyceride (test code = 17894729) 51 mg/dL <150 HDL (test code = 2085-9) 29.0 mg/dL See Reference Range Narrative . LDL (test code = 64324-7) 20 mg/dL <100 Op timal: < 100.0 mg/dLNear Optimal: 120-129 mg/dLBorderline: 130-159 mg/dLHigh: 160-189 mg/dLVery High: >=190 mg/dL Patient Fasting? (test code = 87651440) No POLO (test code = POLO) Patient is not fasting. For a triglyceride result greater than 440 mg/dL, consider re-testing when the patient is in a fasting state. [facility]/Jlfi8229-27-20 20:47:00* Test Item Value Reference Range Interpretation Comments WBC (test code = 6690-2) 6.8 K/uL 4.5-12 RBC (test code = 789-8) 2.94 4.60- 6.20 M/uL L Hemoglobin (test code = 718-7) 9.2 g/dL 14-18 L Hematocrit (test code = 4544-3) 28.6 % 40-54 L MCV (test code = 787-2) 97.3 fL 82-92 H MCH (test code = 785-6) 31.3 pg 27-31 H MCHC (test code = 786-4) 32.2 g/dL 32-36 RDW (test code = 75756-5) 53.5 fL 35.1-43.9 H Platelet (test code = 777-3) 120 K/uL 150-400 L Mean Platelet Volume (test code = 72803-6) 10.5 fL 9.4-12.4 Percent NRBC (test code = 93920256) 0.0 % Neutrophil (test code = 770-8) 72.3 % 34-67.9 H Lymphs (test code = 736-9) 6.9 % 21.8-50 L Monocytes (test code = 5905-5) 9.7 % 5.3-12 Eos (test code = 713-8) 10.1 % 0.8-5 H Basos (test code = 706-2) 0.4 % 0.2-1.2 Immature Granulocytes (test code = 61258293) 0.6 % 0-0.5 H Neutrophils (Absolute) (test code = 94315006) 4.91 K/uL 1.78-5.3 6 Lymphs (Absolute) (test code = 68552202) 0.47 K/uL 1.32-3.57 L Monocytes(Absolute) (test code = 53341520) 0.66 K/uL 0.3-0.82 Eos (Absolute) (test code = 75452488) 0.69 K/uL 0.04-0.54 H Baso (Absolute) (test code = 64296344) 0.03 K/uL 0.01-0.08 Immature Grans (Abs) (test code = 12341302) 0.04 K/uL 0-0.03 H Absolute NRBC (test code = 05747837) 0.00 K/uL Lab Interpretation (test code = 61508-4) Abnormal [facility] CenterCHEM KXAFW9950-61-22 10:14:0097 [facility] SVWGG9369-03-93 10:14:74163LG [facility] EZKTE1509-79-89 10:14:008.62 [facility] PANEL 2019-03-07 10:14:28970XH [facility] PIBJA1268-99-89 10:14:004.[facility] HTQJJ1824-44-61 10:14:0094 [facility] OJZUL5824-97-53 10:14:0027 [facility] JTOTF8501-09-78 10:14:0016.[facility] BAICY1396-83-20 10:14:005.8 [facility] NJAFK8191-76-38 10:14:006 [facility] PANEL 2019-03-05 10:39:46265VE [facility] LBJDF0196-84-38 10:39:78884MF [facility] NDCMN4565-29-77 10:39:008.59 [facility] QVUUL2415-35-49 10:39:28781NB [facility] RRQJD4565-23-01 10:39:004.3M [facility] OUXEM6734-48-96 10:39:0091 [facility] KADFN0221-96-69 10:39:0026 [facility] PANEL 2019-03-05 10:39:0017.3M [facility] LQGGN8983-75-37 10:39:006.3M [facility] COIHV7629-45-96 10:39:006MH KlplcrgldDPUPMOITAW8993-05-59 10:39:006.6M XqmknwzwwIHIGLCXIEO9274-07-11 10:39:002.72 SvdkhwaqeBZZPWONUST6046-71-27 10:39:008.7 HqwocsxnnPJBOHJRYUH2302-21-82 10:39:0026.0 [facility] 2019-03-05 10:39:0095.5 ZzzzgzqtjYCYSSSJGIA7110-91-84 10:39:00* Test Item Value Reference Range Interpretation Comments MCH (test code = MCH) 31.9 pg 27.0-31.0 JsfjegdfjZITLRNLZFC6935-37-25 10:39:0033.4 ErlgihcrkWIUSMDHRBN5887-85-83 10:39:0015.9 NggdsrhhyMMSFASFZWY2995-69-59 10:39:0097 [facility] 2019-03-05 10:39:008.4 WpoztbpueAVXONBIFNY9243-95-61 10:39:0073.8[facility] ZVCCJESZAQ4371-59-29 10:39:007.1M JlfnkncrmRXYZTCEEDV9655-48-91 10:39:0012.2M BzqnxpbskOTVBBUWSHY1295-57-97 10:39:006.3M UoxlyiiguSQKCZDWOUY7530-98-48 10:39:000.6M SaedkowzuYLTPJDBGXB3768-97-79 10:39:004.8 [facility] 2019-03-05 10:39:000.5 RmgsuycdrZIKSCOGXZT7766-50-13 10:39:000.8[facility] BUNCGGZGKD9143-53-16 10:39:000.4 [facility] PHGS6860-33-54 19:25:0069 [facility] SRTZ1810-55-33 19:25:0024.[facility] DSJC4804-62-60 19:25:0073 [facility] TLEPZ6114-20-80 10:18:0092 [facility] PANEL 2019-03-04 10:18:03934WL [facility] KEBPH7591-85-18 10:18:008.59 [facility] GBAVA5337-38-80 10:18:12770DT [facility] TAEWQ6423-14-98 10:18:004.6M [facility] GPPVG0165-64-18 10:18:0092 [facility] YNRNL3034-43-59 10:18:0027 [facility] JLKPQ0370-27-14 10:18:0018.6M [facility] PANEL 2019-03-04 10:18:006.2M [facility] ZUMWT5154-78-09 10:18:006[facility] PMGRVZNOOT6231-80-16 10:18:0075.0 HterhymwfSRUIAYSROE0355-38-32 10:18:006.7 OnjwhytakLTCZQUXGGU8664-38-72 10:18:0012.6M FeusxzsjdSMEICPWNYQ5416-69-44 10:18:005.1M JhomlbibuJLHTYDXXIN9143-86-64 10:18:000.6M [facility] 2019-03-04 10:18:005.5 BbzlxkqtjLIOVDQVCJH0995-07-58 10:18:000.5[facility] VAOQQBKECR9853-54-35 10:18:000.9 LonggiwguPKKPHUPTQL9719-58-09 10:18:000.4 NkfgagrxvPGODZDLTJR4892-30-01 10:18:007.4 SdghalyqcZJPQXTTRLE3191-85-44 10:18:002.78 UfzvtvkluCTELVZWJTH0781-22-50 10:18:008.8 [facility] 2019-03-04 10:18:0026.[address]dfcRZMYWAJEIA5735-75-28 10:18:[address] [place] [address] RROGCPEINJ9710-46-22 10:18:00* Test Item Value Reference Range Interpretation Comments MCH (test code = MCH) 31.7 pg 27.0-31.0 WrcramkwxEVPCEAHMCO1061-16-99 10:18:0033.[facility] VyrhgszquITAKVHVDDE5350-06-22 10:18:0016.[facility] ZpxaycadvAFWDQHSBAP5248-44-85 10:18:0098 [facility] 2019-03-04 10:18:008.5[facility]CHE[facility] YHORR3512-04-35 14:20:001.0[facility] ANEYGQXSTE6093-55-71 11:03:0082.[facility] HjbvphgtiWDFXJYJZFN8083-30-02 11:03:005.3M FvksifnlrKOFUUTSXLF9022-51-18 11:03:008.7 OyqvqlahhUOJRFBUAQS0330-97-37 11:03:003.[facility] MseucnreoVOQHTQKNNT3325-14-76 11:03:000.[facility]HEMATOLOGY 2019-03-03 11:03:007.5 ItycjkpznAOPMXSRPYH0022-70-21 11:03:000.5[facility] JVCXNYNDXB8298-27-46 11:03:000.8[facility] HospitalGfvbwpozzFWDAYDSZIF7485-15-47 11:03:000.3MAthol HospitalRgluobzedLBWDQXISVP5248-36-18 11:03:000.1MAthol HospitalGlacmidgmBWRDZTYRRB7636-84-26 11:03:009.1MAthol HospitalIcmoappreAHXLJMBRND1277-85-00 11:03:002.89[facility] Hospital[facility] 2019-03-03 11:03:009.3MAthol HospitalVbqulsmciEGGLAQPUAW4887-95-96 11:03:0027.8[facility] HCSOOLRPSI1059-09-88 11:03:0096.2MAthol HospitalOffjjpjcyGYMQRZNAOU9029-19-77 11:03:00* Test Item Value Reference Range Interpretation Comments MCH (test code = MCH) 32.1 pg 27.0-31.0 [facility] HospitalEwzkgasdnITRFZBKBUF8485-13-12 11:03:0033.4[facility] HospitalPvbyhnwexFSVRLWTWBD6526-89-94 11:03:0016.3MAthol HospitalXvfbpvcbgGWELEWGLTI5408-49-09 11:03:15888ZGS[facility] HospitalHEMATOLOGY 2019-03-03 11:03:008.2[facility] VENOUS BLOOD KRH1895-52-71 14:48:00* Test Item Value Reference Range Interpretation Comments POC VENOUS BLOOD GAS PH (test code = POCPHV) 7.507 POC VENOUS BLOOD GAS PCO2 (test code = FLBOEX7F) 34.0 mmHg 35.0- 45.0 L POC HCO3 VENOUS (test code = PXPZUJ4W) 26.9 MMOL/L 20-26 H POC BASE EXCESS VENOUS (test code = POCBEV) 4 MMOL/L -3.0-3.0 H POC O2 SATURATION VENOUS (test code = MAQM4GL) 90 % 72-77 H MOLECULAR KOQLRZXOWP3547-59-56 11:01:00Nasophrngl Swb *NA*(03/02/19 5:01 AM)[facility] HospitalMOLECULAR YPEQTZXEHD7102-55-17 11:01:00Negative *NA*(03/02/19 5:01 AM) [facility] Hospital[facility] BQITDEXXSL8249-01-24 11:01:00Negative *NA*(03/02/19 5:01 AM)[facility] HospitalMOLE[facility]ULAR HUDPRZFPPN5479-54-92 11:01:00Negative *NA*(03/02/19 5:01 AM) [facility]IAC KXPMGCB5717-23-20 05:11:648277YX [facility]CARDIAC WILJCPO2808-36-54 05:11:000.03 [facility]CHEM HMSXK8974-40-49 05:11:00* Test Item Value Reference Range Interpretation Comments B/C Ratio (test code = B/C Ratio) 13 1 6-25 [facility] EWHMN4864-[facility]-84 05:11:006.6MH [facility] XTMVF3399-03-01 05:11:003.1MH [facility] EAENB8091-70-35 05:11:003.5 [facility] PANEL 2019-03-02 05:11:00* Test Item Value Reference Range Interpretation Comments A/G Ratio (test code = A/G Ratio) 0.9 1 0.7-1.6 [facility] FQZJY7126-22-88 05:11:0011[facility] PZBSL5950-45-63 05:11:007 [facility] TISOZ0284-20-20 05:11:66020ZK [facility] 2019-03-02 05:11:000.7 [facility] TYKAQ2772-83-13 05:11:002.7 [facility] ECVCI7489-37-15 05:11:008.9[facility] HospitalCHE[facility] GWPCH5726-99-83 05:11:000.79[facility] HospitalCHE[facility] SSIDZ6467-22-68 05:11:001.2[facility] 2019-03-01 19:12:00* Test Item Value Reference Range Interpretation Comments B-TYPE NATRIURETIC PEPTIDE (test code = BNP) 3560 pg/mL 0-100 H BASIC METABOLIC MYLSH4997-67-48 19:11:00* Test Item Value Reference Range Interpretation Comments SODIUM (test code = NA) 138 mmol/L 136-145 N POTASSIUM (test code = K) 5.1 mmol/L 3.5-5.1 N CHLORIDE (test code = CL) 96 mmol/L 101-109 L CARBON DIOXIDE (test code = CO2) 29.8 mmol/L 21-32 N ANION GAP (test code = GAP) 17 mmol/L 10-20 N GLUCOSE (test code = GLU) 209 mg/dL 74-106 H BLOOD UREA NITROGEN (test code = BUN) 114 mg/dL 3-21 H GLOMERULAR FILTRATION RATE (test code = GFR) 7 mL/min >=60 Estimated GFR by using Modified MDRD formula.Chronic kidney disease is defined as either kidney damageor GFR <60 mL/min/1.73 m2 for >3 months. CREATININE (test code = CREAT) 8.62 mg/dL 0.55-1.3 H BUN/CREATININE RATIO (test code = BUN/CREA) 13.2 10-20 N CALCIUM (test code = CA) 6.9 mg/dL 8.4-10.2 L HEPATIC FUNCTION KAYAD6898-34-49 19:11:00* Test Item Value Reference Range Interpretation Comments TOTAL PROTEIN (test code = PROT) 7.4 g/dL 6.5-8.4 N ALBUMIN (test code = ALB) 3.1 g/dL 3.4-4.8 L GLOBULIN (test code = GLOB) 4.3 G/DL 1-10 N ALBUMIN/GLOBULIN RATIO (test code = A/G) 0.72 RATIO 0.75-1.50 L BILIRUBIN TOTAL (test code = BILT) 0.80 mg/dL 0.0-1.0 N BILIRUBIN DIRECT (test code = BILD) 0.30 mg/dL 0.0-0.30 N SGOT/AST (test code = AST) 11 U/L 6-32 N SGPT/ALT (test code = ALT) 11 U/L 12-78 L N ote: Change in REFERENCE RANGE due to new reagent method. ALKALINE PHOSPHATASE TOTAL (test code = ALKP) 116 U/L 38-126 N GPVKFQKDA9492-42-90 19:11:00* Test Item Value Reference Range Interpretation Comments MAGNESIUM (test code = MAG) 2.4 mg/dL 1.6-2.3 H RTGNFUEV-A0609-03-10 19:11:00* Test Item Value Reference Range Interpretation Comments TROPONIN-I (test code = TROPI) 0.02 ng/mL 0.00-0.056 N PROTHROMBIN SXAL7626-28-36 19:07:00* Test Item Value Reference Range Interpretation Comments PROTHROMBIN TIME PATIENT (test code = PTP) 13.8 seconds 9.0-13.0 H INTERNATIONAL NORMAL RATIO (test code = INR) 1.4 0.8-1.2 H The therapeutic range for oral anticoagulant therapy formost indications is an international normalized ratio (INR)of between 2.0 and 3.0. The recommended therapeutic INRrange for various clinical situations is listed below: Clinical Situation INR range Pulmonary e mbolism treatment (2.0-3.0)Venous thrombosis treatmentVenous thrombosis prophylaxis (high risk surgery)Prevention of systemic embolism from: Acute myocardial infarction Valvular heart disease Atrial fibrillation Mechanical prosthetic heart valves (2.5-3.5) IS PATIENT ON ANTICOAGULANTS? NTHROMBOPLASTIN TIME ABBLLFK3350-47-31 19:07:00* Test Item Value Reference Range Interpretation Comments THROMBOPLASTIN TIME PARTIAL (test code = PTT) 29.9 seconds 25.5-34. 3 N Therapeutic Range for patients on Heparin Therapy is 2 to2.5 times their baseline PTT level. IS PATIENT ON ANTICOAGULANTS? NBASIC METABOLIC ZZWUY3779-83-45 19:06:00* Test Item Value Reference Range Interpretation Comments SODIUM (test code = NA) 138 mmol/L 136-145 N POTASSIUM (test code = K) 5.1 mmol/L 3.5-5.1 N CHLORIDE (test code = CL) 96 mmol/L 101-109 L CARBON DIOXIDE (test code = CO2) 29.8 mmol/L 21-32 N ANION GAP (test code = GAP) 17 mmol/L 10-20 N GLUCOSE (test code = GLU) 209 mg/dL 74-106 H BLOOD UREA NITROGEN (test code = BUN) 114 mg/dL 3-21 H GLOMERULAR FILTRATION RATE (test code = GFR) 7 mL/min >=60 Estimated GFR by using Modified MDRD formula.Chronic kidney disease is defined as either kidney damageor GFR <60 mL/min/1.73 m2 for >3 months. CREATININE (test code = CREAT) 8.62 mg/dL 0.55-1.3 H BUN/CREATININE RATIO (test code = BUN/CREA) 13.2 10-20 N CALCIUM (test code = CA) 6.9 mg/dL 8.4-10.2 L HEPATIC FUNCTION [id number] 19:06:00* Test Item Value Reference Range Interpretation Comments TOTAL PROTEIN (test code = PROT) gram/dL 6.4-8.2 ALBUMIN (test code = ALB) g/dL 3.4-5.0 GLOBULIN (test code = GLOB) g/dL 2.7-4.2 ALBUMIN/GLOBULIN RATIO (test code = A/G) 0.75-1.50 BILIRUBIN TOTAL (test code = BILT) mg/dL 0.2-1.2 BILIRUBIN DIRECT (test code = BILD) mg/dL 0.0-0.20 SGOT/AST (test code = AST) IUnit/L 15-37 SGPT/ALT (test code = ALT) U/L 10-69 ALKALINE PHOSPHATASE TOTAL (test code = ALKP) IUnit/L 45-117 XLSEDXEEW1975-63-67 19:06:00* Test Item Value Reference Range Interpretation Comments MAGNESIUM (test code = MAG) mg/dL 1.8-2.4 DCWQKDDC-B8381-08-10 19:06:00* Test Item Value Reference Range Interpretation Comments TROPONIN-I (test code = TROPI) ng/mL 0-0.045 - XR CHEST 1 D0315-40-90 18:55:00 Name: TARAN TREJO [facility] : 1970 Age/S:48 /M [address] [facility] Unit#:[id number] [place]: [place] [address] Phys: Chandler Salguero MD Dis Date: PHONE #: [phone] Status: REG ER FAX #: [phone] Exam Date: 03/01/2019 Reason: Shortness of Breath EXAMS: CPT CODE: [id number] XR CHEST 1 V 18669 REASON FOR EXAM: Shortness of Breath EXAM ORDER DATE: 03/01/2019 6:44 PM Ordering: Chandler Salguero MD Attending:Chandler Salguero MD Location: PROCEDURE: - XR CHEST 1 V COMPARISON: FINDINGS: Portable AP frontal view of the chest obtained at 6:48 PM shows diffuse airspace opacity. The heart size is mildly enlarged. Pulmonary vasculatures are mildly congested. IMPRESSION: Right lower lobe atelectasis or consolidation superimposed on the congestive heart failure/pulmonary edema with bilateral pleural effusions larger on the right at 1855 Reported and signed by: Steven Glasgow M.D. CC: Chandler Salguero MD Technologist: Ying Starks Trnscrpt Data: 03/01/2019 (1854) t.EASTONR.VTL Orig Print D/T: S: 03/01/2019 (1857) PAGE 1 Signed Report CBC W/O DIFF 2019-03-01 18:54:00* Test Item Value Reference Range Interpretation Comments WHITE BLOOD CELL (test code = WBC) 14.9 K/mm3 4.5-12.5 H RED BLOOD CELL (test code = RBC) 3.39 mill/mm3 4.0-5.8 L HEMOGLOBIN (test code = HGB) 10.4 gram/dL 13.0-17.5 L HEMATOCRIT (test code = HCT) 32.1 % 42.0-52.0 L MEAN CELL VOLUME (test code = MCV) 94.7 fL 80-98 N MEAN CELL HGB (test code = MCH) 30.7 picogram 27.0-33.0 N MEAN CELL HGB CONCETRATION (test code = MCHC) 32.4 gram/dL 33.0-36. 0 L RED CELL DISTRIBUTION WIDTH (test code = RDW) 15.0 % 11.6-16. 2 N RED CELL DISTRIBUTION WIDTH SD (test code = RDW-SD) 52.6 fL 37 .0-51.0 H PLATELET COUNT (test code = PLT) 140 K/mm3 150-450 L MEAN PLATELET VOLUME (test code = MPV) 10.8 fL 6.7-11.0 N CHEM TADWE2834-43-39 09:43:002.3MH [facility] XVLEH9778-37-90 09:43:62062EO [facility] NGZCS3783-45-39 09:43:005.29MH [facility] AXZDC3881-81-24 09:43:92208IQ [facility] XNQDE2044-11-37 09:43:004.0MH [facility] PANEL 2018-06-01 09:43:77776CA [facility] PXTRT0080-08-22 09:43:0012MH [facility] CHE[facility] XDLOA2147-55-82 09:43:0011.0MH [facility] FKURB6960-96-28 09:43:008.1MH [facility] ORAGE9460-20-28 09:43:0031MH [facility] TTXLC1918-05-52 09:43:0099MH [facility] VPJHW8804-96-66 10:14:002.2MH SoutheastELECTROLYTES 2018-05-31 10:14:0029MH HsdwgiqjlFITILAWGNOVV1672-79-32 10:14:007.5MH [facility] KCHAJTNDDQDY3757-90-09 10:14:0012.0 RiphgmmkuMOJBQFUXBAUL4566-00-96 10:14:0011 OvshsvpizDSNKDIRKJSDJ8893-11-21 10:14:40076EP WwyoshglwNATTFBQJUARS1664-60-39 10:14:004.0 TqpxruanbTTZJWKATHBKN2226-16-79 10:14:005.51MH [facility] XUIYYAQVVQRR7281-62-81 10:14:13458SP GojzubvbuRVESKAERGDCV2495-49-58 10:14:47287 FipeoweawUBIFQWDHQQWL1977-25-64 10:14:47194UN [facility] TPLWJ1029-88-72 10:00:0011MH [facility] GSECI7496-66-45 10:00:003.3MH [facility] PANEL 2018-05-30 10:00:47134RD [facility] PJBOB4981-68-33 10:00:005.54MH [facility] MZSHL6610-96-66 10:00:71930IL [facility] CVEGM1277-84-22 10:00:20516UZ [facility] LIIPV1783-37-56 10:00:007.5MH [facility] KCWTQ1783-04-69 10:00:10682NI [facility] JSJUY0295-72-83 10:00:0012.3MH [facility] PANEL 2018-05-30 10:00:0026MH [facility] QVXMO6248-51-67 10:00:002.4MH [facility] ZCCII6054-74-32 10:00:006.9MH [facility] VTNSA3834-21-58 10:33:007.8MH [facility] GAQDP2841-65-25 09:41:008.7 GmeetfosnSSMXFAKIJX0694-67-01 09:41:0090.6MH BqjawmlqrWTQBBQYXDK2187-49-04 09:41:008.1M [facility]HEMATOLOGY 2018-05-28 09:41:003.09 NyeicgrzrXUGJNKLJPH6960-17-11 09:41:009.0 [facility] FRAFAAVVHG3716-88-06 09:41:0028.0 QardhvkvlGCOQSRAVSB7612-54-03 09:41:00* Test Item Value Reference Range Interpretation Comments MCH (test code = MCH) 29.0 pg 27.0-31.0 MfpqmwrctKQMDYHMHZA4707-23-36 09:41:008.9 OarkurcadVWLRASRQTK2030-26-00 09:41:0019.0 LrdamltbtPUPXXUKFEM5220-33-80 09:41:0032.0 [facility] 2018-05-28 09:41:0099 QxmghaschIRHNQWFDZC6034-87-98 09:41:000.3M [facility] NDVREAWPXL1410-08-29 09:41:000.1M EkubsiiawUVYTHVDKRD4461-04-46 09:41:000.4 EfglzpycpCOXHTAHPBZ0976-84-46 09:41:001.0 BhbevzfijWNTDYTMOGQ7693-53-63 09:41:000.8 YeylntzmbULSCXUGPQL7272-03-33 09:41:006.3M [facility] 2018-05-28 09:41:004.5 BjrjtiiksCGBSTMZUEZ9929-86-19 09:41:0012.7[facility] LCGRHCHSGI7616-22-84 09:41:003.9 KexyirspmUNWCFGTSVW7495-83-07 09:41:0078.1M SoutheastANEMIA UTYYG1947-40-00 12:27:0040 [facility] ULPFF7533-55-72 12:27:54232CP [facility] GYMNC4335-45-99 12:27:0014 [facility]EM[facility] STUDY 2018-05-27 12:27:75132WY BfliclxkjXKWWFRAOON2151-30-70 12:27:003.11 [facility] IONVLPWUXX5035-58-72 12:27:009.1M ApaywddbdDZPMCROFIG8697-09-24 12:27:0033.1M DlnvonekgHMKZEGCXOI2924-22-84 12:27:0027.6MH CksxzzdmjEQUVRTPXYB5844-64-09 12:27:0088.7 KqgmkudutDJBPBUZHIP8748-05-08 12:27:008.3M [facility]HEMATOLOGY 2018-05-27 12:27:0019.9 DrnweihgtDGCOXXWCEK3912-78-37 12:27:0097[facility] ZZBFQMGHPD1220-15-54 12:27:00* Test Item Value Reference Range Interpretation Comments MCH (test code = MCH) 29.4 pg 27.0-31.0 UsubnjwafJNHWWJJDCV1942-99-44 12:27:006.1M SfckkhwveNZLNNJGJSF4905-23-76 12:27:000.1M TgazngkglMCLOECKTXF5299-72-47 12:27:000.7 [facility] 2018-05-27 12:27:000.3M CwibaigzsXJVJEYCRAD6687-52-51 12:27:006.0[facility] AWPPSLXQHW8326-22-93 12:27:0011.2M EsmktqqipHDXYQPWYYB3968-58-74 12:27:004.9 MtqicakcdFZMFFUZBVI5893-05-75 12:27:0077.0 AqcqbkcazRKRTDIOFWC6178-58-81 12:27:004.7 ZrkhwtqwqGTVEXUSXNK2120-04-22 12:27:000.4 [facility] 2018-05-27 12:27:000.9 [facility]PARATHYROID HXOBDGE3151-55-58 12:27:0089.4 [facility]RO[facility] RPQYYSL2483-86-21 12:27:000.76 [facility]RO[facility] NOZBSHE5190-78-87 12:27:000.81 [facility]RO[facility] NSMMZPR1716-61-97 12:23:00 0.70MH SoutheastPARATHYROID DMRTNVF2939-97-15 12:23:000.75 [facility]UR[facility] AND YVXBL4446-48-01 22:33:001 [facility] VGOQA4021-88-80 22:33:00Small *ABN*(05/25/18 4:33 PM) [facility] QVOAY6314-98-15 22:33:001MH [facility] URINE AND HLMZD3845-03-82 22:33:00Negative (05/25/18 4:33 PM) [facility] UYBNP8286-33-70 22:33:00Negative (05/25/18 4:33 PM) [facility] STOOL 2018-05-25 22:33:00Negative *NA*(05/25/18 4:33 PM) [facility] STOOL 2018-05-25 22:33:00* Test Item Value Reference Range Interpretation Comments UA Spec Grav (test code = UA Spec Grav) 1.010 1 [facility] KGBLJ2237-94-71 22:33:00* Test Item Value Reference Range Interpretation Comments UA pH (test code = UA pH) 5.0 1 5.0-8.0 [facility] DKZCS5980-86-83 22:33:00Clear (05/25/18 4:33 PM)[facility] URINE AND SALZB9189-15-18 22:33:00Negative *NA*(05/25/18 4:33 PM)[facility] CARDIAC RXKISWF1044-98-93 20:20:00<0.02[facility] XKQCGLL7065-90-08 20:20:311090AI [facility] UTSHB9711-32-81 20:20:00* Test Item Value Reference Range Interpretation Comments B/C Ratio (test code = B/C Ratio) 19 1 6-25 [facility] TVGXQ9617-38-84 20:20:000.5 [facility] XCFBM9824-28-45 20:20:00* Test Item Value Reference Range Interpretation Comments A/G Ratio (test code = A/G Ratio) 0.8 1 0.7-1.6 [facility] CERNP2074-35-53 20:20:0011 [facility] TLOPS0019-22-63 20:20:0016 [facility] ONDRJ3530-89-41 20:20:30949TU [facility]CHE[facility] PANEL 2018-05-25 20:20:006.9 [facility] CIGIM5796-72-29 20:20:003.1M [facility] CHE[facility] DUAAY6818-21-51 20:20:003.8 XwaqlqjmuGZORYUUZYL4439-42-95 20:20:000.1M DisoxcineNIZJWRLFIP9589-14-42 20:20:000.1M LrfbjfituDVRGQWDNJB5231-52-96 20:20:004.6M SobsuhrtbPRVVYCDSVJ0359-98-09 20:20:000.4 [facility]HEMATOLOGY 2018-05-25 20:20:001.2M ZbcijyucyNEKFYHHDQI6947-34-98 20:20:002.3[facility] PARPDUQGSE8802-50-54 20:20:0011.5 ZmxtdxuopGJGNKKKMUF2378-48-85 20:20:000.7 VyuluayfqCPAGLZCVCP2575-19-24 20:20:007.1M XusznrqslQJIJUQDBUX3558-96-48 20:20:0077.9 OuqhrpphuFGRADHBOCQ6204-21-49 20:20:009.0 [facility]MAT[facility] 2018-05-25 20:20:0098 AclzlgzcmHFGDYXVTVM9817-53-82 20:20:0019.7[facility] TGFGUFJWGF6727-94-63 20:20:0032.9 OggqzupkgLOYSPCXUAW8551-47-80 20:20:00* Test Item Value Reference Range Interpretation Comments MCH (test code = MCH) 29.5 pg 27.0-31.0 CykorefhcFMAZVOXZMN2594-57-81 20:20:0089.9 BavumtagfMNDBQAAUMK9419-75-36 20:20:003.10 KkxtsnrlyOLEWBZLFLW2133-72-51 20:20:005.8 [facility]MAT[facility] 2018-05-25 20:20:0027.9 JrnhfqdylWNAGRCTBAA1255-21-09 20:20:009.2M [facility] CARDIAC KOYDMMY3292-15-47 10:53:00>5000MH [facility]CHEM RPGSX2810-88-63 10:53:00 15 [facility] CVWLW0366-85-53 10:53:006.0 [facility] MQTSL2487-63-54 10:53:0027 [facility] RQKAM0817-38-86 10:53:004.1MH [facility]CHE[facility] PANEL 2018-04-07 10:53:0012.1M [facility] CRGWK7723-82-40 10:53:24407HB [facility] CHE[facility] GIASW9463-54-42 10:53:75891PW [facility] KZHPM4007-60-82 10:53:0062MH [facility] NGQYD6512-06-25 10:53:004.21 [facility] VKOHT8397-68-18 10:53:07268OL [facility] QLHRV4993-66-43 17:30:0016MH [facility]CHE[facility] PANEL 2018-04-06 17:30:0018.3MH [facility] PSEXA0101-83-23 17:30:006.1MH [facility] CHE[facility] LUCGZ8922-08-86 17:30:0025 [facility] VWTNI3158-81-56 17:30:11255DN [facility] KLFOM9252-12-92 17:30:004.3M [facility] VZFCW2515-57-81 17:30:23228MI [facility] BXONR4653-24-00 17:30:004.06 [facility] PANEL 2018-04-06 17:30:0060 [facility] HWSIT1248-30-44 17:30:47252GG[facility] JOVNHCEAPI6267-65-06 17:30:007.4 VlcizqcmnVQWEOUZCYB7419-77-52 17:30:003.46 QedrhvjrfXIKUSTJRKT9791-08-21 17:30:009.8 RpcxwkgdyYRXOQZQXTI3527-52-71 17:30:00* Test Item Value Reference Range Interpretation Comments MCH (test code = MCH) 28.4 pg 27.0-31.0 LvgzwmzjmECXFUTGHME3476-90-70 17:30:0086.6M ScadhitcaNDUEHNPBCC2479-36-52 17:30:008.1M SkwqvjjthGJVVQQCECR3874-60-79 17:30:37610MF [facility]HEMATOLOGY 2018-04-06 17:30:0029.9 LkbjgaunnTHGNVZPBMU8196-69-28 17:30:0017.0[facility] ISQOEZFBIZ4697-18-08 17:30:0032.8 YondrfoqtYUCBIRCLQX6720-11-09 17:30:0010.0 VbrzwwrprGXJNYHQUPD9565-48-15 17:30:003.3M OhnjzehjlYAFTPUWQGU9933-34-45 17:30:006.6M MahzzkhfvUSCQFJMDNR4773-19-24 17:30:000.7 [facility]OLOG[facility] 2018-04-06 17:30:000.5 EdzlnqrjrXHOKQAUVNS7070-57-75 17:30:005.9[facility] XRYCJWVABP8959-50-61 17:30:000.2M HkizriijnYLSRQMZWRE4236-97-37 17:30:0079.3M NvdtwxrljRLPCCTVPGJ8744-89-61 17:30:000.1MH FizemiakuRTLTEHRCVW3282-10-51 17:30:000.8MH [facility]CARDIAC IGVODGK6925-53-33 12:35:000.03MH [facility]CARDIAC ZUQFVBH3395-01-46 08:25:000.03MH SoutheastPARATHYROID RPLJHNB4846-86-09 08:25:00 0.71MH SoutheastPARATHYROID OTHTCYR2616-58-89 08:25:000.71MH [facility]URINE AND NPRKF0883-62-35 05:50:00None Seen (04/05/18 11:50 PM)MH [facility] AND STOOL 2018-04-06 05:50:00Negative (04/05/18 11:50 PM)MH [facility] STOOL 2018-04-06 05:50:00Negative (04/05/18 11:50 PM) [facility] STOOL 2018-04-06 05:50:001MH [facility]URINE AND ZQUSU3679-01-72 05:50:003 [facility] URINE AND PCYZC6996-38-62 05:50:004 [facility]UR[facility] AND DAAWI0797-18-69 05:50:00* Test Item Value Reference Range Interpretation Comments UA pH (test code = UA pH) 7.0 1 5.0-8.0 MH SoutheastURINE AND GOWNC8661-33-30 05:50:00* Test Item Value Reference Range Interpretation Comments UA Spec Grav (test code = UA Spec Grav) 1.013 1 [facility] AND QBBBE0052-84-95 05:50:00Negative *NA*(04/05/18 11:50 PM) [facility] MBEUD9713-05-97 05:50:00Negative *NA*(04/05/18 11:50 PM) [facility] QGEVU9793-69-31 05:50:00Negative (04/05/18 11:50 PM) [facility] PHPCN5500-23-39 05:50:00Clear (04/05/18 11:50 PM) [facility] URINE AND XPZFB4419-06-14 05:50:00Yellow *NA*(04/05/18 11:50 PM) [facility] CARDIAC UGVMTLS4513-32-08 00:05:00>5000MH [facility]CARDIAC VTBCLNN7334-92-57 00:05:000.02MH [facility]CHEM LRBKH7940-76-64 00:05:0016MH [employer] PANEL 2018-04-06 00:05:80700SA [employer] INCHP4023-81-05 00:05:0029MH [employer] AUVOU8446-08-02 00:05:0012.3MH [facility] ULWYU0864-47-05 00:05:00* Test Item Value Reference Range Interpretation Comments B/C Ratio (test code = B/C Ratio) 14 1 6-25 [facility]ITALDSRQT3255-04-54 00:05:005.8 [employer] WJRWT7867-41-55 00:05:000.7 [employer] KXWYQ5574-27-44 00:05:002.7 [employer] PANEL 2018-04-06 00:05:006.5 [employer] NFMHY4857-92-12 00:05:003.8 [employer] EAICJ2215-05-20 00:05:00* Test Item Value Reference Range Interpretation Comments A/G Ratio (test code = A/G Ratio) 0.7 1 0.7-1.6 [facility] HOSPITALKJWDN7505-37-76 00:05:0013 [employer] SUVIY9648-03-87 00:05:0014 [employer] CBNQU0440-00-76 00:05:05556HM [employer] PANEL 2018-04-06 00:05:81383LL [employer] ZSMPY8598-01-26 00:05:004.14 [employer] KEYZN1439-74-69 00:05:0060 [employer] HOQUK4377-67-35 00:05:27397KS [employer] UXFKY9621-89-83 00:05:004.3MAthol HospitalLvofsaqbnRSAWASKFGX1489-21-77 00:05:00* Test Item Value Reference Range Interpretation Comments PTT (test code = PTT) 44.0 s 22.9-35.8 [facility] HospitalTmjcakzkvBGWLLBRAMP5430-90-74 00:05:00* Test Item Value Reference Range Interpretation Comments PT (test code = PT) 16.5 s 12.0-14.7 [facility] HospitalXnederkbaILXZCSRFMZ1883-52-97 00:05:00* Test Item Value Reference Range Interpretation Comments INR (test code = INR) 1.36 1 0.85-1.17 [facility] HospitalOnpqvgfxkURDDPIQAQW2764-55-86 00:05:84137QG ApxrifeszSZQNRRXWXV5333-68-71 00:05:0017.6M FbqpwroecJXOLDLTAEI3888-58-76 00:05:0032.4 [facility]MATOLOGY 2018-04-06 00:05:008.8 UufdujiswXGXLUCLTEX4491-41-20 00:05:0030.6[facility] XPNEEBJPBZ9526-67-03 00:05:0088.3M QolntdivuOUSWDAJIGJ1887-36-71 00:05:009.9 FomqpgwxiVXNBVUGOPY7436-41-95 00:05:00* Test Item Value Reference Range Interpretation Comments MCH (test code = MCH) 28.6 pg 27.0-31.0 CfaivsrqmVCHRFFBFOB4128-06-77 00:05:007.1M KqlbxjmndANGCQLVUYC1439-51-11 00:05:003.47 IazvduybvVTXGORVNIU7013-15-69 00:05:000.1M [facility]HEMATOLOGY 2018-04-06 00:05:000.2M PspuitmmfOYWPGJPWUG1056-20-44 00:05:000.6[facility] UFHMDVFDVU8950-99-97 00:05:000.5 CizvkyvohCPEHNDYKRV6376-14-58 00:05:005.7 QwdcobfnuHVUUKKGGPY3902-88-68 00:05:001.0 EymkiuontFRZVIFTCGV3610-81-09 00:05:003.3M LaeamrruwIONAOJMOCU6622-36-47 00:05:009.1M [facility]HEMATOLOGY 2018-04-06 00:05:007.2M BngegouhkSHUUKIRKFE1206-83-91 00:05:0079.4[facility] CQWFHPIQWQ7511-44-64 16:56:0093 CsakyscuxJBDDXLYTJZ1377-20-76 16:56:0087 NbhahfunmPYCOHEFQQO1990-88-41 16:56:0074 IjcotsoerYHFINOTHYD1605-38-20 16:56:0015.2M UqqiiohddODBTZEGQOI5473-91-55 16:56:00<1.6M SoutheastIMMUNOLOGY 2017-09-17 16:56:004.7 MkyctxisjIPFJDVTTMI4760-48-72 16:56:0016.9 [facility] CHE[facility] GCZOT8198-61-20 08:05:0051 [facility] EIHIV9543-82-53 08:05:0058MH [facility]CHEM AVBUB0507-37-05 08:05:45831LE [facility]CHE[facility] FMDRL0901-46-91 08:05:15634PF [facility] QHDDG3032-79-03 08:05:005.2MH [facility]CHEM PANEL 2017-09-17 08:05:004.34MH [facility]CHEM PQIMR3953-18-23 08:05:0015MH [facility] CHE[facility] HYMOC8134-79-85 08:05:005.7 [facility] HSYWA1687-20-71 08:05:0017.2MH [facility] FTTNE7555-57-61 08:05:0026MH OnlqqahscPDVNOV6284-30-98 21:20:00* Test Item Value Reference Range Interpretation Comments CHD Risk (test code = CHD Risk) 2.63 1 4.00-7.30 RsgrkmqhsYSBLEM1047-83-64 21:20:0031 InrepejtxLVIXSO1785-12-35 21:20:00* Test Item Value Reference Range Interpretation Comments VLDL (test code = VLDL) 18 1 WiklazodeRBGWGL8144-37-22 21:20:0030 FbvuapxdyOUKQIR3874-20-19 21:20:0090 WdhfupwjdZQDPDS9110-50-33 21:20:0079 SoutheastPARATHYROID CXXZDYJ6685-97-27 21:20:000.61MH SoutheastPARATHYROID HVWCSIG2842-42-71 21:20:000.61 [facility] SPECIAL KTAWAYIHU6506-49-49 21:20:006.0 SoutheastCARDIAC JSWAYCQ2582-20-75 20:40:660309FF SoutheastCARDIAC UWAIXCB4143-95-87 19:21:00<0.02MH [facility] CARDIAC DZTZGVO5194-89-34 19:21:71481AG SoutheastCHEM LBUWJ1607-35-39 19:21:0015 [facility]CHEM AZRCA2588-24-79 19:21:0052 [facility]CHEM JRDSH8317-87-31 19:21:004.39MH [facility]CHEM ZWDNC5050-73-43 19:21:004.8 [facility]CHEM PANEL 2017-09-16 19:21:25352FS SoutheastCHEM PZISX3853-72-27 19:21:0099MH [facility] CHEM ATXUL3193-05-72 19:21:0057 [facility]CHEM QQARL4159-74-29 19:21:0029[facility] CHXFI0084-48-76 19:21:005.5[facility] HospitalCHE[facility] LBUSL0434-32-24 19:21:0016.8[facility] HospitalVvqxydvimAPPQHRSYZL8508-43-12 19:21:0078.3MA[facility] HospitalHEMATOLOGY 2017-09-16 19:21:009.1MAthol HospitalMrrjuviqrUPYSFKTQJV9115-39-19 19:21:003.4[facility] JEXGAGHUSE8704-38-62 19:21:008.5[facility] HospitalLxgmgwdddLRWYGPCMZE4959-59-66 19:21:008.0[facility] HospitalExaakryxeXVEVUIUALW5678-10-70 19:21:000.9[facility] HospitalMtrxolfahEFVWPOKHXY5485-46-64 19:21:000.7[facility] HospitalQpkgdcjhnFHUEFDCPLE8396-79-71 19:21:000.1[facility] HospitalHEMATOLOGY 2017-09-16 19:21:000.3MAthol HospitalJnpeccpqlKGAHPPPLKJ0860-89-33 19:21:000.9[facility] KJMNKZLVHH7674-16-45 19:21:00* Test Item Value Reference Range Interpretation Comments PT (test code = PT) 15.8 s 12.0-14.7 [facility] HospitalXlcphqwahLPIRLZKGVL3093-26-80 19:21:00* Test Item Value Reference Range Interpretation Comments INR (test code = INR) 1.25 1 0.85-1.17 [facility] HospitalZpqaeczcjPJWBSJIPAP4635-93-24 19:21:009.[address] [place], [place] [address]EjxrabpvaRCURHPUJGB9493-13-92 19:21:009.8[facility] HospitalKkvmsydykVQEBKBNABP4191-15-57 19:21:0029.7[facility] HospitalHE[facility]OLOGY 2017-09-16 19:21:003.28[facility] HospitalMsddaxhhrURIJGBJJOV4405-40-34 19:21:0015.[address] [place] [address] CJHWFAPHCN4830-60-13 19:21:70329U[facility] HospitalMoyxcykavSPANQFJSYY8571-08-57 19:21:00* Test Item Value Reference Range Interpretation Comments MCH (test code = MCH) 30.0 pg 27.0-31.0 [facility] Hosp[id number] 19:21:0033.2MAthol Hos[id number] 19:21:0010.2MAthol Hos[id number] 19:21:0090.3[facility] HospitalHEMATOLOGY 2017-09-16 19:21:00* Test Item Value Reference Range Interpretation Comments PTT (test code = PTT) 36.3 s 22.9-35.8 [facility]
--- OUTSIDE RECORDS SUMMARY | 2019-08-11 09:09 | XMS REPORT | Clinical Summary ---
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 08/02/2019 Discontinued (Therapy comple aruna) carvedilol (COREG) 6.25 Take 1 tablet 90 [...] Neutrophils 4.91 1.78 - 5.36 K/uL [facility] Lymphs 0.47 (L) 1.32 - [...] [facility] Specimen Blood Performing Organization Address [facility] one Number [facility] [address] [place] [address] * Vitamin D, 25-Hydroxycalciferol (08/04/2019 11:07 AM CDT) Vit D, 36.2 30.0 - 100.0 ng/mL [facility] 25-Hydroxy [facility] Vitamin D Sufficient Sufficient [facility] Interpretation Comment: [facility] Sufficient: >30.0 Insufficient: 20.0 - 29.9 Deficient: <20.0 Specimen Blood Performing Organization Address [facility] one Number [facility] [address] [place], [place] [id number] * HIV-1/HIV-2 Routine Screening (08/04/2019 11:07 AM CDT) Pathologist [facility] HIV-1/HIV-2 Negative Negative [facility] Specimen Blood Performing Organization Address [facility] one Number [facility] [address] [place], [place] [id number] * Microalb/Crea Ratio,Ur (08/04/2019 11:07 AM CDT) Microalbumin, 83.8 (H) <30.0 mg/dL [facility] Creatinine, 42 20 - 370 mg/dL [facility] Urine 1,995.2 (H) 0.0 - 30.0 mg/g [facility] Microalbumin [facility] Specimen Urine - Voided, urine Performing Organization Address [facility] one Number [facility] [address] [place] [address] * Hemoglobin A1C (08/04/2019 11:07 AM CDT) Hemoglobin A1c 6.2 (H) 4.3 - 6.1 % [facility] Estimated 131 (H) 70 - 110 mg/dL [facility] Average Glucose LAB[facility]ORY Specimen Blood Performing Organization Address [facility] one Number [facility] [address] [place] [address] * Comprehensive Metabolic Panel (08/04/2019 11:07 AM [...] [facility] Specimen Blood Performing Organization Address [facility] one Number [facility] [address] [place] [address] * TSH (08/04/2019 11:07 AM CDT) TSH 3.89 0.45 - 5.33 uIU/mL [facility] Specimen Blood Performing Organization Address [facility] one Number [facility] [address] [place] [address] * Free T4 (08/04/2019 11:07 AM CDT) Free T4 1.07 0.64 - 1.42 ng/dl [facility] Specimen Blood Performing Organization Address [facility] one Number [facility] [address] [place] [address] * Lipid Profile (08/04/2019 11:07 AM CDT) [...] in a fasting state. Performing Organization Address [facility] one Number [facility] [address] [place] [address] * Hepatitis Panel (08/04/2019 11:07 AM CDT) Hep C Vir Ab Negative Negative [facility] IgG [facility] Hep B Surface Negative Negative [facility] Ag [facility] Hep A Vir Ab Negative Negative [facility] IgM [facility] Hep B Core Ab Negative Negative [facility] Specimen Blood Performing Organization Address [facility] one Number [facility] [address] [place] [address] after 08/09/2018 Insurance Type Payer Benefit Subscriber ID Effective Phone Address Plan / Dates Group BC/BS HMO BLUE xxxxxxxxxxxx 2019-P [phone] [place] resent [id number] FELECIA RAMIREZ [id number] Guarantor Name Account Relation to Date of Phone Billin g Address Type Patient HANCOCK,TARAN Romero Personal/F Head of 1970 [address] amily Household (Home) [place], [place] [address] (Self) Advance Directives Date Inactivated Comments Code Status Date Activated 08/11/2015 3:39 PM Full Code 08/09/2015 4:28 PM 08/09/2015 4:28 PM Full Code 08/09/2015 2:02 PM
--- OUTSIDE RECORDS SUMMARY | 2019-08-11 09:10 | XMS REPORT | Continuity of Care Document ---
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 and stage 1 through stage 4 chronic kidney disease, or unspecified chronic kidney disease 04/22/2018 10/26/2018 [facility] CHF EXACERBATION Active 04/05/2018 [facility] SHORTNESS OF BREATH Active 04/05/2018 [facility] WEAKNESS Active 09/16/2017 [facility] BRAIN TIA Active 09/16/2017 [facility] Acute on chronic systolic (congestive) heart failure 10/26/2018 [facility] Other cardiomyopathies 10/26/2018 [facility] Hypocalcemia 10/26/2018 [facility] Hyperlipidemia, unspecified 10/26/2018 [facility] Anemia in other chronic diseases classified elsewhere 10/26/2018 [facility] Chronic kidney disease, unspecified 10/26/2018 [facility] Type 2 diabetes mellitus with diabetic c hronic kidney disease 10/26/2018 [facility] Personal history of transient ischemic a ttack (TIA), and cerebral infarction without residual deficits 10/26/2018 [facility] 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 10/26/2018 [facility] MCFP (current) use of antithromboti cs/antiplatelets 10/26/2018 [facility] Patient's noncompliance with other medic al treatment and regimen 10/26/2018 [facility] Cardiomyopathy (disorder) Acti ve Problem [facility] Chronic kidney disease stage 4 (disorder) Active Problem 03/10/2019 [facility] Diabetes mellitus (disorder) A ctive Problem [facility] Dyslipidemia (disorder) Active Problem 03/10/2019 [facility] Hypertensive disorder, systemic arterial (disorder) Active Problem 03/10/2019 [facility] HEART FAILURE, UNSPECIFIED Act [facility] PNEUMONIA, UNSPECIFIED ORGANISM Active [facility] END STAGE RENAL DISEASE Active [facility] HYPERKALEMIA Active [facility] Medications Medication Details Route Status Patient Instructions Ordering Provider Order Date Source Coreg Notes: Give with food. ( Same As: Coreg) Inactive 03/08/2019 [facility] bumetanide 2 mg oral tablet 2 mg = 1 tab, PO, BID, # 30 tab, 0 Refill(s), Pharmacy: [id number] Active 03/08/2019 [facility] Amlodipine Notes: (Same as: No rvasc) Inactive 03/08/2019 [facility] bumetanide 10 mg + Sodium Chloride 0.9% (titrate) 60 m L Notes: (Same As: Bumex) No Longer Active 03/07/2019 [facility] Bumex Notes: (Same As: Bumex) No Longer Active 03/04/2019 [facility] Calcium Gluconate Notes: WASTE : F/P - Sink; E - Municipal Trash Bin Inactive 03/04/2019 [facility] Melatonin 3 MG Extended Release Tablet 3 mg, 1 tab, Route: PO, Dosing Weight 102.273, kg, ONCE, PRN Sleep, Routine, Start date: 03/02/19 22:05:00 SWIMMING COACH Inactive 03/03/2019 [facility] heparin sodium, porcine 2500 UNT/ML Injectable Solutio n Notes: porcine heparin No Longer Active 03/03/2019 [facility] Melatonin 3 MG Extended Release Tablet Notes: (Same as: Melatonin) No Longer Active 03/03/2019 [facility] atorvastatin Notes: (Same as: Lipitor) No Longer Active 03/03/2019 [facility] Coreg Notes: Give with food. ( Same As: Coreg) No Longer Active 03/02/2019 [facility] Plavix Notes: (Same As: Plavix) No Longer Active 03/02/2019 [facility] 24 HR Nitroglycerin 0.4 MG/HR Transdermal Patch Notes: Apply only once for up to 12 hours in a 24 hour period (12 hours on and 12 hours off.) (Same as:Nitro-Dur,Deponit,Transderm Nitro) For topical use only. "Remove old patch before application of new patch" No Longer Active 03/02/2019 [facility] Saline Flush 0.9% Notes: (Same as: BD Posiflush) No Longer Active 03/02/2019 [facility] Furosemide Notes: (Same as: Shamika pereira) MEDICATION WASTE Product Size: 100 mg Product Wasted: ___ mg No Longer Active 03/02/2019 [facility] Sodium Chloride 0.9% (titrate) 60 mL + bumetanide 10 m g 60 mL, Rate: Infuse as directed, Dosing Weight 102.273, kg, Route: IV, Total Volume: 60 mL, Start Date: 03/02/19 8:11:00 SWIMMING COACH, Duration: 30 day, Stop date: 04/01/19 8:10:00 SWIMMING COACH, Replace Every: 24 hr Inactive 03/02/2019 [facility] influenza virus vaccine, inactivated Notes: (Same as: Fluzone Quadrivalent, Fluarix Quadrivalent) For patients 6 - 35 months of age (0.5 mL IM) For 3 years of age and older (0.5 mL IM) Shake well before use No Longer Active 03/02/2019 [facility] Furosemide Notes: (Same as: Shamika pereira) MEDICATION WASTE Product Size: 100 mg Product Wasted: ___ mg Inactive 03/02/2019 [facility] Dextrose 50% Syringe (D50W) 12 ,500 mg, 25 mL, Route: IVP, Drug Form: INJ, Dosing Weight 102.273, kg, PRN, PRN Blood Glucose Results, Start date: 03/02/19 5:17:00 SWIMMING COACH, Duration: 30 day, Stop date: 04/01/19 5:16:00 SWIMMING COACH, 0 No Longer Active 03/02/2019 [facility] Glucagon 1 mg, Route: IM, Drug form: PDR/INJ, PRN, Dosing Weight 102.273, kg, PRN Blood Glucose Results, Start date: 03/02/19 5:17:00 SWIMMING COACH, Duration: 30 day, Stop date: 04/01/19 5:16:00 SWIMMING COACH, 0 No Longer Active 03/02/2019 [facility] Insulin Lispro Notes: (Same as : Humalog) Roll in palms of hands gently; Do not shake vigorously. WASTE: F/P - Black; E - Municipal Trash Bin Stable for 28 days at room temperature. Expires in days from Date No Longer Active 03/02/2019 [facility] Albuterol 0.83 MG/ML Inhalant Solution 2.49 mg, Route: NEB, RQ6H, Dosing Weight 102.273, kg, Priority: Routine, Start date: 03/02/19 2:00:00 SWIMMING COACH, Duration: 30 day, Stop date: 03/31/19 20:00:00 SWIMMING COACH No Longer Active 03/02/2019 [facility] Albuterol 0.833 MG/ML / Ipratropium Brom chandler 0.167 MG/ML Inhalant Solution Notes: (Same as: Duoneb) No Longer Active 03/02/2019 [facility] Dextromethorphan Hydrobromide 2 MG/ML / Guaifenesin 20 MG/ML Oral Solution Notes: (dextromethorphan-guaifenesin 10- 100/5 ml LIQ) (Same as: Robitussin-DM) No Longer Active 03/02/2019 [facility] Ondansetron Notes: (Same as: Marcelo rubin) MEDICATION WASTE Product Size: 4 mg Product Wasted: ___ mg No Longer Active 03/02/2019 [facility] Ondansetron Notes: (Same as: Marcelo rubin) MEDICATION WASTE Product Size: 4 mg Product Wasted: ___ mg No Longer Active 03/02/2019 [facility] Saline Flush 0.9% Notes: (Same as: BD Posiflush) No Longer Active 03/02/2019 [facility] Bumetanide Notes: (Same As: Bu eloise) No Longer Active 03/02/2019 [facility] Tylenol Notes: Max acetaminoph en 4000 mg/day (4 gm/day). (Same as: Tylenol Extra Strength) No Longer Active 03/02/2019 [facility] Bumex Notes: (Same As: Bumex) Inactive 06/01/2018 [facility] carvedilol 12.5 mg oral tablet 12.5 mg = 1 tab, PO, Q12H, # 60 tab, 0 Refill(s), Pharmacy: [id number] Active 06/01/2018 [facility] Metolazone 5 MG Oral Tablet 10 mg = 2 tab, PO, Daily, # 60 tab, 0 Refill(s), Pharmacy: [id number] Active 06/01/2018 [facility] potassium chloride 20 mEq oral tablet, extended releas e 40 mEq = 2 tab, PO, Daily, # 60 tab, 0 Refill(s), Pharmacy: [facility] Active 06/01/2018 [facility] Calcium Carbonate 500 MG Chewable Tablet 2,000 mg = 4 tab, CHEW, TID-Meals, # 360 tab, 0 Refill(s), Pharmacy: [facility] Active 06/01/2018 [facility] bumetanide 1 mg oral tablet 2 mg = 2 tab, PO, BID, # 120 tab, 0 Refill(s), Pharmacy: [facility] Active 06/01/2018 [facility] potassium chloride 20 mEq oral tablet, extended [...] Patients with feeding tube less than 14 [address] (Dobhoff, J-tube etc) and pediatric and patients. Inactive 05/30/2018 [facility] Potassium Chloride Notes: (Samy e as: K-Dur 20) "Do Not Crush" Give with food and full glass of water For patients unable to swallow tablet, dissolve in one half glass of water. Allow about 2 minutes for the tab lets to disintegrate. Stir before giving to prepare slurry and administer. Please exclude Patients with feeding tube less than [address] (Dobhoff, J-tube etc) and pediatric and patients. No Longer Active 05/30/2018 [facility] Metolazone 5 MG Oral Tablet No levi: (Same as: Zaroxolyn) No Longer Active 05/29/2018 [facility] Diuril Sodium Notes: (Same As: Diuril Sodium) Inactive 05/28/2018 [facility] Ferrlecit + Sodium Chloride 0.9% IV 100 mL 125 mg, 10 mL, Route: IVPB, Daily, Start date: 05/28/18 9:00:00 SWIMMING COACH, Duration: 8 doses or times, Stop date: 06/04/18 9:00:00 CDT No Longer Active 05/28/2018 [facility] Venofer 200 mg, Route: IVPB, D rug form: INJ, Daily, Dosing Weight 105.114, kg, Start date: 05/28/18 9:00:00 SWIMMING COACH, Duration: 5 doses or times, Stop date: 06/01/18 9:00:00 CDT No Longer Active 05/28/2018 [facility] Renvela Notes: Same as: Renvela No Longer Active 05/28/2018 [facility] Calcium Gluconate Notes: WASTE : F/P - Sink; E - Municipal Trash Bin No Longer Active 05/27/2018 [facility] Hydralazine Hydrochloride 25 MG Oral Tablet Notes: (Same as: Apresoline) May interfere w/enteral feedings Take With Food No Longer Active 05/27/2018 [facility] Imdur Notes: (Same as:Imdur) " Do Not Crush" Take on empty stomach/ full glass of water. Do not crush No Longer Active 05/27/2018 [facility] atorvastatin Notes: (Same as: Lipitor) No Longer Active 05/27/2018 [facility] Coreg Notes: Give with food. ( Same As: Coreg) No Longer Active 05/27/2018 [facility] Hydralazine Notes: (Same as: A presoline) Push over 5 minutes No Longer Active 05/26/2018 [facility] Calcium Carbonate Notes: (Same As: Tums) Calcium Carbonate 500 mg = 200 mg elemental calcium Dose = mg calcium carbonate ( mg elemental calcium) No Longer Active 05/26/2018 [facility] furosemide 100 mg + Sodium Chloride 0.9% IV 90 mL Notes: (Same as: Lasix) MEDICATION WASTE Product Size: 100 mg Product Wasted: ___ mg No Longer Active 05/26/2018 [facility] Lasix 10 mg, Route: IV, Contin uous, Dosing Weight 102.273, kg, Start date: 05/26/18 13:00:00 SWIMMING COACH, Duration: 30 day, Stop date: 06/25/18 13:59:00 CDT Inactive 05/26/2018 [facility] Lasix Notes: (Same as: Lasix) MEDICATION WASTE Product Size: 100 mg Product Wasted: ___ mg Inactive 05/26/2018 [facility] clopidogrel Notes: (Same As: P lavix) No Longer Active 05/26/2018 [facility] Aspirin 81 MG Enteric Coated Tablet Notes: Do not crush or chew. (Same As: Ecotrin) No Longer Active 05/26/2018 [facility] Hydralazine Hydrochloride 50 MG Oral Tablet 50 mg, 1 tab, Route: PO, Drug form: TAB, Daily, Dosing Weight 102.273, kg, Start date: 05/26/18 9:00:00 SWIMMING COACH, Duration: 30 day, Stop date: 06/24/18 9:00:00 CDT No Longer Active 05/26/2018 [facility] Isosorbide 60 mg, Route: PO, D rug form: ERTAB, QAM, Dosing Weight 102.273, kg, Start date: 05/26/18 9:00:00 SWIMMING COACH, Duration: 30 day, Stop date: 06/24/18 9:00:00 CDT No Longer Active 05/26/2018 [facility] Calcium Gluconate Notes: WASTE : F/P - Sink; E - Municipal Trash Bin No Longer Active 05/26/2018 [facility] cefepime Notes: (Same As: Yevgeniy rankin) MEDICATION WASTE Product Size: 1000 mg Product Wasted: ___ mg No Longer Active 05/26/2018 [facility] Calcium Gluconate 2,000 mg, Ro [place]: IVPB, Drug form: INJ, ONCE, Dosing Weight 102.273, kg, Start date: 05/26/18 3:36:00 SWIMMING COACH, Stop date: 05/26/18 3:36:00 SWIMMING COACH Inactive 05/26/2018 [facility] Potassium Chloride 20 mEq, Rou te: [place], Drug form: SOLN, PRN, Dosing Weight 102.273, kg, PRN Abnormal Lab Result, For NON-ICU Patients Only, Start date: 05/26/18 3:36:00 SWIMMING COACH, Duration: 30 day, Stop date: 06/25/18 4:35:00 CDT Inactive 05/26/2018 [facility] potassium phosphate 15 mmol, R oute: IVPB, PRN, Dosing Weight 102.273, kg, PRN Abnormal Lab Result, For NON-ICU Patients Only., Start date: 05/26/18 3:36:00 SWIMMING COACH, Duration: 30 day, Stop date: 06/25/18 4:35:00 CDT Inactive 05/26/2018 [facility] potassium phosphate-sodium phosphate 250 mg-280 mg-160 mg oral powder for reconstitution 2 pkt, Route: PO, Dosing Weight 102.273, kg, PRN, PRN Abnormal Lab Result, For NON-ICU Patients Only, Start date: 05/26/18 3:36:00 SWIMMING COACH, Duration: 30 day, Stop date: 06/25/18 4:35:00 CDT Inactive 05/26/2018 [facility] sodium phosphate 30 mmol, Rout e: IVPB, PRN, Dosing Weight 102.273, kg, PRN Abnormal Lab Result, For NON-ICU Patients Only., Start date: 05/26/18 3:36:00 SWIMMING COACH, Duration: 30 day, Stop date: 06/25/18 4:35:00 CDT Inactive 05/26/2018 [facility] Magnesium Oxide 800 mg, Route: PO, PRN, Dosing Weight 102.273, kg, PRN Abnormal Lab Result, For NON-ICU Patients Only., Start date: 05/26/18 3:36:00 SWIMMING COACH, Duration: 30 day, Stop date: 06/25/18 4:35:00 CDT Inactive 05/26/2018 [facility] Magnesium Sulfate 2 gm, Route: IVPB, PRN, Dosing Weight 102.273, kg, PRN Abnormal Lab Result, For NON-ICU Patients Only., Start date: 05/26/18 3:36:00 SWIMMING COACH, Duration: 30 day, Stop date: 06/25/18 4:35:00 CDT Inactive 05/26/2018 [facility] Dextrose 50% Syringe 25 gm, 50 mL, Route: IVP, Drug Form: INJ, Dosing Weight 102.273, kg, ONCE, Start date: 05/25/18 21:46:00 SWIMMING COACH, Stop date: 05/25/18 21:46:00 SWIMMING COACH Inactive 05/26/2018 [facility] Insulin regular Notes: (Same a s: Humulin R and NovoLIN R) WASTE: F/P - Black; E - Municipal Trash Bin (Do not shake) Inactive 05/26/2018 [facility] Calcium Gluconate Notes: WASTE : F/P - Sink; E - Municipal Trash Bin Inactive 05/26/2018 [facility] Kayexalate Notes: (sodium poly styrene sulfonate 15 gm/60 ml SAM) Shake well before use. (Same as: Kayexalate, SPS) Inactive 05/26/2018 [facility] Saline Flush 0.9% Notes: Same as: BD Posiflush Sterile No Longer Active 05/26/2018 [facility] Dextrose 50% Syringe 12.5 gm, 25 mL, Route: IVP, Drug Form: INJ, Dosing Weight 102.273, kg, PRN, PRN Blood Glucose Results, Start date: 05/25/18 19:02:00 SWIMMING COACH, Duration: 30 day, Stop date: 06/24/18 20:01:00 CDT No Longer Active 05/26/2018 [facility] Glucagon 1 mg, Route: IM, Drug form: PDR/INJ, PRN, Dosing Weight 102.273, kg, PRN Blood Glucose Results, Start date: 05/25/18 19:02:00 SWIMMING COACH, Duration: 30 day, Stop date: 06/24/18 20:01:00 CDT No Longer Active 05/26/2018 [facility] Saline Flush 0.9% Notes: Same as: BD Posiflush Sterile No Longer Active 05/26/2018 [facility] Furosemide Notes: (Same as: Shamika pereira) MEDICATION WASTE Product Size: 40 mg Product Wasted: ___ mg No Longer Active 05/26/2018 [facility] Ondansetron Notes: (Same as: Marcelo rubin) MEDICATION WASTE Product Size: 4 mg Product Wasted: ___ mg No Longer Active 05/26/2018 [facility] Melatonin Notes: (Same as: Pamela atonin) No Longer Active 05/26/2018 [facility] Glucagon 1 mg, Route: IM, PRN, Dosing Weight 102.273, kg, PRN Blood Glucose Results, Start date: 05/25/18 18:57:00 SWIMMING COACH, Duration: 30 day, Stop date: 06/24/18 19:56:00 CDT Inactive 05/26/2018 [facility] Dextrose 50% Syringe 25 mL, Ro [place]: IVP, Dosing Weight 102.273, kg, PRN, PRN Blood Glucose Results, Start date: 05/25/18 18:57:00 SWIMMING COACH, Duration: 30 day, Stop date: 06/24/18 19:56:00 CDT Inactive 05/26/2018 [facility] Dextrose 50% Syringe 25 gm, 50 mL, Route: IVP, Drug Form: INJ, Dosing Weight 102.273, kg, ONCE, STAT, Start date: 05/25/18 15:29:00 SWIMMING COACH, Stop date: 05/25/18 15:29:00 SWIMMING COACH Inactive 05/25/2018 [facility] Insulin regular Notes: (Same a s: Humulin R and NovoLIN R) WASTE: F/P - Black; E - Municipal Trash Bin (Do not shake) Inactive 05/25/2018 [facility] Calcium Gluconate Notes: WASTE : F/P - Sink; E - Municipal Trash Bin Inactive 05/25/2018 [facility] Saline Flush 0.9% Notes: Same as: BD Posiflush Sterile No Longer Active 05/25/2018 [facility] Kayexalate Notes: (sodium poly styrene sulfonate 15 gm/60 ml SAM) Shake well before use. (Same as: Kayexalate, SPS) Inactive 05/25/2018 [facility] Saline Flush 0.9% Notes: Same as: BD Posiflush Sterile No Longer Active 05/25/2018 [facility] amLODIPine 5 mg oral tablet 10 mg = 2 tab, PO, Daily, # 60 tab, 1 Refill(s), Pharmacy: [id number] Active 04/08/2018 [facility] Amlodipine Notes: (Same as: No rvasc) Inactive 04/08/2018 [facility] isosorbide mononitrate extended release Notes: (Same as:Imdur) "Do Not Crush" Take on empty stomach/ full glass of water. Do not crush Inactive 04/08/2018 [facility] Hydralazine Notes: (Same as: A presoline) May interfere w/enteral feedings Take With Food Inactive 04/07/2018 [facility] isosorbide mononitrate extended release Notes: (Same as:Imdur) "Do Not Crush" Take on empty stomach/ full glass of water. Do not crush Inactive 04/07/2018 [facility] Coreg Notes: Give with food. ( Same As: Coreg) No Longer Active 04/07/2018 [facility] Imdur Notes: (Same as:Imdur) " Do Not Crush" Take on empty stomach/ full glass of water. Do not crush Inactive 04/07/2018 [facility] Hydralazine Hydrochloride 50 MG Oral Tablet Notes: (Same as: Apresoline) May interfere w/enteral feedings Take With Food No Longer Active 04/07/2018 [facility] Calcium Gluconate Notes: WASTE : F/P - Sink; E - Municipal Trash Bin Inactive 04/06/2018 [facility] Lovenox Notes: (Same as: Loven ox) No Longer Active 04/06/2018 [facility] Saline Flush 0.9% Notes: (Same as: BD Posiflush) No Longer Active 04/06/2018 [facility] Furosemide Notes: (Same as: Shamika pereira) MEDICATION WASTE Product Size: 40 mg Product Wasted: ___ mg No Longer Active 04/06/2018 [facility] pantoprazole Notes: Tablet ivelisse uld not be chewed or crushed. (Same as: Protonix) N o Longer Active 04/06/2018 [facility] carvedilol Notes: Give with fo od. (Same As: Coreg) No Longer Active 04/06/2018 [facility] Calcium Gluconate Notes: WASTE : F/P - Sink; E - Municipal Trash Bin Inactive 04/06/2018 [facility] Aspirin 81 MG Enteric Coated Tablet Notes: Do not crush or chew. (Same As: Ecotrin) No Longer Active 04/06/2018 [facility] Hydralazine Notes: (Same as: A presoline) Push over 5 minutes No Longer Active 04/06/2018 [facility] clopidogrel 75 mg oral tablet 75 mg = 1 tab, PO, Bedtime, # 30 tab, 0 Refill(s) No Longer Active 04/06/2018 [facility] isosorbide mononitrate 60 mg oral tablet , extended release 60 mg = 1 tab, PO, QAM, 0 Refill(s) Active 04/06/2018 [facility] Furosemide 40 MG Oral Tablet [Lasix] 40 mg = 1 tab, PO, BID, 0 Refill(s) No Longer Active 04/06/2018 [facility] carvedilol 20 mg, PO, BID, 0 R efill(s) No Longer Active 04/06/2018 [facility] Hydralazine Hydrochloride 50 MG Oral Tablet 50 mg = 1 tab, PO, Daily, 0 Refill(s) Active 04/06/2018 [facility] atorvastatin 20 mg oral tablet 20 mg = 1 tab, PO, Bedtime, # 90 tab, 0 Refill(s) No Longer Active 04/06/2018 [facility] influenza virus vaccine, inactivated Notes: (Same as: Fluzone Quadrivalent, Fluarix Quadrivalent) For 3 years of age and older (0.5 mL IM) Shake well before use N o Longer Active 04/06/2018 [facility] Saline Flush 0.9% Notes: (Same as: BD Posiflush) No Longer Active 04/06/2018 [facility] Temazepam Notes: (Same As: Res toril) No Longer Active 04/06/2018 [facility] Ondansetron Notes: (Same as: Marcelo rubin) MEDICATION WASTE Product Size: 4 mg Product Wasted: ___ mg No Longer Active 04/06/2018 [facility] Lasix Notes: (Same as: Lasix) MEDICATION WASTE Product Size: 40 mg Product Wasted: ___ mg Inactive 04/06/2018 [facility] Furosemide 20 MG Oral Tablet [Lasix] 20 mg = 1 tab, PO, BID, # 60 tab, 0 Refill(s), Pharmacy: [facility] Active 09/17/2017 [facility] carvedilol 25 MG Oral Tablet [Coreg] 25 mg = 1 tab, PO, Daily, # 30 tab, 0 Refill(s), Pharmacy: [facility] Active 09/17/2017 [facility] clopidogrel 75 mg oral tablet 75 mg = 1 tab, PO, Daily, # 30 tab, 0 Refill(s), Pharmacy: [facility] Active 09/17/2017 [facility] atorvastatin 40 mg oral tablet 40 mg = 1 tab, PO, Bedtime, # 30 tab, 0 Refill(s), Pharmacy: [facility] Active 09/17/2017 [facility] Aspirin 81 MG Enteric Coated Tablet 81 mg = 1 tab, PO, Q24H, # 30 tab, 0 Refill(s), Pharmacy: [facility] Active 09/17/2017 [facility] Plavix Notes: (Same As: Plavix) Inactive 09/17/2017 [facility] heparin Notes: porcine heparin Inactive 09/17/2017 [facility] Saline Flush 0.9% Notes: (Same as: BD Posiflush) No Longer Active 09/17/2017 [facility] atorvastatin Notes: (Same as: Lipitor) No Longer Active 09/17/2017 [facility] Plavix Notes: (Same As: Plavix) Inactive 09/17/2017 [facility] calcium gluconate + Sodium Chloride 0.9% IV 40 mL Notes: WASTE: F/P - Sink; E - Municipal Trash Bin Inactive 09/17/2017 [facility] Calcium Gluconate 2,000 mg, Ro [place]: IVPB, Drug form: INJ, ONCE, Dosing Weight 100, kg, Start date: 09/16/17 19:45:00 CDT, Stop date: 09/16/17 19:45:00 CDT Inactive 09/17/2017 [facility] Glipizide 5 MG Oral Tablet 5 m g = 1 tab, PO, BID, 0 Refill(s) No Longer Active 09/16/2017 [facility] Furosemide 20 MG Oral Tablet [Lasix] 20 mg = 1 tab, PO, BID, 0 Refill(s) No Longer Active 09/16/2017 [facility] carvedilol 25 MG Oral Tablet [Coreg] 25 mg = 1 tab, PO, Daily, 0 Refill(s) No Longer Active 09/16/2017 [facility] NIFEdipine 30 mg oral tablet, extended release 30 mg = 1 tab, PO, Daily, PRN Hypertension, # 30 tab, 0 Refill(s) Active 09/16/2017 [facility] Hydralazine Hydrochloride 25 MG Oral Tablet 25 mg = 1 tab, PO, QID, PRN Hypertension, # 360 tab, 0 Refill(s) Active 09/16/2017 [facility] Hydralazine 25 mg, Route: PO, Drug form: TAB, Q6H, Dosing Weight 100, kg, PRN Hypertension, Start date: 09/16/17 18:31:00 CDT, Duration: 30 day, Stop date: 10/16/17 18:30:00 CDT Inactive 09/16/2017 [facility] Aspirin 81 MG Enteric Coated Tablet Notes: Do not crush or chew. (Same As: Ecotrin) No Longer Active 09/16/2017 [facility] Insulin Lispro Notes: (Same as : Humalog ) Roll in palms of hands gently; Do not shake `vigorously. "Single Patient Use Only " WASTE: F/P - Black; E - [employer] Trash Bin Stable for 28 days at room temp erature. Expires in days from Date No Longer Active 09/16/2017 [facility] Dextrose 50% Syringe 12.5 gm, 25 mL, Route: IVP, Drug Form: INJ, Dosing Weight 100, kg, PRN, PRN Blood Glucose Results, Start date: 09/16/17 15:55:00 CDT, Duration: 30 day, Stop date: 10/16/17 15:54:00 CDT No Longer Active 09/16/2017 [facility] Glucagon 1 mg, Route: IM, Drug form: PDR/INJ, PRN, Dosing Weight 100, kg, PRN Blood Glucose Results, Start date: 09/16/17 15:55:00 CDT, Duration: 30 day, Stop date: 10/16/17 15:54:00 CDT No Longer Active 09/16/2017 [facility] Saline Flush 0.9% Notes: (Same as: BD Posiflush) No Longer Active 09/16/2017 [facility] Acetaminophen Notes: Do not ex ceed 4 gm/day. (Same as: Tylenol) No Longer Active 09/16/2017 [facility] Sodium Chloride 0.9% IV 1,000 mL 1,000 mL, Rate: 75 ml/hr, Infuse over: 13.3 hr, Route: IV, Dosing Weight 100 kg, Total Volume: 1,000, Start date: 09/16/17 15:52:00 CDT, Duration: 30 day, Stop date: 10/16/17 15:51:00 CDT, 2.24, m2 Inactiv e 09/16/2017 [facility] Aspirin Notes: Take with food. Inactive 09/16/2017 [facility] Saline Flush 0.9% Notes: (Same as: BD Posiflush) No Longer Active 09/16/2017 [facility] Allergies, Adverse Reactions, Alerts Substance Category Reaction Severity Reaction type Status Date Reported Comments Source No Known Medication Allergies Assertion Drug aller gy [facility] Immunizations Immunization Date Given Site Status Last Updated Comments Source influenza virus vaccine, inactivated 06/01/2018 Right deltoid completed [facility] Results Order Name Results Value Reference Range Date Interpretation Comments Source CHEM PANEL Glucose Lvl 97 70 - 99 03/07/2019 [facility] CHEM PANEL BUN 130 7 - 22 03/07/2019 [facility] CHEM PANEL Creatinine Lvl 8.62 0.50 - 1.40 03/07/2019 [facility] CHEM PANEL Sodium Lvl 133 135 - 145 03/07/2019 [facility] CHEM PANEL Potassium Lvl 4.6 3.5 - 5.1 03/07/2019 [facility] CHEM PANEL Chloride Lvl 94 95 - 109 03/07/2019 [facility] CHEM PANEL CO2 27 24 - 32 03/07/2019 [facility] CHEM PANEL AGAP 16.6 10.0 - 20.0 03/07/2019 [facility] CHEM PANEL Calcium Lvl 5.8 8.5 - [...] should be multiplied by the estimated BMI. [facility] HEMATOLOGY WBC 6.6 3.7 - 10.4 03/05/2019 [facility] HEMATOLOGY RBC 2.72 4.70 - 6.10 03/05/2019 [facility] HEMATOLOGY Hgb 8.7 14.0 - 18.0 03/05/2019 [facility] Hct 26.0 42.0 - 54.0 03/05/2019 [facility] MCV 95.5 80.0 - 94.0 03/05/2019 [facility] MCH 31.9 27.0 - 31.0 03/05/2019 [facility] MCHC 33.4 32.0 - 36.0 03/05/2019 [facility] RDW 15.9 11.5 - 14.5 03/05/2019 [facility] Platelet 97 133 - 450 03/05/2019 [facility] MPV 8.4 7.4 - 10.4 03/05/2019 [facility] Segs 73.8 45.0 - 75.0 03/05/2019 [facility] Lymphocytes 7.1 20.0 - 40.0 03/05/2019 [facility] HEMATOLOGY Monocytes 12.2 2.0 - 12.0 03/05/2019 [facility] HEMATOLOGY Eosinophils 6.3 0.0 - 4.0 03/05/2019 [facility] HEMATOLOGY Basophils 0.6 0.0 - 1.0 03/05/2019 [facility] HEMATOLOGY Neutrophils # 4.8 1.5 - 8.1 03/05/2019 [facility] Lymphocytes # 0.5 1.0 - 5.5 03/05/2019 [facility] Monocytes # 0.8 0.0 - 0.8 03/05/2019 [facility] HEMATOLOGY Eosinophils # 0.4 0.0 - 0.5 03/05/2019 [facility] URINE CHEM U Sodium 69 03/04/2019 [facility] URINE CHEM U Potassium 24.4 03/04/2019 [facility] URINE CHEM U Chloride 73 03/04/2019 [facility] CHEM PANEL Glucose Lvl 92 70 - 99 03/04/2019 [facility] CHEM PANEL BUN 118 7 - 22 03/04/2019 [facility] CHEM PANEL Creatinine Lvl 8.59 0.50 - 1.40 03/04/2019 [facility] CHEM PANEL Sodium Lvl 133 135 - 145 03/04/2019 [facility] CHEM PANEL Potassium Lvl 4.6 3.5 - 5.1 03/04/2019 [facility] CHEM PANEL Chloride Lvl 92 95 - 109 03/04/2019 [facility] CHEM PANEL CO2 27 24 - 32 03/04/2019 [facility] CHEM PANEL AGAP 18.6 10.0 - 20.0 03/04/2019 [facility] CHEM PANEL Calcium Lvl 6.2 8.5 - 10.5 03/04/2019 Result Comment: Critical Result(s) najera d to Angélica Alvarez RN at 03/04/2019 04:56 by LT. Read back OK. [facility] CHEM PANEL eGFR 6 03/04/2019 Result Comment: [...] should be multiplied by the estimated BMI. [facility] HEMATOLOGY Segs 75.0 45.0 - 75.0 03/04/2019 [facility] HEMATOLOGY Lymphocytes 6.7 20.0 - 40.0 03/04/2019 [facility] HEMATOLOGY Monocytes 12.6 2.0 - 12.0 03/04/2019 [facility] HEMATOLOGY Eosinophils 5.1 0.0 - 4.0 03/04/2019 [facility] HEMATOLOGY Basophils 0.6 0.0 - 1.0 03/04/2019 [facility] HEMATOLOGY Neutrophils # 5.5 1.5 - 8.1 03/04/2019 [facility] HEMATOLOGY Lymphocytes # 0.5 1.0 - 5.5 03/04/2019 [facility] HEMATOLOGY Monocytes # 0.9 0.0 - 0.8 03/04/2019 [facility] HEMATOLOGY Eosinophils # 0.4 0.0 - 0.5 03/04/2019 [facility] HEMATOLOGY WBC 7.4 3.7 - 10.4 03/04/2019 [facility] HEMATOLOGY RBC 2.78 4.70 - 6.10 03/04/2019 [facility] HEMATOLOGY Hgb 8.8 14.0 - 18.0 03/04/2019 [facility] HEMATOLOGY Hct 26.4 42.0 - 54.0 03/04/2019 [facility] HEMATOLOGY MCV 95.3 80.0 - 94.0 03/04/2019 [facility] HEMATOLOGY MCH 31.7 27.0 - 31.0 03/04/2019 [facility] HEMATOLOGY MCHC 33.3 32.0 - 36.0 03/04/2019 [facility] HEMATOLOGY RDW 16.2 11.5 - 14.5 03/04/2019 [facility] HEMATOLOGY Platelet 98 133 - 450 03/04/2019 [facility] HEMATOLOGY MPV 8.5 7.4 - 10.4 03/04/2019 [facility] CHEM PANEL Lactic Acid Lvl 1.0 0.5 - 2.2 03/03/2019 [facility] HEMATOLOGY Segs 82.3 45.0 - 75.0 03/03/2019 [facility] HEMATOLOGY Lymphocytes 5.3 20.0 - 40.0 03/03/2019 [facility] HEMATOLOGY Monocytes 8.7 2.0 - 12.0 03/03/2019 [facility] HEMATOLOGY Eosinophils 3.1 0.0 - 4.0 03/03/2019 [facility] HEMATOLOGY Basophils 0.6 0.0 - 1.0 03/03/2019 [facility] HEMATOLOGY Neutrophils # 7.5 1.5 - 8.1 03/03/2019 [facility] HEMATOLOGY Lymphocytes # 0.5 1.0 - 5.5 03/03/2019 [facility] HEMATOLOGY Monocytes # 0.8 0.0 - 0.8 03/03/2019 [facility] HEMATOLOGY Eosinophils # 0.3 0.0 - 0.5 03/03/2019 [facility] HEMATOLOGY Basophils # 0.1 0.0 - 0.2 03/03/2019 [facility] HEMATOLOGY WBC 9.1 3.7 - 10.4 03/03/2019 [facility] HEMATOLOGY RBC 2.89 4.70 - 6.10 03/03/2019 [facility] HEMATOLOGY Hgb 9.3 14.0 - 18.0 03/03/2019 [facility] HEMATOLOGY Hct 27.8 42.0 - 54.0 03/03/2019 [facility] HEMATOLOGY MCV 96.2 80.0 - 94.0 03/03/2019 [facility] HEMATOLOGY MCH 32.1 27.0 - 31.0 03/03/2019 [facility] HEMATOLOGY MCHC 33.4 32.0 - 36.0 03/03/2019 [facility] HEMATOLOGY RDW 16.3 11.5 - 14.5 03/03/2019 [facility] HEMATOLOGY Platelet 108 133 - 450 03/03/2019 [facility] MPV 8.2 7.4 - 10.4 03/03/2019 [facility] MOLECULAR DIAGNOSTIC Source Respirat ory Panel PCR Nasophrngl Swb *NA* (03/02/19 5:01 AM) 03/02/2019 [facility] MOLECULAR DIAGNOSTIC Influenza A PCR Negative *NA* (03/02/19 5:01 AM) Negative 03/02/2019 [facility] MOLECULAR DIAGNOSTIC Influenza B PCR Negative *NA* (03/02/19 5:01 AM) Negative 03/02/2019 [facility] DIAGNOSTIC RSV PCR Negative *NA* (03/02/19 5:01 AM) Negative 03/02/2019 [facility] CARDIAC ENZYMES BNP 4226 <=100 pg/mL 03/02/2019 [facility] CARDIAC ENZYMES Troponin-I 0.03 0.00 - 0.40 03/02/2019 [facility] CHEM PANEL B/C Ratio 13 6 - 25 03/02/2019 [facility] CHEM PANEL Total Protein 6.6 6.4 - 8.4 03/02/2019 [facility] CHEM PANEL Albumin Lvl 3.1 3.5 - 5.0 03/02/2019 [facility] CHEM PANEL Globulin 3.5 2.7 - 4.2 03/02/2019 [facility] CHEM PANEL A/G Ratio 0.9 0.7 - 1.6 03/02/2019 [facility] CHEM PANEL ALT 11 0 - 65 03/02/2019 [facility] CHEM PANEL AST 7 0 - 37 03/02/2019 [facility] CHEM PANEL Alk Phos 113 39 - 136 03/02/2019 [facility] CHEM PANEL Bili Total 0.7 0.2 - 1.3 03/02/2019 [facility] CHEM PANEL Magnesium Lvl 2.7 1.8 - 2.4 03/02/2019 [facility] CHEM PANEL Phosphorus 8.9 2.5 - 4.5 03/02/2019 [facility] CHEM PANEL Procalcitonin Lvl 0.79 0.00 - 0.10 03/02/2019 [facility] CHEM PANEL Lactic Acid Lvl 1.2 0.5 - 2.2 03/02/2019 [facility] CHEM PANEL Magnesium Lvl 2.3 1.8 - 2.4 06/01/2018 [facility] CHEM PANEL Glucose Lvl 153 70 - 99 06/01/2018 [facility] CHEM PANEL Creatinine Lvl 5.29 0.50 - 1.40 06/01/2018 [facility] CHEM PANEL Sodium Lvl 137 135 - 145 06/01/2018 [facility] CHEM PANEL Potassium Lvl 4.0 3.5 - 5.1 06/01/2018 [facility] CHEM PANEL BUN 109 7 - 22 06/01/2018 [facility] CHEM PANEL eGFR 12 06/01/2018 Result Comment: [...] should be multiplied by the estimated BMI. [facility] CHEM PANEL AGAP 11.0 10.0 - 20.0 06/01/2018 [facility] CHEM PANEL Calcium Lvl 8.1 8.5 - 10.5 06/01/2018 [facility] CHEM PANEL CO2 31 24 - 32 06/01/2018 [facility] CHEM PANEL Chloride Lvl 99 95 - 109 06/01/2018 [facility] CHEM PANEL Magnesium Lvl 2.2 1.8 - 2.4 05/31/2018 [facility] ELECTROLYTES CO2 29 24 - 32 05/31/2018 [facility] ELECTROLYTES Calcium Lvl 7.5 8.5 - 10.5 05/31/2018 [facility] ELECTROLYTES AGAP 12.0 10.0 - 20.0 05/31/2018 [facility] ELECTROLYTES eGFR 11 05/31/2018 Result Comment: The [...] should be multiplied by the estimated BMI. [facility] ELECTROLYTES Chloride Lvl 103 95 - 109 05/31/2018 [facility] ELECTROLYTES Potassium Lvl 4.0 3.5 - 5.1 05/31/2018 [facility] ELECTROLYTES Creatinine Lvl 5.5 1 0.50 - 1.40 05/31/2018 [facility] ELECTROLYTES Sodium Lvl 140 135 - 145 05/31/2018 [facility] ELECTROLYTES Glucose Lvl 140 70 - 99 05/31/2018 [facility] ELECTROLYTES BUN 110 7 - 22 05/31/2018 [facility] CHEM PANEL eGFR 11 05/30/2018 Result Comment: [...] should be multiplied by the estimated BMI. [facility] CHEM PANEL Potassium Lvl 3.3 3.5 - 5.1 05/30/2018 [facility] CHEM PANEL Sodium Lvl 138 135 - 145 05/30/2018 [facility] CHEM PANEL Creatinine Lvl 5.54 0.50 - 1.40 05/30/2018 [facility] CHEM PANEL BUN 110 7 - 22 05/30/2018 [facility] CHEM PANEL Glucose Lvl 132 70 - 99 05/30/2018 [facility] CHEM PANEL Calcium Lvl 7.5 8.5 - 10.5 05/30/2018 [facility] CHEM PANEL Chloride Lvl 103 95 - 109 05/30/2018 [facility] CHEM PANEL AGAP 12.3 10.0 - 20.0 05/30/2018 [facility] CHEM PANEL CO2 26 24 - 32 05/30/2018 [facility] CHEM PANEL Magnesium Lvl 2.4 1.8 - 2.4 05/30/2018 [facility] CHEM PANEL Phosphorus 6.9 2.5 - 4.5 05/30/2018 [facility] CHEM PANEL Phosphorus 7.8 2.5 - 4.5 05/29/2018 [facility] CHEM PANEL Phosphorus 8.7 2.5 - 4.5 05/28/2018 [facility] HEMATOLOGY MCV 90.6 80.0 - 94.0 05/28/2018 [facility] WBC 8.1 3.7 - 10.4 05/28/2018 [facility] RBC 3.09 4.70 - 6.10 05/28/2018 [facility] Hgb 9.0 14.0 - 18.0 05/28/2018 [facility] Hct 28.0 42.0 - 54.0 05/28/2018 [facility] MCH 29.0 27.0 - 31.0 05/28/2018 [facility] MPV 8.9 7.4 - 10.4 05/28/2018 [facility] RDW 19.0 11.5 - 14.5 05/28/2018 [facility] MCHC 32.0 32.0 - 36.0 05/28/2018 [facility] Platelet 99 133 - 450 05/28/2018 [facility] HEMATOLOGY Eosinophils # 0.3 0.0 - 0.5 05/28/2018 [facility] HEMATOLOGY Basophils # 0.1 0.0 - 0.2 05/28/2018 [facility] HEMATOLOGY Lymphocytes # 0.4 1.0 - 5.5 05/28/2018 [facility] HEMATOLOGY Monocytes # 1.0 0.0 - 0.8 05/28/2018 [facility] HEMATOLOGY Basophils 0.8 0.0 - 1.0 05/28/2018 [facility] Neutrophils # 6.3 1.5 - 8.1 05/28/2018 [facility] Lymphocytes 4.5 20.0 - 40.0 05/28/2018 [facility] Monocytes 12.7 2.0 - 12.0 05/28/2018 [facility] Eosinophils 3.9 0.0 - 4.0 05/28/2018 [facility] Segs 78.1 45.0 - 75.0 05/28/2018 [facility] ANEMIA STUDY Iron 40 45 - 160 05/27/2018 [facility] ANEMIA STUDY TIBC 287 228 - 428 05/27/2018 [facility] ANEMIA STUDY % [place] 14 12 - 57 05/27/2018 [facility] ANEMIA STUDY UIBC 247 110 - 370 05/27/2018 [facility] RBC 3.11 4.70 - 6.10 05/27/2018 [facility] Hgb 9.1 14.0 - 18.0 05/27/2018 [facility] MCHC 33.1 32.0 - 36.0 05/27/2018 [facility] Hct 27.6 42.0 - 54.0 05/27/2018 [facility] MCV 88.7 80.0 - 94.0 05/27/2018 [facility] MPV 8.3 7.4 - 10.4 05/27/2018 [facility] RDW 19.9 11.5 - 14.5 05/27/2018 [facility] Platelet 97 133 - 450 05/27/2018 [facility] MCH 29.4 27.0 - 31.0 05/27/2018 [facility] HEMATOLOGY WBC 6.1 3.7 - 10.4 05/27/2018 [facility] Basophils # 0.1 0.0 - 0.2 05/27/2018 [facility] Monocytes # 0.7 0.0 - 0.8 05/27/2018 [facility] Eosinophils # 0.3 0.0 - 0.5 05/27/2018 [facility] HEMATOLOGY Lymphocytes 6.0 20.0 - 40.0 05/27/2018 [facility] HEMATOLOGY Monocytes 11.2 2.0 - 12.0 05/27/2018 [facility] HEMATOLOGY Eosinophils 4.9 0.0 - 4.0 05/27/2018 [facility] HEMATOLOGY Segs 77.0 45.0 - 75.0 05/27/2018 [facility] HEMATOLOGY Neutrophils # 4.7 1.5 - 8.1 05/27/2018 [facility] HEMATOLOGY Lymphocytes # 0.4 1.0 - 5.5 05/27/2018 [facility] HEMATOLOGY Basophils 0.9 0.0 - 1.0 05/27/2018 [facility] PARATHYROID PROFILE PTH Intact 89.4 18.4 - 80.1 05/27/2018 [facility] PARATHYROID PROFILE Ca Norm WB 0.76 1.05 - 1.25 05/27/2018 [facility] PARATHYROID PROFILE Ca Ion WB 0.81 1.05 - 1.25 05/27/2018 Result Comment: Critical Result(s) najera d to mariela roberson at 05/27/2018 07:20 by EFA. Read back OK. [facility] PARATHYROID PROFILE Ca Norm WB 0.70 1.05 - 1.25 05/26/2018 [facility] PARATHYROID PROFILE Ca Ion WB 0.75 1.05 - 1.25 05/26/2018 Result Comment: Critical Result(s) dania d to Nafisa Mead_ at 05/26/2018 06:32 mfb_ by_. Read back OK. [facility] URINE AND STOOL UA Mucus Few /LPF None Seen /LPF 05/25/2018 [facility] URINE AND STOOL UA RBC 1 0 - 2 05/25/2018 [facility] URINE AND STOOL UA Blood Small *ABN* (05/25/18 4:33 PM) Negative 05/25/2018 [facility] URINE AND STOOL UA WBC 1 0 - 5 05/25/2018 [facility] URINE AND STOOL UA Leuk Est Negative (05/25/18 4:33 PM) Negative 05/25/2018 [facility] URINE AND STOOL UA Sq Epi Occasional /LPF Few /LPF 05/25/2018 [facility] URINE AND STOOL UA Nitrite Negative (05/25/18 4:33 PM) Negative 05/25/2018 [facility] URINE AND STOOL UA Urobilinogen <=1.0 mg/dL 0.1 - 1.0 05/25/2018 [facility] URINE AND STOOL UA Ketones Negative *NA* (05/25/18 4:33 PM) Negative 05/25/2018 [facility] URINE AND STOOL UA Glucose 50 mg/dL Negative mg/dL 05/25/2018 [facility] URINE AND STOOL UA Protein 100 mg/dL Negative mg/dL 05/25/2018 [facility] URINE AND STOOL UA Spec Grav 1.010 <=1.030 05/25/2018 [facility] URINE AND STOOL UA pH 5.0 5.0 - 8.0 05/25/2018 [facility] URINE AND STOOL UA Color Ltyellow 05/25/2018 [facility] URINE AND STOOL UA Turbidity Clear (05/25/18 4:33 PM) Clear 05/25/2018 [facility] URINE AND STOOL UA Bili Negative *NA* (05/25/18 4:33 PM) Negative 05/25/2018 [facility] CARDIAC ENZYMES Troponin-I <0.02 0.00 - 0.40 05/25/2018 [facility] CARDIAC ENZYMES BNP 2189 <=100 pg/mL 05/25/2018 [facility] CHEM PANEL B/C Ratio 19 6 - 25 05/25/2018 [facility] CHEM PANEL Bili Total 0.5 0.2 - 1.3 05/25/2018 [facility] CHEM PANEL A/G Ratio 0.8 0.7 - 1.6 05/25/2018 [facility] CHEM PANEL ALT 11 0 - 65 05/25/2018 [facility] CHEM PANEL AST 16 0 - 37 05/25/2018 [facility] CHEM PANEL Alk Phos 138 39 - 136 05/25/2018 [facility] CHEM PANEL Total Protein 6.9 6.4 - 8.4 05/25/2018 [facility] CHEM PANEL Albumin Lvl 3.1 3.5 - 5.0 05/25/2018 [facility] CHEM PANEL Globulin 3.8 2.7 - 4.2 05/25/2018 [facility] HEMATOLOGY Basophils # 0.1 0.0 - 0.2 05/25/2018 [facility] HEMATOLOGY Eosinophils # 0.1 0.0 - 0.5 05/25/2018 [facility] HEMATOLOGY Neutrophils # 4.6 1.5 - 8.1 05/25/2018 [facility] HEMATOLOGY Lymphocytes # 0.4 1.0 - 5.5 05/25/2018 [facility] HEMATOLOGY Basophils 1.2 0.0 - 1.0 05/25/2018 [facility] HEMATOLOGY Eosinophils 2.3 0.0 - 4.0 05/25/2018 [facility] Monocytes 11.5 2.0 - 12.0 05/25/2018 [facility] Monocytes # 0.7 0.0 - 0.8 05/25/2018 [facility] Lymphocytes 7.1 20.0 - 40.0 05/25/2018 [facility] Segs 77.9 45.0 - 75.0 05/25/2018 [facility] MPV 9.0 7.4 - 10.4 05/25/2018 [facility] Platelet 98 133 - 450 05/25/2018 [facility] RDW 19.7 11.5 - 14.5 05/25/2018 [facility] MCHC 32.9 32.0 - 36.0 05/25/2018 [facility] MCH 29.5 27.0 - 31.0 05/25/2018 [facility] MCV 89.9 80.0 - 94.0 05/25/2018 [facility] RBC 3.10 4.70 - 6.10 05/25/2018 [facility] WBC 5.8 3.7 - 10.4 05/25/2018 [facility] Hct 27.9 42.0 - 54.0 05/25/2018 [facility] Hgb 9.2 14.0 - 18.0 05/25/2018 [facility] CARDIAC ENZYMES BNP >5000 <=100 pg/mL 04/07/2018 [facility] CHEM PANEL eGFR 15 04/07/2018 Result Comment: [...] should be multiplied by the estimated BMI. [facility] CHEM PANEL Calcium Lvl 6.0 8.5 - [...] Potassium Lvl 4.3 3.5 - 5.1 04/06/2018 [facility] CHEM PANEL Sodium Lvl 144 135 - 145 04/06/2018 [facility] CHEM PANEL Creatinine Lvl 4.06 0.50 - 1.40 04/06/2018 [facility] CHEM PANEL BUN 60 7 - 22 04/06/2018 [facility] CHEM PANEL Glucose Lvl 163 70 - 99 04/06/2018 [facility] HEMATOLOGY WBC 7.4 3.7 - 10.4 04/06/2018 [facility] HEMATOLOGY RBC 3.46 4.70 - 6.10 04/06/2018 [facility] HEMATOLOGY Hgb 9.8 14.0 - 18.0 04/06/2018 [facility] HEMATOLOGY MCH 28.4 27.0 - 31.0 04/06/2018 [facility] HEMATOLOGY MCV 86.6 80.0 - 94.0 04/06/2018 [facility] HEMATOLOGY MPV 8.1 7.4 - 10.4 04/06/2018 [facility] HEMATOLOGY Platelet 148 133 - 450 04/06/2018 [facility] HEMATOLOGY Hct 29.9 42.0 - 54.0 04/06/2018 [facility] HEMATOLOGY RDW 17.0 11.5 - 14.5 04/06/2018 [facility] HEMATOLOGY MCHC 32.8 32.0 - 36.0 04/06/2018 [facility] HEMATOLOGY Monocytes 10.0 2.0 - 12.0 04/06/2018 [facility] HEMATOLOGY Eosinophils 3.3 0.0 - 4.0 04/06/2018 [facility] HEMATOLOGY Lymphocytes 6.6 20.0 - 40.0 04/06/2018 [facility] HEMATOLOGY Monocytes # 0.7 0.0 - 0.8 04/06/2018 [facility] HEMATOLOGY Lymphocytes # 0.5 1.0 - 5.5 04/06/2018 [facility] HEMATOLOGY Neutrophils # 5.9 1.5 - 8.1 04/06/2018 [facility] HEMATOLOGY Eosinophils # 0.2 0.0 - 0.5 04/06/2018 [facility] HEMATOLOGY Segs 79.3 45.0 - 75.0 04/06/2018 [facility] HEMATOLOGY Basophils # 0.1 0.0 - 0.2 04/06/2018 [facility] HEMATOLOGY Basophils 0.8 0.0 - 1.0 04/06/2018 [facility] CARDIAC ENZYMES Troponin-I 0.03 0.00 - 0.40 04/06/2018 [facility] CARDIAC ENZYMES Troponin-I 0.03 0.00 - 0.40 04/06/2018 [facility] PARATHYROID PROFILE Ca Norm WB 0.71 1.05 - 1.25 04/06/2018 [facility] PARATHYROID PROFILE Ca Ion WB 0.71 1.05 - 1.25 04/06/2018 Result Comment: Critical Result(s) najera d to RN. Gale Obando at 04/06/2018 03:04 by alexis. Read back OK. [facility] URINE AND STOOL UA Sq Epi None Seen (04/05/18 11:50 PM) Few 04/06/2018 [facility] URINE AND STOOL UA Bacteria Occasional /HPF None Seen /HPF 04/06/[address] [facility] [address] URINE AND STOOL UA Nitrite Negative (04/05/18 11:50 PM) Negative 04/06/2018 [facility] URINE AND STOOL UA Leuk Est Negative (04/05/18 11:50 PM) Negative 04/06/2018 [facility] URINE AND STOOL UA Urobilinogen <=1.0 mg/dL 0.1 - 1.0 04/06/[address] [facility] [address] URINE AND STOOL UA WBC 1 0 - 5 04/06/2018 [facility] URINE AND STOOL UA Hyal Cast 3 0 - 2 04/06/2018 [facility] URINE AND STOOL UA RBC 4 0 - 2 04/06/2018 [facility] URINE AND STOOL UA Protein >=300 mg/dL Negative mg/dL 04/06/2018 [facility] URINE AND STOOL UA pH 7.0 5.0 - 8.0 04/06/2018 [facility] URINE AND STOOL UA Spec Grav 1.013 <=1.030 04/06/2018 [facility] URINE AND STOOL UA Glucose 150 mg/dL Negative mg/dL 04/06/2018 [facility] URINE AND STOOL UA Ketones Negative *NA* (04/05/18 11:50 PM) Negative 04/06/2018 [facility] URINE AND STOOL UA Bili Negative *NA* (04/05/18 11:50 PM) Negative 04/06/2018 [facility] URINE AND STOOL UA Blood Negative (04/05/18 11:50 PM) Negative 04/06/2018 [facility] URINE AND STOOL UA Turbidity Clear (04/05/18 11:50 PM) Clear 04/06/2018 [facility] URINE AND STOOL UA Color Yellow *NA* (04/05/18 11:50 PM) Yellow 04/06/2018 [facility] CARDIAC ENZYMES BNP >5000 <=100 pg/mL 04/06/2018 [facility] CARDIAC ENZYMES Troponin-I 0.02 0.00 - 0.40 04/06/2018 [facility] CHEM PANEL eGFR 16 04/06/2018 Result Comment: [...] should be multiplied by the estimated BMI. [facility] CHEM PANEL Chloride Lvl 105 95 - 109 04/06/2018 [facility] CHEM PANEL CO2 29 24 - 32 04/06/2018 [facility] CHEM PANEL AGAP 12.3 10.0 - 20.0 04/06/2018 [facility] CHEM PANEL B/C Ratio 14 6 - 25 04/06/2018 [facility] CHEM PANEL Calcium Lvl 5.8 8.5 - 10.5 04/06/2018 Result Comment: Critical Result(s) najera d to hayes bertrand RN at 04/05/2018 19:00 by . Read back OK. [facility] CHEM PANEL Bili Total 0.7 0.2 - 1.3 04/06/2018 [facility] CHEM PANEL Albumin Lvl 2.7 3.5 - 5.0 04/06/2018 [facility] CHEM PANEL Total Protein 6.5 6.4 - 8.4 04/06/2018 [facility] CHEM PANEL Globulin 3.8 2.7 - 4.2 04/06/2018 [facility] CHEM PANEL A/G Ratio 0.7 0.7 - 1.6 04/06/2018 [facility] CHEM PANEL ALT 13 0 - 65 04/06/2018 [facility] CHEM PANEL AST 14 0 - 37 04/06/2018 [facility] CHEM PANEL Alk Phos 138 39 - 136 04/06/2018 [facility] CHEM PANEL Sodium Lvl 142 135 - 145 04/06/2018 [facility] CHEM PANEL Creatinine Lvl 4.14 0.50 - 1.40 04/06/2018 [facility] CHEM PANEL BUN 60 7 - 22 04/06/2018 [facility] CHEM PANEL Glucose Lvl 179 70 - 99 04/06/2018 [facility] CHEM PANEL Potassium Lvl 4.3 3.5 - 5.1 04/06/2018 [facility] HEMATOLOGY PTT 44.0 22.9 - 35.8 04/06/2018 [facility] HEMATOLOGY PT 16.5 12.0 - 14.7 04/06/2018 [facility] HEMATOLOGY INR 1.36 0.85 - 1.17 04/06/2018 [facility] HEMATOLOGY Platelet 157 133 - 450 04/06/2018 [facility] HEMATOLOGY RDW 17.6 11.5 - 14.5 04/06/2018 [facility] HEMATOLOGY MCHC 32.4 32.0 - 36.0 04/06/2018 [facility] HEMATOLOGY MPV 8.8 7.4 - 10.4 04/06/2018 [facility] HEMATOLOGY Hct 30.6 42.0 - 54.0 04/06/2018 [facility] HEMATOLOGY MCV 88.3 80.0 - 94.0 04/06/2018 [facility] HEMATOLOGY Hgb 9.9 14.0 - 18.0 04/06/2018 [facility] HEMATOLOGY MCH 28.6 27.0 - 31.0 04/06/2018 [facility] HEMATOLOGY WBC 7.1 3.7 - 10.4 04/06/2018 [facility] HEMATOLOGY RBC 3.47 4.70 - 6.10 04/06/2018 [facility] HEMATOLOGY Basophils # 0.1 0.0 - 0.2 04/06/2018 [facility] HEMATOLOGY Eosinophils # 0.2 0.0 - 0.5 04/06/2018 [facility] HEMATOLOGY Monocytes # 0.6 0.0 - 0.8 04/06/2018 [facility] HEMATOLOGY Lymphocytes # 0.5 1.0 - 5.5 04/06/2018 [facility] HEMATOLOGY Neutrophils # 5.7 1.5 - 8.1 04/06/2018 [facility] HEMATOLOGY Basophils 1.0 0.0 - 1.0 04/06/2018 [facility] HEMATOLOGY Eosinophils 3.3 0.0 - 4.0 04/06/2018 [facility] HEMATOLOGY Monocytes 9.1 2.0 - 12.0 04/06/2018 [facility] HEMATOLOGY Lymphocytes 7.2 20.0 - 40.0 04/06/2018 [facility] HEMATOLOGY Segs 79.4 45.0 - 75.0 04/06/2018 [facility] HEMATOLOGY AT III Func 93 77 - 140 09/17/2017 [facility] HEMATOLOGY Protein C Func 87 72 - 147 09/17/2017 [facility] HEMATOLOGY Protein S Func 74 54 - 137 09/17/2017 [facility] Homocyst Tot 15.2 3.7 - 13.9 09/17/2017 [facility] IMMUNOLOGY Cardiolipin IgG <1.6 <=19.9 GPL 09/17/2017 [facility] IMMUNOLOGY Cardiolipin IgA 4.7 <=19.9 APL 09/17/2017 [facility] IMMUNOLOGY Cardiolipin IgM 16.9 <=19.9 MPL 09/17/2017 [facility] CHEM PANEL BUN 51 7 - 22 09/17/2017 [facility] CHEM PANEL Glucose Lvl 58 70 - 99 09/17/2017 [facility] CHEM PANEL Chloride Lvl 104 95 - 109 09/17/2017 [facility] CHEM PANEL Sodium Lvl 142 135 - 145 09/17/2017 [facility] CHEM PANEL Potassium Lvl 5.2 3.5 - 5.1 09/17/2017 [facility] CHEM PANEL Creatinine Lvl 4.34 0.50 - 1.40 09/17/2017 [facility] CHEM PANEL eGFR 15 09/17/2017 Result Comment: [...] should be multiplied by the estimated BMI. [facility] CHEM PANEL Calcium Lvl 5.7 8.5 - 10.5 09/17/2017 Result Comment: Critical Result(s) dania rankin at 09/17/2017 04:28 byjw. Read back OK. [facility] CHEM PANEL AGAP 17.2 10.0 - 20.0 09/17/2017 [facility] CHEM PANEL CO2 26 24 - 32 09/17/2017 [facility] LIPIDS CHD Risk 2.63 4.00 - 7.30 09/16/2017 [facility] LIPIDS LDL (Calculated) 31 <=99 mg/dL 09/16/2017 [facility] LIPIDS VLDL 18 09/16/2017 [facility] LIPIDS HDL 30 >=61 mg/dL 09/16/2017 [facility] [facility] LIP[facility] Trig 90 <=149 mg/dL 09/16/2017 [facility] LIPIDS Chol 79 <=199 mg/dL 09/16/2017 [facility] PARATHYROID PROFILE Ca Norm WB 0.61 1.05 - 1.25 09/16/2017 Result Comment: Critical Result(s) dania Salomon at 09/16/2017 16:49 by MS. Read back OK. [facility] PARATHYROID PROFILE Ca Ion WB 0.61 1.05 - 1.25 09/16/2017 [facility] SPECIAL CHEMISTRY Hgb A1C 6.0 <=5.6 % 09/16/2017 [facility] CARDIAC ENZYMES BNP 1121 <=100 pg/mL 09/16/2017 [facility] CARDIAC ENZYMES Troponin-I <0.02 0.00 - 0.40 09/16/2017 [facility] CARDIAC ENZYMES Total CK 793 12 - 191 09/16/2017 [facility] CHEM PANEL eGFR 15 09/16/2017 Result Comment: [...] should be multiplied by the estimated BMI. [facility] CHEM PANEL BUN 52 7 - 22 09/16/2017 [facility] CHEM PANEL Creatinine Lvl 4.39 0.50 - 1.40 09/16/2017 [facility] CHEM PANEL Potassium Lvl 4.8 3.5 - 5.1 09/16/2017 [facility] CHEM PANEL Sodium Lvl 140 135 - 145 09/16/2017 [facility] CHEM PANEL Chloride Lvl 99 95 - 109 09/16/2017 [facility] CHEM PANEL Glucose Lvl 57 70 - 99 09/16/2017 [facility] CHEM PANEL CO2 29 24 - 32 09/16/2017 [facility] CHEM PANEL Calcium Lvl 5.5 8.5 - 10.5 09/16/2017 Result Comment: Critical Result(s) dania Salomon at 09/16/2017 15:41 by Read back OK. [facility] CHEM PANEL AGAP 16.8 10.0 - 20.0 09/16/2017 [facility] HEMATOLOGY Segs 78.3 45.0 - 75.0 09/16/2017 [facility] HEMATOLOGY Monocytes 9.1 2.0 - 12.0 09/16/2017 [facility] HEMATOLOGY Eosinophils 3.4 0.0 - 4.0 09/16/2017 [facility] Lymphocytes 8.5 20.0 - 40.0 09/16/2017 [facility] HEMATOLOGY Segs-Bands # 8.0 1.5 - 8.1 09/16/2017 [facility] HEMATOLOGY Lymphocytes # 0.9 1.0 - 5.5 09/16/2017 [facility] HEMATOLOGY Basophils 0.7 0.0 - 1.0 09/16/2017 [facility] HEMATOLOGY Basophils # 0.1 0.0 - 0.2 09/16/2017 [facility] HEMATOLOGY Eosinophils # 0.3 0.0 - 0.5 09/16/2017 [facility] HEMATOLOGY Monocytes # 0.9 0.0 - 0.8 09/16/2017 [facility] HEMATOLOGY PT 15.8 12.0 - 14.7 09/16/2017 [facility] HEMATOLOGY INR 1.25 0.85 - 1.17 09/16/2017 [facility] HEMATOLOGY MPV 9.1 7.4 - 10.4 09/16/2017 [facility] Hgb 9.8 14.0 - 18.0 09/16/2017 [facility] HEMATOLOGY Hct 29.7 42.0 - 54.0 09/16/2017 [facility] HEMATOLOGY RBC 3.28 4.70 - 6.10 09/16/2017 [facility] RDW 15.1 11.5 - 14.5 09/16/2017 [facility] HEMATOLOGY Platelet 197 133 - 450 09/16/2017 [facility] MCH 30.0 27.0 - 31.0 09/16/2017 [facility] MCHC 33.2 32.0 - 36.0 09/16/2017 [facility] WBC 10.2 3.7 - 10.4 09/16/2017 [facility] HEMATOLOGY MCV 90.3 80.0 - 94.0 09/16/2017 [facility] HEMATOLOGY PTT 36.3 22.9 - 35.8 09/16/2017 [facility] Pathology Reports No Data Provided for This Section Diagnostic Reports Report Value Date Source Retroperitoneal Complete US [place] OCEDURE INFORMATION: Exam: US Retroperitoneal Complete. Exam [...] obstruction. Alberto Tracey MD On 03/02/2019 08:34:10; [id number] 03/02/2019 [facility] Chest 1view DX PROCEDURE INFOR MATION: Exam: [...] n. Willam Molina MD On 03/01/2019 23:25:05; [id number] 03/01/2019 [facility] 1view DX Clinical Indica tion: - [...] ence of heart failure SL: [id number] 05/25/2018 [facility] Scrotal/Testicle w Doppler US PROCEDURE: SCROTAL ULTRASOUND [...] epididymal head cyst or spermato pattie. SL: [id number] 05/25/2018 [facility] 1view DX EXAM: Chest radiograph HISTORY: Shortness of breath COMPARISON: 09/16/2017 TECHNIQUE: Frontal view of the chest FINDINGS/IMPRESSION: Stable moderate-marked cardiomegaly with pulmonary venous hypertension. No appreciable pneumonia. Possible small pleural effusion on the right. SL: YOSEPH 04/05/2018 [facility] Brain wo contrast MRI Note the results of the case were discussed with the patients nurse, Dudley 829 PM 09/16/2017. Patient Name: DUDLEY TREJO : 1970; Age: 47 years y/o Male MR: [id number] Study: Brain wo contrast MRI 09/16/2017 3:52 [...] greater than the left. SL: OZ-PC 09/16/2017 [facility] Carotid artery Doppler bilat US Clinical Indication: [...] low, or Variable undetectable SL: [id number]-M 09/16/2017 [facility] Retroperitoneal Complete US [place] OCEDURE: RENAL ULTRASOUND INDICATION: - renal failure [...] IMPRESSION: Normal renal ultrasound. SL: -Devi 09/16/2017 [facility] Chest 1view DX Study: Chest 1v iew DX Clinical Indication: - cva Comparison: None FINDINGS: Cardiac silhouette is moderately enlarged. Central vascular congestion and small right pleural effusion are seen. There is no pneumothorax. The osseous structures are unremarkable. IMPRESSION: Mild congestive heart failure SL: [id number] 09/16/2017 [facility] Brain Stroke wo contrast CT Cl inical [...] PM September 16, 2017. SL: WR3-M 09/16/2017 [facility] Consultation Notes No Data Provided for This Section Discharge Summaries No Data Provided for This Section History and Physicals No Data Provided for This Section Vital Signs Vital Sign Value Date Comments Source Temperature Oral (F) 97.4 F 03/08/2019 [facility] Heart Rate 57 03/08/2019 [facility] Respitory Rate 18 03/08/2019 [facility] Systolic (mm Hg) 177 03/08/2019 [facility] Diastolic (mm Hg) 80 03/08/2019 [facility] Temperature Oral (F) 97.4 F 03/08/2019 [facility] Heart Rate 64 03/08/2019 [facility] Respitory Rate 18 03/08/2019 [facility] Systolic (mm Hg) 168 03/08/2019 [facility] Diastolic (mm Hg) 84 03/08/2019 [facility] Respitory Rate 16 03/08/2019 [facility] Height 330.2 cm 03/08/2019 [facility] Temperature Oral (F) 97.9 F 03/08/2019 [facility] Heart Rate 62 03/08/2019 [facility] Systolic (mm Hg) 170 03/08/2019 [facility] Diastolic (mm Hg) 89 03/08/2019 [facility] Height 330.2 cm 03/07/2019 [facility] Height 330.2 cm 03/06/2019 [facility] Weight 102.273 03/02/2019 [facility] Calculated 32.35 03/02/2019 [facility] Weight 102.273 03/02/2019 [facility] BMI Calculated 32.35 03/02/2019 [facility] Systolic (mm Hg) 155 06/01/2018 [facility] Diastolic (mm Hg) 78 06/01/2018 [facility] Respitory Rate 16 06/01/2018 [facility] Temperature Oral (F) 98.0 F 06/01/2018 [facility] Heart Rate 60 06/01/2018 [facility] Systolic (mm Hg) 142 06/01/2018 [facility] Diastolic (mm Hg) 73 06/01/2018 [facility] Respitory Rate 18 06/01/2018 [facility] Heart Rate 62 06/01/2018 [facility] Temperature Oral (F) 98.2 F 06/01/2018 [facility] Respitory Rate 18 06/01/2018 [facility] Heart Rate 66 06/01/2018 [facility] Temperature Oral (F) 98.1 F 06/01/2018 [facility] Systolic (mm Hg) 161 06/01/2018 [facility] Diastolic (mm Hg) 83 06/01/2018 [facility] Weight 105.114 05/27/2018 [facility] BMI Calculated 32.35 05/25/2018 [facility] Weight 102.273 05/25/2018 [facility] Height 177.8 cm 05/25/2018 [facility] Respitory Rate 18 04/08/2018 [facility] Systolic (mm Hg) 124 04/08/2018 [facility] Diastolic (mm Hg) 69 04/08/2018 [facility] Heart Rate 82 04/08/2018 [facility] Temperature Oral (F) 97.8 F 04/08/2018 [facility] Heart Rate 56 04/08/2018 [facility] Temperature Oral (F) 97.4 F 04/08/2018 [facility] Respitory Rate 18 04/08/2018 [facility] Systolic (mm Hg) 144 04/08/2018 [facility] Diastolic (mm Hg) 78 04/08/2018 [facility] Systolic (mm Hg) 152 04/08/2018 [facility] Diastolic (mm Hg) 82 04/08/2018 [facility] Respitory Rate 16 04/08/2018 [facility] Heart Rate 61 04/08/2018 [facility] Temperature Oral (F) 97.8 F 04/08/2018 [facility] Height 177.8 cm 04/06/2018 [facility] BMI Calculated 32.93 04/06/2018 [facility] Weight 104.091 04/06/2018 [facility] Height 177.8 cm 04/05/2018 [facility] BMI Calculated 32.35 04/05/2018 [facility] Weight 102.273 04/05/2018 [facility] Temperature Oral (F) 98 F 09/17/2017 [facility] Heart Rate 58 09/17/2017 [facility] Respitory Rate 19 09/17/2017 [facility] Systolic (mm Hg) 155 09/17/2017 [facility] Diastolic (mm Hg) 84 09/17/2017 [facility] Temperature Oral (F) 98.4 F 09/17/2017 [facility] Heart Rate 60 09/17/2017 [facility] Systolic (mm Hg) 174 09/17/2017 [facility] Diastolic (mm Hg) 61 09/17/2017 [facility] Respitory Rate 18 09/17/2017 [facility] Systolic (mm Hg) 162 09/17/2017 [facility] Diastolic (mm Hg) 88 09/17/2017 [facility] Temperature Oral (F) 98.1 F 09/17/2017 [facility] Heart Rate 61 09/17/2017 [facility] Respitory Rate 18 09/17/2017 [facility] BMI Calculated 31.63 09/16/2017 [facility] Weight 100 09/16/2017 [facility] Height 177.8 cm 09/16/2017 [facility] Weight 100 09/16/2017 [facility] BMI Calculated 31.63 09/16/2017 [facility] Height 177.8 cm 09/16/2017 [facility] Encounters Location Location Details Encounter Type Encounter Number Reason For Visit Attending Provider ADM Date DC Date Status Source [facility] Observation [id number] Cosme Noam 09/16/2017 09/17/2017 [facility] Inpatient [id number] Dustin Matuteebranious 04/05/2018 04/08/2018 [facility] Inpatient [id number] Rojas Mckay 05/25/2018 06/01/2018 [facility] Inpatient [id number] Babatunde Gee Jr 03/02/2019 03/09/2019 [facility] Procedures Procedure Code Date Perfomer Comments Source Appendectomy [id number] [facility] Repair of retina for retinal detachment [id number] [facility] Assessment and Plan Assessment and Plan Date [...] 03/08/19 Pain Intensity NRS (0-10) 0 03/08/19 [place] Coma Score 15 03/08/19 [facility] [...] mL: 10 ml/hr, IV, Stop: 04/01/19 8:16:00 SWIMMING COACH. glucagon: 1 mg, IM, PRN, PRN: Blood [...] mL: 10 ml/hr, IV, Stop: 04/01/19 5:26:00 SWIMMING COACH. hydrALAZINE: 50 mg, 1 tab, PO, Daily, 0 Refill(s). isosorbide mononitrate: 60 mg, 1 tab, PO, QAM, 0 Refill(s). melatonin: 3 mg, 1 tab, PO, ONCE, PRN: Sleep. potassium chloride: 40 mEq, 2 tab, PO, Daily, for 30 day, 60 tab, 0 Refill(s). Sodium Chloride 0.9% IV 60 mL + bumetanide 10 mg: Infuse as directed, IV, Stop: 01/10/20 8:10:00 SWIMMING COACH. Labs (Last four charted values) WBC 9.1 [...] 6.01) 2.Volume overload(E87.70) Ordered: Admit/Condition, 03/01/19 22:47:00 SWIMMING COACH, Status: Inpatient, IMU, Reason: Diastolic Heart Failure-EF > 40%, Expected LOS: 2 Midnights, Babatunde Dwyer MD, Admit MD Review/Approve Yes, Isolation: No Isolation/Standard Precautions, Volume overload [id number] PVR (Bladder Scan) POC, 03/02/19 5:09:00 SWIMMING COACH, q 6 hours x 4, Volume overload [...] BiPAP at outside ER [facility]. He had received 80 [...] scale insuiln lovenox IMCU full code 03/09/2019 [facility] Extracted from:Title: Clinical Document Author: Crescencio Gay [...] dialysis and kidney transplant. Also, I have [employer] program coming to educate him. he wants [...] Out Bal 06/01 24hr Tot 526 1000 -074 05/31 24hr Tot 5310 0278 - 3848 Labs (Last four charted values) WBC 8.1 [...] 08/2017) with clean cath in 2014 at [facility] - HTN - T2DM - CVA - [...] answering all questions. Progress Note - Daily [facility] Completed: Mar, 14:08 by Dustin Isaac [...] Tot 828 1100 -272 04/07 24hr Tot 6614 6450 - 3004 Medications (16) Active Scheduled Meds (9): 04/08/18 amLODIPine 10 mg PO Daily 04/06/18 aspirin (aspirin 81 mg tablet, enteric coated) 81 mg PO Q24H 04/07/18 carvedilol (Coreg) 25 mg PO BID 04/06/18 enoxaparin (Lovenox) 30 mg SUB- Q [id number] 04/06/18 furosemide 80 mg IVP Q12H 04/07/18 [...] by Rui Luque MD on 04/06/2018 05:07 SWIMMING COACH Hypcocalcemia Repleted. Follow morning labs 04/08/2018 [facility] Extracted from:Title: Clinical Document Author: Broderick Hemphill MD Date: 09/17/17 NEUROLOGY Progress Note - Daily [facility] Completed: , SEP 17, 2017, 07:50 [...] perceives light touch pinprick equal bilaterally Coordination [id number] is intact gait not tested Deep tendon [...] Hope to discharge tomorrow if stable 09/17/2017 [facility] Plan of Care No Data Provided for This Section Social History Social History Date Source Social History TypeResponse Alcohol Past, Type Beer, Liquor. Frequency: Daily. Previous treatment: None. Smoking Status Never smoker; Previous treatment: None; Exposure to Tobacco Smoke None; Cigarette Smoking Last 365 Days No; Reg Smoking Cessation Counseling No entered on: 03/02/19 04/06/2018 [facility] Family History No Data Provided for This Section Advance Directives No Data Provided for This Section Functional Status No Data Provided for This Section
--- OUTSIDE RECORDS SUMMARY | 2019-08-11 09:12 | XMS REPORT ---
Author Author [facility] t Organization [facility] Address [address] [place] [address] Phone Unavailable Care Team Providers Care Tourist Information Officer Name Role Phone Polly MCKEON YICHING Attphys Unavailable Chaz DRIVE IN TELLER, Angie Attphys [phone] Samir Charlesra Attphys Levi Mkcay Attphys Ghebranious, Ramsis Amir Attphys Cristhian Kellya Attphys Polly MCKEON YICHING Admphys Unavailable Mark Gee Jr Admphys Levi Mckay Admphys Ghebranious, Ramsis Amir Admphys Robin Marcy Admphys Payers Payer Name Policy Type Policy Number Effective Date Expiration Date Lew FRAGOSO/KAILA FREEMANxxxxxxxxxxxx2019- [id number] [id number] [address] xxxxxxxxxxxx 2019 00:00:00 [facility] Condition Name Condition Details Condition Category Status Onset Date Resolution Date Last Treatment Date Treating Clinician Comments Source CHF, PNA CHF, PNA Active 03/01/2019 [facility] Diagnosis Active 2019-03-01 00:00:00 2019-03-11 22:26:00 [facility] SOB/TESTICULAR PAIN SOB/ TESTICULAR PAIN Active 05/25/2018 [facility] Diagnosis Active 2018-05-25 00:00:00 2018-05-25 16:19:00 [facility] ACUTE EXACERBATION OF CHF, END-STAGE NIECY ACUTE EXACERBATION OF CHF, END-STAGE NIECY Active 05/25/2018 [facility] Diagnosis Active 2018-05-25 00:00:00 2018-05-26 09:10:00 [facility] CHF EXACERBATION CHF EXACERBATION Active 04/05/2018 [facility] Diagnosis Active 2018-04-05 00:00:00 2018-05-07 09:59:00 [facility] SHORTNESS OF BREATH SHOR TNESS OF BREATH Active 04/05/2018 [facility] Diagnosis Active 2018-04-05 00:00:00 2018-04-05 19:39:00 [facility] WEAKNESS WEAK NESS Active 09/16/2017 [facility] Diagnosis Active 2017-09-16 00:00:00 2017-09-16 16:08:00 [facility] BRAIN TIA BRAI N TIA Active 09/16/2017 [facility] Diagnosis Active 2017-09-16 00:00:00 2017-09-17 16:33:00 [facility] Acute congestive heart failure Acute congestive heart failure Disea se Active 2015-08-10 00:00:00 [facility] ealt LBBB (left bundle branch block) LBBB (left bundle branch block) Dis ease Active 2015-08-10 00:00:00 [facility] ealt Creatinine elevation Creatinine elevation Disease Active 00:00:00 [facility] Acute on chronic systolic (congestive) heart failure Acute on chronic systolic (congestive) heart failure 10/26/2018 [facility] Problem 2018-10-26 15:00:58 [facility] Other cardiomyopathies Othe r cardiomyopathies 10/26/2018 [facility] Problem 2018-10-26 15:00:58 [facility] Hypocalcemia Hypo calcemia 10/26/2018 [facility] Problem 2018-10-26 15:00:58 [facility] Hyperlipidemia, unspecified Hy perlipidemia, unspecified 10/26/2018 [facility] Problem 2018-10-26 15:00:5 8 [facility] Anemia in other chronic diseases classified elsewhere Anemia in other chronic diseases classified elsewhere 10/26/2018 [facility] Problem 2018-10-26 15:00:58 [facility] Chronic kidney disease, unspecified Chronic kidney disease, unspecified 10/26/2018 [facility] Problem 2018-10-26 15:00:58 [facility] Type 2 diabetes mellitus with diabetic chronic kidney disease Type 2 diabetes mellitus with diabetic chronic kidney disease 10/26/2018 [facility] Problem 2018-10-26 15:00:58 [facility] Personal history of transient ischemic a ttack (TIA), and cerebral infarction without residual deficits Personal history of transient ischemic attack (TIA), and cerebral infarction without residual deficits 10/26/2018 [facility] Problem 2018-10-26 15:00:58 [facility] lobsterman (current) use of aspirin lobsterman (current) use of aspirin 10/26/2018 [facility] Problem 6 15:00:58 [facility] FPC (current) use of antithrombotics/antiplatele ts FPC (current) use of antithrombotics/antiplatelets 10/26/2018 [facility] Problem 2018-10-26 15:00:58 [facility] Patient's noncompliance with other medical treatment a nd regimen Patient's noncompliance with other medical treatment and regimen 10/26/2018 [facility] Problem 2018-10-26 15:00:58 [facility] Cardiomyopathy (disorder) Card iomyopathy (disorder) Active Problem 03/10/2019 [facility] Problem Active 2019-03-10 23:4 5:18 [facility] Chronic kidney disease stage 4 (disorder) Chronic kidney disease stage 4 (disorder) Active Problem 03/10/2019 [facility] Problem Active 2019-03-10 23:45:18 [facility] Diabetes mellitus (disorder) D iabetes mellitus (disorder) Active Problem 03/10/2019 [facility] Problem Active 2019-03-10 23:45:18 [facility] Dyslipidemia (disorder) Dysl ipidemia (disorder) Active Problem 03/10/2019 [facility] Problem Active 2019-03-10 23:45:1 8 [facility] Hypertensive disorder, systemic arterial (disorder) Hypertensive disorder, systemic arterial (disorder) Active Problem 03/10/2019 [facility] Problem Active 2019-03-10 23:45:18 [facility] HEART FAILURE, UNSPECIFIED HEA RT FAILURE, UNSPECIFIED Active [facility] Diagnosis Active 2019-03-11 22:26:00 [facility] PNEUMONIA, UNSPECIFIED ORGANISM PNEUMONIA, UNSPECIFIED ORGANISM Active [facility] Diagnosis Active 2019-03-11 22:26 :00 [facility] END STAGE RENAL DISEASE END STAGE RENAL DISEASE Active [facility] Active 2018-05-26 09:10:00 [facility] HYPERKALEMIA HYPE RKALEMIA Active [facility] Diagnosis Active 2018-05-26 09:10:00 [place] [facility] [...] 2018-04-22 04:55:21 2018-10-26 15:00:58 2018-10-26 15:00:58 [facility] Allergies, Adverse Reactions, Alerts Allergy Name Allergy Type Status Severity Reaction(s) Onset Date Inacti ve Date Treating Clinician Comments Source No Known Allergies DA Active U 2019-03-01 00:00:00 [facility] No Known Allergies DA Active U 2016-10-03 00:00:00 [facility] No Known Medication Allergies No Known Medication Allergies Active [facility] Social History Social Habit Start Date Stop Date Quantity Comments Source Sex Assigned At [facility] Exposure to SARS-CoV-2 (event) Not sure [facility] Social History 2018-04-06 07:57:24 2018-04-06 07:57:24 [facility] Alcohol intake 2015-08-15 00:00:00 2015-08-15 00:00:00 [facility] Smoking Status Start Date Stop Date Source Never smoker [facility] Medications Ordered Medication Name Filled Medication Name Start Date Stop Da te Current Medication? Ordering Clinician Indication Dosage Frequency Signature (SIG) Comments Components Source atorvastatin (LIPITOR) 40 mg tablet 2019-08-02 00:00:00 Yes Hyperlipidemia, unspecified hyperlipidemia type 40mg Take 1 tablet by mouth at bedtime nightly. [facility] bumetanide (BUMEX) 2 mg tablet 2019-08-02 00:00:00 Yes Acute systolic congestive heart failure 1mg Q.5D Take 1/2 of a tablet by mouth 2 times daily. [facility] amLODIPine (NORVASC) 5 mg tablet 2019-08-02 00:00:00 Yes Acute systolic congestive heart failure 5mg QD Take 1 tablet by mouth daily. [facility] clopidogreL (PLAVIX) 75 mg tablet 2019-08-02 00:00:00 Yes Acute systolic congestive heart failure 75mg QD Take 1 tablet by mouth daily. [facility] carvediloL (COREG) 12.5 mg tablet 2019-08-02 00:00:00 Yes Uncontrolled hypertension 12.5mg Take 1 tablet by mouth 2 times daily (with me als). [facility] hydrocortisone 2.5 % lotion 2019-08-02 00:00:00 Yes Itching Q.5D Apply to affected area 2 times daily. [facility] ealth Coreg 2019-03-08 23:00:00 No Notes: Give with food. (Same As: Coreg) [facility] bumetanide 2 mg oral tablet 2019-03-08 21:23:00 Yes 2 mg = 1 tab, PO, BID, # 30 tab, 0 Refill(s), Pharmacy: [id number] Amlodipine 2019-03-08 18:17:00 No Notes: (S nikolas as: Norvasc) [facility] bumetanide 10 mg + Sodium Chloride 0.9% (titrate) 60 mL 2019-03-07 19:55:00 No Notes: (Same As: Bumex) [facility] Bumex 2019-03-04 23:00:00 No Notes: (Same A s: Bumex) [facility] Calcium Gluconate 2019-03-04 11:03:00 No Notes: WASTE: F/P - Sink; E - Municipal Trash Bin [facility] Melatonin 3 MG Extended Release Tablet 2019-03-03 04:05:00 No 3 mg, 1 tab, Route: PO, Dosing Weight 102.273, kg, ONCE, PRN Sleep, Routine, Start date: 03/02/19 22:05:00 MANAGER LAW [facility] heparin sodium, porcine 2500 UNT/ML Injectable Solution 2019-03-03 03:30:00 No Notes: porcine heparin [facility] Melatonin 3 MG Extended Release Tablet 2019-03-03 03:17:00 No Notes: (Same as: Melatonin) [facility] atorvastatin 2019-03-03 03:00:00 No Notes: (Same as: Lipitor) [facility] Coreg 2019-03-02 15:00:00 No Notes: Give with food. (Same As: Coreg) [facility] Plavix 2019-03-02 15:00:00 No Notes: (Same As: Plavix) [facility] 24 HR Nitroglycerin 0.4 MG/HR Transdermal Patch 2019-03-02 15:00 :00 No Notes: Apply only once for u p to 12 hours in a 24 hour period (12 hours on and 12 hours off.) (Same as:Nitro-Dur,Deponit,Transderm Nitro) For topical use only. "Remove old patch before application of new patch" [facility] Saline Flush 0.9% 2019-03-02 15:00:00 No Notes: (Same as: BD Posiflush) [facility] Furosemide 2019-03-02 14:17:00 No Notes: (Same as: Lasix) MEDICATION WASTE Product Size: 100 mg Product Wasted: ___ mg [facility] Sodium Chloride 0.9% (titrate) 60 mL + bumetanide 10 mg 2019-03-02 14:11:00 No 60 mL, Rate: In fuse as directed, Dosing Weight 102.273, kg, Route: IV, Total Volume: 60 mL, Start Date: 03/02/19 8:11:00 MANAGER LAW, Duration: 30 day, Stop date: 04/01/19 8:10:00 MANAGER LAW, Replace Every: 24 hr [facility] influenza virus vaccine, inactivated 2019-03-02 12:04:05 No Notes: (Same as: Fluzone Quadrivalent, Fluarix Quadrivalent) For patients 6 - 35 months of age (0.5 mL IM) For 3 years of age and older (0.5 mL IM) Shake well before use [facility] Furosemide 2019-03-02 11:27:00 No Notes: (Same as: Lasix) MEDICATION WASTE Product Size: 100 mg Product Wasted: ___ mg [facility] Dextrose 50% Syringe (D50W) 2019-03-02 11:17:00 No 12,500 mg, 25 mL, Route: IVP, Drug Form: INJ, Dosing Weight 102.273, kg, PRN, PRN Blood Glucose Results, Start date: 03/02/19 5:17:00 MANAGER LAW, Duration: 30 day, Stop date: 04/01/19 5:16:00 MANAGER LAW, 0 [facility] Glucagon 2019-03-02 11:17:00 No 1 mg, Route: IM, Drug form: PDR/INJ, PRN, Dosing Weight 102.273, kg, PRN Blood Glucose Results, Start date: 03/02/19 5:17:00 MANAGER LAW, Duration: 30 day, Stop date: 04/01/19 5:16:00 MANAGER LAW, 0 [facility] Insulin Lispro 2019-03-02 11:17:00 No Notes: (Same as: Humalog) Roll in palms of hands gently; Do not shake vigorously. WASTE: F/P - Black; E - Municipal Trash Bin Stable for 28 days at room temperature. Expires in days from Date [facility] Albuterol 0.83 MG/ML Inhalant Solution 2019-03-02 08:00:00 No 2.49 mg, Route: NEB, RQ6H, Dosing Weight 102.273, kg, Priority: Routine, Start date: 03/02/19 2:00:00 MANAGER LAW, Duration: 30 day, Stop date: 03/31/19 20:00:00 MANAGER LAW [facility] Albuterol 0.833 MG/ML / Ipratropium [place] 0.167 MG/ML Inha lant Solution 2019-03-02 05:00:00 No Notes: (Same as: D prakashb) [facility] Dextromethorphan Hydrobromide 2 MG/ML / Guaifenesin 20 MG/ML Oral Solution 2019-03-02 04:49:00 No Notes: (dextromethorphan-guaifenesin 10-100/5 ml LIQ) (Same as: Robitussin-DM) [facility] Ondansetron 2019-03-02 04:49:00 No Notes: (Same as: Zofran) MEDICATION WASTE Product Size: 4 mg Product Wasted: ___ mg [facility] Ondansetron 2019-03-02 04:47:00 No Notes: (Same as: Zofran) MEDICATION WASTE Product Size: 4 mg Product Wasted: ___ mg [facility] Saline Flush 0.9% 2019-03-02 04:47:00 No Notes: (Same as: BD Posiflush) [facility] Bumetanide 2019-03-02 04:37:00 No Notes: (S nikolas As: Bumex) [facility] Tylenol 2019-03-02 04:37:00 No Notes: Max acetaminophen 4000 mg/day (4 gm/day). (Same as: Tylenol Extra Strength) [facility] Bumex 2018-06-01 22:00:00 No Notes: (Same A s: Bumex) [facility] carvedilol 12.5 mg oral tablet 2018-06-01 17:36:00 Yes 12.5 mg = 1 tab, PO, Q12H, # 60 tab, 0 Refill(s), Pharmacy: [address] Metolazone 5 MG Oral Tablet 2018-06-01 17:36:00 Yes 10 mg = 2 tab, PO, Daily, # 60 tab, 0 Refill(s), Pharmacy: [address] potassium chloride 20 mEq oral tablet, extended release 2018-06-01 17:36:00 Yes 40 mEq = 2 tab, PO, Daily, # 60 tab, 0 Refill(s), Pharmacy: [address] Calcium Carbonate 500 MG Chewable Tablet 2018-06-01 17:36:00 Yes 2,000 mg = 4 tab, CHEW, TID-Meals, # 360 tab, 0 Refill(s), Pharmacy: [address] bumetanide 1 mg oral tablet 2018-06-01 17:36:00 Yes 2 mg = 2 tab, PO, BID, # 120 tab, 0 Refill(s), Pharmacy: [address] potassium chloride 20 mEq oral tablet, [...] s with feeding tube less than 14 [place] (Dobhoff, J-tube etc) and pediatric and patients. [facility] Potassium Chloride 2018-05-30 14:42:00 No Notes: (Same as: K-Dur 20) "Do Not Crush" Give with food and full glass of water For patients unable to swallow tablet, dissolve in one half glass of water. Allow about 2 minutes for the tablets to disintegrate. Stir before giving to prepare slurry and administer. Please exclude Patient s with feeding tube less than 14 [place] (Dobhoff, J-tube etc) and pediatric and patients. [facility] Metolazone 5 MG Oral Tablet 2018-05-29 21:00:00 No Notes: (Same as: Zaroxolyn) [facility] Diuril Sodium 2018-05-28 16:06:00 No Notes: (Same As: Diuril Sodium) [facility] Ferrlecit + Sodium Chloride 0.9% IV 100 mL 2018-05-28 15:00:00 No 125 mg, 10 mL, Route: IVPB, Daily, Start date: 05/28/18 9:00:00 MANAGER LAW, Duration: 8 doses or times, Stop date: 06/04/18 9:00:00 CDT [facility] Venofer 2018-05-28 15:00:00 No 200 mg, Route: IVPB, Drug form: INJ, Daily, Dosing Weight 105.114, kg, Start date: 05/28/18 9:00:00 MANAGER LAW, Duration: 5 doses or times, Stop date: 06/01/18 9:00:00 CDT [facility] Renvela 2018-05-28 13:30:00 No Notes: Same as: Renvela [facility] Calcium Gluconate 2018-05-27 16:49:00 No Notes: WASTE: F/P - Sink; E - Municipal Trash Bin [facility] Hydralazine Hydrochloride 25 MG Oral Tablet 2018-05-27 15:00:00 No Notes: (Same as: Apresoline) May interfere w/enteral feedings Take With Food [facility] Imdur 2018-05-27 15:00:00 No Notes: (Same as:Imdur) "Do Not Crush" Take on empty stomach/ full glass of water. Do not crush [facility] atorvastatin 2018-05-27 03:00:00 No Notes: (Same as: Lipitor) [facility] Coreg 2018-05-27 03:00:00 No Notes: Give with food. (Same As: Coreg) [facility] Hydralazine 2018-05-26 23:44:00 No Notes: (Same as: Apresoline) Push over 5 minutes [facility] Calcium Carbonate 2018-05-26 23:00:00 No Notes: (Same As: Tums) Calcium Carbonate 500 mg = 200 mg elemental calcium Dose = mg calcium carbonate ( mg elemental calcium) [facility] furosemide 100 mg + Sodium Chloride 0.9% IV 90 mL 2018-05-26 19:25:00 No Notes: (Same as: Las ix) MEDICATION WASTE Product Size: 100 mg Product Wasted: ___ mg [facility] Lasix 2018-05-26 19:00:00 No 10 mg, Route: IV, Continuous, Dosing Weight 102.273, kg, Start date: 05/26/18 13:00:00 MANAGER LAW, Duration: 30 day, Stop date: 06/25/18 13:59:00 CDT [facility] Lasix 2018-05-26 18:49:00 No Notes: (Same as: Lasix) MEDICATION WASTE Product Size: 100 mg Product Wasted: ___ mg [facility] clopidogrel 2018-05-26 15:00:00 No Notes: ( Same As: Plavix) [facility] Aspirin 81 MG Enteric Coated Tablet 2018-05-26 15:00:00 No Notes: Do not crush or chew. (Same As: Ecotrin) [facility] Hydralazine Hydrochloride 50 MG Oral Tablet 2018-05-26 15:00:00 No 50 mg, 1 tab, Route: PO, Drug form: TAB, Daily, Dosing Weight 102.273, kg, Start date: 05/26/18 9:00:00 MANAGER LAW, Duration: 30 day, Stop date: 06/24/18 9:00:00 CDT [facility] Isosorbide 2018-05-26 15:00:00 No 60 mg, Route: PO, Drug form: ERTAB, QAM, Dosing Weight 102.273, kg, Start date: 05/26/18 9:00:00 MANAGER LAW, Duration: 30 day, Stop date: 06/24/18 9:00:00 CDT [facility] Calcium Gluconate 2018-05-26 14:31:00 No Notes: WASTE: F/P - Sink; E - Municipal Trash Bin [facility] cefepime 2018-05-26 11:00:00 No Notes: (Same As: Maxipime) MEDICATION WASTE Product Size: 1000 mg Product Wasted: ___ mg [facility] Calcium Gluconate 2018-05-26 09:36:00 No 2,000 mg, Route: IVPB, Drug form: INJ, ONCE, Dosing Weight 102.273, kg, Start date: 05/26/18 3:36:00 MANAGER LAW, Stop date: 05/26/18 3:36:00 MANAGER LAW [facility] Potassium Chloride 2018-05-26 09:36:00 No 20 mEq, Route: NJ, Drug form: SOLN, PRN, Dosing Weight 102.273, kg, PRN Abnormal Lab Result, For NON-ICU Patients Only, Start date: 05/26/18 3:36:00 MANAGER LAW, Duration: 30 day, Stop date: 06/25/18 4:35:00 CDT [facility] potassium phosphate 2018-05-26 09:36:00 No 15 mmol, Route: IVPB, PRN, Dosing Weight 102.273, kg, PRN Abnormal Lab Result, For NON-ICU Patients Only., Start date: 05/26/18 3:36:00 MANAGER LAW, Duration: 30 day, Stop date: 06/25/18 4:35:00 CDT [facility] potassium phosphate-sodium phosphate 250 mg-280 mg-160 mg oral powder for reconstitution 2018-05-26 09:36:00 No 2 pkt, Route: PO, Dosing Weight 102.273, kg, PRN, PRN Abnormal Lab Result, For NON-ICU Patients Only, Start date: 05/26/18 3:36:00 MANAGER LAW, Duration: 30 day, Stop date: 06/25/18 4:35:00 CDT [facility] sodium phosphate 2018-05-26 09:36:00 No 30 mmol, Route: IVPB, PRN, Dosing Weight 102.273, kg, PRN Abnormal Lab Result, For NON-ICU Patients Only., Start date: 05/26/18 3:36:00 MANAGER LAW, Duration: 30 day, Stop date: 06/25/18 4:35:00 CDT [facility] Magnesium Oxide 2018-05-26 09:36:00 No 800 mg, Route: PO, PRN, Dosing Weight 102.273, kg, PRN Abnormal Lab Result, For NON-ICU Patients Only., Start date: 05/26/18 3:36:00 MANAGER LAW, Duration: 30 day, Stop date: 06/25/18 4:35:00 CDT [facility] Magnesium Sulfate 2018-05-26 09:36:00 No 2 gm, Route: IVPB, PRN, Dosing Weight 102.273, kg, PRN Abnormal Lab Result, For NON-ICU Patients Only., Start date: 05/26/18 3:36:00 MANAGER LAW, Duration: 30 day, Stop date: 06/25/18 4:35:00 CDT [facility] Dextrose 50% Syringe 2018-05-26 03:46:00 No 25 gm, 50 mL, Route: IVP, Drug Form: INJ, Dosing Weight 102.273, kg, ONCE, Start date: 05/25/18 21:46:00 MANAGER LAW, Stop date: 05/25/18 21:46:00 MANAGER LAW [facility] Insulin regular 2018-05-26 03:46:00 No Notes: (Same as: Humulin R and NovoLIN R) WASTE: F/P - Black; E - Municipal Trash Bin (Do not shake) [facility] Calcium Gluconate 2018-05-26 03:46:00 No Notes: WASTE: F/P - Sink; E - Municipal Trash Bin [facility] Kayexalate 2018-05-26 03:46:00 No Notes: (sodium polystyrene sulfonate 15 gm/60 ml SAM) Shake well before use. (Same as: Kayexalate, SPS) [facility] Saline Flush 0.9% 2018-05-26 03:00:00 No Notes: Same as: BD Posiflush Sterile [facility] Dextrose 50% Syringe 2018-05-26 01:02:00 No 12.5 gm, 25 mL, Route: IVP, Drug Form: INJ, Dosing Weight 102.273, kg, PRN, PRN Blood Glucose Results, Start date: 05/25/18 19:02:00 MANAGER LAW, Duration: 30 day, Stop date: 06/24/18 20:01:00 CDT [facility] Glucagon 2018-05-26 01:02:00 No 1 mg, Route: IM, Drug form: PDR/INJ, PRN, Dosing Weight 102.273, kg, PRN Blood Glucose Results, Start date: 05/25/18 19:02:00 MANAGER LAW, Duration: 30 day, Stop date: 06/24/18 20:01:00 CDT [facility] Saline Flush 0.9% 2018-05-26 01:00:00 No Notes: Same as: BD Posiflush Sterile [facility] Furosemide 2018-05-26 00:59:00 No Notes: (Same as: Lasix) MEDICATION WASTE Product Size: 40 mg Product Wasted: ___ mg [facility] Ondansetron 2018-05-26 00:57:00 No Notes: (Same as: Zofran) MEDICATION WASTE Product Size: 4 mg Product Wasted: ___ mg [facility] Melatonin 2018-05-26 00:57:00 No Notes: (Sa me as: Melatonin) [facility] Glucagon 2018-05-26 00:57:00 No 1 mg, Route: IM, PRN, Dosing Weight 102.273, kg, PRN Blood Glucose Results, Start date: 05/25/18 18:57:00 MANAGER LAW, Duration: 30 day, Stop date: 06/24/18 19:56:00 CDT [facility] Dextrose 50% Syringe 2018-05-26 00:57:00 No 25 mL, Route: IVP, Dosing Weight 102.273, kg, PRN, PRN Blood Glucose Results, Start date: 05/25/18 18:57:00 MANAGER LAW, Duration: 30 day, Stop date: 06/24/18 19:56:00 CDT [facility] Dextrose 50% Syringe 2018-05-25 21:29:00 No 25 gm, 50 mL, Route: IVP, Drug Form: INJ, Dosing Weight 102.273, kg, ONCE, STAT, Start date: 05/25/18 15:29:00 MANAGER LAW, Stop date: 05/25/18 15:29:00 MANAGER LAW [facility] Insulin regular 2018-05-25 21:29:00 No Notes: (Same as: Humulin R and NovoLIN R) WASTE: F/P - Black; E - Municipal Trash Bin (Do not shake) [facility] Calcium Gluconate 2018-05-25 21:29:00 No Notes: WASTE: F/P - Sink; E - Municipal Trash Bin [facility] Saline Flush 0.9% 2018-05-25 21:29:00 No Notes: Same as: BD Posiflush Sterile [facility] Kayexalate 2018-05-25 21:29:00 No Notes: (sodium polystyrene sulfonate 15 gm/60 ml SAM) Shake well before use. (Same as: Kayexalate, SPS) [facility] Saline Flush 0.9% 2018-05-25 20:02:00 No Notes: Same as: BD Posiflush Sterile [facility] amLODIPine 5 mg oral tablet 2018-04-08 20:46:00 Yes 10 mg = 2 tab, PO, Daily, # 60 tab, 1 Refill(s), Pharmacy: [id number] Amlodipine 2018-04-08 15:00:00 No Notes: (S nikolas as: Norvasc) [facility] isosorbide mononitrate extended release 2018-04-08 15:00:00 No Notes: (Same as:Imdur) "Do Not Crush" Take on empty stomach/ full glass of water. Do not crush [facility] Hydralazine 2018-04-07 23:25:00 No Notes: (Same as: Apresoline) May interfere w/enteral feedings Take With Food [facility] isosorbide mononitrate extended release 2018-04-07 23:23:00 No Notes: (Same as:Imdur) "Do Not Crush" Take on empty stomach/ full glass of water. Do not crush [facility] Coreg 2018-04-07 23:00:00 No Notes: Give with food. (Same As: Coreg) [facility] Imdur 2018-04-07 16:00:00 No Notes: (Same as:Imdur) "Do Not Crush" Take on empty stomach/ full glass of water. Do not crush [facility] Hydralazine Hydrochloride 50 MG Oral Tablet 2018-04-07 16:00:00 No Notes: (Same as: Apresoline) May interfere w/enteral feedings Take With Food [facility] Calcium Gluconate 2018-04-06 19:18:00 No Notes: WASTE: F/P - Sink; E - Municipal Trash Bin [facility] Lovenox 2018-04-06 15:00:00 No Notes: (Same as: Lovenox) [facility] Saline Flush 0.9% 2018-04-06 15:00:00 No Notes: (Same as: BD Posiflush) [facility] Furosemide 2018-04-06 15:00:00 No Notes: (Same as: Lasix) MEDICATION WASTE Product Size: 40 mg Product Wasted: ___ mg [facility] pantoprazole 2018-04-06 15:00:00 No Notes: Tablet should not be chewed or crushed. (Same as: Protonix) [facility] [facility] carvedilol 2018-04-06 15:00:00 No Notes: Give with food. (Same As: Coreg) [facility] Calcium Gluconate 2018-04-06 09:09:00 No Notes: WASTE: F/P - Sink; E - Municipal Trash Bin [facility] Aspirin 81 MG Enteric Coated Tablet 2018-04-06 09:00:00 No Notes: Do not crush or chew. (Same As: Ecotrin) [facility] Hydralazine 2018-04-06 08:54:00 No Notes: (Same as: Apresoline) Push over 5 minutes [facility] clopidogrel 75 mg oral tablet 2018-04-06 08:22:00 No 75 mg = 1 tab, PO, Bedtime, # 30 tab, 0 Refill(s) [facility] isosorbide mononitrate 60 mg oral tablet, extended release 2018-04-06 08:22:00 Yes 60 mg = 1 tab, PO, QAM, 0 Refil l(s) [facility] Furosemide 40 MG Oral Tablet [Lasix] 2018-04-06 08:22:00 No 40 mg = 1 tab, PO, BID, 0 Refill(s) [facility] carvedilol 2018-04-06 08:22:00 No 20 mg, PO , BID, 0 Refill(s) [facility] Hydralazine Hydrochloride 50 MG Oral Tablet 2018-04-06 08:22:00 Yes 50 mg = 1 tab, PO, Daily, 0 Refill(s) [facility] atorvastatin 20 mg oral tablet 2018-04-06 08:22:00 No 20 mg = 1 tab, PO, Bedtime, # 90 tab, 0 Refill(s) [facility] vaccine, inactivated 2018-04-06 08:15:20 No Notes: (Same as: Fluzone Quadrivalent, Fluarix Quadrivalent) For 3 years of age and older (0.5 mL IM) Shake well before use [facility] Saline Flush 0.9% 2018-04-06 08:14:00 No Notes: (Same as: BD Posiflush) [facility] Temazepam 2018-04-06 08:14:00 No Notes: (Sa me As: Restoril) [facility] Ondansetron 2018-04-06 08:14:00 No Notes: (Same as: Zofran) MEDICATION WASTE Product Size: 4 mg Product Wasted: ___ mg [facility] Lasix 2018-04-06 04:02:00 No Notes: (Same as: Lasix) MEDICATION WASTE Product Size: 40 mg Product Wasted: ___ mg [facility] Furosemide 20 MG Oral Tablet [Lasix] 2017-09-17 20:14:00 Ye s 20 mg = 1 tab, PO, BID, # 60 tab, 0 Refill(s), Pharmacy: [facility] [address] [place] [address] carvedilol 25 MG Oral Tablet [Coreg] 2017-09-17 20:14:00 Ye s 25 mg = 1 tab, PO, Daily, # 30 tab, 0 Refill(s), Pharmacy: [facility] [address] [place] [address] clopidogrel 75 mg oral tablet 2017-09-17 20:14:00 Yes 75 mg = 1 tab, PO, Daily, # 30 tab, 0 Refill(s), Pharmacy: [facility] [address] [place] [address] atorvastatin 40 mg oral tablet 2017-09-17 20:14:00 Yes 40 mg = 1 tab, PO, Bedtime, # 30 tab, 0 Refill(s), Pharmacy: [facility] [address] [place] [address] Aspirin 81 MG Enteric Coated Tablet 2017-09-17 20:14:00 Yes 81 mg = 1 tab, PO, Q24H, # 30 tab, 0 Refill(s), Pharmacy: [facility] [address] [place] [address] Plavix 2017-09-17 14:00:00 No Notes: (Same As: Plavix) [facility] heparin 2017-09-17 05:00:00 No Notes: porci ne heparin [facility] Saline Flush 0.9% 2017-09-17 02:00:00 No Notes: (Same as: BD Posiflush) [facility] atorvastatin 2017-09-17 02:00:00 No Notes: (Same as: Lipitor) [facility] Plavix 2017-09-17 01:43:00 No Notes: (Same As: Plavix) [facility] calcium gluconate + Sodium Chloride 0.9% IV 40 mL 2017-09-17 01:00:00 No Notes: WASTE: F/P - Sink; E - Municipal Trash B in [facility] Calcium Gluconate 2017-09-17 00:45:00 No 2,000 mg, Route: IVPB, Drug form: INJ, ONCE, Dosing Weight 100, kg, Start date: 09/16/17 19:45:00 CDT, Stop date: 09/16/17 19:45:00 CDT [facility] Glipizide 5 MG Oral Tablet 2017-09-16 23:34:00 No 5 mg = 1 tab, PO, BID, 0 Refill(s) [facility] Furosemide 20 MG Oral Tablet [Lasix] 2017-09-16 23:34:00 No 20 mg = 1 tab, PO, BID, 0 Refill(s) [facility] carvedilol 25 MG Oral Tablet [Coreg] 2017-09-16 23:34:00 No 25 mg = 1 tab, PO, Daily, 0 Refill(s) [facility] NIFEdipine 30 mg oral tablet, extended release 2017-09-16 23:34: 00 Yes 30 mg = 1 tab, PO, Daily, PRN Hypertension, # 30 tab, 0 Refill(s) [facility] Hydralazine Hydrochloride 25 MG Oral Tablet 2017-09-16 23:33:00 Yes 25 mg = 1 tab, PO, QID, PRN Hypertension, # 360 tab, 0 Refill(s) [facility] Hydralazine 2017-09-16 23:31:00 No 25 mg, Route: PO, Drug form: TAB, Q6H, Dosing Weight 100, kg, PRN Hypertension, Start date: 09/16/17 18:31:00 CDT, Duration: 30 day, Stop date: 10/16/17 18:30:00 CDT [facility] Aspirin 81 MG Enteric Coated Tablet 2017-09-16 21:00:00 No Notes: Do not crush or chew. (Same As: Ecotrin) [facility] Insulin Lispro 2017-09-16 20:55:00 No Notes: (Same as: Humalog ) Roll in palms of hands gently; Do not shake `vigorously. "Single Patient Use Only " WASTE: F/P - Black; E - Municipal Trash Bin Stable for 28 days at room temperature. Expires in days from Date [facility] Dextrose 50% Syringe 2017-09-16 20:55:00 No 12.5 gm, 25 mL, Route: IVP, Drug Form: INJ, Dosing Weight 100, kg, PRN, PRN Blood Glucose Results, Start date: 09/16/17 15:55:00 CDT, Duration: 30 day, Stop date: 10/16/17 15:54:00 CDT [facility] Glucagon 2017-09-16 20:55:00 No 1 mg, Route: IM, Drug form: PDR/INJ, PRN, Dosing Weight 100, kg, PRN Blood Glucose Results, Start date: 09/16/17 15:55:00 CDT, Duration: 30 day, Stop date: 10/16/17 15:54:00 CDT [facility] Saline Flush 0.9% 2017-09-16 20:52:00 No Notes: (Same as: BD Posiflush) [facility] Acetaminophen 2017-09-16 20:52:00 No Notes: Do not exceed 4 gm/day. (Same as: Tylenol) [facility] Sodium Chloride 0.9% IV 1,000 mL 2017-09-16 20:52:00 No 1,000 mL, Rate: 75 ml/hr, Infuse over: 13.3 hr, Route: IV, Dosing Weight 100 kg, Total Volume: 1,000, Start date: 09/16/17 15:52:00 CDT, Duration: 30 day, Stop date: 10/16/17 15:51:00 CDT, 2.24, m2 [facility] Aspirin 2017-09-16 20:34:00 No Notes: Take with food. [facility] Saline Flush 0.9% 2017-09-16 18:56:00 No Notes: (Same as: BD Posiflush) [facility] hydrALAZINE (APRESOLINE) 25 mg tablet 2016-01-15 00:00 :00 2019-08-02 00:00:00 No Acute systolic congestive heart failure 50mg Take 2 tablets by mouth every 8 hours. [facility] lisinopril (PRINIVIL, ZESTRIL) 20 mg tablet 2015 00:00:00 2019-08-02 00:00:00 No Acute systolic congestive heart failure 20mg QD Take 1 tablet by mouth daily. [facility] furosemide (LASIX) 40 mg tablet 2015-12-20 00:00:00 00:00:00 No Acute systolic congestive heart failure 40mg QD Take 1 tablet by mouth daily. [facility] metFORMIN (GLUCOPHAGE) 500 mg tablet 2015-12-20 00:00: 00 2019-08-02 00:00:00 No Acute systolic congestive heart failure 500mg Take 1 tablet by mouth 2 times daily (with meals). [facility] glipiZIDE (GLUCOTROL) 5 mg tablet 2015-12-20 00:00:00 2019 00:00:00 No Acute systolic congestive heart failure 5mg Q.5D Take 1 tablet by mouth 2 times daily (before meals). [facility] atorvastatin (LIPITOR) 20 mg tablet 2015-09-11 00:00:0 0 2019-08-02 00:00:00 No Acute systolic congestive heart failure 20mg Take 1 tablet by mouth at bedtime nightly. [facility] losartan (COZAAR) 100 mg tablet 2015-08-15 00:00:00 00:00:00 No Acute systolic congestive heart failure 100mg QD Take 1 t ablet by mouth daily. [facility] carvedilol (COREG) 12.5 mg tablet 2015-08-15 00:00:00 2019 00:00:00 No Acute systolic congestive heart failure 12.5mg Take 1 tablet by mouth 2 times daily (with meals). [facility] carvedilol (COREG) 6.25 mg tablet 2015-08-11 00:00:00 2019 00:00:00 No Acute systolic congestive heart failure 6.25mg Q.5D Take 1 tablet by mouth 2 times daily. [facility] metFORMIN (GLUCOPHAGE) 500 mg tablet 2015-08-11 00:00: 00 2019-08-02 00:00:00 No Acute systolic congestive heart failure 500mg Take 1 tablet by mouth 2 times daily (with meals). [facility] Immunizations Ordered Immunization Name Filled Immunization Name Date Status Comments Source PPV 23 Pneumococcal Polysaccaride 2015-08-09 00:00:00 Comp leted [facility] Vital Signs Vital Name Observation Time Observation Value Comments Source Systolic blood pressure 2019-08-02 09:52:00 149 mm[Hg] [facility] Diastolic blood pressure 2019-08-02 09:52:00 82 mm[Hg] [facility] Heart rate 2019-08-02 09:52:00 58 /min [facility] Temperature Oral (F) 2019-03-08 19:06:00 97.4 F [facility] Heart Rate 2019-03-08 19:06:00 [facility] Respitory Rate 2019-03-08 19:06:00 [facility] Systolic (mm Hg) 2019-03-08 19:06:00 [facility] Diastolic (mm Hg) 2019-03-08 19:06:00 [facility] Temperature Oral (F) 2019-03-08 14:46:00 97.4 F [facility] Heart Rate 2019-03-08 14:46:00 [facility] Respitory Rate 2019-03-08 14:46:00 [facility] Systolic (mm Hg) 2019-03-08 14:46:00 [facility] Diastolic (mm Hg) 2019-03-08 14:46:00 [facility] Respitory Rate 2019-03-08 13:36:00 [facility] Height 2019-03-08 11:12:00 330.2 cm [facility] Temperature Oral (F) 2019-03-08 09:25:00 97.9 F [facility] Heart Rate 2019-03-08 09:25:00 [facility] Systolic (mm Hg) 2019-03-08 09:25:00 [facility] Diastolic (mm Hg) 2019-03-08 09:25:00 [facility] Height 2019-03-07 09:56:00 330.2 cm [facility] Height 2019-03-06 11:37:00 330.2 cm [facility] Weight 2019-03-02 05:00:00 [facility] BMI Calculated 2019-03-02 05:00:00 [facility] Weight 2019-03-02 04:28:00 [facility] BMI Calculated 2019-03-02 04:28:00 [facility] Systolic (mm Hg) 2018-06-01 16:33:00 [facility] Diastolic (mm Hg) 2018-06-01 16:33:00 [facility] Respitory Rate 2018-06-01 16:33:00 [facility] Temperature Oral (F) 2018-06-01 16:33:00 98.0 F [facility] Heart Rate 2018-06-01 16:33:00 [facility] Systolic (mm Hg) 2018-06-01 13:16:00 [facility] Diastolic (mm Hg) 2018-06-01 13:16:00 [facility] Respitory Rate 2018-06-01 13:16:00 [facility] Heart Rate 2018-06-01 13:16:00 [facility] Temperature Oral (F) 2018-06-01 13:16:00 98.2 F [facility] Respitory Rate 2018-06-01 09:00:00 [facility] Heart Rate 2018-06-01 09:00:00 [facility] Temperature Oral (F) 2018-06-01 09:00:00 98.1 [facility] Systolic (mm Hg) 2018-06-01 09:00:00 [facility] Diastolic (mm Hg) 2018-06-01 09:00:00 [facility] Weight 2018-05-27 16:30:00 [facility] BMI Calculated 2018-05-25 20:00:00 [facility] Weight 2018-05-25 20:00:00 [facility] Height 2018-05-25 20:00:00 177.8 cm [facility] Respitory Rate 2018-04-08 21:55:00 [facility] Systolic (mm Hg) 2018-04-08 21:55:00 [facility] Diastolic (mm Hg) 2018-04-08 21:55:00 [facility] Heart Rate 2018-04-08 21:55:00 [facility] Temperature Oral (F) 2018-04-08 21:55:00 97.8 F [facility] Heart Rate 2018-04-08 17:10:00 [facility] Temperature Oral (F) 2018-04-08 17:10:00 97.4 F [facility] Respitory Rate 2018-04-08 17:10:00 [facility] Systolic (mm Hg) 2018-04-08 17:10:00 [facility] Diastolic (mm Hg) 2018-04-08 17:10:00 [facility] Systolic (mm Hg) 2018-04-08 15:58:00 [facility] Diastolic (mm Hg) 2018-04-08 15:58:00 [facility] Respitory Rate 2018-04-08 13:32:00 [facility] Heart Rate 2018-04-08 13:20:00 [facility] Temperature Oral (F) 2018-04-08 13:20:00 97.8 F [facility] Height 2018-04-06 07:46:00 177.8 cm [facility] BMI Calculated 2018-04-06 07:46:00 [facility] Weight 2018-04-06 07:46:00 [facility] Height 2018-04-05 23:56:00 177.8 cm [facility] BMI Calculated 2018-04-05 23:56:00 [facility] Weight 2018-04-05 23:56:00 [facility] Temperature Oral (F) 2017-09-17 15:38:00 98 F [facility] Heart Rate 2017-09-17 15:38:00 [facility] Respitory Rate 2017-09-17 15:38:00 [facility] Systolic (mm Hg) 2017-09-17 15:38:00 [facility] Diastolic (mm Hg) 2017-09-17 15:38:00 [facility] Temperature Oral (F) 2017-09-17 12:20:00 98.4 F [facility] Heart Rate 2017-09-17 12:20:00 [facility] Systolic (mm Hg) 2017-09-17 12:20:00 [facility] Diastolic (mm Hg) 2017-09-17 12:20:00 [facility] Respitory Rate 2017-09-17 08:12:00 [facility] Systolic (mm Hg) 2017-09-17 08:12:00 [facility] Diastolic (mm Hg) 2017-09-17 08:12:00 [facility] Temperature Oral (F) 2017-09-17 08:12:00 98.1 F [facility] Heart Rate 2017-09-17 08:12:00 [facility] Respitory Rate 2017-09-17 04:30:00 [facility] BMI Calculated 2017-09-16 23:01:00 [facility] Weight 2017-09-16 23:01:00 [facility] Height 2017-09-16 23:01:00 177.8 cm [facility] Weight 2017-09-16 18:27:00 [facility] BMI Calculated 2017-09-16 18:27:00 [facility] Height 2017-09-16 18:27:00 177.8 cm [facility] Procedures Procedure Date / Time Performed Performing Clinician [facility] e LIPID PROFILE 2019-08-04 16:07:00 Angie Ware [facility] MICROALBUMIN / CREATININE URINE RATIO 2019-08-04 16:07:00 Ashley Lopezley [facility] CBC/DIFF 2019-08-04 16:07:00 TwilaSerenity [facility] COMPREHENSIVE METABOLIC PANEL 2019-08-04 16:07:00 TwilaSerenity [facility] FREE T4 2019-08-04 16:07:00 TwilaSerenity [facility] THYROID STIMULATING HORMONE (TSH) 2019-08-04 16:07:00 Twila-Paulino ramachandran [facility] HEMOGLOBIN A1C 2019-08-04 16:07:00 TwilaSerenity [facility] HEPATITIS PANEL 2019-08-04 16:07:00 [facility] HIV-1/HIV-2 ROUTINE SCREENING 2019-08-04 16:07:00 TwilaSerenity [facility] VIT D, 25-HYDROXY 2019-08-04 16:07:00 TwilaSerenity [facility] CBC 2019-08-04 16:07:00 [facility] HEMOCCULT KIT FOR SPECIMEN COLLECTION AT HOME 2019-08-02 14: 48:56 TwilaBeebe [facility] Appendectomy [facility] Repair of retina for retinal detachment [facility] Plan of Care Planned Activity Planned Date Details Comments Source Future Scheduled Test 2019-12-22 00:00:00 IMM Influenza Seas onal Dec to May (>/= 19 yrs) [code = IMM Influenza Seasonal Dec to May (>/= 19 yrs)] [facility] Future Scheduled Test 2018 00:00:00 Colorectal Cancer Scrn Annual (FIT/FOBT) Age 50 to 75 [code = Colorectal Cancer Scrn Annual (FIT/FOBT) Age 50 to 75] [facility] Encounters Start Date/Time End Date/Time Encounter Type Admission Type Attendi [facility] Care Department Encounter ID Source 2019-03-01 22:08:00 Inpatient [facility] [id number] [facility] 2019-03-02 04:08:00 2019-03-09 01:03:00 Inpatient IEALT [facility] [id number] [facility] 2019-03-01 22:08:00 2019-03-08 19:03:00 Outpatient Joel Charles [facility] [id number] 2018-05-25 19:33:00 2018-06-01 20:02:00 Inpatient [facility] [id number] [facility] 2018-05-25 13:33:00 2018-06-01 15:02:00 Outpatient Stuart Mckay [facility] [id number] 2018-04-05 23:35:00 2018-04-08 22:16:00 Inpatient [facility] [id number] [facility] 2018-04-05 17:35:00 2018-04-08 16:16:00 Outpatient Jujuobduliaestella geraldineDustin cowart [facility] [id number] 2017-09-16 18:19:00 2017-09-17 22:07:00 Observation [facility] [id number] [facility] 2017-09-16 13:19:00 2017-09-17 17:07:00 Outpatient Marcy Kelly [facility] [id number] Results Test Description Test Time Test Comments Results Result Comments Source [facility] REM 2019-08-10 16:45:00 [place] [address] Patient Name: TARAN TREJO MR #: [id number] : 1970 Age/Sex: 49/M Req #: [id number] Adm Physician: DESMOND MCKEON MD Ordered by: RAJWINDER MERRITT MD Report #: [id number] [facility] Room/Bed: [facility] Procedure: [id number] IR/[facility] PLMT OR REM Exam Date: Exam Time: REPORT STATUS: Signed Procedure: Tunneled dialysis catheter placement. History: Need for hemodialysis. Director Of Quality Control: Eber Noriega MD. Wall Covering Installer: , Oralia Modality: Sonography and fluoroscopy. DOSE [...] stable condition. Complications: None immediate. Device: 15.5 Ugandan x 19 cm cuff to tip palindrome [...] care of your patient. Signed by: Eber Norigea MD on 08/10/2019 5:02 PM Dictated By: EBER NORIEGA MD 01 Transcribed By: TAWANA on 08/10/191701 COPY TO: RAJWINDER MERRITT MD TUNNELLED CVC INSERT W/O PORT 2019-08-10 16:45:00 [place] [address] Patient Name: TARAN TREJO MR #: [id number] : 1970 Age/Sex: 49/M Req #: [id number] [facility] Physician: DESMOND MCKEON MD Ordered by: RAJWINDER MERRITT MD Report #: [id number] Location: MED/SURG Room/Bed: [facility] Procedure: IR/TUNNELLED CVC INSERT W/O PORT Exam Date: Exam Time: REPORT STATUS: Signed Procedure: Tunneled dialysis catheter placement. History: Need for hemodialysis. Director Of Quality Control: Eber Noriega MD. Wall Covering Installer: Oralia Modality: Sonography and fluoroscopy. DOSE REDUCTION: [...] stable condition. Complications: None immediate. Device: 15.5 Ugandan x 19 cm cuff to tip palindrome [...] US GUIDANCE FOR VASCULAR ACCES 2019-08-10 16:45:00 [place] [address] Patient Name: TARAN TREJO MR #: [id number] : 1970 Age/Sex: 49/M Req #: [id number] Adm Physician: DESMOND MCKEON MD Ordered by: RAJWINDER MERRITT MD Report #: [id number] Location: MED/SURG Room/Bed: [facility] Procedure: [id number] US/US GUIDANCE FOR VASCULAR ACCES Exam Date: 08/10/19 Exam Time: 1522 REPORT STATUS: Signed Procedure: Tunneled dialysis catheter placement. History: Need for hemodialysis. Director Of Quality Control: Eber Noriega MD. Wall Covering Installer: Oralia Modality: Sonography and fluoroscopy. DOSE REDUCTION: [...] stable condition. Complications: None immediate. Device: 15.5 Ugandan x 19 cm cuff to tip palindrome [...] MERRITT MD CHEST SINGLE (PORTABLE) 2019-08-10 13:04:00 [place] [address] Patient Name: TARAN TREJO MR #: [id number] : 1970 Age/Sex: 49/M Req #: [id number] Adm Physician: Ordered by: RAJWINDER MERRITT MD Report #: [id number] Location: ER Room/Bed: Procedure: [id number] DX/CHEST SINGLE (PORTABLE) Exam Date: 08/10/19 Exam [...] 1:05 PM Dictated By: EBER NORIEGA MD 130 Transcribed By: TAWANA on 08/10/191304 COPY TO: RAJWINDER MERRITT MD Vitamin D, 25-Hydroxycalciferol 2019-08-05 08:02:00 Test Item Vit D, 25-Hydroxy (test code = 74869607) 36.2 ng/mL 30-100 Vitamin D Interpretation (test code = 45885424) Sufficient Suffic ient Sufficient: >30.0Insufficient: 20.0 - 29.9Deficient: <20.0 Lab Interpretation (test code = 46306-4) [facility] [id number] 22:18:00* Test Item Value Reference Range Interpretation Comments Hemoglobin A1c (test code = 4548-4) 6.2 % 4.3-6.1 H Estimated Average Glucose (test code = 34052143) 131 mg/dL 70-11 0 H Lab Interpretation (test code = 45050-7) Abnormal [facility]Crea Ratio,[id number] 21:39:00* Test Item Value Reference Range Interpretation Comments Microalbumin, Random (test code = 13647760) 83.8 mg/dL <30.0 H Creatinine, Urine (test code = 30791383) 42 mg/dL 20-370 Urine Microalbumin (test code = 73179438) 1995.2 mg/g 0-30 H Lab Interpretation (test code = 88264-7) Abnormal [facility]atitis [id number] 21:15:00* Test Item Value Reference Range Interpretation Comments Hep C Vir Ab IgG (test code = 20381-1) Negative Negative Hep B Surface Ag (test code = 5196-1) Negative Negative Hep A Vir Ab IgM (test code = 68043-2) Negative Negative Hep B Core Ab IgM (test code = 94954-4) Negative Negative Lab Interpretation (test code = 42711-1) [facility]2 Routine [id number] 21:13:00* Test Item Value Reference Range Interpretation Comments HIV-1/HIV-2 (test code = 37449-9) Negative Negative Lab Interpretation (test code = 89105-2) Normal [facility] [id number] 21:09:00* Test Item Value Reference Range Interpretation Comments Free T4 (test code = 29799437) 1.07 ng/dl 0.64-1.42 Lab Interpretation (test code = 21478-6) Normal [facility] [id number] 21:07:00* Test Item Value Reference Range Interpretation Comments TSH (test code = 15198907) 3.89 0.45- 5.33 uIU/mL Lab Interpretation (test code = 32049-4) Normal [facility] Center[facility] Metabolic [id number] 21:03:00* Test Item Value Reference Range Interpretation Comments Sodium (test code = 2951-2) 139 mmol/L 136-145 Potassium (test code = 2823-3) 4.9 mmol/L 3.5-5.1 Chloride (test code = 2075-0) 101 mmol/L 98-107 CO2 (test code = 45063096) 26 mmol/L 21-31 Glucose (test code = 46543520) 118 mg/dL 70-110 H Calcium (test code = 30511801) 7.1 mg/dL 8.6-10.3 L Urea Nitrogen (test code = 21445526) 128.0 mg/dL 7-25 HH Creatinine (test code = 44946803) 8.2 mg/dL 0.7-1.3 HH Alkaline Phosphatase (test code = 98372489) 75 U/L 34-104 ALT (test code = 72307885) 9 U/L 7-52 AST (test code = 59276344) 13 U/L 13-39 Total Protein (test code = 2885-2) 5.8 g/dL 6-8.3 L GFR, Estimated (test code = 37397699) 7 >=90 mL/min/1.73 m2 L Albumin (test code = 25076-3) 3.3 g/dL 4.2-5.5 L Anion Gap (test code = 99155303) 12 mmol/L 5-16 Lab Interpretation (test code = 21761-4) Abnormal [facility] Center[facility]id [id number] 20:57:00* Test Item Value Reference Range Interpretation Comments Cholesterol (test code = 2093-3) 59.0 mg/dL <=200.0 Triglyceride (test code = 84638468) 51 mg/dL <150 HDL (test code = 2085-9) 29.0 mg/dL See Reference Range Narrative . LDL (test code = 32854-7) 20 mg/dL <100 Op timal: < 100.0 mg/dLNear Optimal: 120-129 mg/dLBorderline: 130-159 mg/dLHigh: 160-189 mg/dLVery High: >=190 mg/dL Patient Fasting? (test code = 78373852) No POLO (test code = POLO) Patient is not fasting. For a triglyceride result greater than 440 mg/dL, consider re-testing when the patient is in a fasting state. [facility]/[id number] 20:47:00* Test Item Value Reference Range Interpretation [...] 32.2 g/dL 32-36 RDW (test code = 82490-9) 53.5 fL 35.1-43.9 H Platelet (test code = 777-3) 120 K/uL 150-400 L Mean Platelet Volume (test code = 92617-7) 10.5 fL 9.4-12.4 Percent NRBC (test code = 88781681) 0.0 % Neutrophil (test code = 770-8) 72.3 % 34-67.9 H Lymphs (test code = 736-9) 6.9 % 21.8-50 L Monocytes (test code = 5905-5) 9.7 % 5.3-12 Eos (test code = 713-8) 10.1 % 0.8-5 H Basos (test code = 706-2) 0.4 % 0.2-1.2 Immature Granulocytes (test code = 12139305) 0.6 % 0-0.5 H Neutrophils (Absolute) (test code = 42248925) 4.91 K/uL 1.78-5.3 6 Lymphs (Absolute) (test code = 15003904) 0.47 K/uL 1.32-3.57 L Monocytes(Absolute) (test code = 53623622) 0.66 K/uL 0.3-0.82 Eos (Absolute) (test code = 76313684) 0.69 K/uL 0.04-0.54 H Baso (Absolute) (test code = 33570878) 0.03 K/uL 0.01-0.08 Immature Grans (Abs) (test code = 04947640) 0.04 K/uL 0-0.03 H Absolute NRBC (test code = 14230093) 0.00 K/uL Lab Interpretation (test code = 05235-8) Abnormal [facility] Center[facility] [id number] 10:14:0097MH [facility]CHE[facility] [id number] 10:14:91511CH SoutheastCHEM [id number] 10:14:008.62 [facility] PANEL 2019-03-07 10:14:23865FQ [facility]M IUAIY4673-27-29 10:14:004.6M [facility] ZBBID7606-69-54 10:14:0094 [facility] TICJS5225-56-59 10:14:0027MH [facility]M ZVWAU8414-08-76 10:14:0016.[facility] SoutheastCHEM JNRUQ8181-13-88 10:14:005.8 [facility] JCRIZ3692-55-47 10:14:006MH [facility]CHEM PANEL 2019-03-05 10:39:87452AQ [facility] WBBDR2551-24-85 10:39:19290FQ [facility] STYDS6287-63-49 10:39:008.59 [facility] RUPBU2618-37-21 10:39:90221AB [facility] MVFPA4484-15-52 10:39:004.3M [facility] AKEXC6511-96-77 10:39:0091 [facility] FGMQE2483-89-65 10:39:0026 [facility] PANEL 2019-03-05 10:39:0017.3M [facility] UJCTW0402-55-30 10:39:006.3M [facility] FZLUH7457-07-63 10:39:006MH XhgrcvhrjLNSFVFUFRJ5759-81-49 10:39:006.6M CwavcjtazUZPYJOOZWI6715-39-58 10:39:002.72 WxkaukzbiCKZDKBLEOZ2710-82-80 10:39:008.7 JiggbltdxYDLZWQYZPG4453-48-43 10:39:0026.0 [facility]HEMATOLOGY 2019-03-05 10:39:0095.5 DcewcgmgcQLMUHVMSZD3656-55-81 10:39:00* Test Item Value Reference Range Interpretation Comments MCH (test code = MCH) 31.9 pg 27.0-31.0 GgpueiucqTANMZQTRTG8993-73-91 10:39:0033.4 AxrbaavjdSAKBIPDWFD2075-02-65 10:39:0015.9 HefkmoxpfLYZADFLORU9897-21-46 10:39:0097 [facility]MATOLOG[facility] 2019-03-05 10:39:008.4 CyjdfbsarZZUADNEMVL1656-95-53 10:39:0073.8[facility] ILJYUCDPOM4104-21-42 10:39:007.1M RlwqwguxjSKWZNROVJC8438-25-53 10:39:0012.2M HiagyikvsNJDZRLFFLS8598-57-96 10:39:006.3M MtwjeioufEHEDXTBAXW8810-21-33 10:39:000.6M GhbjhyhjpAQEIFURLRF2924-51-42 10:39:004.8 [facility]MATOLOGY 2019-03-05 10:39:000.5 NpcszsztnMZMHRTMNVX4170-25-16 10:39:000.8[facility] TTYIBABEHS1042-67-10 10:39:000.4 [facility]URINE FNQG7316-65-85 19:25:0069 [facility] PUXM9824-09-38 19:25:0024.4 [facility]INE QOOS7148-43-19 19:25:0073 [facility] XFYLT8188-00-89 10:18:0092 [facility] PANEL 2019-03-04 10:18:73428LC [facility] YFHXT1797-16-88 10:18:008.59 [facility] QZNRN8636-22-04 10:18:05924OR [facility] NALVC7418-69-99 10:18:004.6M [facility] JVLUO4913-54-00 10:18:0092 [facility] VEVFS5550-59-51 10:18:0027 [facility] GTTHU1323-43-38 10:18:0018.[facility] SoutheastCHEM PANEL 2019-03-04 10:18:006.2M [facility]M XROXZ7331-82-32 10:18:006[facility] CFTTWUAQER1116-90-57 10:18:0075.0 KfwvdieehEUBRVWYPKH5453-20-74 10:18:006.7 QwtukalhpPLXQGBJPQD5731-99-17 10:18:0012.6M LstdtrdoiSUUEASFKQG5703-89-56 10:18:005.1M VmtckcyjmOTYPUQAFNM9752-44-09 10:18:000.6M [facility]HEMATOLOGY 2019-03-04 10:18:005.5 FkxpsjjvsEICXNZMJKV1894-61-23 10:18:000.5[facility] GQBCOSKJTQ5171-66-74 10:18:000.9 WhpbvshchKUDUWHRNBD7694-69-10 10:18:000.4 BmhnkjkoqNAKIXNENOE9339-68-41 10:18:007.4 NnkeajpfoMJCYTLTBHZ3782-14-77 10:18:002.78 TkcclrnbsLBGCYKWSJM8158-29-65 10:18:008.8 [facility]MATOLOGY 2019-03-04 10:18:[facility] YcdhtsaueTJUGCNNDMY8426-88-08 10:18:[address] [place] [address] HFNLLYUBNT8219-95-01 10:18:00* Test Item Value Reference Range Interpretation Comments MCH (test code = MCH) 31.7 pg 27.0-31.0 AsgjgykjkHRLFHJFPNB8473-84-57 10:18:0033.3M BqpwoccznXTPNFBJRUI8680-10-94 10:18:0016.[facility] CddpxdctoWJHZGTQCBG0491-08-68 10:18:0098 [facility]HEMATOLOGY 2019-03-04 10:18:008.5[facility] MQZSW6489-52-49 14:20:001.0[facility] YBMZGXAVUE8123-13-41 11:03:0082.[facility] ThyyjwjamBXXIIUVACX7233-70-58 11:03:005.[facility] IgubebsriRCECHTGAGG9069-81-68 11:03:008.7 JpzwhcahaOJLYMGFPSA7735-45-63 11:03:003.[facility] OcvmcezuoBSWLXMQIJQ2116-88-68 11:03:000.[facility] SoutheastHEMATOLOGY 2019-03-03 11:03:007.5 FltzplydeLCDHORVKLC0340-46-08 11:03:000.5[facility] NKXKZWGFEB6611-26-42 11:03:000.8[facility] HospitalEvmeqanbpGYMLFYSOGV2940-20-45 11:03:000.3[facility] HospitalXgdtbomegKNBIMOFTAJ8543-02-59 11:03:000.1[facility] HospitalAympfrgqaUFJZIZLLHX0019-72-05 11:03:009.1[facility] HospitalBwqdqmovkLQTLXESFEP9784-33-48 11:03:002.89[facility]HE[facility] 2019-03-03 11:03:009.3[facility] HospitalUtzrdmpulTIVSIPQJAM3068-12-28 11:03:0027.8[facility] GEDHZEZAXE7979-06-61 11:03:0096.2[facility] HospitalSlpjuylapQPEFIVATKP1373-41-43 11:03:00* Test Item Value Reference Range Interpretation Comments MCH (test code = MCH) 32.1 pg 27.0-31.0 [facility] HospitalNtdrwtmgcOOIWJBGGLE7883-93-49 11:03:0033.4[facility] HospitalPrsxrxloeZQOBYWTTUR1319-82-26 11:03:0016.3[facility] HospitalZqcwhdgodLFWPEYBVFL3259-62-23 11:03:62490KYAddison [facility] HospitalHEMATOLOGY 2019-03-03 11:03:008.2[facility] HospitalC VENOUS BLOOD TDK7145-27-51 14:48:00* Test Item Value Reference Range Interpretation Comments POC VENOUS BLOOD GAS PH (test code = POCPHV) 7.507 POC VENOUS BLOOD GAS PCO2 (test code = SUTZAY8N) 34.0 mmHg 35.0- 45.0 L POC HCO3 VENOUS (test code = TUBCKE4V) 26.9 MMOL/L 20-26 H POC BASE EXCESS VENOUS (test code = POCBEV) 4 MMOL/L -3.0-3.0 H POC O2 SATURATION VENOUS (test code = YFDW4GM) 90 % 72-77 H MOLECULAR RZIYASSOSD2022-34-86 11:01:00Nasophrngl Swb *NA*(03/02/19 5:01 AM)[facility] BCYUTPMEDW2252-15-16 11:01:00Negative *NA*(03/02/19 5:01 AM) [facility] AELHVHVGOA8734-84-97 11:01:00Negative *NA*(03/02/19 5:01 AM)[facility] ZVIXOCTXWF5918-30-65 11:01:00Negative *NA*(03/02/19 5:01 AM) [facility]CARDIAC RMHXAQX0994-24-67 05:11:915027LG [facility]CARDIAC KPUVTTR7068-43-81 05:11:000.03 [facility]CHEM LQXYO7312-59-85 05:11:00* Test Item Value Reference Range Interpretation Comments B/C Ratio (test code = B/C Ratio) 13 1 6-25 [facility] DFVKL0111-64-71 05:11:006.6MH [facility]CHE[facility] AHZER5750-35-15 05:11:003.1M [facility] NVHXF9990-49-26 05:11:003.5 [facility] 05:11:00* Test Item Value Reference Range Interpretation Comments A/G Ratio (test code = A/G Ratio) 0.9 1 0.7-1.6 [facility] ZFIDT6900-03-58 05:11:0011[facility] ROEOK6730-82-69 05:11:007[facility] AHHBX8354-77-25 05:11:09006OB [facility] 2019-03-02 05:11:000.7[facility] TPCUL4169-06-40 05:11:002.7[facility] CHEM JNMDL9782-45-77 05:11:008.9[facility] EBGHK1093-37-89 05:11:000.79[facility] QKLWH9021-38-12 05:11:001.2MH [facility] NAT[facility]PT[facility] 2019-03-01 19:12:00* Test Item Value Reference Range Interpretation Comments B-TYPE NATRIURETIC PEPTIDE (test code = BNP) 3560 pg/mL 0-100 H BASIC METABOLIC PWING5908-12-89 19:11:00* Test Item Value Reference Range Interpretation [...] CA) 6.9 mg/dL 8.4-10.2 L HEPATIC FUNCTION NDEQK1677-59-87 19:11:00* Test Item Value Reference Range Interpretation [...] code = ALKP) 116 U/L 38-126 N DRYXLERPY5407-06-56 19:11:00* Test Item Value Reference Range Interpretation Comments MAGNESIUM (test code = MAG) 2.4 mg/dL 1.6-2.3 H MUDAVWXG-G0846-14-10 19:11:00* Test Item Value Reference Range Interpretation Comments TROPONIN-I (test code = TROPI) 0.02 ng/mL 0.00-0.056 N PROTHROMBIN AJJK4045-02-86 19:07:00* Test Item Value Reference Range Interpretation [...] (2.5-3.5) IS PATIENT ON ANTICOAGULANTS? NTHROMBOPLASTIN TIME POUWZJZ7415-75-68 19:07:00* Test Item Value Reference Range Interpretation Comments THROMBOPLASTIN TIME PARTIAL (test code = PTT) 29.9 seconds 25.5-34. 3 N Therapeutic Range for patients on Heparin Therapy is 2 to2.5 times their baseline PTT level. IS PATIENT ON ANTICOAGULANTS? NBASIC METABOLIC VMQVA4973-03-24 19:06:00* Test Item Value Reference Range Interpretation [...] CA) 6.9 mg/dL 8.4-10.2 L HEPATIC FUNCTION ATDHA4548-88-84 19:06:00* Test Item Value Reference Range Interpretation [...] TOTAL (test code = ALKP) IUnit/L 45-117 FZZPXAWHJ7933-92-52 19:06:00* Test Item Value Reference Range Interpretation Comments MAGNESIUM (test code = MAG) mg/dL 1.8-2.4 CXQFCRHB-E3980-74-10 19:06:00* Test Item Value Reference Range Interpretation Comments TROPONIN-I (test code = TROPI) ng/mL 0-0.045 - XR CHEST 1 W2394-13-48 18:55:00 Name: TARAN TREJO [facility] : 1970 Age/S:48 /M [address] Unit#:[id number] Loc: [place] [address] Phys: Chandler Salguero MD Dis Date: PHONE #: [phone] Status: REG ER FAX #: [phone] Exam Date: 03/01/2019 Reason: Shortness of Breath EXAMS: CPT CODE: [id number] XR CHEST 1 V 01922 REASON FOR EXAM: Shortness of Breath EXAM [...] = MPV) 10.8 fL 6.7-11.0 N CHEM WQHPC5465-75-77 09:43:002.3MH [facility] ROHWE2909-87-80 09:43:47635AA [facility]CHEM RVLHU2778-41-27 09:43:005.29MH [facility]CHE[facility] IKLRP2620-69-53 09:43:04868ZI [facility]CHEM BEJBY1395-72-67 09:43:004.0MH [facility]CHEM PANEL 2018-06-01 09:43:68140YW [facility]CHEM MLLIP2374-28-13 09:43:0012MH [facility] CHE[facility] KMIES8887-81-51 09:43:0011.0MH [facility] VWHNF3170-98-13 09:43:008.1MH [facility]CHEM WEWJD5367-84-37 09:43:0031MH [facility]CHEM NHYXG1315-95-59 09:43:0099MH [facility]CHEM IPGDG5642-61-05 10:14:002.2MH SoutheastELECTROLYTES 2018-05-31 10:14:0029MH PqnetjkfwMDCWEOVFIAQS7799-98-14 10:14:007.5MH [facility] FESZWLGQGKHK3910-85-33 10:14:0012.0 EqcfbcfzlXGNLVBOLDVUV2465-17-77 10:14:0011 [facility] HospitalJsusoqptoSABWCQLEWKHR5605-18-35 10:14:53008OIAddison Gilbert HospitalFiyldzyoxZLBXZTHAZMKP3683-06-84 10:14:004.0[facility] HospitalAdtdqxnsdZWBTTOSVGHLN2266-34-21 10:14:005.51MH [facility]2019-03-11 10:14:19443OF NkrbtpqdzMFVILLVQJALJ1815-44-13 10:14:29590 [facility] HospitalPajiijondHEKSIUEFTILD0883-70-73 10:14:09333VJ [facility]CHEM PMRMS3627-04-96 10:00:0011MH [facility]CHEM SVFVN3967-00-37 10:00:003.3MH [facility]CHEM PANEL 2018-05-30 10:00:31958BL [facility]CHEM PDEKY4933-23-96 10:00:005.54MH [facility] CHE[facility] EUQRG4519-80-60 10:00:54269HV [facility]CHEM LFDFK5001-97-53 10:00:76692MO [facility]CHEM BDGMV6267-32-91 10:00:007.5MH [facility] CWAXL5410-03-46 10:00:14578FB [facility]M DQKCI4367-03-82 10:00:0012.3MH [facility]CHEM PANEL 2018-05-30 10:00:0026MH [facility]CHEM LXUPE5330-82-40 10:00:002.4MH [facility] MSEGV8327-08-88 10:00:006.9MH [facility] LXADS4048-14-51 10:33:007.8MH [facility] CDTFF5949-98-72 09:41:008.7 OwhzjozzlQSLRFSOJGE5012-47-02 09:41:0090.6MH RyczjdwfnHLUZGEQBUX6348-10-98 09:41:008.1M SoutheastHEMATOLOGY 2018-05-28 09:41:003.09 GpbmpbljqOOOKPFLTYF9500-70-48 09:41:009.0[facility] HGMZEWVHSC2792-23-98 09:41:0028.0 IcfypunemZPLMUFTEPN1319-62-39 09:41:00* Test Item Value Reference Range Interpretation Comments MCH (test code = MCH) 29.0 pg 27.0-31.0 VtmabdvafYPBEXFVGXG5227-29-56 09:41:008.9 WpctiesupMRAHZVWGKE7257-54-85 09:41:0019.0 KnpenwdyqITATXIQNJC5459-69-51 09:41:0032.0 [facility]HEMATOLOGY 2018-05-28 09:41:0099 XoqsqfnchLQJATTCJJJ0934-54-79 09:41:000.3M [facility] XHJUUJWLST1435-23-23 09:41:000.1M PxnlqcegzRQTNKIGPOZ5566-09-01 09:41:000.4 CvirfzbzrKFXLJAMZGG2093-45-70 09:41:001.0 QnycijgkmBGOPYCCOKQ3374-07-14 09:41:000.8 MiofmuopsAHDZGLINNO7219-20-06 09:41:006.3M [facility]HEMATOLOGY 2018-05-28 09:41:004.5 OzfwlnfokLXRALRTBEJ3481-60-17 09:41:0012.7[facility] SZPLHMLVZO6293-57-52 09:41:003.9 KekwduwhfNZEUOBCWMP8888-83-82 09:41:0078.1M SoutheastANEMIA WUAEH1692-75-51 12:27:0040 SoutheastANEMIA ZRBBK6316-66-52 12:27:75377IE SoutheastANEMIA EPCPQ5465-13-11 12:27:0014 SoutheastANEMIA STUDY 2018-05-27 12:27:31594YR EbxabehjhMFQYJXTCMQ2388-65-29 12:27:003.11 [facility] IZZBGJXOSH0676-39-25 12:27:009.1M CryrreludATFCFWCXVW8061-66-84 12:27:0033.1M AwzbykwuwJEBKABKYRC0722-33-38 12:27:0027.6MH QqrbdtddaIVRJANJGCF9403-98-31 12:27:0088.7 EhambislxKZPYAKVAPO1178-74-46 12:27:008.3M [facility]HEMATOLOGY 2018-05-27 12:27:0019.9 TdnhrwwduYEDVAXEVTX7490-78-45 12:27:0097[facility] ZZRRNWELDO6934-34-28 12:27:00* Test Item Value Reference Range Interpretation Comments MCH (test code = MCH) 29.4 pg 27.0-31.0 PtfkbvmvrXKSBCSTUVB4922-46-84 12:27:006.1M QljepyxnyJOFZDTEAJO6491-85-89 12:27:000.1M TxnpmbtriJTNDBYSKZL1088-08-06 12:27:000.7 [facility]HEMATOLOGY 2018-05-27 12:27:000.3M HaeuwzizcYAMMTXWLJS1707-41-87 12:27:006.0[facility] ZWFLWPTPDK2125-48-26 12:27:0011.2M XehaasglrUZKYGQVTPK5987-37-61 12:27:004.9 ByeadhpzfCXTKLDDUIY7523-28-56 12:27:0077.0 ZkneovhxjXFQEEPUINN4483-46-13 12:27:004.7 LwhsmtampZGLASUBAPJ3043-89-51 12:27:000.4 [facility]HEMATOLOGY 2018-05-27 12:27:000.9 SoutheastPARATHYROID COUYETP6309-19-33 12:27:0089.4 SoutheastPARATHYROID UMEZXAQ3940-75-72 12:27:000.76MH SoutheastPARATHYROID YRCQRJX9636-70-66 12:27:000.81 SoutheastPARATHYROID PRXXIGI4514-11-27 12:23:00 0.70MH SoutheastPARATHYROID OIAENYQ6119-79-68 12:23:000.75 SoutheastURINE AND IDUOK9684-98-95 22:33:001MH [facility]URINE AND ZGGWC0020-78-01 22:33:00Small *ABN*(05/25/18 4:33 PM) [facility]URINE AND MKDOM4868-57-36 22:33:001MH [facility] URINE AND ZYFOV9213-28-60 22:33:00Negative (05/25/18 4:33 PM) [facility]UR[facility] AND MVWAR4680-96-91 22:33:00Negative (05/25/18 4:33 PM) [facility] STOOL 2018-05-25 22:33:00Negative *NA*(05/25/18 4:33 PM) [facility] STOOL 2018-05-25 22:33:00* Test Item Value Reference Range Interpretation Comments UA Spec Grav (test code = UA Spec Grav) 1.010 1 [facility]URINE AND KCTNQ8656-59-78 22:33:00* Test Item Value Reference Range Interpretation Comments UA pH (test code = UA pH) 5.0 1 5.0-8.0 [facility]UR[facility] AND ICFEA1793-57-64 22:33:00Clear (05/25/18 4:33 PM)[facility] URINE AND OJIVI7243-84-18 22:33:00Negative *NA*(05/25/18 4:33 PM)[facility] CARDIAC DSSTNBL4325-14-92 20:20:00<0.02[facility] EJMKEVM9787-85-10 20:20:316626PD [facility]CHEM GZBUN1322-47-60 20:20:00* Test Item Value Reference Range Interpretation Comments B/C Ratio (test code = B/C Ratio) 19 1 6-25 [facility]CHEM HOPVZ8264-64-07 20:20:000.5 [facility]CHEM HZQAR1941-34-28 20:20:00* Test Item Value Reference Range Interpretation Comments A/G Ratio (test code = A/G Ratio) 0.8 1 0.7-1.6 [facility]CHEM WDYEH5048-53-57 20:20:0011 [facility]CHEM OLSQC1413-45-59 20:20:0016 [facility]CHEM HFIEF8997-63-26 20:20:56979IR SoutheastCHEM PANEL 2018-05-25 20:20:006.9 [facility]CHEM IDHUX5607-10-81 20:20:003.1M [facility] CHEM ZXMNC1556-05-62 20:20:003.8 TxtznvnkqYAOMXAMRBW3612-39-55 20:20:000.1M GzezthzmoZPWWVFPLWT5051-59-70 20:20:000.1M HuabfxsjkUSXTRLAQQR0158-24-68 20:20:004.6M VkccwjevfHGECHBEEIC7534-26-81 20:20:000.4 [facility]HEMATOLOGY 2018-05-25 20:20:001.2M FxuyhnwlaYSILGJZHYJ4065-06-36 20:20:002.3[facility] TIAQHKWGFN0011-58-52 20:20:0011.5 SnmrnkfozMIIYJXQAGV7904-14-00 20:20:000.7 GtaohyhpbJKLWAHXGIT6009-00-98 20:20:007.1M MdodrsrenSUDSCOWUWY9417-45-83 20:20:0077.9 FbzcpcpfaYFZPAGXECU4075-29-44 20:20:009.0 [facility]HEMATOLOGY 2018-05-25 20:20:0098 BnnjuyiyvNNDHIDVXDH9036-66-51 20:20:0019.7[facility] IXNCSIDSIU0574-92-39 20:20:0032.9 EkctecdmeYOYCPJPRTZ8828-15-23 20:20:00* Test Item Value Reference Range Interpretation Comments MCH (test code = MCH) 29.5 pg 27.0-31.0 XscwjmiruEYVEDDAQHA0157-71-79 20:20:0089.9 QxvzsleavLZPDZXBBHB0390-52-81 20:20:003.10 CffjbjewyRSYBUDDFKF5258-84-40 20:20:005.8 [facility]HEMATOLOGY 2018-05-25 20:20:0027.9 AtnotmunqPXGARKLYPG1733-31-12 20:20:009.2M [facility] CARDIAC BKSPGLI0611-53-16 10:53:00>5000MH SoutheastCHEM VQVVW7603-77-75 10:53:00 15 SoutheastCHEM VUIOU2821-91-19 10:53:006.0 [facility]CHEM ZIOYM1137-99-03 10:53:0027 [facility]CHEM VTIZI2760-34-53 10:53:004.1MH SoutheastCHEM PANEL 2018-04-07 10:53:0012.1M SoutheastCHEM CHTFR5830-20-15 10:53:56706RU [facility] CHEM WVDCD6367-49-75 10:53:50435UT SoutheastCHEM OPVWJ2850-29-89 10:53:0062MH [facility]CHEM HSQEW0572-05-45 10:53:004.21 [facility]CHEM TIJTF1543-95-48 10:53:33351IF SoutheastCHEM BDSPQ5195-02-32 17:30:0016 SoutheastCHEM PANEL 2018-04-06 17:30:0018.3MH [facility]CHEM QNLKN7856-33-97 17:30:006.1MH [facility] CHEM RNTRM6975-31-40 17:30:0025MH [facility]CHEM BXBKV3826-17-57 17:30:07957TV [facility]CHEM GZWSI7351-14-64 17:30:004.3M [facility]CHEM WNUIR5134-83-86 17:30:26013FE [facility]CHEM LAASZ2615-59-99 17:30:004.06 SoutheastCHEM PANEL 2018-04-06 17:30:0060 [facility]CHEM OPJKV3515-77-28 17:30:09655BL[facility] DSFDANDGHF0913-07-85 17:30:007.4 LlcysamodQBUNBBJPGY6782-59-85 17:30:003.46 GspqranhaWBDEILXPGM8927-49-10 17:30:009.8 PrrbqsomcXYIHJNQSNR2727-71-90 17:30:00* Test Item Value Reference Range Interpretation Comments MCH (test code = MCH) 28.4 pg 27.0-31.0 TmdtenyxjCTVNFTIAHZ8088-72-74 17:30:0086.6M LteyaquzcKRDEZHOSNL8472-85-71 17:30:008.1M DwbzvgtptAJWQGGSBCH9474-13-73 17:30:94673DD [facility]HEMATOLOGY 2018-04-06 17:30:0029.9 OctgkvehiBQXXVIOLYD5525-08-96 17:30:0017.0[facility] WECSXTKYNP9465-83-67 17:30:0032.8 RwqzxsrxjZLMLNNHIHW0517-16-17 17:30:0010.0 NhdnrapdsWPIRMGMSIL5277-62-19 17:30:003.3M KlmfbpyxtZPGIBJALXY0506-32-22 17:30:006.6M RgbusautyDPQGZFZGOZ7871-81-92 17:30:000.7 [facility]HEMATOLOGY 2018-04-06 17:30:000.5 CtepactljDDOXZEWRVU8239-09-08 17:30:005.9[facility] OWUBPJNHUT5298-73-55 17:30:000.2M EjnixvqkxTEYAVWHOWX3529-99-68 17:30:0079.3M PhbzomsvsRAZHOVTGYZ6249-54-12 17:30:000.1MH JqarcfflyXBGZMJIKTH2574-39-58 17:30:000.8MH [facility]CARDIAC IDVCZAB9698-56-00 12:35:000.03MH [facility]CARDIAC CKWMTDZ4580-93-25 08:25:000.03MH SoutheastPARATHYROID NVIKVBP9341-27-06 08:25:00 0.71MH SoutheastPARATHYROID PZPSVSO6878-03-74 08:25:000.71 [facility]URINE AND ZLVIS4379-29-88 05:50:00None Seen (04/05/18 11:50 PM)MH [facility] STOOL 2018-04-06 05:50:00Negative (04/05/18 11:50 PM)MH [facility] STOOL 2018-04-06 05:50:00Negative (04/05/18 11:50 PM) [facility] STOOL 2018-04-06 05:50:001 [facility]UR[facility] AND IMHOP6303-74-34 05:50:003 [facility] URINE AND XDYXH0671-93-89 05:50:004 [facility]URINE AND ANKKN9026-75-95 05:50:00* Test Item Value Reference Range Interpretation Comments UA pH (test code = UA pH) 7.0 1 5.0-8.0 MH [facility]URINE AND HTLXD8040-01-08 05:50:00* Test Item Value Reference Range Interpretation Comments UA Spec Grav (test code = UA Spec Grav) 1.013 1 [facility] AND ROUAO3135-61-26 05:50:00Negative *NA*(04/05/18 11:50 PM) [facility] AKWOX4946-78-37 05:50:00Negative *NA*(04/05/18 11:50 PM) [facility] VNMIZ7904-57-64 05:50:00Negative (04/05/18 11:50 PM) [facility] PSBMA4673-60-22 05:50:00Clear (04/05/18 11:50 PM) [facility] URINE AND CCLKH3549-77-64 05:50:00Yellow *NA*(04/05/18 11:50 PM) [facility] CARDIAC UCDYIXV8865-74-10 00:05:00>5000MH [facility] IKTMQZU2967-43-70 00:05:000.02 [facility]CHEM DAWHZ4854-44-51 00:05:0016MH [facility] PANEL 2018-04-06 00:05:11744UM [facility] NIXGU6530-75-59 00:05:0029MH [facility] QJWGP7803-89-05 00:05:0012.3[facility] SNBGP9021-33-90 00:05:00* Test Item Value Reference Range Interpretation Comments B/C Ratio (test code = B/C Ratio) 14 1 6-25 [facility] IMSHT3787-61-45 00:05:005.8 [facility] FPCSC3568-79-79 00:05:000.7 [facility] BZUDZ4636-85-77 00:05:002.7 [facility] PANEL 2018-04-06 00:05:006.5 [facility]CHE[facility] XPWVU9865-80-15 00:05:003.8 [facility] BPQUN2358-97-64 00:05:00* Test Item Value Reference Range Interpretation Comments A/G Ratio (test code = A/G Ratio) 0.7 1 0.7-1.6 [facility] BURJF0479-61-53 00:05:0013 [facility] GYCZJ4282-21-82 00:05:0014 [facility] OLUMP4971-63-71 00:05:26193FM [facility] PANEL 2018-04-06 00:05:30612CZ [facility] ASPRH7363-26-01 00:05:004.14 [facility] IWLCU8634-96-42 00:05:0060 [facility] XKWJC5041-77-95 00:05:34632KX [facility] HHOQZ0363-89-04 00:05:004.3[facility] HospitalKhzhzdqyyMQNRMGZMVA5610-26-95 00:05:00* Test Item Value Reference Range Interpretation Comments PTT (test code = PTT) 44.0 s 22.9-35.8 [facility]VPJANNCWPP5975-20-29 00:05:00* Test Item Value Reference Range Interpretation Comments PT (test code = PT) 16.5 s 12.0-14.7 [facility]SmfqjzgcpUDVHBFMLEA2283-36-90 00:05:00* Test Item Value Reference Range Interpretation Comments INR (test code = INR) 1.36 1 0.85-1.17 [facility]YvnmoskctJIYPTOBCQO6071-74-26 00:05:22916VL TeqjogycdSBNILRJZYK7904-16-92 00:05:0017.6M PtqrqbltrNEGOHLLNLZ8681-54-47 00:05:0032.4 [facility] 2018-04-06 00:05:008.8 JcfvlsajhVVYZFTIDMR5281-23-15 00:05[facility]0030.6[facility] ZLGALTGBKX7469-99-66 00:05:0088.3M GnwhskxqcDNWZUMYRLC9328-94-75 00:05:009.9 NnhnrqrmjBDIMLMYHNE8204-98-71 00:05:00* Test Item Value Reference Range Interpretation Comments MCH (test code = MCH) 28.6 pg 27.0-31.0 KtvfgbtmeTCURFPJNPM0689-64-74 00:05:007.1M WoqjfvjtwCIXIRTMIZB9404-29-97 00:05:003.47 FfwigifjmURTLJGIOMO7396-58-66 00:05:000.1M [facility]MAT[facility] 2018-04-06 00:05:000.2M LwdhxikmtRIAICKOCHH5717-00-80 00:[facility]000.6[facility] MRGIGOREJL1559-85-17 00:05:000.5 NcidmhgxbQOOXKXKBHR9269-13-24 00:05:005.7 BrvrkjivsZPABHGLOBF5924-83-52 00:05:001.0 CdeonnxqeQNWOMYGJPB6975-31-93 00:05:003.3M LsvmvyezpMUUYIXJSLE8231-13-04 00:05:009.1M [facility] 2018-04-06 00:05:007.2M VeipvuheoQEONQCUKBG7392-36-58 00:05:0079.4[facility] GBXGQBJFPV5514-12-78 16:56:0093 QjlekxfsrEBUTUDRPHX0637-62-90 16:56:0087 AxamvwqsxEDTSHRPAAH6853-28-53 16:56:0074 EifhqdomyUEYNQXEDNH2004-49-44 16:56:0015.2M ActbgyljuZKVRBJNFVM0303-96-50 16:56:00<1.6M SoutheastIMMUNOLOGY 2017-09-17 16:56:004.7 GzdryrprmXSHFWQBAOU4587-71-85 16:56:0016.9 [facility] CHEM LAKKC9189-48-79 08:05:0051 [facility] GKIQN3191-93-56 08:05:0058MH [facility] LTWEN3597-75-20 08:05:88287OP [facility] PCTAC7434-65-26 08:05:58519ZT [facility] XQNXU0916-17-56 08:05:005.2MH [facility] PANEL 2017-09-17 08:05:004.34 [facility] UURKC1734-30-31 08:05:0015MH [facility] CHE[facility] RVYFL1106-42-30 08:05:005.7 [facility] AGLFO1263-85-37 08:05:0017.2MH [facility] ZUKXG4763-33-18 08:05:0026MH PkmlqtlxtOOKXKS9051-55-54 21:20:00* Test Item Value Reference Range Interpretation Comments CHD Risk (test code = CHD Risk) 2.63 1 4.00-7.30 IuvqmcrmdTBQBAM6003-77-00 21:20:0031 NgbjenwcqXSJOYT5466-67-09 21:20:00* Test Item Value Reference Range Interpretation Comments VLDL (test code = VLDL) 18 1 DputtizubVUQHJE0996-76-23 21:20:0030 ChfusjwxdGWHANP0772-99-14 21:20:0090 ZmjblghmjLQKTPX3214-68-56 21:20:0079 SoutheastPARATHYROID HIFNMZB7855-87-57 21:20:000.61MH SoutheastPARATHYROID CXHPXVD4172-09-75 21:20:000.61 [facility] SPECIAL CAJPLXHFW2248-11-67 21:20:006.0MH [facility]CARDIAC MGASDSW9554-31-59 20:40:841298DM [facility] VBTVGQP1281-09-24 19:21:00<0.02MH [facility] CARDIAC LMJFYPH0539-04-69 19:21:36319QR [facility] XBCVC9483-71-24 19:21:0015 [facility] YJPQA3185-25-87 19:21:0052MH [facility] TBFCI1472-74-90 19:21:004.39MH [facility] KCMGW7373-72-73 19:21:004.8 [facility] PANEL 2017-09-16 19:21:85369ME [facility] UBWIS5568-07-14 19:21:0099MH [facility] CHE[facility] BQIGR3321-31-41 19:21:0057 [facility] YBJKN0698-83-44 19:21:0029[facility] TXTTV2432-96-60 19:21:005.5[facility] HospitalCHE[facility] VEGIK9296-90-66 19:21:0016.8[facility] HospitalLqfmwdzywEIKKTYKZYP5167-17-05 19:21:0078.3[facility] HospitalHE[facility]Y 2017-09-16 19:21:009.1[facility] HospitalWawuijoxaCIZUKGUYGV7587-25-86 19:21:003.4[facility] FIHOBKQQVF9702-19-96 19:21:008.5[facility] HospitalOikanaftwHJDTJLTXGX6128-28-99 19:21:008.0[facility] HospitalKyjtmswkoXUQIUHJUQN3965-10-01 19:21:000.9[facility] HospitalZbqguggkrWJGNSDFKBN1226-30-81 19:21:000.7[facility] HospitalZymhlpvegBVZDHHIUMR2395-46-40 19:21:000.1[facility] HospitalHEMATOLOGY 2017-09-16 19:21:000.3[facility] HospitalPrgmycxngIUZYSLHSZG2331-76-48 19:21:000.9[facility] FITZHXEPUE0429-07-90 19:21:00* Test Item Value Reference Range Interpretation Comments PT (test code = PT) 15.8 s 12.0-14.7 [facility]IwwonfttlDHHLPSCQFF6112-32-91 19:21:00* Test Item Value Reference Range Interpretation Comments INR (test code = INR) 1.25 1 0.85-1.17 [facility] HospitalCgbtibdjvNUQBWMNHRX9612-76-64 19:21:009.[address] [place], [place] [address]QufxpdmlrKTPEPSMBVI8408-42-54 19:21:009.8[facility] HospitalQda[id number] 19:21:0029.7[facility] 2017-09-16 19:21:003.28[facility] HospitalHgvepylkpHBHFFOFOLB0340-31-69 19:21:0015.[address] [place] [address] [id number] 19:21:09404WIAddison Gilbert HospitalNnekxfupcVEAACZPEWI7717-98-66 19:21:00* Test Item Value Reference Range Interpretation Comments MCH (test code = MCH) 30.0 pg 27.0-31.0 [facility] HospitalNmvyctvvoHACDTGZGPN1475-40-19 19:21:0033.2[facility] HospitalFeoknfqpkBTDHPOKKLN0597-32-10 19:21:0010.2[facility] HospitalJudoxtspoKLCABLGRQK2651-20-95 19:21:0090.3[facility] HospitalHEMATOLOGY 2017-09-16 19:21:00* Test Item Value Reference Range Interpretation Comments PTT (test code = PTT) 36.3 s 22.9-35.8 [facility]
[2019-08-11] MEDS ORDERED: SODIUM CHLORIDE 0.9% 1000ML 2,000 ML IV PRN (10:15)
[2019-08-11] MEDS ORDERED: HEPARIN SOD (PORCINE) 1000 UNIT/ML SDV IV PRN (10:15)
--- NOTE | 2019-08-11 13:07 | Consultation ---
DATE OF CONSULTATION: 08/11/2019 Nephrology Consultation REASON FOR CONSULTATION: End-stage kidney disease, for initiation of hemodialysis. HISTORY OF PRESENT ILLNESS: Dudley Hancock is a 49-year-old male with end-stage kidney disease secondary to diabetes mellitus and hypertension, who was admitted based on recent critical labs yesterday through the emergency room. The patient proceeded for placement of a tunneled dialysis catheter and was subsequently dialyzed yesterday. This morning, he denies any symptoms other than a generalized pruritic rash going on for the past month. He saw his primary care physician for the rash, who check labs, and the patient was directed to come to the hospital for initiation of dialysis. The patient denies any chest pain, shortness of breath, dysuria, gross hematuria, abdominal flank pain, nausea, vomiting, or diarrhea. PAST MEDICAL HISTORY: Long-term diabetes mellitus and hypertension for the last few years. MEDICATIONS: Noted in MAR. REVIEW OF SYSTEMS: Negative except as noted above in HPI. PHYSICAL EXAMINATION: GENERAL: The patient is currently being dialyzed, alert and oriented x3. SKIN: Has a generalized maculopapular-type rash with no secondary infection. Scratch najera all over the trunk area. 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 NECK: Supple without jugular venous distention. CHEST: Auscultation reveals bilateral air entry. I do not hear any wheezing or crepitations. CARDIOVASCULAR: Shows S1 and S2 without rub or gallop. ABDOMEN: Soft, depressible, nontender. EXTREMITIES: Both lower legs have some chronic nonpitting-type edema. NEUROLOGICAL: Alert and oriented x3. No obvious focal deficits. LABORATORY DATA: Chest x-ray upon admission reported as showing pulmonary congestion. Hemoglobin today is 8.1, white count normal, and platelet count low at 95,000. Serum chemistry after dialysis yesterday show a BUN of 72, creatinine 6.3. Normal electrolytes. Total calcium 6.9 with albumin of 2.6. Serum phosphorus pending. Serum iron low, transferrin saturation 20%. Hemoglobin A1c 6%. IMPRESSION: 1. End-stage kidney disease secondary to diabetic nephropathy, initiated on dialysis. Tolerating so far. a. The patient is interested in peritoneal dialysis. Dr. Turner has been consulted and apparently plans to put a Tenckhoff PD catheter early next week. We will hemodialyze the patient tomorrow for the third time increasing the duration and blood flow. 2. Hypertension, monitor BP and adjust medication as needed. 3. Anemia secondary to chronic kidney disease. Current hemoglobin is stable. 4. Generalized pruritic rash, not sure if this is uremic in nature. Phosphorus level is pending. Also, ordered intact PTH and vitamin D levels. Thank you for the opportunity to participate in this patient's care. Regino Vega MD [facility]/MODL /[id number]
[2019-08-11] MEDS: ACETAMINOPHEN 325 MG TAB PO PRN ×2 (15:19→23:30)
--- NOTE | 2019-08-11 16:06 | NUR ---
Nutrition Screen Note RD Recommendation for Physician: -Continue renal diet Plan of Care: RD following, monitoring for tolerance and adequacy Nutrition reason for involvement: Diagnosis - ESRD Primary Diagnose(s): ESRD needing dialysis, uremia PMH: HTN, CHF, diabetes, CKD Ht: 70 in Wt:200 lb BMI: 28.7 kg/m2 IBW:[address] Assessment: (08/11/19) Chart reviewed. Labs and meds reviewed. Pt is a 49 year old male admitted with ESRD needing dialysis and uremia. Pt stated that he has been eating smaller portions and watching what he eats. It is recorded that pt consumed 100% of breakfast and 75% of dinner yesterday. No weight loss reported and pt mentioned he usually weighs 200 lbs. No N/V/D/C or chewing/swallowing issues. Will continue to monitor Current Diet: renal Malnutrition Evaluation (08/11/19) The patient does not meet criteria for a specified degree of malnutrition at this time. Will re-evaluate at follow-up as appropriate. Diet Education Needs Assessment: Diet education indicated, but pt declined. RD is available for diet education as needed. Nutrition Care Level: low Signed: Carlyn Hou, RD, LD
[2019-08-11] MEDS ORDERED: IRON SUCROSE 100 MG in SODIUM CHLORIDE 0.9% 100 ML 100 ML IV ONE (19:15)
--- NOTE | 2019-08-11 21:19 | Progress Note ---
DATE: CONSULTANTS: 1. Dr. Lacy with anchor tacker. 2. Dr. Turner with surgical team. CHIEF COMPLAINT: Abnormal blood work. SUBJECTIVE: The patient is resting in bed with no acute distress. He reports he had dialysis yesterday and today, so he is feeling tired and little dizzy. Vital signs are stable. He denies any chest pain, shortness of breath, nausea, or vomiting. PHYSICAL EXAMINATION: VITAL SIGNS: Temperature 97.6, pulse is 59, respirations 16, blood pressure 141/87, pulse ox is 98% on 2 L of oxygen. GENERAL: No acute distress. HEENT: Normocephalic. Vision loss. NECK: Supple. CARDIOVASCULAR: Regular rate and rhythm. Slightly bradycardic. LUNGS: Clear to auscultation. ABDOMEN: Soft. NEURO: Alert, awake, and oriented x3. MUSCULOSKELETAL: Moves all extremities. SKIN: Dry with generalized rash, worse in the lower extremities with discoloration. LABORATORY DATA: WBC 6.12, hemoglobin 8.1, hematocrit 24.8, platelets 95. Sodium 140, potassium 4.0, BUN 72 and creatinine 6.34. Hemoglobin A1c is 6.0, phosphorus 5.6. Iron 50, TIBC 244, CK 241, CK-MB 11.4, troponin 0.061. IMAGING: Venous Doppler is pending as well as echocardiogram. IMPRESSION AND PLAN: 1. End-stage renal failure due to diabetic nephropathy. Initiated dialysis per Nephrology. Pending for PD cath placement per surgical team. 2. Hypertension. We will resume home medication. 3. 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 Hemoglobin A1c is 6.0. Continue sliding scale insulin. 4. History of congestive heart failure, diastolic. BNP was over 3000. This is likely due to ESRD. Echo with EF of 45% to 50%. We will resume home medications. 5. Bilateral lower extremity discoloration and swelling. Pending venous Doppler results to rule out DVT. 6. Anemia of chronic diseases. Hemoglobin 8.1. Iron is low at 50. We will give Venofer x1. Monitor closely. 7. Thrombocytopenia. Platelets 95. We will continue to monitor closely. 8. Hypocalcemia. Defer to Nephrology. 9. Deep vein thrombosis prophylaxis. No anticoagulation due to anemia. Dictated by BUCKY Mackey MD ASHLEY Garcia/CAROLYNNL /[id number] Pt seen and examined on 08/11/19. Agree with the findings and plan as documented by BUCKY Toth. MACKENZIE
[2019-08-12] VITALS (8 sets, daily range): BP systolic 126–144; BP diastolic 64–77
[2019-08-12 05:50] LABS: ANION GAP 15.1 mmol/L (8-16); CREATININE, SERUM 5.05 mg/dL (0.72-1.25); POTASSIUM 4.1 mmol/L (3.5-5.1)
[2019-08-12 05:53] LABS: CALCIUM 6.8 mg/dL (8.4-10.2)
[2019-08-12] MEDS: ACETAMINOPHEN 325 MG TAB PO PRN ×2 (07:04→13:20)
[2019-08-12] MEDS: INSULIN REGULAR, HUMAN 100 UNIT/1 ML 3ML VIAL SQ SCH ×4 (07:30→21:00)
[2019-08-12] MEDS: CALAMINE LOTION 4 OZ BOTTLE TP SCH ×3 (08:25→20:26)
--- NOTE | 2019-08-12 10:30 | NUR ---
Pt. expressed no spiritual or emotional concerns at this time. Provided hospitality and information on how to reach cupola charger insulation, if needed. No need to follow at this time. SONJA ANDERSON [employer] Teacher Spiritual Care Department O: [phone]
[2019-08-12] MEDS: DIPHENHYDRAMINE HCL 25 MG CAP PO PRN (12:44)
[2019-08-12] MEDS ORDERED: CALCITRIOL 0.5 MCG CAP PO SCH (15:15)
--- NOTE | 2019-08-12 15:43 | Progress Note ---
DATE: 08/12/2019 CONSULTANTS: 1. Dr. Lacy with Nephrology. 2. Dr. Turner with surgical team. CHIEF COMPLAINT: Abnormal blood work. SUBJECTIVE: The patient is resting in bed with no acute distress. He reports felt dizzy with dialysis. Today is his third day of dialysis. Vital signs stable. Reports left hip pain after a fall prior to coming to the hospital. There is no bruising or swelling noted. He denies any chest pain, shortness of breath, nausea, or vomiting. PHYSICAL EXAMINATION: VITAL SIGNS: Temperature 97.6, pulse is 57, respirations 20, blood pressure 140/75, and pulse ox is 100% on nasal cannula. GENERAL: No acute distress. HEENT: Normocephalic and atraumatic. Vision loss due to diabetes complications. NECK: Supple. CARDIOVASCULAR: Regular rate and rhythm. LUNGS: Clear to auscultation. ABDOMEN: Soft. NEUROLOGIC: Alert, awake, and oriented x3. MUSCULOSKELETAL: Moves all extremities. SKIN: Dry with generalized rash due to scratching. Worse in the lower extremities with dry scaly and discolored. LABORATORY DATA: Sodium 141, potassium 4.1, BUN is 50, creatinine is 5.05, estimated GFR is 12, and calcium 6.8. IMPRESSION AND PLAN: 1. End-stage renal failure due to diabetic nephropathy. Started on dialysis. We will defer to Nephrology. He is also pending for PD catheter placement by Dr. Turner, likely on Thursday. 2. Hypertension. We will resume to treat with hydralazine as needed, as he is complaining of dizziness and blood pressure is not high and diabetes type 2. 3. Diabetes type 2 with complication of nephropathy and vision. Continue sliding scale insulin as needed. 4. History of diastolic congestive heart failure. Echo with EF of 45% to 50%. We will continue to monitor closely. 5. Bilateral lower extremity discoloration and swelling. Pending venous Doppler results to rule out deep venous thrombosis. 6. Anemia of chronic diseases. Hemoglobin is stable. Status post one bag of Venofer IV. We will continue to monitor. 7. Thrombocytopenia. No signs of active bleeding. We will continue to monitor. 8. Hypercalcemia. Defer to Nephrology. Calcium is 6.8 today. 9. Deep vein thrombosis prophylaxis. We will hold off on anticoagulation due to anemia. Dictated by PiliBUCKY Gardner Yiching MD ASHLEY Thompson/CAROLYNNL /[id number] Pt seen and examined. Agree with the findings and plan as documented by BUCKY Toth. MACKENZIE
--- NOTE | 2019-08-12 15:58 | Progress Note ---
DATE: 08/12/2019 Renal Progress Note SUBJECTIVE: Followed for end-stage renal disease. The patient is tolerating hemodialysis treatment. Treatment #3 today. The patient is eventually going to be on peritoneal dialysis. He has a tunneled dialysis catheter in the right chest area. He is going to eventually get a peritoneal dialysis catheter next week on Thursday. The patient is also awaiting outpatient placement for dialysis. No nausea. No vomiting. Does still have some itching. No shortness of breath. Tolerated dialysis without any problems today. OBJECTIVE: VITAL SIGNS: Have been noted and stable. LUNGS: Clear to auscultation bilaterally. CARDIOVASCULAR: S1 and S2. No rub. ABDOMEN: Soft and nontender. EXTREMITIES: No edema. LABORATORY DATA: Potassium 4.1, BUN 50, creatinine 5.05, and calcium 6.8. IMPRESSION AND PLAN: 1. End-stage renal disease. We will continue to provide dialysis Thursday, Thursday, Thursday. After today, I will watch off dialysis on the weekend. The patient eventually will transition to peritoneal dialysis as outpatient. We will also arrange outpatient dialysis as outpatient chair time. 2. Hypertension. Blood pressure stable. Continue to monitor. 3. Hypocalcemia, likely from secondary hyperparathyroidism. We will add calcitriol and make further recommendations. 4. Anemia of chronic disease, not able to give Epogen since it is not coming up in the medication formulary. We will continue to monitor H and H closely. Transfuse as needed for hemoglobin less than 8. Av Daly MD TH/MODL /[id number]
[2019-08-12] MEDS: CALCITRIOL 0.25 MCG CAP PO SCH (18:10)
--- NOTE | 2019-08-12 19:25 | NUR ---
BEDSIDE SHIFT REPORT RECEIVED. PATIENT IS RESTING IN BED, RESP EVEN AND UNLABORED. EDUCATED PT ABOUT FALL PRECAUTIONS. PT VERBALIZED UNDERSTANDING. CALL LIGHT WITH IN EASY REACH. INSTRUCTED PT TO USE CALL LIGHT FOR ASSISTANCE. BED IS LOW/LOCKED. SIDE RAILS X2. BED ALARM IS ON. PT DENIES NEEDS AT THIS TIME.
[2019-08-13] VITALS (7 sets, daily range): BP systolic 131–150; BP diastolic 66–80
[2019-08-13] MEDS: ACETAMINOPHEN 325 MG TAB PO PRN (00:48)
[2019-08-13 05:53] LABS: BASOPHILS % 0.6 % (0.0-1.0); EOSINOPHILS # (AUTO) 0.7 (0.0-0.4); EOSINOPHILS % 9.5 % (0.0-6.0); HEMATOCRIT 23.4 % (38.2-49.6); HEMOGLOBIN 7.4 g/dL (14.0-18.0); LYMPHOCYTES # (AUTO) 0.5 (1.0-3.2); LYMPHOCYTES % 7.5 % (18.0-39.1); MEAN CORPUSCULAR HGB CONC 31.6 g/dL (31-35); MEAN CORPUSCULAR VOLUME 97.9 fL (81-99); MONOCYTES % 13.7 % (4.4-11.3); NEUTROPHILS # (AUTO) 4.9 (2.1-6.9); NEUTROPHILS % 68.3 % (38.7-80.0); PLATELET COUNT 68 x10e3/uL (140-360); RED BLOOD COUNT 2.39 x10e6/uL (4.3-5.7); RED CELL DISTRIBUTION WIDTH 14.1 % (11.7-14.4)
[2019-08-13 06:33] LABS: ANION GAP 13.9 mmol/L (8-16); CALCIUM 7.1 mg/dL (8.4-10.2); CREATININE, SERUM 3.81 mg/dL (0.72-1.25); MAGNESIUM 1.9 MG/DL (1.3-2.1); POTASSIUM 3.9 mmol/L (3.5-5.1)
[2019-08-13] MEDS: INSULIN REGULAR, HUMAN 100 UNIT/1 ML 3ML VIAL SQ SCH ×4 (07:30→21:00)
[2019-08-13] MEDS: CALAMINE LOTION 4 OZ BOTTLE TP SCH ×3 (08:11→21:36)
[2019-08-13] MEDS: CALCITRIOL 0.25 MCG CAP PO SCH (08:12)
[2019-08-13 12:49] LABS: EOSINOPHILS % (MANUAL) 8 % (0-7); MONOCYTES % (MANUAL) 14 % (3.4-9.0); NEUTROPHILS % (MANUAL) 70 % (40-74)
[2019-08-13 12:50] LABS: LYMPHOCYTES % (MANUAL) 8 % (19-48)
[2019-08-13 12:51] LABS: PLATELET ESTIMATE MODERATELY DECREASED; PLATELET MORPHOLOGY COMMENT NORMAL; RBC MORPHOLOGY COMMENT NORMAL
--- NOTE | 2019-08-13 14:32 | Progress Note ---
DATE: 08/13/2019 Renal Progress Note SUBJECTIVE: Followed for end-stage renal disease, tolerating dialysis. Has had 3 treatments now. Next dialysis will be on 08/15/2019. The patient is also waiting placement of his PD catheter. He is not uremic anymore. No nausea. No vomiting. No shortness of breath. OBJECTIVE: VITAL SIGNS: Noted. Blood pressure 143/66, 62 pulse, afebrile. LUNGS: Clear to auscultation bilaterally. CARDIOVASCULAR: S1 and S2. No rub ABDOMEN: Soft and nontender. EXTREMITIES: No edema. LABORATORY DATA: Potassium is 3.9, creatinine is 3.81, BUN 29, and calcium is coming up at 7.1 after dialysis as well as given calcitriol. Hemoglobin continues to be low at 7.4. IMPRESSION AND PLAN: 1. End-stage renal disease. Continue dialysis Thursday, Thursday, Thursday. Also awaiting PD catheter placement, once PD catheter has been placed, and also the patient has had outpatient dialysis chair time arranged. He can be discharged from Renal standpoint and then we will start him on peritoneal dialysis in the outpatient setting. 2. Hypertension, controlled blood pressure. 3. Anemia of chronic disease. We will add Epogen. The patient's iron levels were also low when checked initially. We will start him on IV iron. 4. Secondary hyperparathyroidism/hypocalcemia. Continue calcitriol. Vitamin D3 level is still pending. Av Daly MD [facility]/MODL /[id number]
--- NOTE | 2019-08-13 15:48 | Progress Note ---
DATE: 08/13/2019 CONSULTANTS: 1. Dr. Lacy with Nephrology. 2. Dr. Turner with surgical team. CHIEF COMPLAINT: Abnormal blood work. SUBJECTIVE: The patient is sitting up in a chair with no acute distress, no shortness of breath, chest pain, nausea, or vomiting. PHYSICAL EXAMINATION: VITAL SIGNS: Temperature 98.1, pulse is 62, respirations 18, blood pressure 143/66, pulse ox is 97% on room air. GENERAL: Fatigue. HEENT: Normocephalic, atraumatic. Visual loss due to diabetes. NECK: Supple. CARDIOVASCULAR: Regular rate and rhythm. LUNGS: Clear to auscultation. ABDOMEN: Soft. NEUROLOGIC: Alert, awake, and oriented x3. MUSCULOSKELETAL: Moves all extremities. SKIN: Dry with generalized rash. EXTREMITIES: Lower extremity, scaly dry skin and discoloration noted. LABORATORY DATA: Sodium 139, potassium 3.9. BUN is 29, creatinine 3.81. Estimated GFR 17. IMPRESSION AND PLAN: 1. End-stage renal disease, started on dialysis. Nephrology on the case. Pending PD catheter placement by Dr. Turner, likely Thursday. Pending outpatient HD setup. 2. Hypertension, stable. We will continue to treat as needed with hydralazine. 3. Diabetes type 2. Continue sliding scale insulin as needed. Hemoglobin A1c is 6.0. 4. History of diastolic congestive heart failure. Echo with EF of 45% to 50%, stable. 5. Bilateral lower extremity discoloration and swelling. Venous Doppler done awaiting on final results. 6. Anemia of chronic diseases. Hemoglobin is 7.4. Status post one bag of Venofer. We will monitor closely. 7. Thrombocytopenia. No signs of active bleeding. We will continue to monitor. 8. Hypocalcemia, low calcium. We will defer to Nephrology. Calcium is improved on calcitriol. 9. Deep venous thrombosis prophylaxis. No anticoagulation due to anemia. Dictated by BUCKY Mackey Latisha Walters MD [facility]/MODL /[id number] Pt seen and examined. Agree with the findings and plan as documented by BUCKY Toth. MACKENZIE
[2019-08-13] MEDS: IRON SUCROSE 100 MG in SODIUM CHLORIDE 0.9% 100 ML 100 ML IV SCH (16:04)
[2019-08-13] MEDS: EPOETIN ALFA-EPBX 10,000 UNIT/ML VIAL SC SCH (16:04)
[2019-08-14] VITALS (7 sets, daily range): BP systolic 134–144; BP diastolic 71–87
--- NOTE | 2019-08-14 07:12 | NUR ---
[facility] AAOX3. NO SIGNS OF IV INFILTRATION. RESTING IN BED. BED LOCKED AND IN LOW POSITION. CALL LIGHT WITHIN REACH.
[2019-08-14] MEDS: INSULIN REGULAR, HUMAN 100 UNIT/1 ML 3ML VIAL SQ SCH ×4 (07:30→21:00)
[2019-08-14] MEDS: CALCITRIOL 0.25 MCG CAP PO SCH (08:00)
[2019-08-14] MEDS: ACETAMINOPHEN 325 MG TAB PO PRN ×2 (08:00→23:58)
[2019-08-14] MEDS: CALAMINE LOTION 4 OZ BOTTLE TP SCH ×3 (08:00→21:00)
[2019-08-14] MEDS ORDERED: EPOETIN ALFA-EPBX 10,000 UNIT/ML VIAL SC SCH (09:00)
[2019-08-14] MEDS: IRON SUCROSE 100 MG in SODIUM CHLORIDE 0.9% 100 ML 100 ML IV SCH (15:09)
--- NOTE | 2019-08-14 20:59 | Progress Note ---
DATE: 08/14/2019 CONSULTANTS: 1. Dr. Vega with Nephrology. 2. Dr. Turner with surgical team. CHIEF COMPLAINT: Abnormal blood work. SUBJECTIVE: The patient was seen walking down the [place] and back with guidance. He denies any chest pain, shortness of breath, nausea, vomiting, or fever. Reports feeling much better. PHYSICAL EXAMINATION: VITAL SIGNS: Temperature is 97.9, pulse is 84, respirations 18, blood pressure 134/71, and pulse ox is 95% on room air. GENERAL: No acute distress. HEENT: Normocephalic and atraumatic. Vision loss due to diabetes. NECK: Supple. CARDIOVASCULAR: Regular rate and rhythm. LUNGS: Clear to auscultation. ABDOMEN: Soft and nontender. NEUROLOGIC: Alert, awake, and oriented x3. MUSCULOSKELETAL: Moves all extremities. SKIN: Dry with generalized rash. EXTREMITIES: Lower extremity dry and discolored. LABORATORY DATA: None for today. IMPRESSION: 1. End-stage renal disease. HD per director index. Pending PD catheter placement by Dr. Turner on Thursday. We will also check with Case Management regarding outpatient dialysis setup. 2. Hypertension, stable. We will continue to treat as needed with hydralazine. 3. Diabetes type 2. Sliding scale insulin as needed. 4. History of diastolic congestive heart failure. Echo with EF of 45% to 50%. 5. Bilateral lower extremity discoloration and swelling. Venous Doppler is negative. May need outpatient vascular workup in the future. 6. Anemia of chronic diseases. Hemoglobin is low, continue IV Venofer and Epogen per Nephrology. 7. Thrombocytopenia. No signs of active bleeding noted. We will continue to monitor. 8. Hypocalcemia. We will defer to Nephrology. Continue calcitriol. 9. Deep vein thrombosis prophylaxis. No anticoagulation due to anemia. Dictated by BUCKY Mackey Latisha Walters MD MY/MODL /[id number] Pt seen and examined. Agree with the findings and plan as documented by BUCKY Toth. MTDD
[2019-08-15] VITALS (8 sets, daily range): BP systolic 112–150; BP diastolic 64–75
[2019-08-15 05:17] LABS: BASOPHILS # (AUTO) 0.1 (0.0-0.1); BASOPHILS % 0.6 % (0.0-1.0); EOSINOPHILS # (AUTO) 0.8 (0.0-0.4); EOSINOPHILS % 9.8 % (0.0-6.0); HEMATOCRIT 23.2 % (38.2-49.6); HEMOGLOBIN 7.7 g/dL (14.0-18.0); LYMPHOCYTES # (AUTO) 0.7 (1.0-3.2); LYMPHOCYTES % 8.3 % (18.0-39.1); MEAN CORPUSCULAR HEMOGLOBIN 31.8 pg (28-32); MEAN CORPUSCULAR HGB CONC 33.2 g/dL (31-35); MEAN CORPUSCULAR VOLUME 95.9 fL (81-99); MONOCYTES # (AUTO) 1.3 (0.2-0.8); MONOCYTES % 15.4 % (4.4-11.3); NEUTROPHILS # (AUTO) 5.5 (2.1-6.9); NEUTROPHILS % 65.4 % (38.7-80.0); PLATELET COUNT 114 x10e3/uL (140-360); RED BLOOD COUNT 2.42 x10e6/uL (4.3-5.7); RED CELL DISTRIBUTION WIDTH 14.2 % (11.7-14.4)
[2019-08-15 05:47] LABS: ANION GAP 16.4 mmol/L (8-16); CALCIUM 7.2 mg/dL (8.4-10.2); CREATININE, SERUM 5.69 mg/dL (0.72-1.25); POTASSIUM 4.4 mmol/L (3.5-5.1)
--- NOTE | 2019-08-15 07:00 | NUR ---
BEDSIDE SHIFT REPORT RECEIVED FROM MANAGER OF OPERATIONS RN. PT DENIES NEEDS AT THIS TIME.
--- NOTE | 2019-08-15 07:11 | NUR ---
REPORT GIVEN TO DAYSHIFT NURSE. RESTING IN BED. AAOX3. BED LOCKED AND IN LOW POSITION. CALL LIGHT WITHIN REACH. NO SIGNS OF IV INFILTRATION.
[2019-08-15] MEDS: INSULIN REGULAR, HUMAN 100 UNIT/1 ML 3ML VIAL SQ SCH ×4 (07:30→20:49)
[2019-08-15] MEDS: CALCITRIOL 0.25 MCG CAP PO SCH (09:32)
[2019-08-15] MEDS: CALAMINE LOTION 4 OZ BOTTLE TP SCH ×3 (09:32→20:49)
--- NOTE | 2019-08-15 13:36 | Progress Note ---
DATE: 08/15/2019 SUBJECTIVE: Followed for end-stage renal disease on hemodialysis Thursday, Thursday, Thursday. Now, the patient is awaiting to have peritoneal dialysis catheter placement. Once his PD catheter is in place, the patient will be starting as peritoneal dialysis training in about a week to 10 days in the outpatient setting. He is also waiting outpatient chair time for his hemodialysis. Dialysis one fine today. No problems. No nausea, no vomiting, no shortness of breath. OBJECTIVE: VITAL SIGNS: Have been noted, blood pressure is 114/70, afebrile, 69 pulse. LUNGS: Clear to auscultation bilaterally. CARDIOVASCULAR: S1, S2. No rub. ABDOMEN: Soft, nontender. EXTREMITIES: No edema. LABS: Hemoglobin 7.7. Chemistry; sodium 132, potassium 4.4, BUN 52, creatinine 5.69, calcium 10.2. IMPRESSION AND PLAN: 1. End-stage renal disease. Continue hemodialysis here Thursday, Thursday, Thursday. Next dialysis will be here on Thursday. Awaiting outpatient dialysis chair time and PD catheter placement. 2. Hypertension, controlled. 3. Anemia of chronic disease, on IV iron and Epogen now. 4. Next may consider doing a transfusion with next dialysis treatment. MD MELISSA Friedman/MODL /[id number]
--- NOTE | 2019-08-15 13:36 | NUR ---
SPOKE WITH PT ABOUT DIALYSIS CHAIR SET UP, GOT CHOICE SIGNED FOR [facility] HE CHOSE CHAIR TIME OF M, AND THURSDAY AT 2PM. FILED CHOICE IN CHART AND FAXED CLINICALS TO ADMISSION LINE. LET THEM KNOW PLANNED DISCHARGE IS FOR TOMORROW AFTERNOON, PENDING CHAIR PLACEMENT.
[2019-08-15] MEDS: IRON SUCROSE 100 MG in SODIUM CHLORIDE 0.9% 100 ML 100 ML IV SCH (17:02)
[2019-08-15] MEDS: EPOETIN ALFA-EPBX 10,000 UNIT/ML VIAL SC SCH (17:02)
[2019-08-15] MEDS: ACETAMINOPHEN 325 MG TAB PO PRN (17:03)
[2019-08-15] MEDS: DIPHENHYDRAMINE HCL 25 MG CAP PO PRN (20:22)
--- NOTE | 2019-08-15 21:33 | Progress Note ---
DATE: 08/15/2019 CONSULTANTS: Dr. Daly with Nephrology. Dr. Turner with surgical team. CHIEF COMPLAINT: Abnormal blood work and fatigued. SUBJECTIVE: The patient was seen while doing dialysis. He reports he feels weak every time he does dialysis, and irritable. He denies any chest pain, shortness of breath, nausea, vomiting, or abdominal pain. PHYSICAL EXAMINATION: VITAL SIGNS: Temperature 98.1, pulse is 69, respirations 19, blood pressure 114/70, pulse ox is 95% on room air. GENERAL: Fatigue, no acute distress. HEENT: Normocephalic, atraumatic. Vision impairment. NECK: Supple. CARDIOVASCULAR: Regular rate and rhythm. LUNGS: Clear to auscultation. ABDOMEN: Soft and nontender. NEUROLOGIC: Alert, awake, and oriented x3. MUSCULOSKELETAL: Moves all extremities. SKIN: Dry with generalized rash and discoloration noted in bilateral lower extremities. LABORATORY DATA: WBC 8.39, hemoglobin 7.7, hematocrit 23.2, platelets 114. Sodium 136, potassium 4.4, BUN is 52, creatinine 5.69, estimated GFR 11, calcium 7.2. IMPRESSION: 1. End-stage renal disease. Hemodialysis per behaviour support teacher. Pending PD catheter placement by Dr. Turner tomorrow. Also waiting on outpatient HD chair time. 2. Hypertension, stable. We will continue to treat as needed with hydralazine. 3. Diabetes type 2. Sliding scale insulin as needed. 4. Chronic diastolic congestive heart failure secondary to uncontrolled hypertension. Without exacerbation. Echo with EF of 45% to 50%. 5. Bilateral lower extremity discoloration and swelling. Venous Doppler is negative for DVT. Advised to follow up outpatient for further vascular workup. 6. Anemia of chronic diseases. Hemoglobin is 7.7 today, status post Venofer and Epogen, was started as per Nephrology. 7. Thrombocytopenia. No signs of bleeding. We will continue to monitor. 8. Hypocalcemia. Will improve on calcitriol. Calcium is 7.2 today. 9. Vision loss. Fall precautions discussed. 10. Deep vein thrombosis prophylaxis. No anticoagulation due to anemia. Dictated by Pili Toth, BUCKY Latisha Walters MD MY/MODL /[id number] Pt seen and examined. Agree with the findings and plan as documented by BUCKY Toth. MACKENZIE
[2019-08-16] VITALS (8 sets, daily range): BP systolic 105–148; BP diastolic 55–75
[2019-08-16] MEDS: ACETAMINOPHEN 325 MG TAB PO PRN (00:42)
[2019-08-16 05:24] LABS: BASOPHILS # (AUTO) 0.1 (0.0-0.1); BASOPHILS % 0.6 % (0.0-1.0); EOSINOPHILS # (AUTO) 0.8 (0.0-0.4); EOSINOPHILS % 9.1 % (0.0-6.0); HEMOGLOBIN 7.5 g/dL (14.0-18.0); LYMPHOCYTES # (AUTO) 0.8 (1.0-3.2); LYMPHOCYTES % 8.8 % (18.0-39.1); MEAN CORPUSCULAR HEMOGLOBIN 31.5 pg (28-32); MEAN CORPUSCULAR HGB CONC 32.6 g/dL (31-35); MEAN CORPUSCULAR VOLUME 96.6 fL (81-99); MONOCYTES # (AUTO) 1.2 (0.2-0.8); MONOCYTES % 13.8 % (4.4-11.3); NEUTROPHILS # (AUTO) 5.9 (2.1-6.9); NEUTROPHILS % 67.4 % (38.7-80.0); PLATELET COUNT 131 x10e3/uL (140-360); RED BLOOD COUNT 2.38 x10e6/uL (4.3-5.7); RED CELL DISTRIBUTION WIDTH 14.4 % (11.7-14.4)
[2019-08-16 05:47] LABS: ANION GAP 14.1 mmol/L (8-16); CALCIUM 7.7 mg/dL (8.4-10.2); CREATININE, SERUM 4.19 mg/dL (0.72-1.25); POTASSIUM 4.1 mmol/L (3.5-5.1)
--- NOTE | 2019-08-16 07:00 | NUR ---
BEDSIDE SHIFT REPORT RECEIVED FROM PROCESS DEVELOPMENT ASSOCIATE RN. PT DENIES NEEDS AT THIS TIME.
[2019-08-16] MEDS: INSULIN REGULAR, HUMAN 100 UNIT/1 ML 3ML VIAL SQ SCH ×3 (07:30→16:27)
--- NOTE | 2019-08-16 07:42 | NUR ---
PT OFF THE FLOOR TO OR.
[2019-08-16] MEDS ORDERED: SODIUM CHLORIDE 0.9% 500ML 500 ML ONE (08:04)
[2019-08-16] MEDS ORDERED: BUPIVACAINE HCL 0.5% INJ 30 ML VIAL INJ ONE (08:12)
[2019-08-16] MEDS: CALCITRIOL 0.25 MCG CAP PO SCH (08:18)
[2019-08-16] MEDS: CALAMINE LOTION 4 OZ BOTTLE TP SCH ×2 (08:18→14:40)
[2019-08-16] MEDS ORDERED: MORPHINE SULFATE 2 MG/ML SYR 1ML IV PRN (08:45)
[2019-08-16] MEDS ORDERED: HYDROCODONE/APAP 5MG-325MG TAB PO PRN (08:45)
--- NOTE | 2019-08-16 09:59 | Operative Report ---
DATE OF PROCEDURE: 08/16/2019 SURGEON: Zenon Turner MD PREOPERATIVE DIAGNOSIS: End-stage renal disease. POSTOPERATIVE DIAGNOSIS: End-stage renal disease. PROCEDURE: Diagnostic laparoscopy, laparoscopic placement of tunneled peritoneal dialysis catheter. KEYPUNCH OPERATOR: None. ANESTHESIA: General. INDICATIONS AND FINDINGS: The patient is a 49-year-old male, admitted to the hospital with end-stage renal disease, started on dialysis will need catheter for peritoneal dialysis. At Surgery, there were no abnormalities with laparoscopy. There was no fluid in the abdomen. End of the catheter was positioned in the pelvis without difficulty, easily flushed with saline and the saline easily withdrew. TECHNIQUE: After adequate general endotracheal anesthesia, the patient is in supine position, and the abdomen was prepped and draped in sterile fashion with ChloraPrep solution on the left side of the abdomen just above at the level of the umbilicus, skin and subcutaneous tissue was infiltrated with 0.5% Marcaine. Transverse incision was made. Abdominal wall was elevated and Veress needle was introduced. Pneumoperitoneum was then created. A 5 mm trocar and cannula was then passed through this wound. Laparoscopic camera was introduced. Initial laparoscopy revealed, the bowel was seen and appeared normal. There was no fluid seen. Liver was slightly nodular. A 2nd 5 mm trocar and cannula placed under direct vision. The left lower quadrant just above the umbilicus just to the left of the midline. Skin and subcutaneous tissues infiltrated with 0.5% Marcaine. Incision was made and the peritoneal dialysis catheter was tunneled through the abdominal wall, so the peritoneal cavity below the umbilicus. This was done using a clamp. Once the catheter was grasped with a grasper, the clamp was removed. The catheter was delivered in the peritoneal cavity and positioned so that the deep cuff was above the peritoneum while more superficial cuff was within the subcutaneous tissue. The catheter was flushed, found to flush easily and fluid easily drained. The catheter was held in place at the skin exit site using a 3-0 nylon. Instruments and cannulas were removed. Pneumoperitoneum was evacuated. The trocar site wounds were closed with subcuticular sutures of 4-0 Vicryl. Dermabond was applied to these wounds. A sterile dressing was placed around the catheter. The patient tolerated the procedure well. Estimated blood loss was 5 mL. There were no complications. All counts were correct and the patient was taken to the recovery room in satisfactory condition. MD PAPA Woodruff/STEPHANIE /[id number]
--- NOTE | 2019-08-16 10:00 | NUR ---
PT BACK TO ROOM FROM PACU. VITALS WNL AND PT DENIES NEEDS AT THIS TIME.
[2019-08-16] MEDS: MORPHINE SULFATE INJ 4 MG/ML INJ 1ML ONE ×2 (10:05→11:22)
[2019-08-16] MEDS: ONDANSETRON HCL 4 MG ORAL DISINTEGRATING TAB PO PRN ×2 (12:15→16:44)
[2019-08-16] MEDS: DIPHENHYDRAMINE HCL 25 MG CAP PO PRN (12:15)
--- NOTE | 2019-08-16 12:30 | Progress Note ---
DATE: 08/16/2019 Nephrology Followup Note SUBJECTIVE: The patient complains of nausea post surgery for placement of peritoneal dialysis catheter earlier today. Denies shortness of breath. Was dialyzed yesterday with some terminal feeling of weakness. OBJECTIVE: GENERAL: He is alert and oriented. VITAL SIGNS: Stable. Blood pressure 144/71, pulse 66 per minute, afebrile. Oxygen saturation 97% on nasal cannula oxygen. NECK: Supple without jugular venous distention. RESPIRATORY: Bilateral symmetrical air movement. No respiratory distress. CARDIOVASCULAR: S1, S2. ABDOMEN: Soft with a new Tenckhoff catheter in place. EXTREMITIES: Without pitting edema or cyanosis. NEUROLOGICAL: Alert and oriented x3. LABORATORY DATA: Noted from yesterday. Hemoglobin is 7.5. IMPRESSION: 1. End-stage kidney disease, started on hemodialysis through a right IJ tunneled dialysis catheter. Tolerating so far. Now status post PD catheter placement. The patient can be discharged home once the outpatient chair at [facility] is confirmed. Otherwise, next dialysis here tomorrow. 2. Anemia, secondary to chronic kidney disease. Receiving IV iron and Epogen. Transfuse if hemoglobin drops to 7 or below. 3. Hypertension, controlled on current medications. Regino Vega MD [facility]/MODL /[id number]
[2019-08-16] MEDS ORDERED: AMLODIPINE BESYLATE 5 MG TAB PO SCH (14:00)
[2019-08-16] MEDS ORDERED: NORVASC5 MG PO (14:02)
--- NOTE | 2019-08-16 14:07 | NUR ---
RECEIVED LETTER FOR DIALYSIS CHAIR M, W AND F AT 3PM AT [facility].
[2019-08-16] MEDS: IRON SUCROSE 100 MG in SODIUM CHLORIDE 0.9% 100 ML 100 ML IV SCH (14:41)
[2019-08-16] MEDS ORDERED: LIDOCAINE HCL 2% LOCAL INJ 5 ML SDV VIAL INJ ONE (19:39)
[2019-08-16] MEDS ORDERED: SEVOFLURANE INHAL SOLN 250 ML PEN BTL ONE (19:39)
[2019-08-16] MEDS ORDERED: SUCCINYLCHOLINE CHLORIDE 20 MG/ML 10ML VIAL ONE (19:39)
[2019-08-16] MEDS ORDERED: LIDOCAINE HCL 2% JELLY 5 ML TUBE ONE (19:39)
[2019-08-16] MEDS ORDERED: PROPOFOL IV EMULSION 10 MG/ML 20 ML VIAL ONE (19:39)
--- NOTE | 2019-08-16 20:22 | Discharge Summary ---
PRIMARY CARE PHYSICIAN: Sharon Campbell. FINAL DISCHARGE DIAGNOSES: 1. End-stage renal disease, on dialysis. 2. Hypertension. 3. Diabetes type 2. 4. Chronic diastolic congestive heart failure secondary to uncontrolled hypertension. 5. Bilateral lower extremity swelling and discoloration. 6. Anemia of chronic diseases. 7. Thrombocytopenia. 8. Hypocalcemia. 9. Vision impairment. CONSULTANTS: 1. Dr. Daly with Nephrology. 2. Dr. Turner with surgical team. PROCEDURES: Tunnel catheter was placed per IR for hemodialysis and PD catheter was placed by Dr. Turner. HISTORY: Per HPI. HOSPITAL COURSE: This is a 49-year-old male with past medical history of hypertension, diabetes type 2, chronic diastolic congestive heart failure secondary to uncontrolled hypertension, anemia of chronic diseases and end-stage renal disease, was admitted due to abnormal labs. Tunneled catheter was placed and was started on hemodialysis per his manager orange. Outpatient dialysis chair time was setup and PD catheter placed by Dr. Turner today. He remains stable, vital signs stable, afebrile, we will discharge home to follow up with his PCP and manager orange tomorrow per appointment. PHYSICAL EXAMINATION: VITAL SIGNS: Temperature 97.4, pulse is 75, respirations 20, blood pressure 105/55, pulse ox is 95% on room air. GENERAL: No acute distress. HEENT: Normocephalic, atraumatic. Vision impairment. NECK: Supple. CARDIOVASCULAR: Regular rate and rhythm. LUNGS: Clear to auscultation. ABDOMEN: Soft and nontender. NEUROLOGIC: Alert, awake, and oriented x3. MUSCULOSKELETAL: Moves all extremities. SKIN: Dry with lower extremity discoloration and dry. Generalized rash. CONDITION AT DISCHARGE: Improved and stable. DISCHARGE MEDICATIONS: Please see medication reconciliation list. FOLLOWUP: Follow up with PCP and manager orange tomorrow per appointment. TIME SPENT: Total discharge time is 33 minutes. Dictated by BUCKY Mackey Latisha Walters MD MY/MODL /[id number] Pt seen and examined. Agree with the findings and plan as documented by BUCKY Toth. MTDD
== END 2019-08-16 17:10 | disposition home or self-care (01) | DRG 291 ==
LOC: ER 11:41 → ERHOLD 11:55 → MED/SURG2 16:53
PROVIDERS: ADMIT Internal Medicine; ATTEND Internal Medicine
PROC: 5A1D70Z Performance of Urinary Filtration, Intermittent, Less than 6 Hours Per Day (ICD-10-PCS; principal; 2019-08-10)
PROC: 0JH63XZ Insertion of Tunneled Vascular Access Device into Chest Subcutaneous Tissue and Fascia, Percutaneous Approach (ICD-10-PCS; 2019-08-16)
PROC: 02HV33Z Insertion of Infusion Device into Superior Vena Cava, Percutaneous Approach (ICD-10-PCS; 2019-08-16)
DX: I13.2 Hypertensive heart and chronic kidney disease with heart failure and with stage 5 chronic kidney disease, or end stage renal disease (principal); N18.6 End stage renal disease; I50.32 Chronic diastolic (congestive) heart failure; N25.81 Secondary hyperparathyroidism of renal origin; E11.22 Type 2 diabetes mellitus with diabetic chronic kidney disease; E11.65 Type 2 diabetes mellitus with hyperglycemia; Z99.2 Dependence on renal dialysis; Z79.4 Long term (current) use of insulin; D69.6 Thrombocytopenia, unspecified; H54.7 Unspecified visual loss; D63.1 Anemia in chronic kidney disease; E11.21 Type 2 diabetes mellitus with diabetic nephropathy; L29.9 Pruritus, unspecified
CPT/HCPCS: 36415; 36558; 71045; 74470; 76937; 77001; 80048; 80053; 80061; 81001; 82306; 82550; 82553; 82948; 83036; 83540; 83735; 83880; 83970; 84100; 84466; 84484; 85025; 85610; 85730; 86704; 86705; 86706; 87086; 87340; 87635; 93005; 93306; 93970; 99152; 99153; 99284; C1769; C1892; J0330; J1644; J1756; J1817; J2001; J2250; J2270; J3010; J7030; J7040; Q0162